=== PATIENT | female | born 1955 | race Caucasian/White ===

== ENCOUNTER 2016-09-11 15:19 | Emergency (ER) | payer MEDICAID, OTHER ==
[~2016-09-11] VITALS: Ht 157.5 cm; Wt 68.0 kg
[~2016-09-11 15:19] MED LIST: ALBU0.0912 IH; ALBU0.0939 IH; LOVA40TA PO; METO25TA PO; SPIR50TA PO
[2016-09-11 15:27] VITALS: BP 154/98
[2016-09-11] MEDS ORDERED: ALBUTEROL 0.083% 2.5 MG/3 ML NEBU INH ONE ×2 (15:35→16:30)
[2016-09-11] MEDS ORDERED: IPRATROPIUM 0.02% 0.5 MG/2.5 ML NEBU INH ONE ×2 (15:35→16:30)
--- NOTE | 2016-09-11 16:23 | NUR ---
PATIENT TO ER BED 6.
--- NOTE | 2016-09-11 16:24 | NUR ---
Patient being evaluated by physician at bedside.
--- NOTE | 2016-09-11 16:43 | NUR ---
61/F TO ED WITH C/O SOB X3 DAYS WITH COUGH. PAIN 6/10 IN CHEST S/P COUGHING. LUNGS CLEAR BILAT. HR EVEN AND REGULAR. AAOX4. VSS. NO SIGNS OF DISTRESS.
[2016-09-11 16:59] LABS: ANION GAP 13.7 (8-16); CALCIUM 8.7 mg/dL (8.5-10.1); CARBON DIOXIDE 25.7 mmol/L (21-32); POTASSIUM 3.4 mmol/L (3.5-5.1)
[2016-09-11] MEDS ORDERED: POTASSIUM CHLORIDE 10 MEQ TABER PO ONE (17:05)
[2016-09-11 17:53] VITALS: BP 149/91
--- NOTE | 2016-09-11 17:53 | NUR ---
Patient discharged with v/s stable. Written and verbal after care instructions given and explained. Patient alert, oriented and verbalized understanding of instructions. Ambulatory with steady gait. All questions addressed prior to discharge. ID band removed. Patient advised to follow up with PMD. Rx of ADVAIR AND ALBUTEROL given. Patient educated on indication of medication including possible reaction and side effects. Opportunity to ask questions provided and answered.
== END 2016-09-11 17:53 | disposition home or self-care (01) ==
LOC: MED 15:19
DX: J45.901 Unspecified asthma with (acute) exacerbation (principal); I10 Essential (primary) hypertension; J44.9 Chronic obstructive pulmonary disease, unspecified; E11.9 Type 2 diabetes mellitus without complications; K21.9 Gastro-esophageal reflux disease without esophagitis; F17.200 Nicotine dependence, unspecified, uncomplicated; Z71.6 Tobacco abuse counseling
CPT/HCPCS: 36415; 71010; 80048; 94640; 99285; J7613; J7644

== ENCOUNTER 2017-03-02 13:56 | Emergency (ER) | payer OTHER ==
[~2017-03-02] VITALS: Ht 157.5 cm; Wt 68.0 kg
[2017-03-02 14:15] VITALS: BP 118/83
[2017-03-02] MEDS ORDERED: ALBUTEROL SULFATE/IPRATROPIU 3 ML SOL IH ONE ×2 (14:20→15:45)
--- NOTE | 2017-03-02 14:50 | NUR ---
Patient ambulated to bed 5. RN evaluating patient at bedside.
--- NOTE | 2017-03-02 15:00 | NUR ---
PATIENT PRESENTS TO ED WITH C/O SOB X 4 DAYS WITH BACK PAIN AND CP 7/10 HX; ASTHMA, COPD, HTN RX; ALBUTROL, ATROVENT, QVAR, METOPROLOL 50MG, SPIRONOLACTONE 25MG; DENIES N/V/D; SKIN IS PINK/WARM/DRY; AAOX4 WITH EVEN AND STEADY GAIT; LUNGS CLEAR BL; HR EVEN AND REGULAR; PT DENIES ANY FEVER, CP, SOB, OR COUGH AT THIS TIME; PATIENT STATES PAIN OF 7/10 AT THIS TIME; VSS; PATIENT POSITIONED FOR COMFORT; HOB ELEVATED; BEDRAILS UP X2; BED DOWN. ER MD MADE AWARE OF PT STATUS.
[2017-03-02] MEDS ORDERED: predniSONE 20 MG TAB PO ONE (16:00)
[2017-03-02] MEDS ORDERED: ALBUTEROL 0.083% 2.5 MG/3 ML NEBU INH ONE (16:00)
--- NOTE | 2017-03-02 17:06 | NUR ---
AAO PT NO C/O ACUTE DISTRESS, BREATHING BETTER PER PT, RECIEVED MN TX X3, DENISE, WILL CONTINUE TO MONITOR
[2017-03-02 17:29] VITALS: BP 120/78
--- NOTE | 2017-03-02 17:29 | NUR ---
Patient discharged with v/s stable. Written and verbal after care instructions given and explained. Patient alert, oriented and verbalized understanding of instructions. Ambulatory with steady gait. All questions addressed prior to discharge. ID band removed. Patient advised to follow up with PMD. Rx of ATIVAN, NORCO, MEDROL DOSEPAK given. Patient educated on indication of medication including possible reaction and side effects. Opportunity to ask questions provided and answered.
== END 2017-03-02 17:29 | disposition home or self-care (01) ==
LOC: MED 13:56
DX: J44.1 Chronic obstructive pulmonary disease with (acute) exacerbation (principal); M54.5 Low back pain; F41.9 Anxiety disorder, unspecified; E11.9 Type 2 diabetes mellitus without complications; K21.9 Gastro-esophageal reflux disease without esophagitis; I10 Essential (primary) hypertension
CPT/HCPCS: 94640; 99285; J7512; J7613; J7620

== ENCOUNTER 2017-03-04 06:40 | Inpatient (IN) | payer OTHER ==
[~2017-03-04] VITALS: Ht 157.5 cm; Wt 68.1 kg
[2017-03-04 06:50] VITALS: BP 145/98
--- NOTE | 2017-03-04 06:55 | NUR ---
TO ER BED 7
--- NOTE | 2017-03-04 07:00 | NUR ---
61 Y/O F W/C/O DOUBLE VISION X THIS MORNING AND WHEEZES X LAST THRUSDAY. O2 SAT 94 % RA, BILATERAL WHEEZES AND LABORED BREATHING NOTED. ER MD CALLED AT BEDSIDE.
[2017-03-04] MEDS ORDERED: MAG SULF 2000 MG/WATER PREMIX 50 ML IV ONE (07:05)
[2017-03-04] MEDS ORDERED: ALBUTEROL SULFATE/IPRATROPIU 3 ML SOL IH ONE ×2 (07:05→08:00)
[2017-03-04] MEDS ORDERED: NACL 0.9% 1,000 ML IV ONE (07:05)
[2017-03-04] MEDS ORDERED: methylPREDNISolone SS 125 MG in WATER STERILE 2 ML IV ONE (07:05)
--- NOTE | 2017-03-04 07:15 | NUR ---
Pt report given to ENRIQUE MCKEON. Transfer of care at this time.
[2017-03-04 07:21] LABS: BASOPHILS # (AUTO) 0.1 K/uL (0.00-0.22); BASOPHILS % (AUTO) 1.1 % (0.0-2.0); EOSINOPHILS # (AUTO) 0.2 K/uL (0-0.4); EOSINOPHILS % (AUTO) 1.3 % (0.0-4.0); HEMOGLOBIN 14.6 g/dL (12.0-16.0); LYMPHOCYTES # (AUTO) 1.1 K/uL (2.5-16.5); LYMPHOCYTES % (AUTO) 8.5 % (20.5-51.1); MEAN CORPUSCULAR HEMOGLOBIN 30 pg (27-31); MEAN CORPUSCULAR HGB CONC 34 g/dL (33-37); MEAN CORPUSCULAR VOLUME 89 fL (80-94); MONOCYTES # (AUTO) 0.7 K/uL (0.8-1.0); MONOCYTES % (AUTO) 5.3 % (1.7-9.3); NEUTROPHILS # (AUTO) 10.3 K/uL (1.8-7.7); NEUTROPHILS % (AUTO) 83.8 % (42.2-75.2); PLATELET COUNT (AUTO) 248 K/uL (140-450); RED BLOOD CELL COUNT(AUTO) 4.85 MIL/uL (4.20-5.40); RED CELL DISTRIBUTION WIDTH 13.9 % (11.6-13.7); WHITE BLOOD COUNT (AUTO) 12.4 K/uL (4.8-10.8)
[2017-03-04 07:26] LABS: ANION GAP 17.5 (8-16); CARBON DIOXIDE 21.6 mmol/L (21-32); CREATININE 0.9 mg/dL (0.6-1.3); POTASSIUM 4.1 mmol/L (3.5-5.1)
[2017-03-04 07:29] LABS: PROTHROMBIN TIME 10.4 secs (10.8-13.4)
--- NOTE | 2017-03-04 07:33 | NUR ---
RT AT BEDSIDE.
[2017-03-04 07:39] LABS: ALBUMIN 4.1 g/dL (3.4-5.0); TOTAL BILIRUBIN 0.4 mg/dL (0.0-1.0)
--- NOTE | 2017-03-04 07:48 | NUR ---
PT RESTING ON BED;VERBALIZES SLIGHT RELIEF FROM SOB;NO ACCESSORY MUSCLES USE IN BREATHING ;NO FLARING OF ALANASI.
--- NOTE | 2017-03-04 07:55 | NUR ---
DR BRUNSON AT BEDSIDE.
--- NOTE | 2017-03-04 08:41 | NUR ---
ADMITTING DR. IBARRA AT BEDSIDE.
--- NOTE | 2017-03-04 08:48 | NUR ---
Patient will be admitted to care of DR IBARRA. Admited to TELE. Will go to room 107 B. Belongings list completed. Report to JONATHAN NUNEZ.
--- NOTE | 2017-03-04 08:50 | NUR ---
RECEIVED REPORT FROM ED NURSE
--- NOTE | 2017-03-04 09:05 | NUR ---
PATIENT ARRIVED TO [facility] VIA WHEELCHAIR. PT IS STABLE AT THIS TIME. ALERT AND ORIENTED X4, WHEEZING UPON AUSCULTATION, NO SIGNS AND SYMPTOMS OF ACUTE RESPIRATORY DISTRESS AT THIS TIME. BOWEL SOUNDS ACTIVE IN ALL 4 QUADRANTS. SKIN IS INTACT, IV IN LEFT WRIST 22G, C/D/I, NO SIGNS OF INFILTRATION. SALINE LOCK AT THIS TIME. PT DENIES ANY PAIN. PATIENT ABLE TO AMBULATE. ORIENTED PATIENT TO ROOM, CALL LIGHT WITHIN REACH, BED LOCKED AND IN LOWEST POSITION, BEDRAILS UP X2.
[2017-03-04 09:15] VITALS: BP 140/78
[2017-03-04] MEDS ORDERED: SPIRONOLACTONE 25 MG TAB PO SCH (09:24)
[2017-03-04 09:35] LABS: CREATINE KINASE MB 6.6 ng/mL (0-3.6)
[2017-03-04 09:56] LABS: MAGNESIUM 2.2 mg/dL (1.8-2.4); PHOSPHORUS 3.5 mg/dL (2.5-4.9)
[2017-03-04 12:00] VITALS: BP 114/78
--- NOTE | 2017-03-04 12:00 | NUR ---
PAGED DR. IBARRA REGARDING ORDER FOR A DIET . AWAITING FOR CALL BACK.
--- NOTE | 2017-03-04 12:11 | NUR ---
PT REFUSED ALDACTONE PO, STATED SHE ALREADY TOOK HER DAILY DOSE OF THIS MEDICINE TODAY AT HOME.
[2017-03-04] MEDS: AZITHROMYCIN 500 MG in DEXTROSE 5% 250 ML IV SCH (12:12)
[2017-03-04] MEDS ORDERED: PNEUMOCOCCAL VACCINE 23 MCG/0.5 ML VIAL IMVAC SCH (15:00)
--- NOTE | 2017-03-04 15:50 | NUR ---
PAGED DR IBARRA REGARDING DIET ORDERS, AND VTE PROPHYLAXIS.
[2017-03-04 16:00] VITALS: BP 121/84
--- NOTE | 2017-03-04 16:30 | NUR ---
PAGED DR IBARRA REGARDING PT DIET, VTE, AND BREATHING TREATMENT ORDERS.
--- NOTE | 2017-03-04 17:00 | NUR ---
PAGED DR. IBARRA AGAIN FOR ORDERS. (DIET, BREATHING TREATMENTS). AWAITING FOR CALL BACK.
--- NOTE | 2017-03-04 17:01 | NUR ---
SPOKE WITH DR IBARRA REGARDING PT, HE ORDERED LOW SODIUM DIET, LOVENOX, AND A BREATHING TREATMENT.
[2017-03-04] MEDS ORDERED: ALBUTEROL 0.083% 2.5 MG/3 ML NEBU INH STA (17:26)
[2017-03-04] MEDS: BUDESONIDE 0.25 MG/2 ML NEBU INH SCH (17:54)
[2017-03-04] MEDS: METOPROLOL 25 MG TAB PO SCH (18:15)
--- NOTE | 2017-03-04 18:17 | NUR ---
PT ASKED FOR A SLEEPING PILL FOR TONIGHT. DR. STACEY NUÑEZ, DR. JON ANGIOGRAPHER. AWAITING FOR CALL BACK.
[2017-03-04] MEDS ORDERED: ZOLPIDEM 10 MG TAB PO PRN (18:20)
--- NOTE | 2017-03-04 19:01 | NUR ---
SPOKE WITH DR. JON OVER THE PHONE REGARDING PT'S INQUIRY ON HER PREDNISONE IF SHE NEEDS TO CONTINUE IT HERE IN THE HOSPITAL. DR. JON STATED "NO". WILL LET PT KNOW.
--- NOTE | 2017-03-04 19:15 | NUR ---
ENDORSED TO GAME SHOW HOST RN FOR CONTINUITY OF CARE.
[2017-03-04] MEDS ORDERED: ALBUTEROL 0.083% 2.5 MG/3 ML NEBU INH SCH (19:30)
--- NOTE | 2017-03-04 19:30 | NUR ---
RECEIVED REPORT FROM AM NURSE. PT FAMILY AT BEDSIDE. PT RESTING IN BED, AOX4, AMBULATES INDEPENDENTLY. PT ON O2 2L NC, SPO2 96%, RR 20 UNLABORED. PT REPORTS FEELING SHORTNESS OF BREATH. PT HAS RECEIVED BREATHING TREATMENT 2HOURS AGO. WILL NOTIFY MD. PT C/O PAIN. SEE PAIN ASSESSMENT. WILL ADMINISTER PAIN MED ORDERED. PT DENIES CHEST PAIN. EAP COUNSELOR IN PLACE. IV ACCESS ASYMPTOMATIC, PATENT AND INTACT. IVF INFUSING WELL. DISCUSSED AND REVIEWED PLAN OF CARE WITH PT. PT VERBALIZED UNDERSTANDING. ALL NEEDS MET. SAFETY MEASURES ENSURED. CALL LIGHT WITHIN REACH. WILL CONTINUE TO MONITOR.
[2017-03-04 20:00] VITALS: BP 123/82
--- NOTE | 2017-03-04 20:04 | NUR ---
SPOKE WITH ENRIQUE MIMS TO GET A Q6PRN ALBUTEROL ORDER SINCE PATIENT IS AN ASTHMATIC
[2017-03-04] MEDS: LORazepam 1 MG TAB PO PRN (20:14)
[2017-03-04] MEDS: HYDROcodone/APAP 10/325 MG 1 TAB TAB PO PRN (20:14)
--- NOTE | 2017-03-04 20:27 | NUR ---
CALLED DR JON, LINE SERVICER FOR DR IBARRA, MADE AWARE THAT PT REPORTS FEELING SHORT OF BREATH, SPO2 96% AT 2L O2 NC, RR 20, AND THAT RT RECOMMENDS THE PT BEING ON ALBUTEROL INH Q6H, INSTEAD OF BID AND HAVING A ALBUTEROL INH PRN FOR SHORTNESS OF BREATH. ORDERS RECEIVED FOR ALBUTEROL 2.5MG INH Q6H AND ALBUTEROL 2.5MG INH Q6H PRN FOR SHORTNESS OF BREATH. PT REFUSED LIPITOR PO DESPITE EDUCATION. PT C/O PAIN. SEE PAIN ASSESSMENT. ADMINISTERED NORCO PO PRN ORDERED. PT C/O ANXIETY, ADMINISTERED ATIVAN PO PRN ORDERED. PT AMBULATORY, ABLE TO AMBULATE WITH STEADY GAIT TO RESTROOM. PT BACK IN BED, O2 2L NC ENSURED. ALL NEEDS MET. SAFETY MEASURES ENSURED. CALL LIGHT WITHIN REACH. WILL CONTINUE TO MONITOR.
[2017-03-04] MEDS: ALBUTEROL 0.083% 2.5 MG/3 ML NEBU INH PRN (20:56)
[2017-03-04] MEDS ORDERED: ATORVASTATIN 20 MG TAB PO SCH (21:00)
--- NOTE | 2017-03-04 23:56 | NUR ---
PT SLEEPING COMFORTABLY. SPO2 96% AT O2 2L NC, RR 20 UNLABORED. NO S/S OF ACUTE DISTRESS. ALL NEEDS MET. SAFETY MEASURES ENSURED. CALL LIGHT WITHIN REACH. WILL CONTINUE TO MONITOR.
[2017-03-04] MEDS: ALBUTEROL 0.083% 2.5 MG/3 ML NEBU INH SCH (23:57)
[2017-03-05] VITALS: BP 106/67
[2017-03-05 04:00] VITALS: BP 111/74
--- NOTE | 2017-03-05 04:00 | NUR ---
PT C/O FEELING SOB. SPO2 99% AT O2 2L NC, RR 20 UNLABORED. WILL NOTIFY RT.
[2017-03-05] MEDS: ALBUTEROL 0.083% 2.5 MG/3 ML NEBU INH PRN (04:42)
[2017-03-05] MEDS: LORazepam 1 MG TAB PO PRN (04:56)
[2017-03-05] MEDS: HYDROcodone/APAP 10/325 MG 1 TAB TAB PO PRN ×2 (04:57→11:00)
--- NOTE | 2017-03-05 04:58 | NUR ---
PT C/O PAIN. SEE PAIN ASSESSMENT. ADMINISTERED NORCO PO PRN ORDERED WITH EDUCATION. PT C/O ANXIETY, ADMINISTERED ATIVAN PO PRN ORDERED WITH EDUCATION. ALL NEEDS MET. SAFETY MEASURES ENSURED. CALL LIGHT WITHIN REACH. WILL CONTINUE TO MONITOR.
[2017-03-05 06:21] LABS: BASOPHILS # (AUTO) 0.1 K/uL (0.00-0.22); BASOPHILS % (AUTO) 1.4 % (0.0-2.0); EOSINOPHILS # (AUTO) 0.1 K/uL (0-0.4); EOSINOPHILS % (AUTO) 0.7 % (0.0-4.0); HEMATOCRIT 41.9 % (36-48); HEMOGLOBIN 13.7 g/dL (12.0-16.0); LYMPHOCYTES # (AUTO) 1.7 K/uL (2.5-16.5); LYMPHOCYTES % (AUTO) 15.6 % (20.5-51.1); MEAN CORPUSCULAR HEMOGLOBIN 30 pg (27-31); MEAN CORPUSCULAR HGB CONC 33 g/dL (33-37); MEAN CORPUSCULAR VOLUME 90 fL (80-94); MONOCYTES # (AUTO) 0.6 K/uL (0.8-1.0); NEUTROPHILS # (AUTO) 8.2 K/uL (1.8-7.7); NEUTROPHILS % (AUTO) 76.3 % (42.2-75.2); PLATELET COUNT (AUTO) 229 K/uL (140-450); RED BLOOD CELL COUNT(AUTO) 4.64 MIL/uL (4.20-5.40); RED CELL DISTRIBUTION WIDTH 14.3 % (11.6-13.7); WHITE BLOOD COUNT (AUTO) 10.7 K/uL (4.8-10.8)
[2017-03-05] MEDS: ALBUTEROL 0.083% 2.5 MG/3 ML NEBU INH SCH ×2 (07:08→12:50)
[2017-03-05] MEDS: BUDESONIDE 0.25 MG/2 ML NEBU INH SCH (07:08)
--- NOTE | 2017-03-05 07:08 | NUR ---
AWAKE AND ALERT RESPONSIVE TO APPEALS ANALYST VERBAL COMMANDS OFF SUPPLEMENTAL OXYGEN AT THIS TIME PATIENT C/O NASAL DRYNESS POST HHN THERAPY PLACED PATIENT BACK ON SUPPLEMENTAL OXYGEN AT 2 LPM VIA NC ADDED HUMIDIFIER
--- NOTE | 2017-03-05 07:15 | NUR ---
ENDORSED PLAN OF CARE TO AM NURSE. CONDITION STABLE.
--- NOTE | 2017-03-05 07:20 | NUR ---
RECEIVED REPORT FROM HEEL SANDER NURSE, PT IS SITTING IN BED RECEIVING BREATHING TX AT THIS TIME, PT IS AMBULATORY, IV IS ON THE LT WRIST, PATENT, INTACT, FLUSHING WELL, SKIN IS INTACT, NO S/S OF RESPIRATORY DISTRESS OR DISCOMFORT NOTED, DISCUSSED PLAN OF CARE WITH PT, PT VERBALIZED UNDERSTANDING, SAFETY/FALL PRECAUTIONS ARE IN PLACE, CALL LIGHT WITHIN REACH, WILL CONTINUE TO MONITOR.
[2017-03-05 08:00] VITALS: BP 121/75
[2017-03-05] MEDS ORDERED: FUROSEMIDE 40 MG/4 ML VIAL IVP SCH (08:30)
[2017-03-05] MEDS ORDERED: methylPREDNISolone SS 40 MG/ML VIAL IVP SCH (08:30)
[2017-03-05] MEDS ORDERED: AZIT500T4 PO (08:31)
[2017-03-05] MEDS ORDERED: PRED20TA6 PO (08:31)
--- NOTE | 2017-03-05 08:37 | NUR ---
PATIENT HAS BEEN SCREENED AND CATEGORIZED MODERATE NUTRITION RISK. PATIENT WILL BE SEEN WITHIN 3-5 DAYS OF ADMISSION. 03/06/17-03/08/[address]
[2017-03-05] MEDS ORDERED: ATRMDI IH (08:39)
[2017-03-05] MEDS: METOPROLOL 25 MG TAB PO SCH (08:40)
--- NOTE | 2017-03-05 08:41 | NUR ---
PATIENT'S DUE MEDICATIONS GIVEN, PT TOLERATED WELL, CALL LIGHT IS WITHIN REACH, WILL CONTINUE TO MONITOR.
[2017-03-05] MEDS ORDERED: SPIRONOLACTONE 25 MG TAB PO SCH (09:00)
[2017-03-05] MEDS ORDERED: ENOXAPARIN 30 MG/0.3 ML SYR SUBQ SCH (09:00)
[2017-03-05] MEDS: AZITHROMYCIN 500 MG in DEXTROSE 5% 250 ML IV SCH (11:01)
--- NOTE | 2017-03-05 11:01 | NUR ---
CM NOTE INITIAL REVIEW FAXED TO [facility] [phone] COVERING FOR TODAY IS NEREIDA MEDEROS PH# [phone]
--- NOTE | 2017-03-05 11:16 | NUR ---
PATIENT'S IV ON THE LEFT WRIST LEAKING, PATIENT REFUSED RE INSERTION OF NEW IV, I EXPLAINED TO PATIENT REASON'S WHY SHE NEEDED A NEW IV, PT STILL REFUSED RE INSERTION.
[2017-03-05 12:00] VITALS: BP 108/70
--- NOTE | 2017-03-05 12:10 | NUR ---
AWAKE AND ALERT NO PULMONARY DISTRESS NOTED PATIENT WITH LUNCH TRAY AT THIS TIME BRICK OFFBEARER TO ATTEMPT HHN THERAPY AT A LATER TIME
--- NOTE | 2017-03-05 12:50 | NUR ---
OFF SUPPLEMENTAL OXYGEN POST AMBULATION TO BATHROOM POST HHN THERAPY PLACED BACK ON HUMIDIFIED SUPPLEMENTAL OXYGEN AT 2 LPM VIA NC
--- NOTE | 2017-03-05 13:15 | NUR ---
PAGED DR. IBARRA TO LET HIM KNOW PATIENT HAD STATED SHE WAS READY TO GO HOME NOW.
--- NOTE | 2017-03-05 13:30 | NUR ---
PER DR. IBARRA PATIENT IS OKAY TO BE DISCHARGED HOME AT THIS TIME.
--- NOTE | 2017-03-05 13:50 | NUR ---
DISCHARGE INSTRUCTIONS GIVEN, ID WRIST BAND REMOVED. PT STABLE UPON DISCHARGE.
== END 2017-03-05 13:50 | disposition home or self-care (01) | DRG 140 ==
LOC: MED 06:40 → MTU 08:58
PROVIDERS: ADMIT Hospitalist; ATTEND Hospitalist
DX: J44.0 Chronic obstructive pulmonary disease with (acute) lower respiratory infection (principal); J18.9 Pneumonia, unspecified organism; J45.901 Unspecified asthma with (acute) exacerbation; I10 Essential (primary) hypertension; D72.829 Elevated white blood cell count, unspecified; F17.210 Nicotine dependence, cigarettes, uncomplicated; J44.9 Chronic obstructive pulmonary disease, unspecified; Z91.018 Allergy to other foods; Z91.013 Allergy to seafood; Z79.899 Other long term (current) drug therapy
CPT/HCPCS: 36415; 71010; 80053; 82550; 82553; 83605; 83735; 84100; 84484; 85025; 85610; 85730; 87040; 87081; 87086; 90732; 93005; 94640; 96365; 96366; 96375; 99285; J0456; J1650; J1940; J2920; J2930; J3475; J7030; J7060; J7613; J7620; J7626; Q0092

== ENCOUNTER 2017-03-07 12:17 | Emergency (ER) | payer OTHER ==
[~2017-03-07] VITALS: Ht 154.9 cm; Wt 66.8 kg
[~2017-03-07 12:17] MED LIST changes: +ATRMDI IH; +AZIT500T4 PO; +PRED20TA6 PO
[2017-03-07 12:30] VITALS: BP 131/93
--- NOTE | 2017-03-07 12:42 | NUR ---
AMBULATED TO ER BED 6
--- NOTE | 2017-03-07 12:45 | NUR ---
61/F PRESENT TO ER C/O ASTHMA EXACERBATION, WHEEZING. PT STATES SHE WAS SEEN IN OUR ER 03/02 AND 03/04/17 SAME COMPLAINT. DENIES PAIN AT THIS TIME. AAOx4, PERRLA. PT STATES SHE HAS HX--ASTHMA, COPD, HTN. ERMD NOTIFIED OF PATIENT STATUS.
--- NOTE | 2017-03-07 12:47 | NUR ---
Patient being evaluated by physician at bedside.
[2017-03-07] MEDS ORDERED: MAG SULF 2000 MG/WATER PREMIX 50 ML IV ONE (12:50)
[2017-03-07] MEDS ORDERED: ALBUTEROL SULFATE/IPRATROPIU 3 ML SOL IH ONE ×4 (12:50→15:30)
[2017-03-07] MEDS ORDERED: methylPREDNISolone SS 125 MG/2 ML VIAL IVP ONE (12:50)
--- NOTE | 2017-03-07 12:50 | NUR ---
RESPIRATORY AT BEDSIDE.
--- NOTE | 2017-03-07 13:20 | NUR ---
PATIENT AMBULATED TO RESTROOM TO VOID.
[2017-03-07] MEDS ORDERED: cefTRIAXone 1,000 MG VIAL ONE (14:08)
--- NOTE | 2017-03-07 14:20 | NUR ---
PT RESTING. PATIENT STATES PAIN OF 0/10 AT THIS TIME; VSS; PATIENT POSITIONED FOR COMFORT; HOB ELEVATED; BEDRAILS UP X2; BED DOWN. ER MD MADE AWARE OF PT STATUS.
--- NOTE | 2017-03-07 15:18 | NUR ---
PT RESTING. FAMILY AT BEDSIDE. PATIENT STATES PAIN OF 0/10 AT THIS TIME; VSS; PATIENT POSITIONED FOR COMFORT; HOB ELEVATED; BEDRAILS UP X2; BED DOWN. ER MD MADE AWARE OF PT STATUS.
--- NOTE | 2017-03-07 15:35 | NUR ---
RESPIRATORY AT BEDSIDE.
--- NOTE | 2017-03-07 16:02 | NUR ---
Patient discharged with v/s stable. Written and verbal after care instructions given and explained. Patient alert, oriented and verbalized understanding of instructions. Ambulatory with steady gait. All questions addressed prior to discharge. ID band removed. Patient advised to follow up with PMD. Rx of KEFLEX 500MG CAPS, MEDROL DOSE COURTNEY 4MG AND VENTOLIN HFA 90MCG/ACTUATION given. Patient educated on indication of medication including possible reaction and side effects. Opportunity to ask questions provided and answered.
[2017-03-07 16:03] VITALS: BP 138/92
== END 2017-03-07 16:03 | disposition home or self-care (01) ==
LOC: MED 12:17
DX: J45.901 Unspecified asthma with (acute) exacerbation (principal); I10 Essential (primary) hypertension; Z79.899 Other long term (current) drug therapy
CPT/HCPCS: 36600; 71010; 82803; 93005; 94640; 96365; 96366; 96368; 96375; 99285; J0696; J2930; J3475; J7060; J7620; Q0092

== ENCOUNTER 2017-03-09 11:20 | Inpatient (IN) | payer OTHER ==
[~2017-03-09] VITALS: Ht 157.5 cm; Wt 67.6 kg
[2017-03-09 11:28] VITALS: BP 149/99
--- NOTE | 2017-03-09 11:28 | NUR ---
Patient ambulated to bed 07.
--- NOTE | 2017-03-09 11:34 | NUR ---
Dr. Medrano evaluating patient at bedside.
--- NOTE | 2017-03-09 11:35 | NUR ---
61 F BIB SELF W/C/O SOB/WHEEZING; PT STATES SHE WAS HOSPITALIZED 03/04/17 FOR SAME S/SX, BUT SHE HAS NOT GOTTEN ANY BETTER; SOB STARTED APPROX 1 WK AGO AND PROGRESSIVELY GETTING WORSE; PT SPEAKING IN SHORT PHRASES; RR ARE TACHYPENIC AND LABORED; PT'S PULSE OX=95% ON RA; DENIES N/V/D; SKIN IS PINK/WARM/DRY; AAOX4 WITH EVEN AND STEADY GAIT; LUNGS WHEEZING BL; STATES PAIN OF "SHARP" 7/10 "RIB PAIN" THAT IS NON RADIATING AT THIS TIME; VSS; PATIENT POSITIONED FOR COMFORT; HOB ELEVATED; BEDRAILS UP X2; BED DOWN. ER MD MADE AWARE OF PT STATUS.
[2017-03-09] MEDS ORDERED: MAG SULF 2000 MG/WATER PREMIX 50 ML IV ONE (11:40)
[2017-03-09] MEDS ORDERED: ALBUTEROL SULFATE/IPRATROPIU 3 ML SOL IH ONE (11:40)
--- NOTE | 2017-03-09 11:50 | NUR ---
Respiratory Therapist at bedside for respiratory intervention.
--- NOTE | 2017-03-09 11:54 | NUR ---
CONTINOUS NEB ORDERED BY . PROCEDURE EXPLAINED TO PT, PT STATES UNDERSTANDING.
--- NOTE | 2017-03-09 12:07 | NUR ---
XRAY at bedside.
[2017-03-09 12:16] LABS: BASOPHILS # (AUTO) 0.2 K/uL (0.00-0.22); BASOPHILS % (AUTO) 1.3 % (0.0-2.0); EOSINOPHILS # (AUTO) 0.2 K/uL (0-0.4); EOSINOPHILS % (AUTO) 1.2 % (0.0-4.0); HEMATOCRIT 48.2 % (36-48); HEMOGLOBIN 15.8 g/dL (12.0-16.0); LYMPHOCYTES % (AUTO) 5.5 % (20.5-51.1); MEAN CORPUSCULAR HEMOGLOBIN 29 pg (27-31); MEAN CORPUSCULAR HGB CONC 33 g/dL (33-37); MEAN CORPUSCULAR VOLUME 89 fL (80-94); MONOCYTES # (AUTO) 1.5 K/uL (0.8-1.0); MONOCYTES % (AUTO) 8.5 % (1.7-9.3); NEUTROPHILS # (AUTO) 14.7 K/uL (1.8-7.7); NEUTROPHILS % (AUTO) 83.5 % (42.2-75.2); PLATELET COUNT (AUTO) 338 K/uL (140-450); RED BLOOD CELL COUNT(AUTO) 5.44 MIL/uL (4.20-5.40)
[2017-03-09 12:23] LABS: WHITE BLOOD COUNT (AUTO) 17.6 K/uL (4.8-10.8)
[2017-03-09] MEDS ORDERED: VANCOMYCIN 1GM/DEXT 5% PREMIX 200 ML IV ONE (12:30)
[2017-03-09] MEDS ORDERED: VANCOMYCIN PER PHARMACY MC PRN (12:30)
[2017-03-09] MEDS ORDERED: PIPERACILLIN/TAZOBACTAM 4.5 GM in DEXTROSE 5% 100 ML IV ONE (12:30)
[2017-03-09 12:31] LABS: ANION GAP 13.1 (8-16); CARBON DIOXIDE 24.2 mmol/L (21-32); CREATININE 1.1 mg/dL (0.6-1.3); POTASSIUM 4.3 mmol/L (3.5-5.1)
[2017-03-09 12:33] LABS: ALBUMIN 3.9 g/dL (3.4-5.0); TOTAL BILIRUBIN 0.4 mg/dL (0.0-1.0)
[2017-03-09] MEDS ORDERED: NACL 0.9% 500 ML IV ONE (12:35)
[2017-03-09] MEDS ORDERED: PIPERACILLIN/TAZOBACTAM 2.25 GM VIAL IV ONE (12:51)
[2017-03-09] MEDS ORDERED: KETOROLAC 30 MG/ML VIAL IVP ONE (13:05)
[2017-03-09] MEDS: IPRATROPIUM 0.02% 0.5 MG/2.5 ML NEBU INH SCH ×2 (13:41→19:12)
--- NOTE | 2017-03-09 14:03 | NUR ---
Patient will be admitted to care of [facility]. Admited to Tele. Will go to room 108A. Belongings list completed. Report to Alexa NUNEZ.
--- NOTE | 2017-03-09 14:20 | NUR ---
RECEIVED PT ON UNIT VIA [employer]ce[employer]UMIKO, PT IS A/OX4, AMBULATORY, IV IS ON THE RT FOREARM, PATENT, INTACT, FLUSHING WELL, SKIN IS INTACT, PT IS ON O2 2L NC, NO S/S OF RESPIRATORY DISTRESS OR DISCOMFORT NOTED, ORIENTED PT TO ROOM, DISCUSSED PLAN OF CARE WITH PT, PT VERBALIZED UNDERSTANDING, SAFETY/FALL PRECAUTIONS ARE IN PLACE, CALL LIGHT IS WITHIN REACH, WILL CONTINUE TO MONITOR.
[2017-03-09 16:00] VITALS: BP 112/72
--- NOTE | 2017-03-09 16:20 | NUR ---
AWAKE AND ALERT RECEIVED ON SUPPLEMENTAL OXYGEN AT 2 LPM VIA NC PATIENT C/O OF NASAL DRYNESS ADDED HUMIDIFIER PATIENT ASSESSMENT DONE SATURATIOR 98% HR 66 RR 20 NO SOB NOTED BREATH SOUNDS DIFFUSED INSP/EXP WHEEZE BILATERAL PATIENT REFUSING HHN PRN THERAPY AT THIS TIME "I'M FINE" PATIENT OPTED FOR SCHEDULED TX AT 1900 CRA OFFICER EDUCATED PATIENT ON HHN PRN THERAPY CALL LIGHT WITHIN REACH
--- NOTE | 2017-03-09 18:29 | NUR ---
PT RESTING IN BED, NO S/S OF RESPIRATORY DISTRESS OR DISCOMFORT NOTED, CALL LIGHT WITHIN REACH.
--- NOTE | 2017-03-09 19:15 | NUR ---
ENDORSED PT TO COMMERCIAL LITIGATION PARALEGAL NURSE FOR CONTINUITY OF CARE, PT STABLE AT THIS TIME.
--- NOTE | 2017-03-09 19:16 | NUR ---
RECEIVED REPORT FROM AM NURSE. PT IS AOX4, ABLE TO MAKE NEEDS KNOWN. NO COMPLAINTS OF PAIN. NO S/S OF DISTRESS. IS ASKING FOR BREATHING TREATMENT, INFORMED RT. WITH AN IV ON THE RIGHT FOREARM, INTACT AND PATENT. SKIN INTACT. WITH AN O2 VIA NC AT 2 L. REORIENTED PT TO THE UNIT, VERBALIZED UNDERSTANDING. WILL CONTINUE TO MONITOR. ALL NEEDS ATTENDED. CALL LIGHT WITHIN REACH. SAFETY CHECKS IN PLACE.
[2017-03-09 20:00] VITALS: BP 111/71
--- NOTE | 2017-03-09 20:00 | NUR ---
PAGED DR. CARLOS, AWAITING CALL BACK
--- NOTE | 2017-03-09 20:05 | NUR ---
RECEIVED CALL BACK FROM DR. CARLOS. ASKED IF THE PT CAN HAVE ANOTHER ORDER FOR A DIFFERENT BREATHING TREATMENT SINCE PT IS ONLY RECEIVING ATROVENT Q6H, ORDERED FOR DUBNEB EVERY 4 HOURS AND PRN ORDERED. NOTED AND CARRIED OUT.
--- NOTE | 2017-03-09 22:30 | NUR ---
MADE ROUNDS. PATIENT ASLEEP. NO S/S OF DISTRESS. WILL CONTINUE TO MONITOR FOR ANY CHANGES.
--- NOTE | 2017-03-09 22:45 | NUR ---
PT COMPLAINED OF SHORTNESS OF BREATH AND WANTED HER BREATHING TREATMENT, CALLED RT.
[2017-03-09] MEDS: ALBUTEROL SULFATE/IPRATROPIU 3 ML SOL IH SCH (23:08)
[2017-03-10] VITALS: BP 111/76
--- NOTE | 2017-03-10 | NUR ---
VITAL SIGNS STABLE. NO S/S OF DISTRESS. NO COMPLAINTS OF PAIN. WILL CONTINUE TO MONITOR. ALL NEEDS ATTENDED. CALL LIGHT WITHIN REACH SAFETY CHECKS IN PLACE.
[2017-03-10] MEDS: IPRATROPIUM 0.02% 0.5 MG/2.5 ML NEBU INH SCH ×3 (01:00→12:39)
--- NOTE | 2017-03-10 02:15 | NUR ---
MADE ROUNDS. PT ASLEEP. NO S/S OF DISTRESS. NO COMPLAINTS OF PAIN. WILL CONTINUE TO MONITOR FOR ANY CHANGES.
[2017-03-10] MEDS: ALBUTEROL SULFATE/IPRATROPIU 3 ML SOL IH SCH ×6 (03:11→22:40)
[2017-03-10 04:00] VITALS: BP 123/77
--- NOTE | 2017-03-10 04:00 | NUR ---
VITALS STABLE. NO S/S OF DISTRESS. NO COMPLAINTS OF PAIN. WILL CONTINUE TO MONITOR FOR ANY CHANGES.
[2017-03-10 06:20] LABS: BASOPHILS # (AUTO) 0.5 K/uL (0.00-0.22); BASOPHILS % (AUTO) 4.7 % (0.0-2.0); EOSINOPHILS # (AUTO) 0.2 K/uL (0-0.4); EOSINOPHILS % (AUTO) 1.7 % (0.0-4.0); HEMATOCRIT 42.1 % (36-48); HEMOGLOBIN 13.9 g/dL (12.0-16.0); LYMPHOCYTES # (AUTO) 2.9 K/uL (2.5-16.5); LYMPHOCYTES % (AUTO) 27.2 % (20.5-51.1); MEAN CORPUSCULAR HEMOGLOBIN 30 pg (27-31); MEAN CORPUSCULAR HGB CONC 33 g/dL (33-37); MEAN CORPUSCULAR VOLUME 89 fL (80-94); MONOCYTES # (AUTO) 0.6 K/uL (0.8-1.0); MONOCYTES % (AUTO) 5.5 % (1.7-9.3); NEUTROPHILS # (AUTO) 6.4 K/uL (1.8-7.7); NEUTROPHILS % (AUTO) 60.9 % (42.2-75.2); PLATELET COUNT (AUTO) 235 K/uL (140-450); RED BLOOD CELL COUNT(AUTO) 4.72 MIL/uL (4.20-5.40); RED CELL DISTRIBUTION WIDTH 14.2 % (11.6-13.7); WHITE BLOOD COUNT (AUTO) 10.6 K/uL (4.8-10.8)
[2017-03-10 06:25] LABS: ANION GAP 10.9 (8-16); CARBON DIOXIDE 26.5 mmol/L (21-32); POTASSIUM 4.4 mmol/L (3.5-5.1)
--- NOTE | 2017-03-10 06:43 | NUR ---
PT COMPLAINED OF SHORTNESS OF BREATH, PAGED RT.
--- NOTE | 2017-03-10 07:10 | NUR ---
ENDORSED TO MORNING SHIFT FOR CONTINUITY OF CARE, IN STABLE CONDITION. RECEIVING BREATHING TREATMENT AT THIS TIME.
--- NOTE | 2017-03-10 07:11 | NUR ---
RECEIVED REPORT FROM PM NURSE FOR CONTINUITY OF CARE. PT AAOX4. RESP EVEN AND UNLABORED. PT ON 2L O2 NC. NO S/S OF DISTRESS OR SOB. RT AT BEDSIDE. DENIES PAIN OR ANY FURTHER NEEDS. SKIN IS INTACT, WARM AND DRY. IV ON RT FA, INTACT, NO SWELLING OR REDNESS NOTED. DISCUSSED PLAN OF CARE WITH PT, VERBALIZED UNDERSTANDING. SAFETY MEASURES IN PLACED. SIDE RAILS UP, BED LOCKED ON LOW POSITION, CALL LIGHT WITHIN REACH. WILL CONTINUE TO MONITOR. Addendum: 03/10/17 at 0820 by Henry Sierra RN DISREGARD NOTE ABOVE. WRONG PT.
--- NOTE | 2017-03-10 07:11 | NUR ---
RECEIVED REPORT FROM PM NURSE FOR CONTINUITY OF CARE. PT AAOX4. RESP EVEN AND UNLABORED. PT ON 2L O2 NC. WHEEZING NOTED ON BILAT LUNGS. RT AT BEDSIDE. NO S/S OF DISTRESS OR SOB. DENIES PAIN OR ANY FURTHER NEEDS. SKIN IS INTACT, WARM AND DRY. IV ON RT FA, INTACT, NO SWELLING OR REDNESS NOTED. DISCUSSED PLAN OF CARE WITH PT, VERBALIZED UNDERSTANDING. SAFETY MEASURES IN PLACED. SIDE RAILS UP, BED LOCKED ON LOW POSITION, CALL LIGHT WITHIN REACH. WILL CONTINUE TO MONITOR.
[2017-03-10 08:00] VITALS: BP 109/74
--- NOTE | 2017-03-10 08:37 | NUR ---
MD MADE AWARE OF PT'S VTE SCORE AND HOME MEDS. MD TO SEE PT.
--- NOTE | 2017-03-10 09:12 | NUR ---
PATIENT HAS BEEN SCREENED AND CATEGORIZED MODERATE NUTRITION RISK. PATIENT WILL BE SEEN WITHIN 3-5 DAYS OF ADMISSION. 03/12/17-03/14/[address]
[2017-03-10] MEDS ORDERED: ACETYLCYSTEINE 10% (100 MG/ML) 100 MG/ML VIAL INH SCH (10:23)
[2017-03-10] MEDS ORDERED: methylPREDNISolone SS 40 MG/ML VIAL IVP SCH (10:25)
[2017-03-10] MEDS ORDERED: MONTELUKAST SODIUM 10 MG TAB PO SCH (10:26)
--- NOTE | 2017-03-10 10:30 | NUR ---
PT SITTING IN BED WATCHING TV. RESP EVEN AND UNLABORED. PT ON 2L O2 NC. NO S/S OF DISTRESS, SOB, OR RESTLESSNESS. PT DENIES PAIN OR DISCOMFORT. SAFETY MEASURES IN PLACED. WILL CONTINUE TO MONITOR.
[2017-03-10] MEDS ORDERED: ENOXAPARIN 30 MG/0.3 ML SYR SUBQ SCH (10:43)
[2017-03-10] MEDS: PIPER/TAZO 3.375GM/D5W PREMIX 50 ML IV SCH ×2 (11:31→17:09)
[2017-03-10 12:00] VITALS: BP 125/75
--- NOTE | 2017-03-10 12:05 | NUR ---
PT C/O PAIN, SHE STATED SHE HAS PAIN "ALL OVER". NOTIFIED MD. AWAITING FOR CALL BACK.
--- NOTE | 2017-03-10 12:24 | NUR ---
SPOKE TO DR IBARRA, T[place]akita TYLENOL 650MG FOR MODERATE PAIN, AND ABG STAT. RT NOTIFIED.
--- NOTE | 2017-03-10 12:37 | NUR ---
PT C/O SOB. RESP EVEN AND UNLABORED. NO S/S OF DISTRESS OR RESTLESSNESS. O2 SAT 95% ON O2 2L NC. RT NOTIFIED. WILL CONTINUE TO MONITOR.
--- NOTE | 2017-03-10 12:38 | NUR ---
RT AT BEDSIDE.
[2017-03-10] MEDS: ALBUTEROL SULFATE/IPRATROPIU 3 ML SOL IH PRN (12:40)
[2017-03-10] MEDS: ACETAMINOPHEN 325 MG TAB PO PRN (12:55)
--- NOTE | 2017-03-10 13:15 | NUR ---
NOTIFIED DR IBARRA REGARDING PT'S ABG RESULT. ATROVENT CANCELED PER DR. IBARRA.
--- NOTE | 2017-03-10 13:57 | NUR ---
MADE ROUNDS. PT RESTING IN BED COMFORTABLY. RESP EVEN AND UNLABORED. NO S/S OF DISTRESS, SOB, OR RESTLESSNESS. DENIES ANY FURTHER NEEDS. SAFETY MEASURES IN PLACED. WILL CONTINUE TO MONITOR.
--- NOTE | 2017-03-10 15:21 | NUR ---
CM NOTE INITIAL REVIEW FAXED TO [facility] [phone], [place] [phone]
[2017-03-10 16:00] VITALS: BP 112/72
--- NOTE | 2017-03-10 16:01 | NUR ---
PT RESTING QUIETLY. NO S/S OF SOB, DISTRESS, OR RESTLESSNESS. DENIES PAIN, DISCOMFORT, OR FURTHER NEEDS AT THIS TIME. SAFETY MEASURES IN PLACED. WILL CONTINUE TO MONITOR.
--- NOTE | 2017-03-10 17:58 | NUR ---
PT RT FA IV INFILTRATED. DC'ED IV, CATH TIP INTACT. NO BLEEDING NOTED. RESTARTED NEW IV ON RT WRIST 20G, IV PATENT, NO SWOLLEN OR REDNESS NOTED.
--- NOTE | 2017-03-10 18:30 | NUR ---
PT IN BED, WATCHING TV. RESP EVEN AND UNLABORED. DENIES SOB, DISCOMFORT, OR ANY FURTHER NEEDS AT THIS TIME. NO S/S OF DISTRESS. SAFETY MEASURES IN PLACED. WILL CONTINUE TO MONITOR.
[2017-03-10] MEDS: ACETYLCYSTEINE 10% (100 MG/ML) 100 MG/ML VIAL INH SCH (18:45)
--- NOTE | 2017-03-10 18:45 | NUR ---
MUCOMYST NOT GIVEN. IT IS NOT AVAILABLE IN PIXES OR PT'S MEDICATION BOX. DUONEB HHN GIVEN
--- NOTE | 2017-03-10 19:27 | NUR ---
ENDORSED CARE TO PM NURSE FOR CONTINUITY OF CARE. PT IS IN STABLE CONDITION.
--- NOTE | 2017-03-10 19:30 | NUR ---
RECEIVED REPORT FROM AM NURSE. PT RESTING IN BED, SEMIFOWLER'S, AOX4, ABLE TO VERBALIZE NEEDS. PT C/O SLIGHT SOB, BUT FEELS STABLE AT THIS TIME. SPO2 94% AT O2 NC 2L, RR 24. PT C/O SLIGHT CHEST AND EPIGASTRIC PAIN, PT DENIES PAIN MEDS AT THIS TIME. BAG BUILDER IN PLACE. IV ACCESS ASYMPTOMATIC, PATENT AND INTACT, SALINE LOCKED. DISCUSSED AND REVIEWED PLAN OF CARE WITH PT. PT VERBALIZE UNDERSTANDING. ALL NEEDS MET. SAFETY MEASURES ENSURED. CALL LIGHT WITHIN REACH. WILL CONTINUE TO MONITOR.
[2017-03-10 20:00] VITALS: BP 116/81
[2017-03-10] MEDS: methylPREDNISolone SS 40 MG/ML VIAL IVP SCH (20:44)
[2017-03-10] MEDS: METOPROLOL 25 MG TAB PO SCH (20:46)
--- NOTE | 2017-03-10 20:46 | NUR ---
PT REFUSED ZOCOR DESPITE EDUCATION, PT STATED "I DON'T TAKE IT AT HOME, MY CHOLESTEROL IS GOOD." ADMINISTERED REMAINING DUE MEDS WITH EDUCATION. PT VERBALIZED UNDERSTANDING, TOLERATED MEDS WELL. ALL NEEDS MET. SAFETY MEASURES ENSURED. CALL LIGHT WITHIN REACH. WILL CONTINUE TO MONITOR.
[2017-03-10] MEDS: SIMVASTATIN 10 MG TAB PO SCH (21:00)
--- NOTE | 2017-03-10 22:41 | NUR ---
PT REFUSED HHN TX. SHE SAID''I FEEL GOOD I DONT NEED IT'' WILL CONTINUE TO MONITOR.
[2017-03-11] VITALS: BP 120/88
[2017-03-11] MEDS: ALBUTEROL SULFATE/IPRATROPIU 3 ML SOL IH PRN (00:12)
--- NOTE | 2017-03-11 00:17 | NUR ---
GOT CALL FROM ENRIQUE MIMS THAT PT FEELS SOB. GAVE PT PRN HHN TX. WILL CONTINUE TO MONITOR.
[2017-03-11] MEDS: PIPER/TAZO 3.375GM/D5W PREMIX 50 ML IV SCH ×5 (00:38→23:54)
--- NOTE | 2017-03-11 00:46 | NUR ---
ADMINISTERED DUE MED WITH EDUCATION. PT VERBALIZED UNDERSTANDING, IVPB INFUSING WELL. NO S/S OF ACUTE DISTRESS. SPO2 94% AT O2 2L NC, RR 22 UNLABORED. PT DENIES SOB AT THIS TIME. ALL NEEDS MET. SAFETY MEASURES ENSURED. CALL LIGHT WITHIN REACH. WILL CONTINUE TO MONITOR.
[2017-03-11] MEDS: ALBUTEROL SULFATE/IPRATROPIU 3 ML SOL IH SCH ×6 (02:51→23:27)
--- NOTE | 2017-03-11 02:51 | NUR ---
HHN TX NOT GIVEN. PT SAID SHE WANTS TO SLEEP. WILL CONTINUE TO MONITOR.
[2017-03-11 04:00] VITALS: BP 122/81
--- NOTE | 2017-03-11 04:01 | NUR ---
PT SLEEPING COMFORTABLY. O2 2L NC ENSURED. NO S/S OF ACUTE DISTRESS. ALL NEEDS MET. SAFETY MEASURES ENSURED. CALL LIGHT WITHIN REACH. WILL CONTINUE TO MONITOR.
[2017-03-11] MEDS: ENOXAPARIN 30 MG/0.3 ML SYR SUBQ SCH (05:49)
--- NOTE | 2017-03-11 05:49 | NUR ---
ADMINISTERED DUE MEDS WITH EDUCATION. PT VERBALIZED UNDERSTANDING, TOLERATED MEDS WELL. IVPB INFUSING WELL. ALL NEEDS MET. SAFETY MEASURES ENSURED. CALL LIGHT WITHIN REACH. WILL CONTINUE TO MONITOR.
[2017-03-11 06:56] LABS: BASOPHILS # (AUTO) 0.1 K/uL (0.00-0.22); BASOPHILS % (AUTO) 1.1 % (0.0-2.0); EOSINOPHILS # (AUTO) 0.2 K/uL (0-0.4); EOSINOPHILS % (AUTO) 1.3 % (0.0-4.0); HEMATOCRIT 44.5 % (36-48); HEMOGLOBIN 14.9 g/dL (12.0-16.0); LYMPHOCYTES # (AUTO) 0.8 K/uL (2.5-16.5); LYMPHOCYTES % (AUTO) 5.9 % (20.5-51.1); MEAN CORPUSCULAR HEMOGLOBIN 30 pg (27-31); MEAN CORPUSCULAR HGB CONC 33 g/dL (33-37); MEAN CORPUSCULAR VOLUME 89 fL (80-94); MONOCYTES # (AUTO) 0.2 K/uL (0.8-1.0); MONOCYTES % (AUTO) 1.7 % (1.7-9.3); NEUTROPHILS # (AUTO) 11.6 K/uL (1.8-7.7); PLATELET COUNT (AUTO) 266 K/uL (140-450); RED BLOOD CELL COUNT(AUTO) 5.03 MIL/uL (4.20-5.40); RED CELL DISTRIBUTION WIDTH 14.1 % (11.6-13.7)
[2017-03-11 07:08] LABS: ALBUMIN 3.5 g/dL (3.4-5.0); ANION GAP 13.8 (8-16); CARBON DIOXIDE 25.4 mmol/L (21-32); CREATININE 0.9 mg/dL (0.6-1.3); POTASSIUM 4.2 mmol/L (3.5-5.1); TOTAL BILIRUBIN 0.6 mg/dL (0.0-1.0)
--- NOTE | 2017-03-11 07:15 | NUR ---
ENDORSED PLAN OF CARE TO AM NURSE. CONDITION STABLE.
--- NOTE | 2017-03-11 07:16 | NUR ---
RECEIVED REPORT FORM PM NURSE FOR CONTINUITY OF CARE. PT AAO. RT AT BEDSIDE. INITIAL ASSESSMENT DONE. RESP EVEN AND UNLABORED. IV ON RT WRIST 20G, INTACT, NO REDNESS OR SWELLING NOTED. SKIN IS WARM AND DRY. PT DENIES SOB, OD DISCOMFORT AT THIS TIME. PLAN OF CARE DISCUSSED WITH PT, VERBALIZED UNDERSTANDING. SAFETY MEASURES IN PLACED. CALL LIGHT WITHIN REACH, BED LOCKED ON LOW POSITION. WILL CONTINUE TO MONITOR.
[2017-03-11] MEDS: ACETYLCYSTEINE 10% (100 MG/ML) 100 MG/ML VIAL INH SCH ×2 (07:30→18:43)
[2017-03-11 07:34] LABS: WHITE BLOOD COUNT (AUTO) 12.9 K/uL (4.8-10.8)
[2017-03-11 08:00] VITALS: BP 126/76
--- NOTE | 2017-03-11 08:03 | NUR ---
PT C/O 01/06 PAIN, STATED PAIN IS "EVERYWHERE". OFFERED TYLENOL PER MD ORDER, PT REFUSED PAIN MEDS. WILL CONTINUE TO MONITOR.
[2017-03-11] MEDS: METOPROLOL 25 MG TAB PO SCH ×2 (09:00→22:00)
[2017-03-11] MEDS: SPIRONOLACTONE 25 MG TAB PO SCH (09:00)
[2017-03-11] MEDS ORDERED: LOVASTATIN 20 MG PO SCH (09:00)
[2017-03-11] MEDS: MONTELUKAST SODIUM 10 MG TAB PO SCH (09:00)
--- NOTE | 2017-03-11 09:00 | NUR ---
PT RESTING QUIETLY. RESP EVEN AND UNLABORED, ON 2L O2 NC. NO SIGNS OF ACUTE DISTRESS. SAFETY MEASURES IN PLACED. WILL CONTINUE TO MONITOR.
[2017-03-11] MEDS: methylPREDNISolone SS 40 MG/ML VIAL IVP SCH ×2 (09:01→21:59)
--- NOTE | 2017-03-11 11:03 | NUR ---
MADE ROUNDS. PT SITTING WATCHING TV. RESP EVEN AND UNLABORED. NO SIGNS OF ACUTE DISTRESS. DENIES ANY FURTHER NEEDS AT THIS TIME. WILL CONTINUE TO MONITOR.
[2017-03-11 12:00] VITALS: BP 122/83
[2017-03-11] MEDS: ACETAMINOPHEN 325 MG TAB PO PRN (12:30)
--- NOTE | 2017-03-11 13:23 | NUR ---
PT RESTING QUIETLY. NO SIGNS OF ACUTE DISTRESS. RESP EVEN AND UNLABORED. SAFETY MEASURES IN PLACED. WILL CONTINUE TO MONITOR.
--- NOTE | 2017-03-11 14:29 | NUR ---
CM NOTE CONCURRENT REVIEW FAXED TO [facility] [phone], [place] [phone]
--- NOTE | 2017-03-11 15:16 | NUR ---
PT SITTING, READING BOOK. RESP EVEN AND UNLABORED. NO SIGNS OF ACUTE DISTRESS. DENIES PAIN OR DISCOMFORT. SAFETY MEASURES IN PLACED. WILL CONTINUE TO MONITOR.
[2017-03-11 16:00] VITALS: BP 120/76
[2017-03-11] MEDS ORDERED: BUDESONIDE 0.5 MG/2 ML NEBU INH SCH (16:15)
--- NOTE | 2017-03-11 17:30 | NUR ---
PT READING BOOK. RESP EVEN AND UNLABORED. NO SIGNS OF ACUTE DISTRESS. DENIES PAIN OR DISCOMFORT. SAFETY MEASURES IN PLACED. WILL CONTINUE TO MONITOR.
--- NOTE | 2017-03-11 19:22 | NUR ---
ENDORSED CARE TO PM NURSE FOR CONTINUITY OF CARE. PT IN STABLE CONDITION.
--- NOTE | 2017-03-11 19:30 | NUR ---
RECEIVED REPORT FROM AM NURSE. PT RESTING IN BED, SEMIFOWLER'S, AOX4, ABLE TO VERBALIZE NEEDS. PT STATED SHE FEELS FINE, DENIES PAIN OR SOB AT THIS TIME, NO S/S OF ACUTE DISTRESS. SPO2 95% AT O2 NC 2L, RR 22 UNLABORED. ENTRY LEVEL ELECTRICAL ENGINEER IN PLACE. IV ACCESS ASYMPTOMATIC, PATENT AND INTACT, SALINE LOCKED. DISCUSSED AND REVIEWED PLAN OF CARE WITH PT. PT VERBALIZE UNDERSTANDING. ALL NEEDS MET. SAFETY MEASURES ENSURED. CALL LIGHT WITHIN REACH. WILL CONTINUE TO MONITOR.
[2017-03-11 20:00] VITALS: BP 124/79
[2017-03-11] MEDS: SIMVASTATIN 10 MG TAB PO SCH (21:00)
--- NOTE | 2017-03-11 21:59 | NUR ---
PT REFUSED ZOCOR DESPITE EDUCATION, PT STATED "I HAVE NO PROBLEMS WITH MY CHOLESTEROL, I DON'T TAKE IT AT HOME." ADMINISTERED REMAINING DUE MEDS WITH EDUCATION. PT VERBALIZED UNDERSTANDING, TOLERATED MEDS WELL. ALL NEEDS MET. SAFETY MEASURES ENSURED. CALL LIGHT WITHIN REACH. WILL CONTINUE TO MONITOR.
[2017-03-11] MEDS: BUDESONIDE 0.5 MG/2 ML NEBU INH SCH (23:29)
--- NOTE | 2017-03-11 23:54 | NUR ---
PT RESTING IN BED, DENIES SOB, NO S/S OF ACUTE DISTRESS. SPO2 94% AT O2 2L NC, RR 20 UNLABORED. ADMINISTERED DUE MED ORDERED. IVPB INFUSING WELL. ALL NEEDS MET. SAFETY MEASURES ENSURED. CALL LIGHT WITHIN REACH. WILL CONTINUE TO MONITOR.
[2017-03-12] VITALS: BP 121/80
[2017-03-12] MEDS: ALBUTEROL SULFATE/IPRATROPIU 3 ML SOL IH SCH ×4 (03:18→15:18)
[2017-03-12 04:00] VITALS: BP 120/81
--- NOTE | 2017-03-12 04:02 | NUR ---
PT SLEEPING COMFORTABLY, SPO2 95% AT O2 2L NC, RR 20 UNLABORED, NO S/S OF ACUTE DISTRESS. ALL NEEDS MET. SAFETY MEASURES ENSURED. CALL LIGHT WITHIN REACH. WILL CONTINUE TO MONITOR.
[2017-03-12] MEDS: PIPER/TAZO 3.375GM/D5W PREMIX 50 ML IV SCH ×2 (05:21→11:08)
[2017-03-12] MEDS: ENOXAPARIN 30 MG/0.3 ML SYR SUBQ SCH (05:23)
--- NOTE | 2017-03-12 05:27 | NUR ---
ADMINISTERED DUE MEDS WITH EDUCATION. PT VERBALIZED UNDERSTANDING, TOLERATED WELL. ALL NEEDS MET. IVPB INFUSING WELL. SAFETY MEASURES ENSURED. CALL LIGHT WITHIN REACH. WILL CONTINUE TO MONITOR.
--- NOTE | 2017-03-12 07:15 | NUR ---
ENDORSED PLAN OF CARE TO AM NURSE. CONDITION STABLE.
--- NOTE | 2017-03-12 07:17 | NUR ---
RECEIVED PATIENT REPORT AT BEDSIDE FROM NIGHT NURSE. PATIENT IS AAOX4 AND SHOWS NO S/S OF ACUTE DISTRESS ON O2 @ 2L NC. PATIENT SKIN IS INTACT. ON TELE MONITOR. IV NOTED ON THE RW SL PATENT, ASYMPTOMATIC, AND INTACT. PATIENT DENIES PAIN. PATIENT WAS EDUCATED ON HER POC FOR TODAY AND VERBALIZED UNDERSTANDING. THE BED IS LOWERED WITH CALL LIGHT WITHIN REACH. PATIENT IS NOW AMB WITH A STEADY GAIT TO USE THE RR. WILL CONTINUE TO MONITOR.
[2017-03-12] MEDS: ACETYLCYSTEINE 10% (100 MG/ML) 100 MG/ML VIAL INH SCH (07:32)
[2017-03-12] MEDS: BUDESONIDE 0.5 MG/2 ML NEBU INH SCH (07:33)
[2017-03-12 07:47] VITALS: BP 123/71
[2017-03-12] MEDS: SPIRONOLACTONE 25 MG TAB PO SCH (08:52)
[2017-03-12] MEDS: METOPROLOL 25 MG TAB PO SCH (08:52)
[2017-03-12] MEDS: MONTELUKAST SODIUM 10 MG TAB PO SCH (08:52)
[2017-03-12] MEDS: methylPREDNISolone SS 40 MG/ML VIAL IVP SCH (08:53)
--- NOTE | 2017-03-12 09:00 | NUR ---
ADMINISTERED SCHEDULED MEDICATIONS. PATIENT TOLERATED ACTIVITY WELL. THE BED IS LOWERED WITH CALL LIGHT WITHIN REACH. ALL PATIENT'S NEED MEET AT THIS TIME. WILL CONTINUE TO MONITOR.
--- NOTE | 2017-03-12 11:08 | NUR ---
ADMINISTERED SCHEDULED MEDICATIONS. PATIENT IV ABX IS INFUSING WELL. PATIENT DENIES PAIN AND SOB. BED IS IN LOW POSITION WITH CALL LIGHT WITHIN REACH.
[2017-03-12 11:49] VITALS: BP 119/80
--- NOTE | 2017-03-12 12:30 | NUR ---
PATIENT AMB TO RESTROOM AND VOIDED AND IS NOW SITTING AT THE SIDE OF THE BED EATING LUNCH AND TOLERATING DIET WELL. PATIENT DENIES PAIN AND SOB.
--- NOTE | 2017-03-12 14:02 | NUR ---
CM NOTE CONCURRENT REVIEW FAXED TO [facility] [phone], JOSELIN [phone]
--- NOTE | 2017-03-12 14:15 | NUR ---
PATIENT IS SITTING IN BED COMFORTABLY AND SHOWS NO S/S OF ACUTE DISTRESS ON O2 @ 2L NC. PATIENT DENIES PAIN. BED IS LOWERED WITH CALL LIGHT WITHIN REACH.
--- NOTE | 2017-03-12 15:15 | NUR ---
DR IBARRA ARRIVED ONTO UNIT AND OKAYED PATIENT TO BE DISCHARGED.
[2017-03-12 16:00] VITALS: BP 150/91
[2017-03-12] MEDS: ALBUTEROL SULFATE/IPRATROPIU 3 ML SOL IH PRN (17:16)
[2017-03-12] MEDS ORDERED: BUDE1AER2 IH (17:19)
[2017-03-12] MEDS ORDERED: MONT10TA35 PO (17:20)
[2017-03-12] MEDS ORDERED: PRON INH (17:22)
[2017-03-12] MEDS ORDERED: [UNRECOGNIZED DRUG - CODE] PO (17:23)
[2017-03-12] MEDS ORDERED: PRED10TA6 PO (17:23)
[2017-03-12] MEDS ORDERED: PRED20TA6 PO (17:23)
[2017-03-12] MEDS ORDERED: [UNRECOGNIZED DRUG - CODE] PO (17:25)
[2017-03-12] MEDS ORDERED: AZIT500T1 PO (17:25)
--- NOTE | 2017-03-12 17:45 | NUR ---
PATIENT RECEIVED LAST BREATHING TX. PATIENT HAS BEEN DISCHARGED. ALL DISCHARGE INSTRUCTIONS AND PRESCRIPTIONS WERE GIVEN. ALL PAPERWORK SIGNED, ALL QUESTIONS ANSWERED. PATIENT VERBALIZED UNDERSTANDING OF CONTINUITY OF CARE. WRISTBANDS AND TELE MONITOR WERE REMOVED, OFFERED PATIENT WHEELCHAIR AND PATIENT REFUSED. PATIENT AMB OUT OF UNIT WITH STEADY GAIT WITH MAILE DELEON PRESENT AT SIDE. PATIENT DENIES PAIN AND SOB, AND IS AAOX4. PATIENT LEFT UNIT IN STABLE CONDITION.
== END 2017-03-12 17:45 | disposition home or self-care (01) | DRG 720 ==
LOC: MED 11:20 → MTU 12:55
PROVIDERS: ADMIT Hospitalist; ATTEND Hospitalist
DX: A41.9 Sepsis, unspecified organism (principal); J80 Acute respiratory distress syndrome; J44.0 Chronic obstructive pulmonary disease with (acute) lower respiratory infection; J18.9 Pneumonia, unspecified organism; J45.31 Mild persistent asthma with (acute) exacerbation; I10 Essential (primary) hypertension; F17.210 Nicotine dependence, cigarettes, uncomplicated
CPT/HCPCS: 36415; 36600; 71010; 80048; 80053; 82803; 83605; 85025; 87040; 87081; 93005; 94640; 94644; 96365; 96367; 96375; 99285; J1650; J1885; J2543; J2920; J3370; J3475; J7030; J7060; J7620; J7626; J7644; Q0092

== ENCOUNTER 2017-08-31 10:11 | Emergency (ER) | payer OTHER ==
[~2017-08-31] VITALS: Ht 157.5 cm; Wt 65.8 kg
[~2017-08-31 10:11] MED LIST changes: -ALBU0.0939 IH; +AZIT500T1 PO; -AZIT500T4 PO; +BUDE1AER2 IH; +MONT10TA35 PO; +PRED10TA6 PO; +PRON INH; +[UNRECOGNIZED DRUG - CODE] PO; +[UNRECOGNIZED DRUG - CODE] PO
[2017-08-31 10:15] VITALS: BP 138/94
--- NOTE | 2017-08-31 10:23 | NUR ---
PT AMBULATED TO [facility]
[2017-08-31] MEDS ORDERED: predniSONE 20 MG TAB PO ONE (10:50)
[2017-08-31] MEDS ORDERED: IPRATROPIUM 0.02% 0.5 MG/2.5 ML NEBU INH ONE (10:50)
[2017-08-31] MEDS ORDERED: ALBUTEROL 0.083% 2.5 MG/3 ML NEBU INH ONE (10:50)
--- NOTE | 2017-08-31 11:03 | NUR ---
PATIENT PRESENTS TO ED WITH sob cough . PT STATES . DENIES N/V/D; SKIN IS PINK/WARM/DRY; AAOX4 WITH EVEN AND STEADY GAIT; LUNGS diminshed with rhonchi and wheezing auscultated to mid /lower lobes HR EVEN AND REGULAR; PT DENIES ANY FEVER, CP, PATIENT STATES PAIN OF 0/10 AT THIS TIME; VSS; PATIENT POSITIONED FOR COMFORT; ER MD MADE AWARE OF PT STATUS.
--- NOTE | 2017-08-31 11:05 | NUR ---
currently receiving breathing treatment--pt sitting upright no reading a book
--- NOTE | 2017-08-31 12:06 | NUR ---
MD speaking with pt
--- NOTE | 2017-08-31 12:07 | NUR ---
DR. DAS EVALUATING PT AT BEDSIDE
--- NOTE | 2017-08-31 12:20 | NUR ---
dc home ordereded but no dc paperwork, aware
[2017-08-31 13:00] VITALS: BP 117/80
--- NOTE | 2017-08-31 13:00 | NUR ---
Patient discharged with v/s stable. Written and verbal after care instructions given and explained. Patient alert, oriented and verbalized understanding of instructions. Ambulatory with steady gait. All questions addressed prior to discharge. ID band removed. Patient advised to follow up with PMD. Rx of XANAX,PREDNISONE,ATROVENT given. Patient educated on indication of medication including possible reaction and side effects. Opportunity to ask questions provided and answered.
== END 2017-08-31 13:00 | disposition home or self-care (01) ==
LOC: MED 10:11
DX: J45.909 Unspecified asthma, uncomplicated (principal); J44.9 Chronic obstructive pulmonary disease, unspecified
CPT/HCPCS: 94640; 99283; J7512; J7613; J7644

== ENCOUNTER 2017-10-15 15:26 | Emergency (ER) | payer OTHER ==
[~2017-10-15] VITALS: Ht 157.5 cm; Wt 68.0 kg
[2017-10-15 15:32] VITALS: BP 140/90
--- NOTE | 2017-10-15 15:35 | NUR ---
TO LOBBY. A/W BED, VESNA, VSNicole , AZALIA NOTED
--- NOTE | 2017-10-15 16:03 | NUR ---
PT AMBULATED TO [facility]
--- NOTE | 2017-10-15 16:13 | NUR ---
PT MOVED FROM [facility] TO BED 1
--- NOTE | 2017-10-15 16:14 | NUR ---
62/F BIB SELF C/O SOB, COUGH, SORE THROAT, BODY PAIN FOR 4 DAYS. DENIES N/V/D; SKIN IS PINK/WARM/DRY; AAOX4 WITH EVEN AND STEADY GAIT; LUNGS WHEEZING BL. PATIENT STATES PAIN OF 4/10 AT THIS TIME
[2017-10-15] MEDS ORDERED: predniSONE 20 MG TAB PO ONE (16:30)
[2017-10-15] MEDS ORDERED: IPRATROPIUM 0.02% 0.5 MG/2.5 ML NEBU INH ONE (16:30)
[2017-10-15] MEDS ORDERED: ALBUTEROL 0.083% 2.5 MG/3 ML NEBU INH ONE ×2 (16:30→17:30)
--- NOTE | 2017-10-15 17:00 | NUR ---
RT AT BEDSIDE FOR BREATHING TREATMENT.
[2017-10-15 18:26] VITALS: BP 140/90
--- NOTE | 2017-10-15 18:26 | NUR ---
Patient discharged with 141/90, DENIES DAI OR DIZINESS AT THIS TIME, MD MADE AWARE. Written and verbal after care instructions given and explained. Patient alert, oriented and verbalized understanding of instructions. Ambulatory with steady gait. All questions addressed prior to discharge. ID band removed. Patient advised to follow up with PMD. Rx of LEVAQUIN & PREDNISONE given. Patient educated on indication of medication including possible reaction and side effects. Opportunity to ask questions provided and answered.
== END 2017-10-15 18:26 | disposition home or self-care (01) ==
LOC: MED 15:26
DX: J44.1 Chronic obstructive pulmonary disease with (acute) exacerbation (principal); I10 Essential (primary) hypertension; F17.200 Nicotine dependence, unspecified, uncomplicated
CPT/HCPCS: 71046; 94640; 99284; J7512; J7613; J7644

== ENCOUNTER 2017-11-25 15:27 | Emergency (ER) | payer OTHER ==
[~2017-11-25] VITALS: Ht 157.5 cm; Wt 68.0 kg
[2017-11-25 15:34] VITALS: BP 155/105
--- NOTE | 2017-11-25 15:40 | NUR ---
PATIENT TO CHAIR E WITH SOB/COUGH X3 DAYS. LUNG SOUNDS WHEEZ/RALES .ERMD ASSESSING PATIENT. ORDERED BREATHGING TREATMENT.
--- NOTE | 2017-11-25 15:45 | NUR ---
PATIENT TAKEN FOR CXR.
[2017-11-25] MEDS: ALBUTEROL SULFATE/IPRATROPIU 3 ML SOL IH ONE (15:57)
--- NOTE | 2017-11-25 15:57 | NUR ---
RESPIRATORY TX IN PROGRESS
[2017-11-25] MEDS: methylPREDNISolone SS 125 MG/2 ML VIAL IM ONE (16:12)
--- NOTE | 2017-11-25 16:15 | NUR ---
PATIENT FEELING MUCH BETTER, NO RESP. DISTRESS AFTER THE TREATMENT. LUNGS CLEAR /DIMINISHED. AWAITING FOR CXR RESULTS
[2017-11-25 16:40] VITALS: BP 124/91
--- NOTE | 2017-11-25 16:40 | NUR ---
Patient discharged with v/s stable. Written and verbal after care instructions given and explained. Patient alert, oriented and verbalized understanding of instructions. Ambulatory with steady gait. All questions addressed prior to discharge. ID band removed. Patient advised to follow up with PMD. Rx of PREDNISONE,LEVAQUIN given. Patient educated on indication of medication including possible reaction and side effects. Opportunity to ask questions provided and answered.
== END 2017-11-25 16:40 | disposition home or self-care (01) ==
LOC: MED 15:27
DX: J44.1 Chronic obstructive pulmonary disease with (acute) exacerbation (principal); I10 Essential (primary) hypertension; F17.210 Nicotine dependence, cigarettes, uncomplicated
CPT/HCPCS: 71045; 81002; 81025; 94640; 94760; 96372; 99283; J2930; J7620

== ENCOUNTER 2017-11-28 06:38 | Inpatient (IN) | payer OTHER ==
[~2017-11-28] VITALS: Ht 157.5 cm; Wt 68.0 kg
[2017-11-28 06:46] VITALS: BP 168/98
[2017-11-28] MEDS ORDERED: IPRATROPIUM 0.02% 0.5 MG/2.5 ML NEBU INH ONE ×2 (07:05)
[2017-11-28] MEDS ORDERED: AZITHROMYCIN 500 MG in DEXTROSE 5% 250 ML IV ONE (07:05)
[2017-11-28] MEDS ORDERED: cefTRIAXone 1,000 MG in DEXT 5% MINI-BAG PLUS 50 ML IV ONE (07:05)
[2017-11-28] MEDS ORDERED: methylPREDNISolone SS 125 MG/2 ML VIAL IVP ONE (07:05)
[2017-11-28] MEDS ORDERED: ALBUTEROL 0.083% 2.5 MG/3 ML NEBU INH ONE ×3 (07:05→07:22)
[2017-11-28 07:21] LABS: BASOPHILS % (AUTO) 0.2 % (0.0-2.0); HEMATOCRIT 45.5 % (36-48); LYMPHOCYTES # (AUTO) 1.2 K/uL (2.5-16.5); LYMPHOCYTES % (AUTO) 10.1 % (20.5-51.1); MEAN CORPUSCULAR HEMOGLOBIN 30 pg (27-31); MEAN CORPUSCULAR HGB CONC 33 g/dL (33-37); MEAN CORPUSCULAR VOLUME 91.5 fL (80-94); MONOCYTES # (AUTO) 0.6 K/uL (0.8-1.0); MONOCYTES % (AUTO) 4.6 % (1.7-9.3); NEUTROPHILS # (AUTO) 10.2 K/uL (1.8-7.7); NEUTROPHILS % (AUTO) 85.1 % (42.2-75.2); PLATELET COUNT (AUTO) 251 K/uL (140-450); RED BLOOD CELL COUNT(AUTO) 4.97 MIL/uL (4.20-5.40); RED CELL DISTRIBUTION WIDTH 15.4 % (11.6-13.7); WHITE BLOOD COUNT (AUTO) 12.1 K/uL (4.8-10.8)
[2017-11-28 07:33] LABS: ANION GAP 14.4 (8-16); CARBON DIOXIDE 22.4 mmol/L (21-32); CREATININE 0.9 mg/dL (0.6-1.3); POTASSIUM 3.8 mmol/L (3.5-5.1)
[2017-11-28 07:38] LABS: ALBUMIN 3.4 g/dL (3.4-5.0); TOTAL BILIRUBIN 0.2 mg/dL (0.0-1.0)
[2017-11-28] MEDS ORDERED: cefTRIAXone 1,000 MG VIAL ONE (07:57)
[2017-11-28] MEDS ORDERED: ONDANSETRON 4 MG/2 ML VIAL IVP PRN (08:05)
[2017-11-28] MEDS ORDERED: ACETAMINOPHEN 325 MG TAB PO PRN (08:05)
[2017-11-28] MEDS ORDERED: AZITHROMYCIN 500 MG INJ VIAL IV ONE (09:06)
[2017-11-28] MEDS ORDERED: ENOXAPARIN 40 MG/0.4 ML SYR SUBQ SCH (09:24)
[2017-11-28] MEDS ORDERED: LEVOFLOXACIN 500 MG/D5W PREMIX 100 ML IV SCH (10:00)
[2017-11-28] MEDS: ALBUTEROL 0.083% 2.5 MG/3 ML NEBU IH PRN (10:54)
[2017-11-28] MEDS: methylPREDNISolone SS 40 MG/ML VIAL IVP SCH ×2 (11:21→17:20)
[2017-11-28] MEDS ORDERED: methylPREDNISolone SS 40 MG in WATER STERILE 1 ML IM SCH (12:00)
[2017-11-28] MEDS: IPRATROPIUM 0.02% 0.5 MG/2.5 ML NEBU IH SCH ×2 (13:04→19:28)
[2017-11-28] MEDS: ALBUTEROL 0.083% 2.5 MG/3 ML NEBU IH SCH ×2 (13:04→19:28)
[2017-11-28] MEDS: MORPHINE SULFATE 2 MG/ML SYR IVP PRN ×3 (13:17→21:22)
[2017-11-28 16:00] VITALS: BP 126/82
[2017-11-28] MEDS: MONTELUKAST SODIUM 10 MG TAB PO SCH (21:22)
[2017-11-29] VITALS: BP 127/76
[2017-11-29] MEDS: methylPREDNISolone SS 40 MG/ML VIAL IVP SCH ×4 (00:19→17:25)
[2017-11-29] MEDS: IPRATROPIUM 0.02% 0.5 MG/2.5 ML NEBU IH SCH ×4 (01:42→20:26)
[2017-11-29] MEDS: ALBUTEROL 0.083% 2.5 MG/3 ML NEBU IH SCH ×4 (01:44→20:26)
[2017-11-29] MEDS: MORPHINE SULFATE 2 MG/ML SYR IVP PRN ×4 (02:11→17:25)
[2017-11-29 07:50] LABS: BASOPHILS % (AUTO) 0.1 % (0.0-2.0); HEMATOCRIT 43.4 % (36-48); HEMOGLOBIN 14.3 g/dL (12.0-16.0); LYMPHOCYTES # (AUTO) 1.3 K/uL (2.5-16.5); LYMPHOCYTES % (AUTO) 9.9 % (20.5-51.1); MEAN CORPUSCULAR HEMOGLOBIN 30 pg (27-31); MEAN CORPUSCULAR HGB CONC 33 g/dL (33-37); MEAN CORPUSCULAR VOLUME 90.8 fL (80-94); MONOCYTES # (AUTO) 0.3 K/uL (0.8-1.0); MONOCYTES % (AUTO) 2.5 % (1.7-9.3); NEUTROPHILS # (AUTO) 11.2 K/uL (1.8-7.7); NEUTROPHILS % (AUTO) 87.5 % (42.2-75.2); PLATELET COUNT (AUTO) 242 K/uL (140-450); RED BLOOD CELL COUNT(AUTO) 4.77 MIL/uL (4.20-5.40); RED CELL DISTRIBUTION WIDTH 15.2 % (11.6-13.7); WHITE BLOOD COUNT (AUTO) 12.8 K/uL (4.8-10.8)
[2017-11-29 08:00] VITALS: BP 140/92
[2017-11-29] MEDS: ENOXAPARIN 40 MG/0.4 ML SYR SUBQ SCH (08:19)
[2017-11-29] MEDS ORDERED: LEVOFLOXACIN 500 MG TAB PO SCH (09:19)
[2017-11-29] MEDS: BENZONATATE 100 MG CAPLF PO SCH ×3 (09:34→17:25)
[2017-11-29 12:18] LABS: APPEARANCE,URINE CLEAR (CLEAR); BILIRUBIN,URINE NEGATIVE (NEGATIVE); BLOOD, URINE NEGATIVE (NEGATIVE); LEUKOCYTE ESTERASE ,URINE NEGATIVE (NEGATIVE); NITRITE, URINE NEGATIVE (NEGATIVE); UGLUCOSE NEGATIVE (NEGATIVE)
[2017-11-29 12:19] LABS: COLOR,URINE STRAW (YELLOW)
[2017-11-29 16:00] VITALS: BP 143/83
[2017-11-29] MEDS: MONTELUKAST SODIUM 10 MG TAB PO SCH (20:57)
[2017-11-29] MEDS: LORazepam 1 MG TAB PO PRN (21:44)
[2017-11-29] MEDS: ALBUTEROL 0.083% 2.5 MG/3 ML NEBU IH PRN (22:31)
[2017-11-30] MEDS: IPRATROPIUM 0.02% 0.5 MG/2.5 ML NEBU IH SCH ×4 (00:42→19:08)
[2017-11-30] MEDS: ALBUTEROL 0.083% 2.5 MG/3 ML NEBU IH SCH ×4 (00:42→19:08)
[2017-11-30 00:46] VITALS: BP 131/87
[2017-11-30] MEDS: methylPREDNISolone SS 40 MG/ML VIAL IVP SCH ×4 (00:52→17:10)
[2017-11-30] MEDS: MORPHINE SULFATE 2 MG/ML SYR IVP PRN ×5 (00:53→22:01)
[2017-11-30 06:37] VITALS: BP 158/93
[2017-11-30 08:00] VITALS: BP 139/94
[2017-11-30] MEDS: LEVOFLOXACIN 500 MG TAB PO SCH (09:12)
[2017-11-30] MEDS: ENOXAPARIN 40 MG/0.4 ML SYR SUBQ SCH (09:14)
[2017-11-30] MEDS: LORazepam 1 MG TAB PO PRN ×2 (09:18→22:02)
[2017-11-30] MEDS: BENZONATATE 100 MG CAPLF PO SCH ×3 (10:43→17:10)
[2017-11-30] MEDS: ALBUTEROL 0.083% 2.5 MG/3 ML NEBU IH PRN ×2 (11:10→22:31)
[2017-11-30 16:00] VITALS: BP 150/95
[2017-11-30 20:29] VITALS: BP 158/89
[2017-11-30] MEDS: MONTELUKAST SODIUM 10 MG TAB PO SCH (22:02)
[2017-11-30] MEDS: METOPROLOL 25 MG TAB PO SCH (22:02)
[2017-12-01] MEDS: methylPREDNISolone SS 40 MG/ML VIAL IVP SCH ×2 (00:30→05:41)
[2017-12-01] MEDS: ALBUTEROL 0.083% 2.5 MG/3 ML NEBU IH SCH ×2 (00:54→07:46)
[2017-12-01] MEDS: IPRATROPIUM 0.02% 0.5 MG/2.5 ML NEBU IH SCH ×2 (00:54→07:46)
[2017-12-01 02:31] VITALS: BP 149/94
[2017-12-01] MEDS: MORPHINE SULFATE 2 MG/ML SYR IVP PRN ×2 (02:33→08:27)
[2017-12-01 08:00] VITALS: BP 136/94
[2017-12-01] MEDS: LEVOFLOXACIN 500 MG TAB PO SCH (08:25)
[2017-12-01] MEDS: LORazepam 1 MG TAB PO PRN (08:26)
[2017-12-01] MEDS: METOPROLOL 25 MG TAB PO SCH (08:26)
[2017-12-01] MEDS: ENOXAPARIN 40 MG/0.4 ML SYR SUBQ SCH (08:32)
[2017-12-01] MEDS: BENZONATATE 100 MG CAPLF PO SCH (09:00)
[2017-12-01] MEDS ORDERED: LORA-476 PO (10:03)
[2017-12-01] MEDS ORDERED: PRON INH (10:03)
[2017-12-01] MEDS ORDERED: ALBU0.0912 IH (10:03)
[2017-12-01] MEDS ORDERED: METH4TAB3 PO (10:03)
[2017-12-01] MEDS ORDERED: ACET-2869 PO (10:03)
[2017-12-01] MEDS ORDERED: ATRMDI IH (10:03)
[2017-12-01] MEDS ORDERED: LEVO500T2 PO (10:05)
== END 2017-12-01 11:20 | disposition home or self-care (01) | DRG 140 ==
LOC: MED 06:38 → MTU 08:07
PROVIDERS: ADMIT Internal Medicine; ATTEND Internal Medicine
DX: J44.0 Chronic obstructive pulmonary disease with (acute) lower respiratory infection (principal); J96.20 Acute and chronic respiratory failure, unspecified whether with hypoxia or hypercapnia; J44.1 Chronic obstructive pulmonary disease with (acute) exacerbation; J45.901 Unspecified asthma with (acute) exacerbation; J20.9 Acute bronchitis, unspecified; I10 Essential (primary) hypertension; E78.5 Hyperlipidemia, unspecified; F17.200 Nicotine dependence, unspecified, uncomplicated
CPT/HCPCS: 36415; 36600; 71045; 80053; 81003; 82803; 84484; 85025; 85379; 87040; 87081; 93005; 94640; 96365; 96375; 99285; J0456; J0696; J1650; J1956; J2270; J2920; J2930; J7613; J7644; Q0092

== ENCOUNTER 2017-12-02 09:00 | Emergency (ER) | payer OTHER ==
[~2017-12-02] VITALS: Ht 157.5 cm; Wt 65.8 kg
[~2017-12-02 09:00] MED LIST changes: +ACET-2869 PO; -AZIT500T1 PO; +LEVO500T2 PO; +LORA-476 PO; +METH4TAB3 PO; -PRED10TA6 PO; -PRED20TA6 PO; -SPIR50TA PO; -[UNRECOGNIZED DRUG - CODE] PO; -[UNRECOGNIZED DRUG - CODE] PO
[2017-12-02 09:05] VITALS: BP 146/99
--- NOTE | 2017-12-02 09:09 | NUR ---
PT AMBULATES TO BED 3 Addendum: 12/02/17 at 0909 by MEDHT PT WHEELED TO BED 3
--- NOTE | 2017-12-02 09:12 | NUR ---
62 YO F BIB FAMILY TO ER FOR SOB. NON RADIATING ANTERIOR WALL CHEST PAIN /SOB X 2 DAYS, MORE WITH COUGHING. PT TEARFUL. PAIN 10/10. WAS RECENTLY DISCHARGED FROM [facility] YESTERDAY, WAS HOSPITALIZED FOR 4 DAYS. DENIES FEVERS, +CHILLS, + BODY ACHES, AUDIBLE WHEESING, CRACKLES NOTED, -EDEMA, BS ACTIVE X4. MED HX: HTN, ASTHMA, COPD MEDS: METOPROLOL, LEVOQUIN
[2017-12-02] MEDS ORDERED: IPRATROPIUM 0.02% 0.5 MG/2.5 ML NEBU INH ONE (09:15)
[2017-12-02] MEDS ORDERED: ALBUTEROL 0.083% 2.5 MG/3 ML NEBU INH ONE ×2 (09:15→10:50)
--- NOTE | 2017-12-02 09:17 | NUR ---
RT AT BEDSIDE
--- NOTE | 2017-12-02 09:20 | NUR ---
RT AT BEDSIDE FOR BREATHING TREATMENT
[2017-12-02] MEDS ORDERED: BENZONATATE 100 MG CAPLF PO PRN (10:05)
[2017-12-02] MEDS ORDERED: IBUPROFEN 400 MG TAB PO ONE (10:05)
--- NOTE | 2017-12-02 10:39 | NUR ---
PT STILL WITH C/O SORENESS, AND TIRED. PT STILL WITH SOB. RINKU BROWER MADE AWARE
--- NOTE | 2017-12-02 10:40 | NUR ---
Bill minor in [facility] - 12/02/17 at 1051 by DIANELYSS [place] PD CALLED FOR PT ID. PD STATES THAT THEY DO NOT HAVE HIM IN THEIR SYSTEM
--- NOTE | 2017-12-02 10:44 | NUR ---
DR MADERA AT BEDSIDE FOR REEVALUATION
--- NOTE | 2017-12-02 10:49 | NUR ---
RT AT BEDSIDE
[2017-12-02 11:50] VITALS: BP 136/88
--- NOTE | 2017-12-02 11:50 | NUR ---
Patient discharged with v/s stable. Written and verbal after care instructions given and explained. Patient alert, oriented and verbalized understanding of instructions. Ambulatory with steady gait. All questions addressed prior to discharge. ID band removed. Patient advised to follow up with PMD. Rx of TESSALON PEARLS 200MG, NAPROSYN 200MG given. Patient educated on indication of medication including possible reaction and side effects. Opportunity to ask questions provided and answered.
== END 2017-12-02 11:50 | disposition home or self-care (01) ==
LOC: MED 09:00
DX: J44.1 Chronic obstructive pulmonary disease with (acute) exacerbation (principal); F17.210 Nicotine dependence, cigarettes, uncomplicated; I10 Essential (primary) hypertension; Z79.899 Other long term (current) drug therapy; Z91.013 Allergy to seafood
CPT/HCPCS: 93005; 94640; 99284; J7613; J7644

== ENCOUNTER 2017-12-04 18:24 | Emergency (ER) | payer OTHER ==
[~2017-12-04] VITALS: Ht 157.5 cm; Wt 68.0 kg
[2017-12-04 18:38] VITALS: BP 131/105
--- NOTE | 2017-12-04 18:44 | NUR ---
Pt ambulated to bed 1
--- NOTE | 2017-12-04 18:53 | NUR ---
62/F presents to ED with c/o SOB today. Pt recently discharged from here on Friday for COPD exacerbation. Pt states "it's a little better but I am just so tired." Pt noted with rhonchi breath sounds all throughout. Pt noted with a moist, productive cough with white phlegm production. AOX4, clear speech. Pt tearful, family at bedside. Pt on desk monitor, pulse oximetry, and blood pressure monitoring. 94% on RA.
--- NOTE | 2017-12-04 19:08 | NUR ---
Pt report given to Kaylin NUNEZ. Transfer of care at this time.
[2017-12-04] MEDS ORDERED: ALBUTEROL SULFATE/IPRATROPIU 3 ML SOL IH ONE ×2 (19:25→20:35)
[2017-12-04] MEDS ORDERED: methylPREDNISolone SS 125 MG in WATER STERILE 2 ML IV ONE (19:25)
--- NOTE | 2017-12-04 19:53 | NUR ---
Respiratory Therapist at bedside for respiratory intervention.
--- NOTE | 2017-12-04 19:53 | NUR ---
X-Ray at bedside.
[2017-12-04 20:03] LABS: BASOPHILS # (AUTO) 0.1 K/uL (0.00-0.22); BASOPHILS % (AUTO) 0.3 % (0.0-2.0); EOSINOPHILS # (AUTO) 0.1 K/uL (0-0.4); EOSINOPHILS % (AUTO) 0.3 % (0.0-4.0); HEMOGLOBIN 16.8 g/dL (12.0-16.0); LYMPHOCYTES # (AUTO) 2.9 K/uL (2.5-16.5); LYMPHOCYTES % (AUTO) 16.9 % (20.5-51.1); MEAN CORPUSCULAR HEMOGLOBIN 30 pg (27-31); MEAN CORPUSCULAR HGB CONC 33 g/dL (33-37); MEAN CORPUSCULAR VOLUME 89.9 fL (80-94); MONOCYTES # (AUTO) 1.2 K/uL (0.8-1.0); NEUTROPHILS # (AUTO) 12.7 K/uL (1.8-7.7); NEUTROPHILS % (AUTO) 75.5 % (42.2-75.2); PLATELET COUNT (AUTO) 260 K/uL (140-450); RED BLOOD CELL COUNT(AUTO) 5.67 MIL/uL (4.20-5.40); RED CELL DISTRIBUTION WIDTH 14.8 % (11.6-13.7); WHITE BLOOD COUNT (AUTO) 16.9 K/uL (4.8-10.8)
[2017-12-04 20:24] LABS: ANION GAP 16.3 (8-16); CARBON DIOXIDE 25.4 mmol/L (21-32); CREATININE 1.2 mg/dL (0.6-1.3); POTASSIUM 3.7 mmol/L (3.5-5.1)
[2017-12-04 20:30] LABS: ALBUMIN 3.3 g/dL (3.4-5.0); TOTAL BILIRUBIN 0.5 mg/dL (0.0-1.0)
[2017-12-04 20:38] LABS: CREATINE KINASE MB 2.5 ng/mL (0-3.6)
[2017-12-04 21:22] VITALS: BP 132/95
--- NOTE | 2017-12-04 21:22 | NUR ---
Patient discharged with v/s stable. Written and verbal after care instructions given and explained. Patient verbalized understanding. Ambulatory with steady gait. All questions addressed prior to discharge. Advised to follow up with PMD.
== END 2017-12-04 21:22 | disposition home or self-care (01) ==
LOC: MED 18:24
DX: J44.1 Chronic obstructive pulmonary disease with (acute) exacerbation (principal); I10 Essential (primary) hypertension; F17.210 Nicotine dependence, cigarettes, uncomplicated; Z79.899 Other long term (current) drug therapy
CPT/HCPCS: 36415; 71045; 80053; 82550; 82553; 83690; 83880; 84484; 85025; 94640; 96374; 99285; J2930; J7620

== ENCOUNTER 2017-12-20 15:31 | Inpatient (IN) | payer OTHER ==
[~2017-12-20] VITALS: Ht 157.5 cm; Wt 71.2 kg
[2017-12-20 15:38] VITALS: BP 153/81
--- NOTE | 2017-12-20 15:38 | NUR ---
PT AMBULATES TO BED 4, REPORT GIVEN TO ENRIQUE CUTLER
--- NOTE | 2017-12-20 15:45 | NUR ---
PATIENT PRESENTS TO ED WITH COMPLAINTS OF WHEEZING, THROAT PAIN, AND COUGHING X 1 WEEK. PATIENT STATES SHE WAS GIVEN STEROIDS AT URGENT CARE AND THEY ARE NOT HELPING BUT THEY ARE MAKING HE REALLY EMOTIONAL AND SHAKING. PATIENT IS CURRENTLY CRYING. SON SITTING AT BEDSIDE. DENIES N/V/D; SKIN IS PINK/WARM/DRY; AAOX4 WITH EVEN AND STEADY GAIT; WHEEZING HEARD THROUGHOUT LUNGS; HR EVEN AND REGULAR; PATIENT STATES PAIN OF 9/10 AT THIS TIME; VSS; PATIENT POSITIONED FOR COMFORT; HOB ELEVATED; BEDRAILS UP X1; BED DOWN. ER MD MADE AWARE OF PT STATUS.
[2017-12-20] MEDS ORDERED: ALBUTEROL SULFATE/IPRATROPIU 3 ML SOL IH ONE (16:05)
--- NOTE | 2017-12-20 16:07 | NUR ---
production maintenance technician at bedside.
--- NOTE | 2017-12-20 16:12 | NUR ---
STREP A AND THROAT CULTURE OBTAINED.
--- NOTE | 2017-12-20 16:14 | NUR ---
RT AT BEDSIDE FOR TREATMENT
[2017-12-20] MEDS ORDERED: NACL 0.9% 1,000 ML IV ONE (16:45)
[2017-12-20] MEDS ORDERED: MAG SULF 2000 MG/WATER PREMIX 50 ML IV ONE (16:45)
[2017-12-20] MEDS ORDERED: PIPERACILLIN/TAZOBACTAM 3.375 GM in DEXTROSE 5% 50 ML IV ONE (16:45)
[2017-12-20] MEDS ORDERED: PIPERACILLIN/TAZOBACTAM 3.375 GM VIAL IV ONE (16:58)
[2017-12-20 17:12] LABS: BASOPHILS % (AUTO) 0.2 % (0.0-2.0); HEMATOCRIT 44.4 % (36-48); HEMOGLOBIN 14.6 g/dL (12.0-16.0); LYMPHOCYTES # (AUTO) 0.9 K/uL (2.5-16.5); LYMPHOCYTES % (AUTO) 7.1 % (20.5-51.1); MEAN CORPUSCULAR HEMOGLOBIN 30 pg (27-31); MEAN CORPUSCULAR HGB CONC 33 g/dL (33-37); MEAN CORPUSCULAR VOLUME 89.9 fL (80-94); MONOCYTES # (AUTO) 0.3 K/uL (0.8-1.0); MONOCYTES % (AUTO) 2.1 % (1.7-9.3); NEUTROPHILS # (AUTO) 11.4 K/uL (1.8-7.7); NEUTROPHILS % (AUTO) 90.6 % (42.2-75.2); PLATELET COUNT (AUTO) 221 K/uL (140-450); RED BLOOD CELL COUNT(AUTO) 4.94 MIL/uL (4.20-5.40); RED CELL DISTRIBUTION WIDTH 15.3 % (11.6-13.7); WHITE BLOOD COUNT (AUTO) 12.6 K/uL (4.8-10.8)
[2017-12-20 17:17] LABS: ANION GAP 16.3 (8-16); CARBON DIOXIDE 21.9 mmol/L (21-32); CREATININE 1.3 mg/dL (0.6-1.3); POTASSIUM 4.2 mmol/L (3.5-5.1)
[2017-12-20 17:24] LABS: ALBUMIN 3.5 g/dL (3.4-5.0); TOTAL BILIRUBIN 0.3 mg/dL (0.0-1.0)
--- NOTE | 2017-12-20 17:30 | NUR ---
Patient appears to be resting comfortably in bed. Vital Signs within normal limits. Respirations even and unlabored.
[2017-12-20 17:31] LABS: PROTHROMBIN TIME 9.7 secs (10.8-13.4)
[2017-12-20] MEDS ORDERED: LORazepam 2 MG/ML VIAL IVP ONE (17:50)
[2017-12-20] MEDS ORDERED: ACETAMINOPHEN 325 MG TAB PO PRN (18:00)
[2017-12-20] MEDS ORDERED: HYDROcodone/APAP 5/325 MG 1 TAB TAB PO PRN (18:00)
[2017-12-20] MEDS ORDERED: INSULIN LISPRO SLIDING SCALE 100 UNITS/ML VIAL SUBQ PRN (18:10)
--- NOTE | 2017-12-20 19:20 | NUR ---
Patient will be admitted to care of DR. JON. Admited to [facility]. Will go to room 105B. Belongings list completed. Report to ENRIQUE ASHBY.
[2017-12-20 19:30] VITALS: BP 108/73
--- NOTE | 2017-12-20 19:30 | NUR ---
Admitted from ER TO [facility] , with chief complaint of SOB AND PAIN IN THE THROAT FOR SIX DAYS NOW. 62 y/o ,Female, Cooperative, A/OX4, RESPIRATION EVEN AND UNLABORED. WITH WHEEZES ON BILATERAL LUNG AUSCULTATION. 02 SAT - 95% ON ROOM AIR. NOTED OCCASIONAL PRODUCTIVE COUGHING WITH SMALL AMOUNT OF WHITE PHLEGM. IV ZOSYN STARTED IN ER STILL INFUSING, LEFT WRIST G20. HEAD TO TOE ASSESSMENT DONE WITH ENRIQUE CLEVELAND. SKIN INTACT. PATIENT IS AMBULATORY TO , GAIT STEADY. PLAN OF CARE FOR THE SHIFT DISCUSSED. VERBALIZED UNDERSTANDING. DENIES PAIN 0/10. oriented to call light, bed, phone,television, bathroom, smoking policy,visiting hours, procedures, ID bracelet on. Belongings list checked.
--- NOTE | 2017-12-20 20:00 | NUR ---
Patient's Plan of Care was discussed and reviewed with CAN PUSHER: MARISSA LEDESMA
[2017-12-20] MEDS ORDERED: cefTRIAXone 1,000 MG VIAL ONE (20:06)
[2017-12-20] MEDS ORDERED: AZITHROMYCIN 500 MG INJ VIAL IV ONE (20:07)
[2017-12-20] MEDS: AZITHROMYCIN 500 MG in DEXTROSE 5% 250 ML IV SCH (20:19)
[2017-12-20] MEDS ORDERED: METOPROLOL 25 MG TAB PO ONE (21:00)
[2017-12-20] MEDS ORDERED: methylPREDNISolone SS 40 MG in WATER STERILE 1 ML IV ONE (21:00)
[2017-12-20] MEDS: ALBUTEROL SULFATE/IPRATROPIU 3 ML SOL IH PRN (21:29)
--- NOTE | 2017-12-20 21:32 | NUR ---
PT WAS NOT ABLE TO PRODUCE ANY SPUTUM INTO THE CUP. LEFT CUP AT BEDSIDE. INFORMED RN SPUTUM CUP IS AT BEDSIDE.
[2017-12-20] MEDS: HYDROcodone/APAP 5/325 MG 1 TAB TAB PO PRN (23:14)
[2017-12-20] MEDS: LORazepam 0.5 MG TAB PO PRN (23:14)
--- NOTE | 2017-12-20 23:14 | NUR ---
WITH ANXIETY, MEDICATED WITH ATIVAN 0.5 MG. PO.
[2017-12-21] VITALS: BP 115/88
--- NOTE | 2017-12-21 00:14 | NUR ---
NO ANXIETY NOTED, SLEEPING COMFORTABLY IN BED.
--- NOTE | 2017-12-21 03:00 | NUR ---
ASSISTED TO BR TO VOID FOR THE SECOND TIME. BACK TO BED AFTER VOIDING, REQUESTED FOR BREATHING TX, CALLED RT.
[2017-12-21] MEDS: HYDROcodone/APAP 5/325 MG 1 TAB TAB PO PRN ×4 (03:19→22:29)
[2017-12-21] MEDS: ALBUTEROL SULFATE/IPRATROPIU 3 ML SOL IH PRN ×3 (03:31→10:27)
[2017-12-21 04:00] VITALS: BP 116/82
--- NOTE | 2017-12-21 07:30 | NUR ---
AWAKE, SITTING COMFORTABLY IN BED. CONDITION REMAIN STABLE. ENDORSED TO AM NURSE FOR CONTINUITY OF CARE.
--- NOTE | 2017-12-21 07:30 | NUR ---
PATIENT AWAKE, ALERT. RESPIRATION EVEN, UNLABOR ON ROOM AIR. SKIN DRY AND WARM. LUNGS SOUND WHEEZING THROUGHOUT. BOWEL SOUND ACTIVE. COMPLAINED OF THROAT PAIN 5/10. IV PATENT AND INTACT. PLAN OF CARE WAS DISCUSSED WITH PATIENT. BED AT LOW POSITION, SIDE RAILS UP. CALL LIGHT WITHIN REACH.
[2017-12-21 08:00] VITALS: BP 151/73
[2017-12-21] MEDS: MONTELUKAST SODIUM 10 MG TAB PO SCH (08:14)
[2017-12-21 09:27] LABS: CARBON DIOXIDE 25.3 mmol/L (21-32); POTASSIUM 4.3 mmol/L (3.5-5.1)
[2017-12-21 09:37] LABS: BASOPHILS # (AUTO) 0.1 K/uL (0.00-0.22); BASOPHILS % (AUTO) 0.5 % (0.0-2.0); EOSINOPHILS % (AUTO) 0.3 % (0.0-4.0); HEMATOCRIT 40.9 % (36-48); HEMOGLOBIN 13.5 g/dL (12.0-16.0); LYMPHOCYTES % (AUTO) 26.7 % (20.5-51.1); MEAN CORPUSCULAR HEMOGLOBIN 30 pg (27-31); MEAN CORPUSCULAR HGB CONC 33 g/dL (33-37); MEAN CORPUSCULAR VOLUME 90.1 fL (80-94); MONOCYTES # (AUTO) 0.5 K/uL (0.8-1.0); MONOCYTES % (AUTO) 4.8 % (1.7-9.3); NEUTROPHILS # (AUTO) 7.5 K/uL (1.8-7.7); NEUTROPHILS % (AUTO) 67.7 % (42.2-75.2); PLATELET COUNT (AUTO) 200 K/uL (140-450); RED BLOOD CELL COUNT(AUTO) 4.54 MIL/uL (4.20-5.40); RED CELL DISTRIBUTION WIDTH 15.4 % (11.6-13.7)
--- NOTE | 2017-12-21 11:30 | NUR ---
PATIENT WAS SLEEPING COMFORTABLY. RESPIRATION EVEN, UNLABOR ON 2L NC. NO DISTRESS NOTED AT THIS TIME. CALL LIGHT WITHIN REACH
[2017-12-21] MEDS ORDERED: KETOROLAC 30 MG/ML VIAL IVP PRN (14:20)
[2017-12-21] MEDS: LORazepam 0.5 MG TAB PO PRN ×2 (14:27→22:29)
[2017-12-21] MEDS ORDERED: HYDROcodone/APAP 5/325 MG 1 TAB TAB PO PRN (14:30)
--- NOTE | 2017-12-21 14:54 | NUR ---
PATIENT AWAKE, ALERT. RESPIRATION EVEN, UNLABOR ON ROOM AIR. COMPLAINED OF "FEELING IRRITATED, LIKE AUNTS CRAWLING UNDER THE SKIN", REQUESTED ATIVAN. MED WAS GIVEN PER ORDER
[2017-12-21] MEDS: ALBUTEROL SULFATE/IPRATROPIU 3 ML SOL IH SCH ×3 (15:12→23:03)
[2017-12-21 16:00] VITALS: BP 123/77
--- NOTE | 2017-12-21 17:00 | NUR ---
PATIENT WAS SLEEPING COMFORTABLY. RESPIRATION EVEN, UNLABOR ON 2L NC. NO DISTRESS NOTED AT THIS TIME
--- NOTE | 2017-12-21 19:16 | NUR ---
ENDORSEMENT GIVEN TO THE EXCELLENCE COACH NURSE. PATIENT IS STABLE AT THIS TIME
--- NOTE | 2017-12-21 19:17 | NUR ---
RECD. RESTING IN BED, SLEEPING COMFORTABLY BUT EASILY WAKES UP WHEN NAME CALL. NO RESPIRATORY DISTRESS NOTED. COMFORTABLE AND RELAX. IV SALINE LOCK AT THE LEFT WRIST G 20, PATENT AND INTACT. PLAN OF CARE FOR THE SHIFT DISCUSSED. VERBALIZED UNDERSTANDING. DENIES PAIN 0/10.
--- NOTE | 2017-12-21 19:37 | NUR ---
Patient's Plan of Care was discussed and reviewed with REIMBURSEMENT DIRECTOR: MARISSA LEDESMA
[2017-12-21] MEDS: AZITHROMYCIN 500 MG in DEXTROSE 5% 250 ML IV SCH (19:57)
[2017-12-21] MEDS: METOPROLOL 25 MG TAB PO SCH (20:48)
--- NOTE | 2017-12-21 22:15 | NUR ---
IV ACCESS ON L WRIST INFILTRATED. NEW IV STARTED R FA 22G. CLEAR AND PATENT.
--- NOTE | 2017-12-21 22:29 | NUR ---
WITH ANXIETY, MEDICATED WITH ATIVAN 0.5 MG.PO.
--- NOTE | 2017-12-21 23:30 | NUR ---
RESTING COMFORTABLY IN BED, NO ANXIETY NOTED.
[2017-12-22] VITALS: BP 131/92
--- NOTE | 2017-12-22 01:00 | NUR ---
AMBULATED IN THE BR TO VOID, BACK TO BED AFTER VOIDING.
--- NOTE | 2017-12-22 02:00 | NUR ---
SLEEPING COMFORTABLY IN BED.
[2017-12-22] MEDS: ALBUTEROL SULFATE/IPRATROPIU 3 ML SOL IH SCH ×6 (02:44→23:39)
[2017-12-22 04:00] VITALS: BP 111/76
[2017-12-22] MEDS: HYDROcodone/APAP 5/325 MG 1 TAB TAB PO PRN ×5 (04:23→22:46)
--- NOTE | 2017-12-22 05:47 | NUR ---
CONDITION REMAIN STABLE. ALL NEEDS ATTENDED. WILL ENDORSE TO AM NURSE FOR CONTINUITY OF CARE.
--- NOTE | 2017-12-22 07:15 | NUR ---
ASSUMED CONTINUITY OF CARE. NO SIGNS AND SYMPTOMS OF ACUTE DISTRESS NOTED. INITIAL ASSESSMENT DONE. KEEP COMFORTABLE ON BED. EXPLAINED DIAGNOSIS, PLAN OF CARE, PAIN MANAGEMENT TEACHING, USE OF CALL LIGHT/BED/TV/BATHROOM. VERBALIZED UNDERSTANDING. CALL LIGHT WITHIN REACH.
--- NOTE | 2017-12-22 07:15 | NUR ---
ENDORSED TO AM NURSE FOR CONTINUITY OF CARE.
--- NOTE | 2017-12-22 07:16 | NUR ---
Patient's Plan of Care was discussed and reviewed with DEPARTMENT ASSISTANT: MARGA GRIMALDO
[2017-12-22 08:00] VITALS: BP 124/87
[2017-12-22] MEDS: MONTELUKAST SODIUM 10 MG TAB PO SCH (08:33)
[2017-12-22] MEDS: METOPROLOL 25 MG TAB PO SCH ×2 (08:33→21:00)
--- NOTE | 2017-12-22 10:14 | NUR ---
PATIENT HAS BEEN SCREENED AND CATEGORIZED MODERATE NUTRITION RISK. PATIENT WILL BE SEEN WITHIN 3-5 DAYS OF ADMISSION. 12/23/17 12/25/[address]
--- NOTE | 2017-12-22 10:55 | NUR ---
DR. JON CAME AND SPOKE TO PT. AT BEDSIDE.
[2017-12-22 12:00] VITALS: BP 114/84
[2017-12-22] MEDS: LORazepam 0.5 MG TAB PO PRN (15:55)
--- NOTE | 2017-12-22 16:20 | NUR ---
FAXED INITIAL REVIEW TO [facility] [phone] PHONE JOSELIN [phone]
--- NOTE | 2017-12-22 19:14 | NUR ---
RECEIVED REPORT AT BEDSIDE FROM DAY SHIFT NURSE FOR TRANSFER OF CARE. PT SITTING UP IN BED AND IS A O X 4. SKIN INTACT AND HAS A 22 GAUGE LEFT F/A IV SITE ASYMPTOMATIC WITH N/S RUNNING AT 10 MLS/HR. PT IN LOW BED WITH SIDE RAILS UP X 2 NO C/O VOICED AT THIS TIME.
--- NOTE | 2017-12-22 19:14 | NUR ---
BEDSIDE REPORT GIVEN TO BRITNI HIGH. IN STABLE CONDITION.
[2017-12-22 20:00] VITALS: BP 124/76
--- NOTE | 2017-12-22 21:00 | NUR ---
PT C/O PAIN IN L/FA IV SITE. NO S/S OF REDNESS OR INFILTRATION NOTED. IV SITE FLUSHED PATENT. IV DRIP STARTED AGAIN, HOWEVER, AFTER A FEW MINUTES, PT IS C/O OF BURNING AND PAIN AT THE IV SITE. OLD SITE TAKEN OUT AND A NEW SITE STARTED ON LEFT HAND WITH 22 GAUGE, SITE FLUSHED PATENT AND IV RE-STARTED, NO C/O VOICED .
--- NOTE | 2017-12-22 22:00 | NUR ---
PT C/O 02/06 PAIN IN HER THROAT, GIVEN PRN NORCO, AWAITING EFFECT.
[2017-12-22] MEDS: AZITHROMYCIN 500 MG in DEXTROSE 5% 250 ML IV SCH (22:01)
--- NOTE | 2017-12-22 23:00 | NUR ---
POSITIVE EFFECT OF PRN NORCO PT STATES PAIN IS 0/10 AT THIS TIME. PT IS SITTING UP IN BED READING, PT ASKED FOR SNACK WHICH WAS PROVIDED . CALL MYLES IN REACH, SIDE RAILS UP X 2 ALL REQUESTED NEEDS ATTENDED BY STAFF.
--- NOTE | 2017-12-23 01:45 | NUR ---
PT V/S T 100.1 P 84 R 20 B/P 119/84 02 93 WITH R/A. PT RESPIRATIONS ARE EVEN AND UNLABORED, PT GIVEN 650MG FOR MILD DISCOMFORT AND INCREASED TEMP. WILL MONITOR EFFECT OF BOTH ISSUES. PT ALSO RECEIVED SNACK OF SANDWICH AND MILK REQUESTED. SIDE RAILS UP AND LOW BED. PT CALL MYLES PLACED IN REACH.
[2017-12-23] MEDS: ALBUTEROL SULFATE/IPRATROPIU 3 ML SOL IH SCH ×3 (03:08→11:03)
[2017-12-23] MEDS: HYDROcodone/APAP 5/325 MG 1 TAB TAB PO PRN ×2 (05:41→11:57)
[2017-12-23 06:00] VITALS: BP 101/75
[2017-12-23 07:02] LABS: BASOPHILS % (AUTO) 0.3 % (0.0-2.0); EOSINOPHILS # (AUTO) 0.3 K/uL (0-0.4); EOSINOPHILS % (AUTO) 3.4 % (0.0-4.0); HEMATOCRIT 44.5 % (36-48); LYMPHOCYTES # (AUTO) 2.6 K/uL (2.5-16.5); LYMPHOCYTES % (AUTO) 32.3 % (20.5-51.1); MEAN CORPUSCULAR HEMOGLOBIN 30 pg (27-31); MEAN CORPUSCULAR HGB CONC 34 g/dL (33-37); MEAN CORPUSCULAR VOLUME 89.5 fL (80-94); MONOCYTES # (AUTO) 0.6 K/uL (0.8-1.0); MONOCYTES % (AUTO) 7.4 % (1.7-9.3); NEUTROPHILS # (AUTO) 4.5 K/uL (1.8-7.7); NEUTROPHILS % (AUTO) 56.6 % (42.2-75.2); PLATELET COUNT (AUTO) 233 K/uL (140-450); RED BLOOD CELL COUNT(AUTO) 4.97 MIL/uL (4.20-5.40); WHITE BLOOD COUNT (AUTO) 7.9 K/uL (4.8-10.8)
--- NOTE | 2017-12-23 07:20 | NUR ---
TRANSFER OF CARE TO DAYSHIFT PT IN STABLE CONDITION
--- NOTE | 2017-12-23 07:22 | NUR ---
ASSUMED CONTINUITY OF CARE. NO SIGNS AND SYMPTOMS OF ACUTE DISTRESS NOTED. INITIAL ASSESSMENT DONE. EXPLAINED DIAGNOSIS, PLAN OF CARE, PAIN MANAGEMENT TEACHING, USE OF CALL LIGHT/BED/TV/BATHROOM. VERBALIZED UNDERSTANDING. CALL LIGHT WITHIN REACH.
[2017-12-23 08:00] VITALS: BP 129/86
--- NOTE | 2017-12-23 08:00 | NUR ---
Patient's Plan of Care was discussed and reviewed with HUMAN RELATIONS TEACHER: MARGA
--- NOTE | 2017-12-23 08:08 | NUR ---
RECEIVED PATIENT ON ROOM AIR, O2 SAT 94%. SCHEDULED BREATHING TX ADMINISTERED. PATIENT TOLERATED TX WELL, NO ADVERSE SIDE EFFECTS. NO ACUTE RESPIRATORY DISTRESS NOTED. WILL CONTINUE TO MONITOR.
[2017-12-23] MEDS: MONTELUKAST SODIUM 10 MG TAB PO SCH (08:48)
[2017-12-23] MEDS: METOPROLOL 25 MG TAB PO SCH (08:48)
--- NOTE | 2017-12-23 11:13 | NUR ---
SCHEDULED BREATHING TREATMENT ADMINISTERED. PATIENT TOLERATED TX WELL, NO ADVERSE SIDE EFFECTS. NO ACUTE RESPIRATORY DISTRESS NOTED. WILL CONTINUE TO MONITOR.
--- NOTE | 2017-12-23 11:20 | NUR ---
DR JON CAME AND SPOKE TO PT. AT BEDSIDE REGARDING PT. D/C.
[2017-12-23] MEDS ORDERED: AZIT250T3 PO (11:38)
[2017-12-23 12:00] VITALS: BP 123/84
--- NOTE | 2017-12-23 12:57 | NUR ---
FAXED CONCURRENT REVIEW TO [facility] [phone] PHONE JOSELIN [phone]
--- NOTE | 2017-12-23 13:35 | NUR ---
EXPLAINED ABOUT MD D/C ORDER, D/C INSTRUCTIONS AND TEACHING, MD D/C PRESCRIPTION LIST EDUCATION, PCP FOLLOW UP IN 1 TO 2 WEEKS, PAIN MANAGEMENT TEACHING, DISEASE MANAGEMENT TEACHING. VERBALIZED UNDERSTANDING. D/C HOME VIA WHEELCHAIR, ACCOMPANIED BY PT. SON. IN STABLE CONDITION. INFORMED CHARGE NURSE THOMAS HIGH.
== END 2017-12-23 13:35 | disposition home or self-care (01) | DRG 133 ==
LOC: MED 15:31 → MTU 18:56
PROVIDERS: ADMIT Hospitalist; ATTEND Hospitalist
DX: J96.20 Acute and chronic respiratory failure, unspecified whether with hypoxia or hypercapnia (principal); J18.9 Pneumonia, unspecified organism; R65.10 Systemic inflammatory response syndrome (SIRS) of non-infectious origin without acute organ dysfunction; J44.0 Chronic obstructive pulmonary disease with (acute) lower respiratory infection; J44.1 Chronic obstructive pulmonary disease with (acute) exacerbation; I10 Essential (primary) hypertension; D72.829 Elevated white blood cell count, unspecified; F17.210 Nicotine dependence, cigarettes, uncomplicated; F41.9 Anxiety disorder, unspecified; Z91.018 Allergy to other foods; Z79.899 Other long term (current) drug therapy
CPT/HCPCS: 36415; 71045; 80048; 80053; 83735; 85025; 85610; 85730; 87040; 87070; 87081; 87205; 94640; 96365; 96367; 96375; 99285; J0456; J0696; J1644; J1815; J2060; J2543; J3475; J7030; J7060; J7620; Q0092

== ENCOUNTER 2018-03-13 15:43 | Inpatient (IN) | payer OTHER ==
[~2018-03-13] VITALS: Ht 157.5 cm; Wt 67.6 kg
[~2018-03-13 15:43] MED LIST changes: +AZIT250T3 PO; -LEVO500T2 PO
[2018-03-13 15:53] VITALS: BP 140/109
[2018-03-13] MEDS ORDERED: ALBUTEROL SULFATE/IPRATROPIU 3 ML SOL IH ONE ×3 (15:55→18:00)
[2018-03-13] MEDS ORDERED: MAG SULF 2000 MG/WATER PREMIX 50 ML IV ONE (16:00)
[2018-03-13] MEDS ORDERED: NACL 0.9% 500 ML IV ONE ×2 (16:00)
[2018-03-13] MEDS ORDERED: methylPREDNISolone SS 125 MG/2 ML VIAL IVP ONE (16:00)
--- NOTE | 2018-03-13 16:00 | NUR ---
PATIENT PRESENTS TO ED WITH COMPLAINTS OF SOB X 2 DAYS. PATIENT STATES SHE HAS A HX OF ASTHMA BUT DOES NOT HAVE MEDICATION AT HOME AND DR MENA WRITE FOR HER MEDICATIONS. PATIENT HAS COUGH, NON PRODUCTIVE. PATIENT STATES PAIN OF 0/10 AT THIS TIME; VSS; PATIENT POSITIONED FOR COMFORT; HOB ELEVATED; BEDRAILS UP X2; BED DOWN. ER MD MADE AWARE OF PT STATUS.
[2018-03-13 16:41] LABS: BASOPHILS # (AUTO) 0.1 K/uL (0.00-0.22); BASOPHILS % (AUTO) 0.9 % (0.0-2.0); EOSINOPHILS % (AUTO) 0.1 % (0.0-4.0); HEMATOCRIT 47.6 % (36-48); HEMOGLOBIN 15.8 g/dL (12.0-16.0); LYMPHOCYTES # (AUTO) 3.2 K/uL (2.5-16.5); LYMPHOCYTES % (AUTO) 22.4 % (20.5-51.1); MEAN CORPUSCULAR HEMOGLOBIN 30 pg (27-31); MEAN CORPUSCULAR HGB CONC 33 g/dL (33-37); MEAN CORPUSCULAR VOLUME 91.1 fL (80-94); MONOCYTES # (AUTO) 0.6 K/uL (0.8-1.0); MONOCYTES % (AUTO) 4.5 % (1.7-9.3); NEUTROPHILS # (AUTO) 10.3 K/uL (1.8-7.7); NEUTROPHILS % (AUTO) 72.1 % (42.2-75.2); PLATELET COUNT (AUTO) 275 K/uL (140-450); RED BLOOD CELL COUNT(AUTO) 5.22 MIL/uL (4.20-5.40); RED CELL DISTRIBUTION WIDTH 16.2 % (11.6-13.7); WHITE BLOOD COUNT (AUTO) 14.3 K/uL (4.8-10.8)
[2018-03-13 17:02] LABS: ANION GAP 13.8 (8-16); CARBON DIOXIDE 26.1 mmol/L (21-32); CREATININE 1.1 mg/dL (0.6-1.3); POTASSIUM 3.9 mmol/L (3.5-5.1)
[2018-03-13 17:03] LABS: PROTHROMBIN TIME 9.9 secs (10.8-13.4)
[2018-03-13 17:09] LABS: TOTAL BILIRUBIN 0.4 mg/dL (0.0-1.0)
--- NOTE | 2018-03-13 18:30 | NUR ---
ADMITTING DX: SOB HX: ASTHMA AWAKE AND ALERT RESPONSIVE EDUCATION PROVIDED TO PATIENT WITH ACKNOWLEDGEMENT ON [facility] THERAPY AND RESPIRATORY DRUG FOLLOW UP [facility] THERAPY GIVEN ORDERED ENCOURAGED DEEP BREATHING DURING THERAPY TOLERATED WELL WITHOOUT INCIDENT
[2018-03-13 18:35] LABS: APPEARANCE,URINE CLEAR (CLEAR); BILIRUBIN,URINE NEGATIVE (NEGATIVE); BLOOD, URINE NEGATIVE (NEGATIVE); COLOR,URINE YELLOW (YELLOW); LEUKOCYTE ESTERASE ,URINE NEGATIVE (NEGATIVE); NITRITE, URINE NEGATIVE (NEGATIVE); UGLUCOSE NEGATIVE (NEGATIVE)
[2018-03-13 18:50] VITALS: BP 135/82
--- NOTE | 2018-03-13 19:30 | NUR ---
NEW ADMIT IN RM 124B WAS SITTING UP IN BED WITH HOB UP 45%. PT AOX4 AND IS HERE FOR EXACERBATED COPD. PT IS STATING AT 88% ON ROOM AIR. PT SAID THAT SHE FEELS FINE EXCEPT FOR A HEAD ACHE 6/10 PAIN NOTED. PT SITTING IN LOW BED WITH SIDE RAILS UP X 2 AND CALL MYLES IN REACH. OTHER V/S FOLLOWS T 98.5 P 78 R 20 B/P 135/82 02 IS 88% WITH R/A. PT HAS NO S/S OF SOB OR WHEEZING NOTED. PT LUNG SOUNDS ARE DIMINISHED WITH RHONCI. DR ESQUIVEL, WHO IS COVERING FOR [place], WAS CALLED REGARDING ADMISSION ORDERS AND PRN PAIN MEDICATION. AWAITING RETURN CALL.
--- NOTE | 2018-03-13 20:00 | NUR ---
CLARIFICATION REGARDING ORDER FOR RT TO TREAT AND EVALUATE. NEW ORDERS NOTED FROM DR. ROSALES FOR NEBULIZER TREATMENT. ALSO STATIN MEDICATION UNAVAILABLE, WILL ENDORSE TO DAYSHIFT TO F/U WITH DR. CURTIS.
--- NOTE | 2018-03-13 20:30 | NUR ---
DR ROSALES CALLED BACK WITH ORDERS FOR RESIDENT, WHICH WAS PLACED IN EMAR. PT GIVEN NORCO FOR HEAD ACHE PAIN .
[2018-03-13] MEDS ORDERED: HYDROcodone/APAP 5/325 MG 1 TAB TAB PO PRN (20:35)
[2018-03-13] MEDS: METOPROLOL 25 MG TAB PO SCH (21:00)
[2018-03-13] MEDS: methylPREDNISolone SS 125 MG/2 ML VIAL IVP SCH (21:00)
--- NOTE | 2018-03-13 21:00 | NUR ---
PT SITTING UP IN BED WITH NO SOB NOTED, RESPIRATIONS EVEN AND UNLABORED. ROCEPHIN GIVEN ORDERED. IV SITE 20 G ON RIGHT AC INTACT AND FLUSHED PATENT. ALL DUE MEDS GIVEN.
[2018-03-13] MEDS ORDERED: cefTRIAXone 1,000 MG VIAL ONE (22:12)
--- NOTE | 2018-03-13 23:18 | NUR ---
PT C/O H/A 12/07 PAIN GIVEN NORCO PO/PRN
--- NOTE | 2018-03-14 00:30 | NUR ---
PT IN BED NO SOB NOTED HOB UP 45% V/S FOLLOWS Y 98.3 P 65 R 18 B/P 130/78
--- NOTE | 2018-03-14 00:30 | NUR ---
PT SITTING UP IN BED EYES CLOSED BUT RESPONSIVE TO HER NAME. NO C/O VOICED AND V/S FOLLOWS T 98.3 P 65 R 18 B/P 130/78. O2 90% WITH R/A. BED LOW, SIDE RAILS UP AND CALL MYLES IN REACH. POSITIVE EFFECT OF NORCO NOTED.
[2018-03-14] MEDS ORDERED: IPRATROPIUM 0.02% 0.5 MG/2.5 ML NEBU INH SCH (01:00)
--- NOTE | 2018-03-14 02:00 | NUR ---
PT SLEEPING SOUNDLY , NO S/S OF PAIN OR DISTRESS NOTED. BED LOW AND HOB UP 45%. BREATHING EVEN AND UNLABORED BED LOW AND CALL MYLES IN REACH.
[2018-03-14 04:00] VITALS: BP 146/72
[2018-03-14] MEDS: methylPREDNISolone SS 125 MG/2 ML VIAL IVP SCH ×2 (04:43→13:24)
--- NOTE | 2018-03-14 05:00 | NUR ---
PT IN BED RECEIVED GIVEN ORDERED ABT IVPB. NO ADVERSE EFFECT NOTED. T 98.0 P 60 R 18 B/P 140/74 02 94 WITH R/A. PT AMBULATED STEADILY TO BATHROOM AND BACK NO S/S OF SOB NOTED. IV SITE INTACT FLUSHED PATENT. NO C/O OF PAIN AT THIS TIME.
[2018-03-14] MEDS: IPRATROPIUM 0.02% 0.5 MG/2.5 ML NEBU INH SCH ×2 (06:29→13:11)
--- NOTE | 2018-03-14 07:29 | NUR ---
REPORT GIVEN TO RN DAYSHIFT NURSE FOR CONTINUITY OF CARE, PT IN STABLE CONDITION.
[2018-03-14] MEDS ORDERED: BUDESONIDE 0.5 MG/2 ML NEBU INH SCH (07:30)
--- NOTE | 2018-03-14 07:30 | NUR ---
REPORT RECEIVED FROM DRYING CAN WORKER NURSE BRITNI, PT RESTING QUIETLY IN BED, AWAKE ALERT, RESP EVEN UNLABORED ON RA, SKIN WARM DRY COLOR WNL, PLAN OF CARE REVIEWED, ALL SAFETY MEASURES IN PLACE, NO IMMEDIATE NEEDS AT THIS TIME, WILL CONTINUE TO MONITOR.
--- NOTE | 2018-03-14 07:58 | NUR ---
PATIENT HAS BEEN SCREENED AND CATEGORIZED LOW RISK. PATIENT WILL BE SEEN WITHIN 7 DAYS OF ADMISSION. 03/20/[address], [facility]
[2018-03-14 08:00] VITALS: BP 132/77
[2018-03-14] MEDS: METOPROLOL 25 MG TAB PO SCH (08:57)
[2018-03-14] MEDS ORDERED: METOPROLOL 25 MG TAB PO SCH (09:00)
[2018-03-14] MEDS ORDERED: MONTELUKAST SODIUM 10 MG TAB PO SCH ×2 (09:00)
[2018-03-14] MEDS ORDERED: LOVASTATIN 20 MG PO SCH (09:00)
--- NOTE | 2018-03-14 09:04 | NUR ---
AM MEDS GIVEN, TOLERATED WELL. PT OOB WITHOUT ASSIST, AMBULATES TO THE BATHROOM WITH STEADY GAIT. NO OTHER NEEDS IDENTIFIED AT THIS TIME. WILL CONTINUE TO MONITOR.
[2018-03-14] MEDS ORDERED: SPIR25TA20 PO (09:30)
[2018-03-14 12:00] VITALS: BP 137/75
--- NOTE | 2018-03-14 13:11 | NUR ---
PT WAS INSTRUCTED ON COLLECTION OF SPUTUM
--- NOTE | 2018-03-14 13:31 | NUR ---
PT TO RADIOLOGY IN WHEELCHAIR FOR CT CHEST
[2018-03-14 16:00] VITALS: BP 145/74
--- NOTE | 2018-03-14 16:00 | NUR ---
PT AMBULATED IN HALLWAY INDEPENDENTLY WITH NURSING TO MONITOR, MAINTAINED O2 SAT 92-96%. NO S/S OF ACUTE DISTRESS NOTED, COMFORTABLE RESTING IN BED AT THIS TIME, COMFORT MEASURES IN PLACE, WILL CONTINUE TO MONITOR.
--- NOTE | 2018-03-14 16:20 | NUR ---
DR CURTIS PAGED AND CALLED BACK CT RESULTS REPORTED, RESULTS OF WALK STUDY REPORTED. OK TO GA HOME.
--- NOTE | 2018-03-14 17:05 | NUR ---
PT STATES SPIRIVA MAY NOT BE COVERED BY HER INSURANCE, SHE IS VERY UPSET THAT RX WAS WRITTEN BEFORE IT WAS CHECKED TO SEE IT WAS COVERED BY HER INSURANCE OR NOT. WILL CALL HER PHARMACY TO SEE IF SPIRIVA IS COVERED. SHE ALSO STATES SHE NEEDS RX FOR ALBUTEROL FOR HER NEBULIZER, DR EVER NUÑEZ.
--- NOTE | 2018-03-14 18:15 | NUR ---
[facility] ON [address] [phone] CALLED REQUESTED BY PATIENT TO ASK IF RX SPIRIVA IS COVERED BY HER INSURANCE, [facility]. [facility] STATES PATIENT HAS NEVER HAD THIS MEDICATION PREVIOUSLY SO THEY ARE UNABLE TO CHECK TO SEE IF IT WILL BE COVERED BY INSURANCE, THEY SUGGESTED FOR PATIENT TO BRING THE PRESCRIPTION IN THEN THEY CAN RUN IT IN THE SYSTEM TO SEE IF IT IS COVERED. PATIENT NOTIFIED OF SUGGESTIONS BY PHARMACY.
--- NOTE | 2018-03-14 18:24 | NUR ---
DISCHARGE INSTRUCTIONS PROVIDED AND EXPLAINED, VERBALIZED UNDERSTANDING. DR CURTIS AT BEDSIDE, EXPLAINED DISCHARGE PRESCRIPTIONS AND MEDICATIONS. PT AGREES WITH DISCHARGE PRESCRIPTIONS AND PLAN. S/L REMOVED, STEVO WELL, CATHETER TIP INTACT, NO S/S OF INFECTION AT SITE, NO ACTIVE BLEEDING TO SITE. PT AWAITING SON FOR TRANSPORT.
--- NOTE | 2018-03-14 18:40 | NUR ---
PT SON AT BEDSIDE TO TAKE PT HOME. PT AMBULATED OUT WITH ALL BELONGINGS. NO S/S OF RESPIRATORY DISTRESS NOTED.
[2018-03-14] MEDS ORDERED: SIMVASTATIN 10 MG TAB PO SCH (21:00)
== END 2018-03-14 18:40 | disposition home or self-care (01) | DRG 140 ==
LOC: MED 15:43 → MTU 18:11
PROVIDERS: ADMIT Hospitalist; ATTEND Hospitalist
DX: J44.1 Chronic obstructive pulmonary disease with (acute) exacerbation (principal); J96.00 Acute respiratory failure, unspecified whether with hypoxia or hypercapnia; F17.200 Nicotine dependence, unspecified, uncomplicated; I10 Essential (primary) hypertension; M19.90 Unspecified osteoarthritis, unspecified site; F41.9 Anxiety disorder, unspecified; D72.829 Elevated white blood cell count, unspecified
CPT/HCPCS: 36415; 36600; 71045; 71250; 80053; 81003; 82803; 83605; 83880; 84484; 85025; 85610; 85730; 87040; 87070; 87081; 87205; 93005; 94640; 96361; 96374; 99285; J0696; J2930; J3475; J7030; J7060; J7620; J7626; J7644; Q0092

== ENCOUNTER 2018-04-23 15:57 | Emergency (ER) | payer OTHER ==
[~2018-04-23] VITALS: Ht 157.5 cm; Wt 70.3 kg
[~2018-04-23 15:57] MED LIST changes: -ACET-2869 PO; +HYDR-5122 PO; -METH4TAB3 PO; -METO25TA PO; +SPIR25TA20 PO
[2018-04-23 16:02] VITALS: BP 158/100
[2018-04-23] MEDS ORDERED: KETOROLAC 60 MG/2 ML VIAL IM ONE (18:05)
[2018-04-23] MEDS ORDERED: METOCLOPRAMIDE 10 MG/2 ML INJ VIAL IM ONE (18:05)
[2018-04-23] MEDS ORDERED: IPRATROPIUM 0.02% 0.5 MG/2.5 ML NEBU INH ONE (18:05)
[2018-04-23] MEDS ORDERED: predniSONE 20 MG TAB PO ONE (18:05)
[2018-04-23] MEDS ORDERED: ALBUTEROL 0.083% 2.5 MG/3 ML NEBU INH ONE (18:05)
[2018-04-23 19:25] VITALS: BP 152/91
== END 2018-04-23 19:25 | disposition home or self-care (01) ==
LOC: MED 15:57
DX: J44.1 Chronic obstructive pulmonary disease with (acute) exacerbation (principal); G43.909 Migraine, unspecified, not intractable, without status migrainosus; I10 Essential (primary) hypertension; Z79.899 Other long term (current) drug therapy
CPT/HCPCS: 71045; 94640; 96372; 99284; J1885; J2765; J7512; J7613; J7644

== ENCOUNTER 2018-06-12 15:55 | Inpatient (IN) | payer OTHER ==
[~2018-06-12] VITALS: Ht 157.5 cm; Wt 68.9 kg
[2018-06-12 16:10] VITALS: BP 151/97
[2018-06-12] MEDS ORDERED: ALBUTEROL 0.083% 2.5 MG/3 ML NEBU INH ONE (16:10)
[2018-06-12] MEDS ORDERED: IPRATROPIUM 0.02% 0.5 MG/2.5 ML NEBU INH ONE (16:10)
[2018-06-12] MEDS ORDERED: LEVOFLOXACIN 750 MG/D5W PREMIX 150 ML IV ONE (16:10)
[2018-06-12] MEDS ORDERED: methylPREDNISolone SS 125 MG/2 ML VIAL IVP ONE (16:10)
--- NOTE | 2018-06-12 16:25 | NUR ---
PATIENT AMBULATED TO ER BED 4.
--- NOTE | 2018-06-12 16:25 | NUR ---
BIB FAMILY WITH C/O SOB WITH DRY NON PRODUCTIVE COUGH SINCE FRIDAY; DENIES CP; BL EXP WHZ. PT IS AAOX4, VSS, SAT O2 AT 96% AT THIS TIME, BED DOWN, BEDRAIL UP X 1, ER MD AWARE AND NOTIFIED OF PT STATUS. HX; COPD
--- NOTE | 2018-06-12 16:30 | NUR ---
LAB AT BEDSIDE
--- NOTE | 2018-06-12 16:30 | NUR ---
Patient being evaluated by physician at bedside.
--- NOTE | 2018-06-12 16:35 | NUR ---
ADMITTING DX: SOB HX ASTHMA COPD LOC AWAKE AND ALERT RESPONSIVE TO AUTOMOTIVE MANAGER VERBAL COMMANDS SKIN TONE PINK [facility] POSITION RESPIRATORY DRUGS VERIFIED EDUCATION PROVIDED TO PATIENT WITH ACKNOWLEDGEMENT ON [facility] THERAPY AND RESPIRATORY DRUGS [facility] THERAPY GIVEN ORDERED ENCOURAGED PATIENT FOR INTERMITTENT DEEP BREATHING DURING THERAPY STRONG MOIST NPC TOLERATED WELL WITHOUT ADVERSE REACTIONS NOTED
[2018-06-12 16:49] LABS: BASOPHILS # (AUTO) 0.1 K/uL (0.00-0.22); BASOPHILS % (AUTO) 0.6 % (0.0-2.0); EOSINOPHILS # (AUTO) 0.1 K/uL (0-0.4); EOSINOPHILS % (AUTO) 0.4 % (0.0-4.0); HEMATOCRIT 43.8 % (36-48); HEMOGLOBIN 14.4 g/dL (12.0-16.0); LYMPHOCYTES # (AUTO) 3.2 K/uL (2.5-16.5); LYMPHOCYTES % (AUTO) 18.9 % (20.5-51.1); MEAN CORPUSCULAR HEMOGLOBIN 29 pg (27-31); MEAN CORPUSCULAR HGB CONC 33 g/dL (33-37); MEAN CORPUSCULAR VOLUME 89.2 fL (80-94); MONOCYTES # (AUTO) 1.2 K/uL (0.8-1.0); MONOCYTES % (AUTO) 7.4 % (1.7-9.3); NEUTROPHILS # (AUTO) 12.3 K/uL (1.8-7.7); NEUTROPHILS % (AUTO) 72.7 % (42.2-75.2); PLATELET COUNT (AUTO) 305 K/uL (140-450); RED BLOOD CELL COUNT(AUTO) 4.91 MIL/uL (4.20-5.40); WHITE BLOOD COUNT (AUTO) 16.9 K/uL (4.8-10.8)
[2018-06-12 17:08] LABS: APPEARANCE,URINE CLEAR (CLEAR); BILIRUBIN,URINE NEGATIVE (NEGATIVE); BLOOD, URINE NEGATIVE (NEGATIVE); COLOR,URINE YELLOW (YELLOW); LEUKOCYTE ESTERASE ,URINE NEGATIVE (NEGATIVE); NITRITE, URINE NEGATIVE (NEGATIVE); UGLUCOSE NEGATIVE (NEGATIVE)
[2018-06-12 17:09] LABS: ANION GAP 16.1 (8-16); CARBON DIOXIDE 23.6 mmol/L (21-32); CREATININE 1.1 mg/dL (0.6-1.3); POTASSIUM 3.7 mmol/L (3.5-5.1)
[2018-06-12 17:16] LABS: ALBUMIN 3.7 g/dL (3.4-5.0); PROTHROMBIN TIME 10.3 secs (10.8-13.4); TOTAL BILIRUBIN 0.4 mg/dL (0.0-1.0)
[2018-06-12 17:19] LABS: MAGNESIUM 2.1 mg/dL (1.8-2.4)
--- NOTE | 2018-06-12 18:01 | NUR ---
X-RAY AT BEDSIDE
--- NOTE | 2018-06-12 19:03 | NUR ---
NURSE METAL NUMERICAL CONTROL PROGRAMMER RUDI CALLING PLASTIC PARTS FABRICATOR TRIMMER NURSE TO TAKE CARE OF THID PATIENT. PATIENT STILL IN ER
--- NOTE | 2018-06-12 19:32 | NUR ---
PT LAYING IN BED, VSS, CALLED HOUSE SUP. FOR SANDWICH, AWAITNG TRANSFER TO FLOOR.
[2018-06-12 19:40] VITALS: BP 145/95
--- NOTE | 2018-06-12 19:40 | NUR ---
Patient will be admitted to care of DR WATSON. Admited to TELE. Will go to room 111-A. Belongings list completed. Report to ENRIQUE LOPEZ.
--- NOTE | 2018-06-12 19:40 | NUR ---
RECEIVED BEDSIDE REPORT FROM ER NURSE LEONOR. PATIENT AMBULATED FROM [facility] TO BED, STEADY GAIT, NO SOB, IV IN LEFT HAND 22G, SL, DRESSING INTACT. V/S TAKEN NOTED BP 145/95, O2 SAT 96% RA, DENIES PAIN. ADMISSION QUESTIONS ANSWERED, MRSA SCREEN COLLECTED AND SENT TO LAB, UPDATED BORED, EXPLAINED PLAN OF CARE. CALL LIGHT WITHIN REACH, WILL CONTINUE TO MONITOR.
--- NOTE | 2018-06-12 20:30 | NUR ---
CALLED DR FELIX, CALL BACK FROM DR MATAMOROS. ORDERS FOR REGULAR DIET, ALBUTEROL INHALER VIA NEBULIZER BREATHING TREATMENT Q6H, SOLU MEDROL IVP 40 MG, AZITHROMYCIN 250 MG DAILY, AND SPUTUM CULTURE. WILL FOLLOW WITH MD ORDER.
[2018-06-12] MEDS ORDERED: ALBUTEROL 2 MG/5 ML ORASYR PO PRN (21:15)
--- NOTE | 2018-06-12 21:30 | NUR ---
EXPLAINED TO PATIENT THAT SHE NEEDS TO EXPEL SPUTUM FOR CULTURE. PATIENT VERBALIZED UNDERSTANDING. COLLECTION CONTAINER LEFT AT BEDSIDE.
--- NOTE | 2018-06-12 22:00 | NUR ---
PATIENT REQUESTED BREATHING TREATMENT SOON, CALLED RT, RT WILL COME GIVE BREATHING TREATMENT ONCE THEY ARE AVAILABLE. PATIENT STATED "OKAY". PATIENT SHOWS NO ACUTE RESPIRATORY DISTRESS AT THIS TIME.
[2018-06-12] MEDS: ALBUTEROL 0.083% 2.5 MG/3 ML NEBU INH PRN (22:27)
[2018-06-13] VITALS: BP 140/85
--- NOTE | 2018-06-13 | NUR ---
V/S TAKEN ALL WITHIN BASELINE, DENIES PAIN.
--- NOTE | 2018-06-13 02:45 | NUR ---
SPUTUM SAMPLE COLLECTED, WILL SEND TO LAB.
[2018-06-13 04:00] VITALS: BP 154/86
--- NOTE | 2018-06-13 04:00 | NUR ---
V/S TAKEN NOTED BP 154/86, DENIES PAIN. WILL CONTINUE TO MONITOR.
[2018-06-13] MEDS: methylPREDNISolone SS 40 MG/ML VIAL IVP SCH ×2 (04:08→13:06)
--- NOTE | 2018-06-13 04:45 | NUR ---
PATIENT C/O HAVING WHEEZING, CALLED RT FOR BREATHING TREATMENT.
[2018-06-13] MEDS: ALBUTEROL 0.083% 2.5 MG/3 ML NEBU INH PRN ×2 (04:53→08:17)
--- NOTE | 2018-06-13 04:54 | NUR ---
R/T AT BEDSIDE GIVING BREATHING TREATMENT.
--- NOTE | 2018-06-13 04:56 | NUR ---
PATIENT INSTRUCTED ON SPUTUM INDUCTION AND IMPORTANCE WAS EXPRESSED. NO SPUTUM PROCUREMENT POSSIBLE AT THIS TIME. CUP LEFT AT BEDSIDE.
--- NOTE | 2018-06-13 05:20 | NUR ---
PATIENT IN BED, STATED SHE FEELS LIKE SHE CAN BREATH EASIER NOW, WILL CONTINUE TO MONITOR.
--- NOTE | 2018-06-13 07:08 | NUR ---
AWAKE AND ALERT RESPONSIVE TO CORPORATE SAFETY MANAGER VERBAL COMMANDS HFW POSITION CORPORATE SAFETY MANAGER SUGGESTION TO PATIENT FOR HHN PRN THERAPY PATIENT REFUSED PATIENT STATES "I''M FINE I DON'T NEED ONE NOW" CORPORATE SAFETY MANAGER REQUEST PATIENT TO CALL FOR THERAPY CALL LIGHT WITHIN REACH
--- NOTE | 2018-06-13 07:30 | NUR ---
ENDORSED PATIENT TO DAY SHIFT NURSE, PATIENT STABLE.
--- NOTE | 2018-06-13 07:30 | NUR ---
RECEIVED PT AAOX4. NO SOB NOTED. NO C/O PAIN AT THIS TIME. IV TO LT HAND PATENT AND INTACT. CHEST, DIMINISHED AIR ENTRY TO THE BASES, ABDOMEN SOFT, BOWEL SOUNDS PRESENT. NO EDEMA NOTED. INSTRUCTED PT TO CALL FOR ASSISTANCE, CALL LIGHT WITHIN REACH, PT VERBALIZED UNDERSTANDING.
[2018-06-13 08:00] VITALS: BP_SYST 107; BP_SYST 152; BP_DIAS 21; BP_DIAS 64; BP_DIAS 91
[2018-06-13 09:00] VITALS: BP 145/71
[2018-06-13] MEDS ORDERED: AZITHROMYCIN 250 MG TAB PO SCH (09:00)
--- NOTE | 2018-06-13 09:00 | NUR ---
PT HAS HOME MEDS AT THE BEDSIDE. PT REFUSED TO PUT HOME MEDS IN PHARMACY. STATED SHE WILL NOT TAKE THOSE PILLS. RISKS AND CONSEQUENCES EXPLAINED TO PT, VERBALIZED UNDERSTANDING.
[2018-06-13] MEDS ORDERED: METO50TA20 PO (09:55)
[2018-06-13] MEDS ORDERED: SPIRONOLACTONE 25 MG TAB PO SCH (10:15)
[2018-06-13] MEDS ORDERED: METOPROLOL 50 MG TAB PO SCH ×2 (10:15→21:00)
[2018-06-13] MEDS ORDERED: ACETAMINOPHEN 325 MG TAB PO PRN (10:15)
[2018-06-13] MEDS ORDERED: HYDROcodone/APAP 7.5/325 MG 1 TAB PO PRN (10:25)
[2018-06-13 12:00] VITALS: BP 146/92
[2018-06-13] MEDS ORDERED: METH4TAB1 PO (13:32)
--- NOTE | 2018-06-13 13:40 | NUR ---
PT SEEN BY DR JON WITH D/C ORDER.
--- NOTE | 2018-06-13 14:00 | NUR ---
DISCHARGE INSTRUCTIONS AND PRESCRIPTIONS GIVEN TO PT WHICH VERBALIZED FULL UNDERSTANDING OF THE INSTRUCTIONS GIVEN AND THE NEED TO FOLLOW UP WITH OWN PCP WITHIN 7 DAYS. ARM BANDS AND IV REMOVED, CANNULA TIP INTACT.
--- NOTE | 2018-06-13 14:15 | NUR ---
PT ESCORTED OUT AMBULATORY. NO SOB NOTED. NO COMPLAINTS MADE. PT IS DISCHARGE HOME IN STABLE CONDITION WITH SON.
[2018-06-14] MEDS ORDERED: SPIRONOLACTONE 25 MG TAB PO SCH (09:00)
== END 2018-06-13 14:15 | disposition home or self-care (01) | DRG 140 ==
LOC: MED 15:55 → MTU 18:50
PROVIDERS: ADMIT Hospitalist; ATTEND Hospitalist
DX: J44.1 Chronic obstructive pulmonary disease with (acute) exacerbation (principal); J90 Pleural effusion, not elsewhere classified; I10 Essential (primary) hypertension; F17.210 Nicotine dependence, cigarettes, uncomplicated; Z88.8 Allergy status to other drugs, medicaments and biological substances; Z79.899 Other long term (current) drug therapy
CPT/HCPCS: 36415; 71045; 80053; 81003; 83605; 83690; 83735; 83880; 84484; 85025; 85610; 85730; 87040; 87070; 87081; 87086; 87205; 93005; 94640; 96374; 96375; 99285; J1956; J2920; J2930; J7613; J7644

== ENCOUNTER 2018-09-03 11:57 | Emergency (ER) | payer OTHER ==
[~2018-09-03] VITALS: Ht 157.5 cm; Wt 66.2 kg
[~2018-09-03 11:57] MED LIST changes: +METH4TAB1 PO; +METO50TA20 PO
[2018-09-03 12:04] VITALS: BP 155/101
--- NOTE | 2018-09-03 12:09 | NUR ---
PT AMBULATES TO BED 3
--- NOTE | 2018-09-03 12:29 | NUR ---
PT A&OX4. C/O CHEST CONGESTION, CHEST WALL PAIN, PRODUCTIVE COUGH WITH YELLOW SPUTUM X 1 MONTH. SOB WITH EXERTION/ACTIVITY. INSP/EXP WHEEZING BILAT THROUGHOUT. GENERALIZED WEAKNESS X 1 MONTH. CHEST WALL PAIN EXACERBATED BY COUGHING. PT SMOKER USUALLY SMOKES 8 CIGARETTES AT DAY, SMOKED 4 YESTERDAY, AND 2 TODAY.
--- NOTE | 2018-09-03 13:01 | NUR ---
PT WAS EVALUATED BY DR. ESTRADA.
[2018-09-03] MEDS ORDERED: IPRATROPIUM 0.02% 0.5 MG/2.5 ML NEBU INH ONE (13:05)
[2018-09-03] MEDS ORDERED: ALBUTEROL 0.083% 2.5 MG/3 ML NEBU INH ONE (13:05)
[2018-09-03] MEDS ORDERED: predniSONE 20 MG TAB PO ONE (13:05)
--- NOTE | 2018-09-03 13:09 | NUR ---
EKG IN PROGRESS
--- NOTE | 2018-09-03 13:39 | NUR ---
ORDERED BREATHING TREATMENTS ADMINISTERED. TOLERATED WELL, NO ADVERSE SIDE EFFECTS. WILL CONTINUE TO MONITOR.
--- NOTE | 2018-09-03 13:58 | NUR ---
LUNG SOUNDS SLIGHTLY IMPROVED AFTER BREATHING TX. BREATHING EVEN AND UNLABORED. CHEST WALL PAIN REMAINS THE SAME 01/06. PT AMBULATED TO RESTROOM AND BACK TO [facility] WITH STEADY GAIT.
--- NOTE | 2018-09-03 14:35 | NUR ---
PT RE-EVALUATED BY DR. ESTRADA.
[2018-09-03 14:46] VITALS: BP 105/81
--- NOTE | 2018-09-03 14:47 | NUR ---
Patient discharged with v/s stable WITH FAMILY. Written and verbal after care instructions given and explained. Patient alert, oriented and verbalized understanding of instructions. Ambulatory with steady gait. All questions addressed prior to discharge. ID band removed. Patient advised to follow up with PMD. Rx PREDNISONE AND AZITHROMYCIN given. Patient educated on indication of medication including possible reaction and side effects. Opportunity to ask questions provided and answered.
== END 2018-09-03 14:47 | disposition home or self-care (01) ==
LOC: MED 11:57
DX: J44.1 Chronic obstructive pulmonary disease with (acute) exacerbation (principal); R11.2 Nausea with vomiting, unspecified; R19.7 Diarrhea, unspecified; I10 Essential (primary) hypertension; Z79.2 Long term (current) use of antibiotics
CPT/HCPCS: 71045; 93005; 94640; 99284; J7512; J7613; J7644; Q0092; 99283

== ENCOUNTER 2018-09-06 08:03 | Inpatient (IN) | payer OTHER ==
[~2018-09-06] VITALS: Ht 154.9 cm; Wt 66.2 kg
[2018-09-06 08:03] VITALS: BP 169/93
--- NOTE | 2018-09-06 08:10 | NUR ---
PT BIB FAMILY, AMBV TO ER BED 11
--- NOTE | 2018-09-06 08:14 | NUR ---
63 Y F BIB FAMILY C/ SOB X 3 DAYS. +WHEEZING, +LABORED BREATHING THORUGHOUT LUNGS, SHALLOW BREATHING. PT COMPLAINS OF YELLOW PRODUCTIVE COUGH. PT IS ON ROOM AIR AT 94%. NO PAIN AT THIS TIME. BED IS DOWN, LOCKED, BED RAIL X 1, ER MD NOTIFIED OF PATIENT STATUS. RT ON ITS WAY. PMH- COPD, HTN, ASTHMA PT HAS A MED LIST
--- NOTE | 2018-09-06 08:42 | NUR ---
DR HWANG AT BEDSIDE
--- NOTE | 2018-09-06 08:45 | NUR ---
RT at bedside
[2018-09-06] MEDS ORDERED: NACL 0.9% 1,000 ML IV SCH (08:51)
[2018-09-06] MEDS ORDERED: ALBUTEROL 0.083% 2.5 MG/3 ML NEBU INH ONE ×3 (08:55→08:58)
[2018-09-06] MEDS ORDERED: cefTRIAXone 1,000 MG in DEXT 5% MINI-BAG PLUS 50 ML IV ONE (08:55)
[2018-09-06] MEDS ORDERED: MAG SULF 2000 MG/WATER PREMIX 50 ML IV ONE (08:55)
[2018-09-06] MEDS ORDERED: methylPREDNISolone SS 125 MG/2 ML VIAL IVP ONE (08:55)
[2018-09-06] MEDS ORDERED: diphenhydrAMINE 50 MG/ML VIAL IVP ONE (08:55)
[2018-09-06] MEDS ORDERED: FAMOTIDINE 20 MG/2 ML VIAL IVP ONE (08:55)
[2018-09-06] MEDS ORDERED: fentaNYL 0.05 MG/ML VIAL IVP ONE (08:55)
[2018-09-06] MEDS ORDERED: IPRATROPIUM 0.02% 0.5 MG/2.5 ML NEBU INH ONE (08:55)
[2018-09-06] MEDS ORDERED: AZITHROMYCIN 500 MG in DEXTROSE 5% 250 ML IV ONE (08:55)
[2018-09-06] MEDS ORDERED: ALBUTEROL SULFATE/IPRATROPIU 3 ML SOL IH ONE (08:59)
--- NOTE | 2018-09-06 09:00 | NUR ---
PT ON STRETCHER IN SUPINE POSITION, EYES OPEN, RESPIRATIONS LABORED, EDMD MADE AWARE, DENIES CP AT THIS TIME. BED IN LOW POSITION, FULL MONITOR ON, WILL CONTINUE TO MONITOR CLOSELY.
[2018-09-06] MEDS ORDERED: cefTRIAXone 1,000 MG VIAL ONE (09:19)
[2018-09-06] MEDS ORDERED: AZITHROMYCIN 500 MG INJ VIAL IV ONE (09:20)
[2018-09-06] MEDS: ALBUTEROL SULFATE/IPRATROPIU 3 ML SOL IH SCH ×2 (09:40→09:44)
--- NOTE | 2018-09-06 09:40 | NUR ---
PT DOES NOT WANT ABG DONE. MADE AWARE OF PT REFUSAL. PHYSICIAN STATES UNDERSTANDING AND TO NOT OBTAIN ABG.
[2018-09-06 09:43] LABS: HEMOGLOBIN 15.7 g/dL (12.0-16.0); LYMPHOCYTES # (AUTO) 1.9 K/uL (2.5-16.5); LYMPHOCYTES % (AUTO) 10.4 % (20.5-51.1); MEAN CORPUSCULAR HEMOGLOBIN 28 pg (27-31); MEAN CORPUSCULAR HGB CONC 32 g/dL (33-37); MEAN CORPUSCULAR VOLUME 87.4 fL (80-94); MONOCYTES # (AUTO) 0.5 K/uL (0.8-1.0); MONOCYTES % (AUTO) 2.8 % (1.7-9.3); NEUTROPHILS # (AUTO) 16.1 K/uL (1.8-7.7); NEUTROPHILS % (AUTO) 86.8 % (42.2-75.2); PLATELET COUNT (AUTO) 272 K/uL (140-450); RED BLOOD CELL COUNT(AUTO) 5.61 MIL/uL (4.20-5.40); RED CELL DISTRIBUTION WIDTH 17.6 % (11.6-13.7); WHITE BLOOD COUNT (AUTO) 18.5 K/uL (4.8-10.8)
--- NOTE | 2018-09-06 10:00 | NUR ---
PT ON STRETCHER IN SUPINE POSITION, EYES OPEN, RESPIRATIONS EVEN/UNLABORED, DENIES CP AT THIS TIME. BED IN LOW POSITION, FULL MONITOR ON, WILL CONTINUE TO MONITOR CLOSELY.
[2018-09-06 10:03] LABS: ANION GAP 13.4 (8-16); CARBON DIOXIDE 26.3 mmol/L (21-32); CREATININE 1.2 mg/dL (0.6-1.3); POTASSIUM 4.7 mmol/L (3.5-5.1)
[2018-09-06 10:09] LABS: ALBUMIN 3.9 g/dL (3.4-5.0); TOTAL BILIRUBIN 0.3 mg/dL (0.0-1.0)
[2018-09-06 10:12] LABS: APPEARANCE,URINE CLEAR (CLEAR); BILIRUBIN,URINE NEGATIVE (NEGATIVE); BLOOD, URINE NEGATIVE (NEGATIVE); COLOR,URINE YELLOW (YELLOW); LEUKOCYTE ESTERASE ,URINE NEGATIVE (NEGATIVE); NITRITE, URINE NEGATIVE (NEGATIVE); UGLUCOSE NEGATIVE (NEGATIVE)
[2018-09-06 10:27] LABS: PROTHROMBIN TIME 9.4 secs (10.8-13.4)
[2018-09-06 11:00] LABS: D-DIMER < 100 ng/ml (0-400)
[2018-09-06] MEDS ORDERED: ACETAMINOPHEN 325 MG TAB PO PRN (11:50)
[2018-09-06] MEDS ORDERED: ONDANSETRON 4 MG/2 ML VIAL IVP PRN (11:50)
[2018-09-06] MEDS ORDERED: LORazepam 1 MG TAB PO PRN (11:50)
[2018-09-06] MEDS ORDERED: HYDROcodone/APAP 5/325 MG 1 TAB TAB PO PRN (11:50)
--- NOTE | 2018-09-06 12:28 | NUR ---
Patient will be admitted to care of DR CURTIS. Admited to TELE. Will go to room 107B. Belongings list completed. Report to GERALDO/ENRIQUE.
--- NOTE | 2018-09-06 12:30 | NUR ---
RECEIVED REPORT FROM ER NURSE AT BEDSIDE. PT ADMITTED WITH DX OF ASTHMA EXACERBATION. PT VS RECORDED T 98.5, BP 119/83, RR 16, HR 62, O2 SAT 64% ON RA. DENIES ANY PAIN AT THIS TIME. PT LYING COMFORTABLY ON HER BED AT THIS TIME. PT HAS RT ND LFT FA 20 G IV, SALINE LOCK. PER ER NURSE, PT RECEIVED 1L NS BOLUS IN ER. ALSO RECEIVED ZITHROMAX, MAG SULFATE, ATROVENT , ROCEPHIN, BENADRYL, PEPCID, SOLUMEDROL. RECEIVED MULTIPLE BREATHING TREATMENT IN ER. PT ON REGULAR DIET. PT ON RA, TOLERATING WELL. SKIN IS INTACT. CALL LIGHT WITHIN PT REACH. INFORMED PT TO USE CALL LIGHT FOR ANY HELP. VERBALIZED UNDERSTANDING. WILL CONTINUE TO MONITOR PT.
--- NOTE | 2018-09-06 14:00 | NUR ---
CHECKED ON PT. ADMINISTERED MEDS TO PT ORDERED. PT TOLERATING WELL ON RA. NO SIGN OF ANY DISTRESS NOTED. NO SOB NOTED. PT STATES NO NEED OF O2 AT THIS TIME. PLACED CALL LIGHT WITHIN PT REACH. ALL SAFETY MEASURE IN PLACE. WILL CONTINUE TO MONITOR PT,.
[2018-09-06] MEDS: methylPREDNISolone SS 40 MG/ML VIAL IVP SCH ×2 (14:33→20:09)
--- NOTE | 2018-09-06 15:30 | NUR ---
CHECKED ON PT. NO SIGN OF DISTRESS, NO SOB. PT SITTING ON HER BED, READING BOOK. PHARMACY CALL ED REGARDING BUDESONIDE/FORMOTEROL , ASKING IF PT TAKES IT AT HOME. PT STATES HER INSURANCE DOES NOT COVER. PAGED DR CURTIS . PT STATES PHARMACY DOES NOT HAS THAT MEDS WITH THEM. NEEDS TO DC OR MD NEEDS TO CHANGE THE ORDER. WAITING FOR MD CALL.
[2018-09-06 16:00] VITALS: BP 131/83
[2018-09-06] MEDS: ALBUTEROL SULFATE/IPRATROPIU 3 ML SOL IH PRN ×2 (16:36→19:52)
--- NOTE | 2018-09-06 16:45 | NUR ---
PRN BREATHING TX ADMINISTERED. BILATERAL EXP WHEEZE PRE AND POST TX. SPOKE TO PT REGARDING ABG ORDER PT AGAIN STATES SHE DOES NOT WANT ABG DONE. PT ON ROOM AIR SPO2 95% NO RESPIRATORY DISTRESS NOTED.
--- NOTE | 2018-09-06 17:30 | NUR ---
PT GOT BREATHING TREATMENT. TOLERATED WELL. NO SIGN OF DISTRESS NOTED. PT O2 SAT 94% ON RA PER RT. NO NEED OF O2 SUPPLY AT THIS TIME. INFORMED PT TO CALL FOR ANY HELP. WILL CONTINUE TO MONITOR PT.
--- NOTE | 2018-09-06 19:15 | NUR ---
ENDORSED PT TO PM NURSE AT BEDSIDE. PT STABLE AND SLEEPING AT THIS TIME.
--- NOTE | 2018-09-06 19:16 | NUR ---
RECEIVED PT COMING OUT OF THE TOILET WITH STEADY GAIT, WHEEZING HEARD ON AUSCULTATION, VITAL SIGNS TAKEN, BP SLIGHTLY ELEVATED, ASYMPTOMATIC, WILL GIVE DUE BP MEDICATION, SAT-94% ON ROOM AIR, NO SOB NOTED, WITH OCCASIONAL DRY COUGH, PLAN OF CARE DISCUSSED, SAFETY MEASURES IN PLACE, CALL LIGHT WITHIN REACH.
[2018-09-06 20:00] VITALS: BP 151/94
[2018-09-06] MEDS: METOPROLOL 50 MG TAB PO SCH (20:09)
--- NOTE | 2018-09-06 20:10 | NUR ---
DUE MEDICATION ADMINISTERED, PT REFUSED HEPARIN SUB-Q, RISK AND BENEFITS EXPLAINED BUT STILL REFUSING IT AT THIS TIME, STATED WANTS IT STARTED TOMORROW, WILL ENDORSE, ALL NEEDS ATTENDED.
[2018-09-06] MEDS ORDERED: METOPROLOL TARTRATE 50 MG PO SCH (21:00)
[2018-09-06] MEDS ORDERED: ZOLPIDEM 5 MG TAB PO PRN (21:00)
[2018-09-06] MEDS ORDERED: NON-FORMULARY ITEM (Budesonide/Formoterol Fumarate* (Symbicort 80-4.5 Mcg Inhaler*) 2 PUFF IH SCH (21:00)
--- NOTE | 2018-09-06 22:30 | NUR ---
ROUNDS MADE, SEEN PT SLEEPING, NO SIGNS OF RESP DISTRESS, MONITORED CLOSELY.
[2018-09-07] VITALS: BP 121/70
[2018-09-07] MEDS: ALBUTEROL SULFATE/IPRATROPIU 3 ML SOL IH PRN ×3 (00:08→07:28)
--- NOTE | 2018-09-07 00:20 | NUR ---
PT SEEN SITTING ON SIDE OF BED, REQUESTING FOR BREATHING TX, WHEEZING NOTED, RT ENMAI PAGED, BREATHING TX GIVEN BY RT, CONTINUE TO MONITOR CLOSELY.
--- NOTE | 2018-09-07 02:30 | NUR ---
PT SLEEPING, NO SIGNS OF DISTRESS, MONITORED CLOSELY.
--- NOTE | 2018-09-07 03:59 | NUR ---
PT AWAKE, SITTING UP ON BED, WHEEZING NOTED, PAGED RT FOR BREATHING TREATMENT, VITAL SIGNS TAKEN, BP SLIGHTLY ELEVATED, DENIES CHEST PAIN, SAT-91% ON ROOM AIR, WILL GIVE DUE SOLUMEDROL, MONITORED CLOSELY.
[2018-09-07 04:00] VITALS: BP 157/92
[2018-09-07] MEDS: methylPREDNISolone SS 40 MG/ML VIAL IVP SCH (04:15)
--- NOTE | 2018-09-07 06:20 | NUR ---
PT AWAKE LISTENING TO MUSIC ON HER CELLPHONE, NO RESP DISTRESS NOTED, MONITORED CLOSELY.
[2018-09-07 06:42] LABS: HEMATOCRIT 43.2 % (36-48); HEMOGLOBIN 13.8 g/dL (12.0-16.0); LYMPHOCYTES # (AUTO) 1.5 K/uL (2.5-16.5); LYMPHOCYTES % (AUTO) 11.2 % (20.5-51.1); MEAN CORPUSCULAR HEMOGLOBIN 28 pg (27-31); MEAN CORPUSCULAR HGB CONC 32 g/dL (33-37); MEAN CORPUSCULAR VOLUME 87.1 fL (80-94); MONOCYTES # (AUTO) 0.3 K/uL (0.8-1.0); MONOCYTES % (AUTO) 2.1 % (1.7-9.3); NEUTROPHILS # (AUTO) 11.4 K/uL (1.8-7.7); NEUTROPHILS % (AUTO) 86.7 % (42.2-75.2); PLATELET COUNT (AUTO) 221 K/uL (140-450); RED BLOOD CELL COUNT(AUTO) 4.96 MIL/uL (4.20-5.40); RED CELL DISTRIBUTION WIDTH 16.8 % (11.6-13.7); WHITE BLOOD COUNT (AUTO) 13.1 K/uL (4.8-10.8)
[2018-09-07 06:50] LABS: ALBUMIN 3.5 g/dL (3.4-5.0); ANION GAP 11.1 (8-16); CARBON DIOXIDE 26.4 mmol/L (21-32); CREATININE 1.2 mg/dL (0.6-1.3); POTASSIUM 4.5 mmol/L (3.5-5.1); TOTAL BILIRUBIN 0.3 mg/dL (0.0-1.0)
--- NOTE | 2018-09-07 07:15 | NUR ---
PT SLEEPING, NO SIGNS OF DISTRESS, REPORT GIVEN TO ENRIQUE TSAI FOR CONTINUITY OF CARE.
--- NOTE | 2018-09-07 07:15 | NUR ---
REPORT RECEIVED FROM NURSE ELIZABETH. PT AWAKE A/O ABLE TO COMMUNICATE NEEDS, DENIES PAIN OR SOB. NO S/S OF ACUTE DISTRESS NOTED AT THIS TIME. CALL LIGHT AND PERSONAL ITEMS WITHIN REACH, SAFETY MEASURES IN [place] CE, WILL CONTINUE TO MONITOR.
[2018-09-07 08:00] VITALS: BP 157/89
[2018-09-07] MEDS: SIMVASTATIN 10 MG TAB PO SCH ×2 (08:31→08:36)
[2018-09-07] MEDS: METOPROLOL 50 MG TAB PO SCH (08:32)
--- NOTE | 2018-09-07 08:34 | NUR ---
PATIENT HAS BEEN SCREENED AND CATEGORIZED MODERATE NUTRITION RISK. PATIENT WILL BE SEEN WITHIN 3-5 DAYS OF ADMISSION. 09/08/18LUCRECIA MOLINA RD
[2018-09-07] MEDS ORDERED: SPIRONOLACTONE 25 MG TAB PO SCH (09:00)
[2018-09-07] MEDS ORDERED: DOCUSATE SODIUM 100 MG GELCAP PO SCH (09:00)
[2018-09-07] MEDS ORDERED: LOVASTATIN 20 MG PO SCH (09:00)
[2018-09-07] MEDS ORDERED: LEVOFLOXACIN 500 MG/D5W PREMIX 100 ML IV SCH (09:00)
[2018-09-07] MEDS ORDERED: CALCIUM CARBONATE 500 MG TAB.CHEW PO SCH (09:00)
[2018-09-07] MEDS ORDERED: MONTELUKAST SODIUM 10 MG TAB PO SCH (09:00)
[2018-09-07] MEDS ORDERED: NON-FORMULARY ITEM (Spironolactone 1 TAB) PO SCH (09:00)
[2018-09-07] MEDS ORDERED: LORA-476 PO (09:36)
[2018-09-07] MEDS ORDERED: PANT40EC PO (09:36)
[2018-09-07] MEDS ORDERED: METH4TAB1 PO (09:36)
[2018-09-07 10:24] VITALS: BP 157/89
--- NOTE | 2018-09-07 10:33 | NUR ---
CM NOTE I SPOKE WITH LAYNE OF [facility] (PCP) PH# [phone] TO SCHEDULE THE PATIENT'S OUTPATIENT FOLLOW UP APPOINTMENT. PER LAYNE, SHE HAS NOW SCHEDULED FOR THE PATIENT TO SEE DR. RENE ON SEPTEMBER 14, 2018 10:15 AM AT THE CLINIC AT [address] [place] [address]. I GAVE THE PATIENT HER OUTPATIENT FOLLOW UP SCHEDULE.
--- NOTE | 2018-09-07 11:00 | NUR ---
PT REMAINS AWAKE A/O ABLE TO COMMUNICATE NEEDS, DENIES PAIN OR SOB. NO S/S OF ACUTE DISTRESS NOTED AT THIS TIME. PT STATES SHE IS UP TO DATE WITH PNEUMOCOCCAL AND INFLUENZA VACCINES. PT DISCHARGED HOME W SON VIA PERSONAL TRANSPORT WITH D/C INSTRUCTIONS, PRESCRIPTIONS AND ALL PERSONAL BELONGINGS. PT VERBALIZED UNDERSTANDING OF DC INSTRUCTION, ALL QUESTIONS ANSWERED. PERIPHERAL IV ACCESS REMOVED, CATH INTACT, TOLERATED WELL, NO S/S OF BLEEDING NOTED TO SITE.
--- NOTE | 2018-09-14 15:05 | NUR ---
MADE A FOLLOW UP APPOINTMENT WITH JOHN ROBERTS FOR Friday09/17/17 AT 2P.M. [address]ESS [id number] [facility] PHONE [phone] PATIENT ALREADY DISCHARGED, I CALLED HER WITH THE APPOINTMENT TIME , DATE, ADDRESS AND PHONE. Addendum: 09/15/18 at 1523 by Kari Moore ABOVE ERROR, ENTERED ON WRONG CHART
== END 2018-09-07 11:00 | disposition home or self-care (01) | DRG 140 ==
LOC: MED 08:03 → MTU 11:49
PROVIDERS: ADMIT Hospitalist; ATTEND Hospitalist
DX: J44.1 Chronic obstructive pulmonary disease with (acute) exacerbation (principal); J96.91 Respiratory failure, unspecified with hypoxia; D72.829 Elevated white blood cell count, unspecified; F41.9 Anxiety disorder, unspecified; I10 Essential (primary) hypertension; E78.5 Hyperlipidemia, unspecified; F17.210 Nicotine dependence, cigarettes, uncomplicated; G89.29 Other chronic pain; M54.9 Dorsalgia, unspecified; T38.0X5A Adverse effect of glucocorticoids and synthetic analogues, initial encounter; Z79.899 Other long term (current) drug therapy; Y92.89 Other specified places as the place of occurrence of the external cause; Z88.8 Allergy status to other drugs, medicaments and biological substances
CPT/HCPCS: 36415; 71045; 71250; 80053; 81003; 83605; 83735; 83880; 84484; 85025; 85379; 85610; 85730; 86140; 87040; 87081; 87086; 87804; 93005; 94640; 96361; 96365; 96375; 99285; J0456; J0696; J1200; J1644; J2920; J2930; J3010; J3475; J3490; J7613; J7620; Q0092

== ENCOUNTER 2018-09-08 19:51 | Inpatient (IN) | payer OTHER ==
[~2018-09-08] VITALS: Ht 157.5 cm; Wt 65.8 kg
[~2018-09-08 19:51] MED LIST changes: +PANT40EC PO
[2018-09-08 20:30] VITALS: BP 185/113
--- NOTE | 2018-09-08 20:33 | NUR ---
PT AMBULATED TO LOBBY. PROVIDED URINE. ACCOMPANIED BY SON.
--- NOTE | 2018-09-08 21:37 | NUR ---
patient amb to bed 6. accompanied by her son.
--- NOTE | 2018-09-08 21:38 | NUR ---
C/O SOB BILAT INSPIRATORY/EXPIRATORY WHEEZING THROUGHOUT. O2SAT 94% RA. INCREASED WORK OF BREATHING. RT CALLED FOR BREATHING TREATMENT PER VERBAL ORDER BY DR BRUNSON. PATIENT ON MONITOR. ABLE TO SPEAK IN FRAGMENTED SENTENCES. SON AT BEDSIDE.
[2018-09-08] MEDS ORDERED: ALBUTEROL SULFATE/IPRATROPIU 3 ML SOL IH ONE ×2 (21:40→23:25)
--- NOTE | 2018-09-08 21:48 | NUR ---
RT AT BEDSIDE.
[2018-09-08] MEDS ORDERED: MAG SULF 2000 MG/WATER PREMIX 50 ML IV ONE (21:55)
[2018-09-08] MEDS ORDERED: methylPREDNISolone SS 125 MG/2 ML VIAL IVP ONE (21:55)
[2018-09-08] MEDS ORDERED: NACL 0.9% 1,000 ML IV ONE (21:55)
--- NOTE | 2018-09-08 23:29 | NUR ---
RT AT BEDSIDE.
[2018-09-08 23:35] LABS: APPEARANCE,URINE CLEAR (CLEAR); BILIRUBIN,URINE NEGATIVE (NEGATIVE); BLOOD, URINE NEGATIVE (NEGATIVE); COLOR,URINE YELLOW (YELLOW); LEUKOCYTE ESTERASE ,URINE NEGATIVE (NEGATIVE); NITRITE, URINE NEGATIVE (NEGATIVE); PH,URINE 6.5 (5.0-9.0); UGLUCOSE NEGATIVE (NEGATIVE)
--- NOTE | 2018-09-08 23:45 | NUR ---
LAB AT BEDSIDE.
--- NOTE | 2018-09-08 23:50 | NUR ---
X RAY AT BEDSIDE.
[2018-09-08 23:53] LABS: BASOPHILS % (AUTO) 0.2 % (0.0-2.0); HEMATOCRIT 42.9 % (36-48); HEMOGLOBIN 13.8 g/dL (12.0-16.0); LYMPHOCYTES # (AUTO) 1.2 K/uL (2.5-16.5); LYMPHOCYTES % (AUTO) 11.9 % (20.5-51.1); MEAN CORPUSCULAR HEMOGLOBIN 28 pg (27-31); MEAN CORPUSCULAR HGB CONC 32 g/dL (33-37); MEAN CORPUSCULAR VOLUME 87.7 fL (80-94); MONOCYTES # (AUTO) 0.5 K/uL (0.8-1.0); MONOCYTES % (AUTO) 4.8 % (1.7-9.3); NEUTROPHILS # (AUTO) 8.1 K/uL (1.8-7.7); NEUTROPHILS % (AUTO) 83.1 % (42.2-75.2); PLATELET COUNT (AUTO) 218 K/uL (140-450); RED BLOOD CELL COUNT(AUTO) 4.89 MIL/uL (4.20-5.40); RED CELL DISTRIBUTION WIDTH 16.9 % (11.6-13.7); WHITE BLOOD COUNT (AUTO) 9.8 K/uL (4.8-10.8)
[2018-09-08 23:59] LABS: ANION GAP 13.1 (8-16); CARBON DIOXIDE 26.3 mmol/L (21-32); POTASSIUM 4.4 mmol/L (3.5-5.1)
[2018-09-09 00:05] LABS: ALBUMIN 3.3 g/dL (3.4-5.0); TOTAL BILIRUBIN 0.4 mg/dL (0.0-1.0)
[2018-09-09 00:09] LABS: PROTHROMBIN TIME 9.7 secs (10.8-13.4)
[2018-09-09] MEDS ORDERED: BUDESONIDE 0.5 MG/2 ML NEBU INH ONE (00:45)
[2018-09-09] MEDS ORDERED: ALBUTEROL SULFATE/IPRATROPIU 3 ML SOL IH PRN (00:45)
[2018-09-09] MEDS ORDERED: HYDROcodone/APAP 5/325 MG 1 TAB TAB PO PRN (00:50)
[2018-09-09] MEDS ORDERED: NON-FORMULARY ITEM (Lorazepam (Ativan) 1 TAB) PO PRN (00:50)
[2018-09-09] MEDS ORDERED: ACETAMINOPHEN 325 MG TAB PO PRN (00:50)
[2018-09-09] MEDS ORDERED: MORPHINE SULFATE 4 MG/ML SYR IVP PRN (00:50)
[2018-09-09] MEDS ORDERED: ONDANSETRON 4 MG/2 ML VIAL IVP PRN (00:50)
--- NOTE | 2018-09-09 01:18 | NUR ---
PATIENT ADMITTED TO [facility] FLOOR UNDER THE CARE OF DR JON. REPORT GIVEN TO FLOOR NURSE. PATIENT TRANSFERED IN [facility] WHILE BEING MONITORED. STABLE DURING TRANSFER.
[2018-09-09 01:30] VITALS: BP 132/86
--- NOTE | 2018-09-09 01:30 | NUR ---
RECEIVED PATIENT AWAKE, ALERT, RESPIRATION EVEN UNLABORED SATING 94% ON O2 2L NC. DENIES PAIN OR SHORTNESS OF BREATH. SKIN IS WARM AND DRY. IV PATENT AND INTACT. MRSA SCREEN DONE. VITALS WERE STABLE. ORIENT PATIENT TO STAFF, ROOM, AND CALL LIGHT. PLAN OF CARE WAS DISCUSSED. ALL SAFETY MEASURES ARE IN PLACE. PLACED IN SEMI-GRAHAM BED IN LOW POSITION. CALL LIGHT WITHIN REACH AND CLIENT VERBALIZED ITS USE. WILL CONTINUE TO MONITOR
[2018-09-09] MEDS: DOXYCYCLINE 100 MG in DEXTROSE 5% 100 ML IV SCH ×3 (01:47→21:23)
[2018-09-09] MEDS ORDERED: cefTRIAXone 1,000 MG VIAL ONE (01:50)
[2018-09-09] MEDS ORDERED: DOXYCYCLINE 100 MG VIAL IV ONE (01:50)
--- NOTE | 2018-09-09 02:00 | NUR ---
ALL SCHEDULE MEDS DUE WERE GIVEN AND TOLERATED WELL. NO ASE NOTED. WILL CONTINUE TO MONITOR.
--- NOTE | 2018-09-09 03:30 | NUR ---
CHECKED PATIENT. PATIENT SLEEPING COMFORTABLY RESPIRATION EVEN UNLABORED ON O2 2L NC. NO DISTRESS NOTED. CALL LIGHT WITHIN REACH. WILL CONTINUE TO MONITOR
[2018-09-09 04:00] VITALS: BP 141/77
--- NOTE | 2018-09-09 04:30 | NUR ---
VITALS WERE TAKEN. PATIENT CONDITION STABLE. NO DISTRESS NOTED. CALL LIGHT WITHIN REACH. WILL CONTINUE TO MONITOR.
[2018-09-09] MEDS: methylPREDNISolone SS 125 MG/2 ML VIAL IVP SCH ×3 (05:56→17:24)
[2018-09-09] MEDS: ALBUTEROL SULFATE/IPRATROPIU 3 ML SOL IH SCH ×3 (07:01→19:12)
--- NOTE | 2018-09-09 07:28 | NUR ---
ENDORSED PATIENT TO DAY SHIFT NURSE FOR CONTINUITY OF CARE. PATIENT STABLE AT THIS TIME.
--- NOTE | 2018-09-09 07:30 | NUR ---
RECEIVED BEDSIDE REPORT FROM DIGESTER RN FOR CONTINUITY OF CARE. PT IN STABLE CONDITION. SLEEPING IN BED, AROUSABLE BY VOICE. DENIES PAIN AND DISCOMFORT. NO S/S ACUTE DISTRESS. RESPIRATIONS EVEN AND UNLABORED. ACTIVE BS IN ALL QUADRANTS. ABDOMEN SOFT AND NON-DISTENDED. SKIN INTACT. PT IS AMBULATORY WITHOUT ASSIST. IV SITE PATENT AND ASYMPTOMATIC, ON SL. ALL SAFETY PRECAUTIONS IN PLACE, WILL CONTINUE TO MONITOR.
[2018-09-09 08:00] VITALS: BP 154/103
--- NOTE | 2018-09-09 08:29 | NUR ---
PATIENT HAS BEEN SCREENED AND CATEGORIZED MODERATE NUTRITION RISK. PATIENT WILL BE SEEN WITHIN 3-5 DAYS OF ADMISSION. 09/11/18LUCRECIA MOLINA RD
[2018-09-09] MEDS ORDERED: LORazepam 1 MG TAB PO PRN (08:40)
[2018-09-09] MEDS ORDERED: ENOXAPARIN 30 MG/0.3 ML SYR SUBQ SCH (09:00)
[2018-09-09] MEDS ORDERED: SPIRONOLACTONE 25 MG TAB PO SCH (09:00)
[2018-09-09] MEDS ORDERED: MONTELUKAST SODIUM 10 MG TAB PO SCH (09:00)
[2018-09-09] MEDS ORDERED: NON-FORMULARY ITEM (Spironolactone 1 TAB) PO SCH (09:00)
[2018-09-09] MEDS ORDERED: PANTOPRAZOLE 40 MG TABEC PO SCH (09:00)
[2018-09-09] MEDS ORDERED: LOVASTATIN 20 MG PO SCH (09:00)
[2018-09-09] MEDS ORDERED: METOPROLOL TARTRATE 50 MG PO SCH (09:00)
[2018-09-09] MEDS: METOPROLOL 25 MG TAB PO SCH ×2 (09:16→21:22)
--- NOTE | 2018-09-09 09:27 | NUR ---
PATIENT REFUSED LOVENOX. PATIENT IS AMBULATORY AND STATES SHE BRUISES EASILY.
--- NOTE | 2018-09-09 09:47 | NUR ---
ASKED PHARMACY TO BRING 0900 ROCEPHIN. PER PHARMACY, DOSE TIMING WILL BE CHANGED.
--- NOTE | 2018-09-09 10:32 | NUR ---
CM NOTE I SPOKE WITH DORIS OF [facility] PH# [phone] AND SHE SAID THAT THE PATIENT HAS AN APPOINTMENT TO SEE DR. RENE ON SEPTEMBER 14, 2018 10:15 AM AT THE CLINIC AT [address] [place], [place] [id number]. I GAVE THE PATIENT A COPY OF HER OUTPATIENT FOLLOW UP SCHEDULE TO REMIND HER.
[2018-09-09 12:00] VITALS: BP 144/85
--- NOTE | 2018-09-09 15:19 | NUR ---
PATIENT STATES SHE IS NOT PRODUCING SPUTUM. EXPLAINED TO PT THAT SPUTUM CULTURE IS ORDERED. EXPLAINED PROCESS FOR SPUTUM COLLECTION AND LEFT SAMPLE CUP AT BEDSIDE. PT VERBALIZED UNDERSTANDING.
[2018-09-09 16:00] VITALS: BP 150/94
--- NOTE | 2018-09-09 19:11 | NUR ---
ENDORSED POC TO JUNIOR LINUX ADMINISTRATOR RN. PT IN STABLE CONDITION.
--- NOTE | 2018-09-09 19:20 | NUR ---
RECEIVED PT IN STABLE CONDITION FROM AM NURSE. AWAKE,ALERT AND ORIENTED X4. ON TELE MONITOR. AMBULATORY. WITH NO DISTRESS NOR SOB NOTED. ON ROOM AIR . HAS IV SALINE LOCK ON THE RT FA . PLAN OF CARE DISCUSSED AND VERBALIZED UNDERSTANDING. BED ON LOWEST POSITION. CALL LIGHT PLACED WITHIN EASY REACH. INSTRUCTED TO CALL IF NEED ASSISTANCE. WILL CONTINUE TO MONITOR.
[2018-09-09 20:00] VITALS: BP 144/82
[2018-09-09] MEDS ORDERED: SIMVASTATIN 10 MG TAB PO SCH (21:00)
--- NOTE | 2018-09-09 21:00 | NUR ---
IV ACCESS ON THE RT FA INFILTRATED. DISCONTINUED. STARTED A NEW IV ON THE RT WRIST G#22. CLEAR AND PATENT.
--- NOTE | 2018-09-09 22:00 | NUR ---
GOT UP TO THE BATHROOM, VOIDED. HAD SOME SOB AFTER GETTING BACK TO BED. PUT BACK ON O22L/NC. O2 SAT 94%. WILL CONTINUE TO MONITOR.
[2018-09-10] MEDS: ALBUTEROL SULFATE/IPRATROPIU 3 ML SOL IH SCH ×2 (00:31→07:00)
[2018-09-10] MEDS: methylPREDNISolone SS 125 MG/2 ML VIAL IVP SCH ×2 (00:35→05:33)
[2018-09-10 01:00] VITALS: BP 138/91
--- NOTE | 2018-09-10 01:00 | NUR ---
IV ACCESS THAT WAS STARTED ON THE RT WRIST G#22 @ 2100 WAS INFILTRATED. DISCONTINUED. A NEW IV ACCESS STARTED ON RT HAND G#22. CLEAR AND PATENT.
--- NOTE | 2018-09-10 02:30 | NUR ---
MADE ROUNDS. PT ASLEEP. NO DISTRESS NOTED. WILL CONTINUE TO MONITOR.
[2018-09-10 03:55] VITALS: BP 142/81
--- NOTE | 2018-09-10 06:00 | NUR ---
PT WANTS TO GO HOME. ALREADY DRESSED UP BUT SHE SAID SHE FEELS LIKE SHE IS READY TO GO ,CAN WAIT FOR THE MD .
[2018-09-10 06:46] LABS: BASOPHILS % (AUTO) 0.1 % (0.0-2.0); HEMATOCRIT 45.2 % (36-48); HEMOGLOBIN 14.8 g/dL (12.0-16.0); LYMPHOCYTES # (AUTO) 0.8 K/uL (2.5-16.5); LYMPHOCYTES % (AUTO) 5.1 % (20.5-51.1); MEAN CORPUSCULAR HEMOGLOBIN 29 pg (27-31); MEAN CORPUSCULAR HGB CONC 33 g/dL (33-37); MEAN CORPUSCULAR VOLUME 86.9 fL (80-94); MONOCYTES # (AUTO) 0.4 K/uL (0.8-1.0); MONOCYTES % (AUTO) 2.8 % (1.7-9.3); NEUTROPHILS # (AUTO) 14.7 K/uL (1.8-7.7); PLATELET COUNT (AUTO) 238 K/uL (140-450); RED CELL DISTRIBUTION WIDTH 16.9 % (11.6-13.7); WHITE BLOOD COUNT (AUTO) 15.9 K/uL (4.8-10.8)
--- NOTE | 2018-09-10 07:02 | NUR ---
awake and alert no sob noted patient refused hhn theray and respiratory drug Patient states "i want to go home" patient being discharged
[2018-09-10 07:27] LABS: MAGNESIUM 2.2 mg/dL (1.8-2.4); PHOSPHORUS 3.4 mg/dL (2.5-4.9)
--- NOTE | 2018-09-10 07:43 | NUR ---
PT WENT HOME AMA. FORM WAS SIGNED. PAGED DR. JON ,CALLED BACK AND HIM MADE AWARE.
[2018-09-10 07:50] LABS: ANION GAP 15.7 (8-16); CARBON DIOXIDE 24.8 mmol/L (21-32); CREATININE 1.1 mg/dL (0.6-1.3); POTASSIUM 4.5 mmol/L (3.5-5.1)
== END 2018-09-10 07:25 | disposition left against medical advice (07) | DRG 140 ==
LOC: MED 19:51 → MTU 09-09 00:47
PROVIDERS: ADMIT Hospitalist; ATTEND Hospitalist
DX: J44.1 Chronic obstructive pulmonary disease with (acute) exacerbation (principal); R65.10 Systemic inflammatory response syndrome (SIRS) of non-infectious origin without acute organ dysfunction; I11.0 Hypertensive heart disease with heart failure; I50.9 Heart failure, unspecified; E44.1 Mild protein-calorie malnutrition; J45.901 Unspecified asthma with (acute) exacerbation; F17.210 Nicotine dependence, cigarettes, uncomplicated; F41.9 Anxiety disorder, unspecified; K21.9 Gastro-esophageal reflux disease without esophagitis; E78.5 Hyperlipidemia, unspecified; Z53.21 Procedure and treatment not carried out due to patient leaving prior to being seen by health care provider; Z68.26 Body mass index [BMI] 26.0-26.9, adult; Z88.8 Allergy status to other drugs, medicaments and biological substances; Z79.899 Other long term (current) drug therapy
CPT/HCPCS: 36415; 71045; 80048; 80053; 81003; 83605; 83735; 83880; 84100; 84484; 85025; 85610; 85730; 87040; 87081; 87804; 93005; 94640; 96365; 96375; 99285; J0696; J1650; J2930; J3475; J3490; J7030; J7060; J7620; Q0092

== ENCOUNTER 2018-09-10 10:20 | Inpatient (IN) | payer OTHER ==
[~2018-09-10] VITALS: Ht 157.5 cm; Wt 65.8 kg
[~2018-09-10 10:20] MED LIST changes: -AZIT250T3 PO
[2018-09-10 10:25] VITALS: BP 193/123
--- NOTE | 2018-09-10 10:33 | NUR ---
PT AMBULATED TO ER BED 04
[2018-09-10] MEDS ORDERED: ALBUTEROL 0.083% 2.5 MG/3 ML NEBU INH ONE (10:35)
[2018-09-10] MEDS ORDERED: IPRATROPIUM 0.02% 0.5 MG/2.5 ML NEBU INH ONE (10:35)
--- NOTE | 2018-09-10 10:38 | NUR ---
SPUTUM. PT REPORTS PT BIB FAMILY FOR SOB. PT RR SYMMETRICAL, NON-LABORED, WHEEZES THROUGHOUT. PT O2 SAT AT 90%, PT STATES SHE IS USUALLY AROUND 92. PT PUT ON 1L VIA NASAL CANNULA AND PUT IN FOWLERS POSITION. PT REPORTS COUGH X1 MONTH WITH THICK BROWN. PT REPORTS TIGHT CP AT 10/10 WITH COUGH. PT WAS ADMITTED AT [facility] TODAY AND LEFT AMA STATING THAT SHE WAS OVERWHELMED. MEDHX:ASTHMA, COPD
--- NOTE | 2018-09-10 10:40 | NUR ---
X-RAY AT BEDSIDE AT THIS TIME
--- NOTE | 2018-09-10 10:44 | NUR ---
RT AT BEDSIDE AT THIS TIME.
[2018-09-10] MEDS ORDERED: methylPREDNISolone SS 125 MG/2 ML VIAL IVP ONE (10:45)
[2018-09-10] MEDS ORDERED: MAGNESIUM SULFATE 50% 1,000 MG in NACL 0.9% 50 ML IV ONE (10:45)
[2018-09-10] MEDS ORDERED: MAGNESIUM SULFATE 1GM in DEXTROSE 5% 100 ML PREMIX IV SCH (11:05)
[2018-09-10 11:06] LABS: BASOPHILS % (AUTO) 0.2 % (0.0-2.0); HEMATOCRIT 46.2 % (36-48); HEMOGLOBIN 15.3 g/dL (12.0-16.0); LYMPHOCYTES # (AUTO) 0.5 K/uL (2.5-16.5); MEAN CORPUSCULAR HEMOGLOBIN 29 pg (27-31); MEAN CORPUSCULAR HGB CONC 33 g/dL (33-37); MEAN CORPUSCULAR VOLUME 86.7 fL (80-94); MONOCYTES # (AUTO) 0.6 K/uL (0.8-1.0); MONOCYTES % (AUTO) 3.3 % (1.7-9.3); NEUTROPHILS # (AUTO) 16.5 K/uL (1.8-7.7); NEUTROPHILS % (AUTO) 93.5 % (42.2-75.2); PLATELET COUNT (AUTO) 242 K/uL (140-450); RED BLOOD CELL COUNT(AUTO) 5.33 MIL/uL (4.20-5.40); RED CELL DISTRIBUTION WIDTH 17.2 % (11.6-13.7); WHITE BLOOD COUNT (AUTO) 17.6 K/uL (4.8-10.8)
[2018-09-10 11:23] LABS: ANION GAP 16.5 (8-16); CARBON DIOXIDE 26.6 mmol/L (21-32); CREATININE 1.1 mg/dL (0.6-1.3); POTASSIUM 4.1 mmol/L (3.5-5.1)
[2018-09-10 11:30] LABS: ALBUMIN 3.7 g/dL (3.4-5.0); TOTAL BILIRUBIN 0.6 mg/dL (0.0-1.0)
--- NOTE | 2018-09-10 11:43 | NUR ---
PT REPORTS SHE IS FEELING BETTER. 02 SAT AT 93% ON 1L NC. EXPIRATORY WHEEZES THROUGHOUT. VSS. ER INFORMED.
[2018-09-10] MEDS ORDERED: AZITHROMYCIN 500 MG in DEXTROSE 5% 250 ML IV SCH (12:25)
[2018-09-10] MEDS ORDERED: ACETAMINOPHEN 325 MG TAB PO PRN (12:25)
[2018-09-10] MEDS ORDERED: NON-FORMULARY ITEM (Lorazepam (Ativan) 1 TAB) PO PRN (12:25)
[2018-09-10] MEDS ORDERED: LORazepam 2 MG/ML VIAL IVP PRN (12:25)
[2018-09-10] MEDS ORDERED: HYDROcodone/APAP 5/325 MG 1 TAB TAB PO PRN (12:25)
[2018-09-10] MEDS ORDERED: ONDANSETRON 4 MG/2 ML VIAL IVP PRN (12:25)
[2018-09-10 13:00] VITALS: BP 152/98
--- NOTE | 2018-09-10 13:00 | NUR ---
RECEIVED PT FROM ED NURSE FISH. PT IS ALERT AND AWAKE, CURRENTLY ON ROOM AIR, RA SAT IS 90%. PT IS COUGHING AND C/O SOB. 2L O2 NC APPLIED. SKIN IS INTACT. PT'S SON IS AT BEDSIDE. IV SITE NOTED ON THE R HAND, 22 GAUGE. PT IS C/O IV SITE "STINGING" AND HURTING. PT IS AMBULATORY AND DOES NOT APPEAR TO BE A FALL RISK. CALL LIGHT GIVEN WITHIN REACH. WILL CONTINUE TO MONITOR PT.
--- NOTE | 2018-09-10 13:03 | NUR ---
Patient will be admitted to care of [facility]. Admited to TELE VIA [facility]. Will go to room 112A. Belongings list completed. Report to MARIE NUNEZ.
[2018-09-10] MEDS: methylPREDNISolone SS 125 MG/2 ML VIAL IVP SCH ×2 (13:27→20:15)
[2018-09-10] MEDS: AZITHROMYCIN 500 MG in DEXTROSE 5% 250 ML IV SCH (14:12)
[2018-09-10] MEDS: ALBUTEROL 0.083% 2.5 MG/3 ML NEBU IH SCH ×2 (14:31→19:53)
--- NOTE | 2018-09-10 15:30 | NUR ---
STARTED NEW IV SINCE PATIENT WAS C/O HER ORIGINAL IV SITE STINGING. L HAND 22 GAUGE.
[2018-09-10 16:00] VITALS: BP 124/80
--- NOTE | 2018-09-10 18:32 | NUR ---
PT SLEEPING COMFORTABLY, NO S/S OF ACUTE DISTRESS NOTED.
--- NOTE | 2018-09-10 19:15 | NUR ---
PT ENDORSED TO HONEYCOMB BLANKET MAKER IN STABLE CONDITION.
--- NOTE | 2018-09-10 19:30 | NUR ---
RECEIVED PATIENT AWAKE SITTING ON BED WITH [address] RESPIRATION EVEN AND UNLABORED.EXPLAINED PLAN OF CARE AND VERBALIZED UNDERSTANDING. BED IN LOW LOCKED POSITION . CALL LIGHT WITHIN REACH.
[2018-09-10 20:00] VITALS: BP 154/98
--- NOTE | 2018-09-10 20:04 | NUR ---
RECEIVED PATIENT ON ROOM AIR, RETURNING FROM RESTROOM. PULSE OX SAT 87%. SCHEDULED BREATHING TREATMENT ADMINISTERED. TOLERATED TX WELL, NO ADVERSE SIDE EFFECTS. PLACED PATIENT BACK ON 2L NC. NO ACUTE DISTRESS. WILL CONTINUE TO MONITOR.
[2018-09-10] MEDS: SIMVASTATIN 10 MG TAB PO SCH ×2 (20:15→20:18)
[2018-09-10] MEDS: METOPROLOL 50 MG TAB PO SCH (20:15)
[2018-09-10] MEDS ORDERED: METOPROLOL TARTRATE 50 MG PO SCH (21:00)
[2018-09-10] MEDS ORDERED: NON-FORMULARY ITEM (Budesonide/Formoterol Fumarate* (Symbicort 80-4.5 Mcg Inhaler*) 2 PUFF IH SCH (21:00)
[2018-09-11] VITALS: BP 150/100
--- NOTE | 2018-09-11 | NUR ---
V/ S TAKEN AND RECORDED. SEEN PATIENT AWAKE SITTING ON BED. PATIENT PLANNING TO GO HOME TONIGHT I TOLD HER TO WAIT IN THE MORNING AND SHE WILL STAY TONIGHT. NO S/S OF DISTRESS NOTED .WILL CONTINUE TO MONITOR.
--- NOTE | 2018-09-11 02:00 | NUR ---
PATIENT SEEN WANDERING THE [address]ALL[address] CLOTHES TOLD PATIENT TO GO BACK TO HER ROOM. PATIENT WAS CONFUSED AND ACCOMPANIED BACK TO HER ROOM. WILL CONTINUE TO MONITOR.
--- NOTE | 2018-09-11 04:00 | NUR ---
SEEN PATIENT SITTING IN THE CHAIR BY THE NURSE STATION. PATIENT TRIED TO CONTACT HER SON BUT UNABLE TO REACH. EXPLAINED TO PATIENT TO GO BACK TO BED AND WAIT IN THE MORNING TO GO HOME. SLIP MIXER AWARE. NO S/S OF DISTRESS NOTED.
[2018-09-11] MEDS: methylPREDNISolone SS 125 MG/2 ML VIAL IVP SCH ×3 (05:00→20:57)
--- NOTE | 2018-09-11 06:28 | NUR ---
PATIENT SEEN ESCORTED BACK TO HER ROOM BY DENIZ ESQUIVEL
[2018-09-11] MEDS: PANTOPRAZOLE 40 MG TABEC PO SCH (07:00)
--- NOTE | 2018-09-11 07:10 | NUR ---
RECEIVED PT REPORT FROM FLEXOGRAPHIC PRESS OPERATOR NURSE. PT APPEARS TEARFUL AND IN EMOTRIONAL DISTRESS, STATING THAT SHE WANTS TO GO HOME. SHE HAS BEEN CALLING HER SON TO COME GET HER, BUT THE SON HASN'T BEEN ANSWERING THE PHONE. IV SITE IS STILL ON THE L HAND, 22 GAUGE, SALINE LOCK. PT IS ON ROOM AIR AT THIS TIME. WILL CONTINUE TO MONITOR.
--- NOTE | 2018-09-11 07:11 | NUR ---
TRANSFERRED PATIENT FROM TELEMETRY TO M/S.
--- NOTE | 2018-09-11 07:20 | NUR ---
GAVE REPORT TO AM RN SHIFT AT BEDSIDE. CALL LIGHT WITHIN REACH. PATIENT IN STABLE CONDITION.
--- NOTE | 2018-09-11 07:30 | NUR ---
PT WAS MOVED TO ROOM 113 FOR MORE QUIET AND PEACEFUL ENVIRONMENT. PT STILL STATING THAT SHE WANTS TO LEAVE. PT IS REFUSING TO EAT BREAKFAST. PT ACCEPTED A BREATHING TX AT THIS TIME.
[2018-09-11 08:00] VITALS: BP 153/94
[2018-09-11] MEDS: ALBUTEROL 0.083% 2.5 MG/3 ML NEBU IH SCH ×3 (08:09→20:23)
--- NOTE | 2018-09-11 08:13 | NUR ---
PATIENT HAS BEEN SCREENED AND CATEGORIZED MODERATE NUTRITION RISK. PATIENT WILL BE SEEN WITHIN 3-5 DAYS OF ADMISSION. 09/13/18LUCRECIA MOLINA [address]
--- NOTE | 2018-09-11 08:28 | NUR ---
PT'S SON CAME BY, TALKED WITH HIM ABOUT PT'S BEHAVIOR, SON STATES THAT PT HAS NOT HAD ANY SLEEP FOR A FEW DAYS, AND THAT IS WHY SHE IS ACTING THIS WAY. PT CURRENTLY SITTING QUIETLY ON THE BED, NO S/S OF ACUTE DISTRESS. WILL CONTINUE TO MONITOR.
[2018-09-11] MEDS ORDERED: LOVASTATIN 20 MG PO SCH (09:00)
[2018-09-11] MEDS ORDERED: NON-FORMULARY ITEM (Spironolactone 1 TAB) PO SCH (09:00)
[2018-09-11] MEDS: SPIRONOLACTONE 25 MG TAB PO SCH (09:20)
[2018-09-11] MEDS: ASPIRIN 81 MG TAB.CHEW PO SCH (09:20)
[2018-09-11] MEDS: METOPROLOL 50 MG TAB PO SCH ×2 (09:20→20:40)
[2018-09-11] MEDS: MONTELUKAST SODIUM 10 MG TAB PO SCH (09:21)
[2018-09-11] MEDS: HYDROcodone/APAP 5/325 MG 1 TAB TAB PO PRN ×2 (09:21→20:43)
--- NOTE | 2018-09-11 09:51 | NUR ---
PT TOOK HER AM MEDICATIONS AND ATE BREAKFAST. NO S/S OF ACUTE DISTRESS AT THIS TIME, PT ON ROOM AIR. WILL CONTINUE TO MONITOR.
--- NOTE | 2018-09-11 10:56 | NUR ---
PT SEEMS ANXIOUS AND KEEPS VERBALIZING A NEED TO LEAVE THE HOSPITAL. SHE CALLED HER SON TO COME GET HER. DR JON CAME TO TALK TO THE PT, AND SHE STATED THAT SHE IS OK TO STAY ANOTHER NIGHT. DR JON WANTS A PSYCH CONSULT FOR PT'S ANXIETY AND DEPRESSION. PT'S SON IS AT BEDSIDE. WILL CONTINUE TO MONITOR PT.
--- NOTE | 2018-09-11 13:41 | NUR ---
NOTED PATIENT WITH MEDS AT BEDSIDE AND CIGARETTE AND YOUTH DEVELOPMENT PROFESSIONAL, MEDS GIVEN TO THE PHARMACIST AND CIGARETTE TO THE CHARGE NURSE, PATIENT ONGOING WITH BREATHING TREATMENT AT THIS TIME, PATIENT AWARE MEDS AND CIGARETTE KEP FOR SAFETY
--- NOTE | 2018-09-11 13:49 | NUR ---
PT'S OWN MEDS SENT TO BE KEPT IN PHARMACY, AND CIGARETTES TO BE KEPT AT THE NURSES STATION.
--- NOTE | 2018-09-11 13:50 | NUR ---
PT TOOK OUT HER IV. NEW IV INSERTED, Yaritza WRIST 23 GAUGE. Addendum: 09/11/18 at 1840 by Lauren Kaur RN CORRECTION: 24 GAUGE
[2018-09-11] MEDS: AZITHROMYCIN 500 MG in DEXTROSE 5% 250 ML IV SCH (15:29)
--- NOTE | 2018-09-11 15:50 | NUR ---
INFUSING IV AZITHROMYCIN AT THIS TIME. PT IS QUIETLY SITTING IN BED WITH HER EYES CLOSED. WILL CONTINUE TO MONITOR.
[2018-09-11 16:00] VITALS: BP 152/98
[2018-09-11] MEDS: ALBUTEROL 0.083% 2.5 MG/3 ML NEBU INH PRN (16:51)
--- NOTE | 2018-09-11 19:25 | NUR ---
PT ENDORSED TO BANKRUPTCY LAW SPECIALIST NURSE IN STABLE CONDITION.
--- NOTE | 2018-09-11 19:26 | NUR ---
RECD. SITTING ON BED, AWAKE, A/OX3, RESPIRATION EVEN AND UNLABORED. ON 02 AT 2 LITERS VIA N/C, 02 SAT - 95%. STILL WITH WHEEZES ON BILATERAL LUNG AUSCULTATION. ON ROUTINE BREATHING TREATMENT. AMBULATES INDEPENDENTLY TO . PLAN OF CARE FOR THE SHIFT DISCUSSED. VERBALIZED UNDERSTANDING. DENIES PAIN 0/10.
--- NOTE | 2018-09-11 20:00 | NUR ---
RECEIVED REPORT FROM ONCOLOGY REP FOR CONTINUITY OF CARE. PT IS A/OX4, ON ROOM AIR. PT ABLE TO MAKE NEEDS KNOWN, AND ABLE TO FOLLOW COMMANDS. PT IS ON BEDREST, FALL PRECAUTIONS INITIATED. PT PRESSURE SACRAL ULCER, SEE WOUND ASSESSMENT. PT HAS A 20G IV TO LEFT UPPER ARM AND 22G IV TO RIGHT ARM, BOTH ASYMPTOMATIC AND INTACT. PT CURRENTLY RECEIVING BLOOD TRANSFUSION, AND TOLERATING WELL. VITAL SIGNS WITHIN NORMAL LIMITS. PT STABLE, DENIES PAIN, NO SIGNS OF DISTRESS NOTED AT THIS TIME. PT POSITIONED FOR COMFORT. BED IN LOWEST POSITION, BED ALARM ON. WILL CONTINUE TO MONITOR. Addendum: 09/11/18 at 2117 by Dagmar Simmons RN WRONG PT. DISREGARD.
--- NOTE | 2018-09-11 20:00 | NUR ---
Patient's Plan of Care was discussed and reviewed with IN FLIGHT REFUELING CRAFTSMAN: MJ LEDESMA.
[2018-09-11] MEDS: LORazepam 1 MG TAB PO PRN (20:41)
--- NOTE | 2018-09-11 20:41 | NUR ---
WITH ANXIETY, MEDICATED WITH ATIVAN 1 MG. PO.
--- NOTE | 2018-09-11 20:53 | NUR ---
RECEIVED PATIENT ON 2L NC, PULSE OX SAT 96%. SCHEDULED BREATHING TREATMENT ADMINISTERED. TOLERATED TX WELL, NO ADVERSE SIDE EFFECTS. PLACED PATIENT BACK ON 2L NC. NO ACUTE RESPIRATORY DISTRESS NOTED AT THIS TIME. WILL CONTINUE TO MONITOR.
[2018-09-11] MEDS: SIMVASTATIN 10 MG TAB PO SCH (21:00)
--- NOTE | 2018-09-11 21:45 | NUR ---
NO ANXIETY, SLEEPING COMFORTABLY IN BED.
[2018-09-12] VITALS: BP 158/91
--- NOTE | 2018-09-12 | NUR ---
STILL SLEEPING COMFORTABLY IN BED.
[2018-09-12] MEDS: ALBUTEROL 0.083% 2.5 MG/3 ML NEBU IH SCH ×4 (01:19→19:54)
--- NOTE | 2018-09-12 01:22 | NUR ---
SCHEDULED BREATHING TREATMENT ADMINISTERED. TOLERATED TX WELL, NO ADVERSE SIDE EFFECTS. WILL CONTINUE TO MONITOR.
--- NOTE | 2018-09-12 01:30 | NUR ---
COUGHING IN BED, REQUESTED FOR BREATHING TREATMENT. DECREASED COUGHING NOTED AFTER BREATHING TREATMENT.
[2018-09-12] MEDS: ALBUTEROL 0.083% 2.5 MG/3 ML NEBU INH PRN ×2 (03:09→11:43)
--- NOTE | 2018-09-12 03:18 | NUR ---
PRN TX ADMINISTERED DUE TO PATIENT WHEEZING AND FEELING SOB. TOLERATED TX WELL, NO ADVERSE SIDE EFFECTS. PLACED BACK ON 2L NC. WILL CONTINUE TO MONITOR.
[2018-09-12] MEDS: HYDROcodone/APAP 5/325 MG 1 TAB TAB PO PRN ×4 (04:42→20:47)
[2018-09-12] MEDS: methylPREDNISolone SS 125 MG/2 ML VIAL IVP SCH ×2 (05:15→12:13)
--- NOTE | 2018-09-12 07:14 | NUR ---
CONDITION REMAIN STABLE. ENDORSED TO AM SHIFT NURSE FOR CONTINUITY OF CARE.
--- NOTE | 2018-09-12 07:15 | NUR ---
RECEIVED PT FROM OILER HELPER NURSEMARISSA, PT IS AWAKE AND SEATED ON THE BED WITH SIDE RAILS UP AND CALL LIGHT WITHIN REACH, PT IS NOT A FALL RISK BUT FALL RISK PRECAUTION WAS DISCUSSED TO PT AND PT VERBALIZED UNDERSTANDING. PT HAS AN IV LINE ON THE RT WRIST G. 24 ON SALINE LOCK, ON O2 3L NC, PT VERBALIZED A SLIGHT SOB AND WAS TAUGHT TO DO BREATHING TX AND GAVE TEACHINGS REGARDING COPD. NO SIGN OF DISTRESS NOTED AND WILL MONITOR PT.
[2018-09-12 08:00] VITALS: BP 165/99
[2018-09-12] MEDS: ASPIRIN 81 MG TAB.CHEW PO SCH (08:29)
[2018-09-12] MEDS: SPIRONOLACTONE 25 MG TAB PO SCH (08:30)
[2018-09-12] MEDS: METOPROLOL 50 MG TAB PO SCH ×2 (08:30→20:47)
[2018-09-12] MEDS: PANTOPRAZOLE 40 MG TABEC PO SCH (08:31)
[2018-09-12] MEDS: MONTELUKAST SODIUM 10 MG TAB PO SCH (08:31)
[2018-09-12] MEDS: LORazepam 1 MG TAB PO PRN ×2 (08:36→15:34)
--- NOTE | 2018-09-12 08:38 | NUR ---
PT IS AWAKE AND VITAL SIGNS CHECKED PRIOR TO MEDICATION ADMINISTRATION, BP IS 167/77, O2 SATURATION IS 98%, PULSE IS 70, RESPIRATION IS 18/MIN AND NO SIGN OF DISTRESS NOTED, ORAL MEDICATIONS WERE GIVEN AND PT TOLERATED IT. WILL MONITOR PT.
--- NOTE | 2018-09-12 09:23 | NUR ---
PT IS UP AND JUST CAME OUT FROM THE BATHROOM, INSTRUCTOR ON THE BEDSIDE FIXING THE PT'S BED, PT VERBALIZED PAIN RATE OF 8/10 AND VITAL CHECKED DONE AND RESULT IS BP, 158/99, PULSE IS 65, O2 SATURATION IS 100%, RESPIRATION IS 20/MIN, PAIN MEDICATION WAS GIVEN AND PT TOLERATED IT, O2 VIA NC WAS IN PLACE, NO SIGN OF DISTRESS NOTED AND WILL MONITOR OPT.
--- NOTE | 2018-09-12 12:18 | NUR ---
PT IS AWAKE AND SEATED ON THE CHAIR WITH SON ON THE BEDSIDE, SOLU-MEDROL GIVEN VIA IV PUSH, AND PT TOLERATED IT. WILL MONITOR PT.
[2018-09-12] MEDS: AZITHROMYCIN 500 MG in DEXTROSE 5% 250 ML IV SCH (14:38)
--- NOTE | 2018-09-12 14:38 | NUR ---
PT IS AWAKE AND SEATED ON THE BED, AZITHROMYCIN WAS GIVEN VIA IVPB, PT TOLERATED IT AND WILL CONTINUE TO MONITOR PT.
--- NOTE | 2018-09-12 14:59 | NUR ---
PT VERBALIZED A PAIN RATE OF 7/10 AND VITAL SIGNS TAKEN AND BP IS 149/75, PULSE IS 74, O2 SATURATION IS 95%, PAIN MEDICATION WAS GIVEN AND PT TOLERATED IT, NO SIGN OF DISTRESS NOTED, RESPIRATION EVEN. WILL ,MONITOR PT.
--- NOTE | 2018-09-12 15:15 | NUR ---
PT RANG THE CALL LIGHT AND FOUND ZACHARY, CHARGE NURSE RESPONDED, WHEN AM RN ON DUTY CAME TO THE PT'S ROOM, CHARGE NURSE ZACHARY IS ALREADY STOPPING THE AZITHROMYCIN INFUSING TO THE PT AND THE PT VERBALIZED THAT SHE UIS HURTING ON HER IV SITE, DR. JON ON THE BEDSIDE AND MD VERBALIZED THAT SHE WILL JUST ORDER A PO MED.
--- NOTE | 2018-09-12 15:20 | NUR ---
DR. JON CAM ETO THE PT'S ROOM AND SPOKE TO PT NOW.
--- NOTE | 2018-09-12 15:34 | NUR ---
PT VERBALIZED THAT SHE IS HAVING ANXIETY AND ASKED FOR AN ATIVAN, BP WAS CHECKED AND IS 164/89, PULSE IS74, O2 SATURATION IS TA 96% ON 3L O2 NC, NO SIGN OF DISTRESS NOTED AND WILL INFORM MD FOR THE BP RESULT.
--- NOTE | 2018-09-12 15:40 | NUR ---
INFORMED DR. JON THAT PT'S BP RESULT IS 164/89 AND TOLD MD THAT ATIVAN WAS GIVEN TO PT BECAUSE PT VERBALIZED A FEELING OF ANXIETY AND ASKED FOR A MEDICATION TO CALM HER DOWN. DR. JON SAID THAT IT IS JUST FINE.
[2018-09-12 16:00] VITALS: BP 134/75
--- NOTE | 2018-09-12 16:20 | NUR ---
PT IS AWAKE AND VITAL SIGNS CHECKED, BP IS 134/75, PULSE IS 69, TEMPERATURE IS 98.9, RESPIRATION IS 18 AND O2 SATURATION IS 96% AT 3L O2 NC, NO SIGN OF DISTRESS NOTYED AND WILL MONITOR PT.
--- NOTE | 2018-09-12 19:15 | NUR ---
ENDORSED PT TO KELP CUTTER NURSE, STAR DERAS FOR CONTINUITY OF CARE, PT IS STABLE AT THIS TIME.
--- NOTE | 2018-09-12 19:16 | NUR ---
RECEIVED ENDORSEMENT FROM AM SHIFT RN; PATIENT IS AWAKE, A/Ox4, AMBULATORY AND ABLE TO MAKE NEEDS KNOWN. INTRODUCED SELF, UPDATED BOARD. PATIENT RECEIVING O2 AT 2LPM VIA NASAL CANNULA. NO SOB OR DISTRESS NOTED. IV SITE ON RIGHT WRIST, 24 GAUGE, ON SALINE LOCKED. SKIN INTACT. BED IN THE LOWEST POSITION, CALL LIGHT WITHIN REACH. INITIAL ASSESSMENT DONE. WILL CONTINUE TO MONITOR.
[2018-09-12] MEDS: SIMVASTATIN 10 MG TAB PO SCH (20:48)
--- NOTE | 2018-09-12 20:50 | NUR ---
DUE MEDS GIVEN, TOLERATED WELL. REFUSED ZOCOR TABLET.
--- NOTE | 2018-09-12 22:10 | NUR ---
FREQUENT CHECKS MADE, PATIENT ASLEEP, EYES CLOSED, VISIBLE CHEST RISE AND FALL NOTED.
[2018-09-13] VITALS: BP 159/93
--- NOTE | 2018-09-13 00:05 | NUR ---
VITALS TAKEN, NO SOB OR DISTRESS NOTED. NOTED TO HAVE A BM AT THIS TIME.
[2018-09-13] MEDS: ALBUTEROL 0.083% 2.5 MG/3 ML NEBU IH SCH ×4 (01:24→19:03)
--- NOTE | 2018-09-13 02:00 | NUR ---
ROUNDS DONE, NO DISTRESS NOTED.
--- NOTE | 2018-09-13 04:30 | NUR ---
PATIENT ASLEEP, EYES CLOSED, VISIBLE CHEST RISE AND FALL NOTED.
[2018-09-13] MEDS: ALBUTEROL 0.083% 2.5 MG/3 ML NEBU INH PRN ×2 (05:25→11:17)
[2018-09-13] MEDS: PANTOPRAZOLE 40 MG TABEC PO SCH (06:29)
[2018-09-13] MEDS: HYDROcodone/APAP 5/325 MG 1 TAB TAB PO PRN ×3 (06:29→17:49)
--- NOTE | 2018-09-13 07:30 | NUR ---
RECEIVED PT REPORT FROM TACK PULLER MACHINE RN. PATIENT IS AWAKE, ALERT, Ox4, AMBULATORY AND ABLE TO MAKE NEEDS KNOWN. INTRODUCED SELF, UPDATED BOARD. PT RECEIVING O2 AT 2LPM VIA NASAL CANNULA. PT C/O BUBBLING ON RIGHT CHEST, INCREASED O2 TO 3L, CHECKED O2 SAT AT 96%. IV CATH ON LEFT WRIST, 24 GAUGE, SL, PATENT AND ASYMPTOMATIC. SKIN INTACT. BED IN THE LOWEST POSITION, CALL LIGHT WITHIN REACH. INITIAL ASSESSMENT DONE. WILL CONTINUE TO MONITOR.
--- NOTE | 2018-09-13 07:30 | NUR ---
ENDORSED PATIENT TO AM SHIFT RN; PATIENT IN STABLE CONDITION.
[2018-09-13 08:00] VITALS: BP 151/96
--- NOTE | 2018-09-13 08:00 | NUR ---
VITALS TAKEN, DECREASED O2 FROM 3L TO 2L VIA NC. PT TOLERATED WELL.
[2018-09-13] MEDS: AZITHROMYCIN 250 MG TAB PO SCH (08:06)
[2018-09-13] MEDS: SPIRONOLACTONE 25 MG TAB PO SCH (08:07)
[2018-09-13] MEDS: predniSONE 20 MG TAB PO SCH (08:07)
[2018-09-13] MEDS: ASPIRIN 81 MG TAB.CHEW PO SCH (08:07)
[2018-09-13] MEDS: METOPROLOL 50 MG TAB PO SCH ×2 (08:08→21:33)
[2018-09-13] MEDS: MONTELUKAST SODIUM 10 MG TAB PO SCH (08:08)
--- NOTE | 2018-09-13 13:10 | NUR ---
AMBULATED PT AROUND THE UNIT, O2 SAT WAS 87%-88% DURING THE WALK. PT STARTED COUGHING, O2 SAT DROPPED TO 85%, TOOK PT BACK TO ROOM. O2 2L NC APPLIED, O2 SAT WENT BACK TO 92%.
[2018-09-13] MEDS: LORazepam 1 MG TAB PO PRN (15:04)
[2018-09-13] MEDS ORDERED: FUROSEMIDE 20 MG/2 ML VIAL IVP SCH (15:19)
[2018-09-13 16:00] VITALS: BP 127/85
--- NOTE | 2018-09-13 16:10 | NUR ---
BEDSIDE COMMODE PROVIDED FOR PT.
--- NOTE | 2018-09-13 18:00 | NUR ---
PT EATING DINNER, NO S/S OF ACUTE DISTRESS ON 2L O2 NC. PT STATED THE LASIX WORKED PRETTY GOOD, SHE FEELS BETTER IN TERMS OF BREATHING.
--- NOTE | 2018-09-13 18:18 | NUR ---
PT STATED SHE HAD 3 BM TODAY, DENIES DIARRHEA.
[2018-09-13] MEDS: BUDESONIDE 0.5 MG/2 ML NEBU INH SCH (19:03)
--- NOTE | 2018-09-13 19:30 | NUR ---
REPORT GIVEN TO TURF SALES PERSON RN, PATIENT IN STABLE CONDITION.
--- NOTE | 2018-09-13 19:32 | NUR ---
RECEIVED PT FROM SAPNA RN PT AAOX4 ON 2 LTS VIA NC NOT SOB NOTED HL ON LEFT ARM PATENT NOT SOB NOTED INITIAL ASSESSMENT DONE
[2018-09-13 20:00] VITALS: BP 121/91
[2018-09-13] MEDS ORDERED: ESCITALOPRAM 20 MG TAB PO SCH (21:00)
--- NOTE | 2018-09-13 21:30 | NUR ---
PT VOIDING WELL NOT SOB NOTED
[2018-09-13] MEDS: SIMVASTATIN 10 MG TAB PO SCH (21:34)
[2018-09-13] MEDS: guaiFENesin 600 MG TABER PO SCH (21:34)
[2018-09-14] VITALS: BP 146/92
--- NOTE | 2018-09-14 | NUR ---
PT SLEEPING WELL NOT DISTRESS NOTED
[2018-09-14] MEDS: ALBUTEROL 0.083% 2.5 MG/3 ML NEBU IH SCH ×3 (01:23→13:21)
[2018-09-14] MEDS: HYDROcodone/APAP 5/325 MG 1 TAB TAB PO PRN ×2 (03:18→09:47)
[2018-09-14] MEDS: ALBUTEROL 0.083% 2.5 MG/3 ML NEBU INH PRN (03:24)
--- NOTE | 2018-09-14 03:35 | NUR ---
PT ON BREATHING TX AND PAIN MEDIC WAS GIVEN PT WILL BE MONITORING
[2018-09-14] MEDS: LORazepam 1 MG TAB PO PRN (04:15)
--- NOTE | 2018-09-14 04:15 | NUR ---
COVERED MARY KAY CLEVELAND PT'S NURSE,PT ANXIOUS AT THIAS TIME : FEELS LIKE MY CHEST CLOSING IN" WILL GIVE ATIVAN
[2018-09-14] MEDS: PANTOPRAZOLE 40 MG TABEC PO SCH (06:06)
--- NOTE | 2018-09-14 06:45 | NUR ---
PT DENIES ANY PAIN NOT DISTRESS NOTED , PT WILL BE ENDORSED TO DAY SHIFT NURSE FOR CONTINUITY OF CARE
--- NOTE | 2018-09-14 07:25 | NUR ---
RECEIVED REPORT FROM TELEPHOTO ENGINEER NURSE. PT IN STABLE CONDITION. RESPIRATIONS EVEN AND UNLABORED. IV INTACT AND PATENT. BED IN LOW POSITION. CALL LIGHT AT BEDSIDE. WILL CONTINUE TO MONITOR.
[2018-09-14] MEDS: BUDESONIDE 0.5 MG/2 ML NEBU INH SCH (07:27)
[2018-09-14 08:00] VITALS: BP 137/94
--- NOTE | 2018-09-14 09:10 | NUR ---
GAVE ORDERED DUE MEDICATIONS. PT TOLERATED WELL. BED IN LOW POSITION. CALL LIGHT AT BEDSIDE. WILL CONTINUE TO MONITOR.
[2018-09-14] MEDS: AZITHROMYCIN 250 MG TAB PO SCH (09:46)
[2018-09-14] MEDS: ASPIRIN 81 MG TAB.CHEW PO SCH (09:46)
[2018-09-14] MEDS: guaiFENesin 600 MG TABER PO SCH (09:46)
[2018-09-14] MEDS: SPIRONOLACTONE 25 MG TAB PO SCH (09:46)
[2018-09-14] MEDS: METOPROLOL 50 MG TAB PO SCH (09:47)
[2018-09-14] MEDS: MONTELUKAST SODIUM 10 MG TAB PO SCH (09:47)
[2018-09-14] MEDS: predniSONE 20 MG TAB PO SCH (09:47)
[2018-09-14] MEDS ORDERED: AZIT250T3 PO (09:54)
[2018-09-14] MEDS ORDERED: PRED20TA5 PO (09:56)
[2018-09-14] MEDS ORDERED: FURO-572 PO (09:56)
[2018-09-14] MEDS ORDERED: FUROSEMIDE 40 MG/4 ML VIAL IVP SCH (09:58)
--- NOTE | 2018-09-14 12:08 | NUR ---
PT LYING IN BED IN STABLE CONDITION WITH FAMILY MEMBER AT BEDSIDE. BED IN LOW POSITION. CALL LIGHT AT BEDSIDE. WILL CONTINUE TO MONITOR.
--- NOTE | 2018-09-14 14:00 | NUR ---
PICKED UP PT HOME MEDICATIONS FROM PHARMACY AND GAVE TO PT TO TAKE HOME. PT VERBALIZED ALL MEDICATIONS ARE PRESENT.
--- NOTE | 2018-09-14 14:10 | NUR ---
GAVE DISCHARGE INSTRUCTIONS AND PRESCRIPTION TO TAKE TO HOME PHARMACY, PT VERBALIZED UNDERSTANDING OF INSTRUCTIONS. IV REMOVED, LUMEN INTACT. ID BAND REMOVED. PT WHEELED TO LOBBY WHERE RESPONSIBLE ADULT WAS WAITING WITH VEHICLE.
[2018-09-15] MEDS ORDERED: FUROSEMIDE 40 MG/4 ML VIAL IVP SCH (09:00)
--- NOTE | 2018-09-15 15:21 | NUR ---
LATE ENTRY FOR 09/14/18 MADE A FOLLOW UP APPOINTMENT WITH JOHN ROBERTS FOR Friday09/17/17 AT 2P.M. AD[address]ESS [id number] PHONE [phone] PATIENT ALREADY DISCHARGED, I CALLED HER WITH THE APPOINTMENT TIME , DATE, ADDRESS AND PHONE.
== END 2018-09-14 14:10 | disposition home or self-care (01) | DRG 133 ==
LOC: MED 10:20 → MTU 12:30
PROVIDERS: ADMIT Hospitalist; ATTEND Hospitalist
DX: J96.21 Acute and chronic respiratory failure with hypoxia (principal); I11.0 Hypertensive heart disease with heart failure; R65.10 Systemic inflammatory response syndrome (SIRS) of non-infectious origin without acute organ dysfunction; J44.1 Chronic obstructive pulmonary disease with (acute) exacerbation; J45.901 Unspecified asthma with (acute) exacerbation; I50.9 Heart failure, unspecified; K21.9 Gastro-esophageal reflux disease without esophagitis; F17.210 Nicotine dependence, cigarettes, uncomplicated; E78.5 Hyperlipidemia, unspecified; F32.9 Major depressive disorder, single episode, unspecified; F41.9 Anxiety disorder, unspecified; G89.29 Other chronic pain; M54.9 Dorsalgia, unspecified; R73.9 Hyperglycemia, unspecified; Z91.5 Personal history of self-harm; Z79.899 Other long term (current) drug therapy
CPT/HCPCS: 36415; 71045; 80053; 85025; 87081; 87804; 93005; 94640; 96365; 96375; 99285; J0456; J1940; J2930; J3475; J7030; J7060; J7512; J7613; J7626; J7644; Q0092

== ENCOUNTER 2018-09-23 14:28 | Inpatient (IN) | payer OTHER ==
[~2018-09-23] VITALS: Ht 152.4 cm; Wt 62.1 kg
[~2018-09-23 14:28] MED LIST changes: +AZIT250T3 PO; +FURO-572 PO; -METH4TAB1 PO; +PRED20TA5 PO
[2018-09-23 14:40] VITALS: BP 107/74
--- NOTE | 2018-09-23 15:31 | NUR ---
PT TAKEN TO BED 08 BY WHEELCHAIR.
--- NOTE | 2018-09-23 15:35 | NUR ---
63 Y F BIB SON WITH C/O GENERAL WEAKNESS WITH NO APPETITIE X 1 WEEK, + BLURRY VISION. PT STATES SHE IS FEELING LIGHTHEADED AND DIZZY. PT PLACED ON MONITOR. SON AT BEDSIDE. VSS. AA0X4. SPEECH IS CLEAR. GCS 15. PT STATES THAT SHE TAKES SO MANY MEDICATIONS THAT SHE CANT REMEMBER WHEN TO TAKE THE RIGHT MEDICATION. BED IS DOWN, LOCKED, BED RAIL X 1 , ERMD NOTIFIED. PMH- COPD, ASTHMA, COPD RX-PT HAS LIST OF MEDICATIONS WITH HER
[2018-09-23 15:42] LABS: BASOPHILS # (AUTO) 0.2 K/uL (0.00-0.22); BASOPHILS % (AUTO) 1.2 % (0.0-2.0); EOSINOPHILS # (AUTO) 0.2 K/uL (0-0.4); EOSINOPHILS % (AUTO) 1.3 % (0.0-4.0); HEMATOCRIT 48.4 % (36-48); HEMOGLOBIN 16.2 g/dL (12.0-16.0); LYMPHOCYTES # (AUTO) 3.5 K/uL (2.5-16.5); LYMPHOCYTES % (AUTO) 26.3 % (20.5-51.1); MEAN CORPUSCULAR HEMOGLOBIN 29 pg (27-31); MEAN CORPUSCULAR HGB CONC 33 g/dL (33-37); MEAN CORPUSCULAR VOLUME 86.3 fL (80-94); MONOCYTES # (AUTO) 0.7 K/uL (0.8-1.0); MONOCYTES % (AUTO) 5.2 % (1.7-9.3); NEUTROPHILS # (AUTO) 8.8 K/uL (1.8-7.7); PLATELET COUNT (AUTO) 191 K/uL (140-450); RED BLOOD CELL COUNT(AUTO) 5.61 MIL/uL (4.20-5.40); RED CELL DISTRIBUTION WIDTH 17.1 % (11.6-13.7); WHITE BLOOD COUNT (AUTO) 13.3 K/uL (4.8-10.8)
[2018-09-23 16:02] LABS: ANION GAP 15.4 (8-16); CARBON DIOXIDE 23.9 mmol/L (21-32); CREATININE 1.2 mg/dL (0.6-1.3); POTASSIUM 3.3 mmol/L (3.5-5.1)
--- NOTE | 2018-09-23 16:03 | NUR ---
Dr. Castillo evaluating patient at bedside.
[2018-09-23 16:09] LABS: ALBUMIN 3.2 g/dL (3.4-5.0); TOTAL BILIRUBIN 0.7 mg/dL (0.0-1.0)
[2018-09-23 16:17] LABS: APPEARANCE,URINE SL CLOUDY (CLEAR); BILIRUBIN,URINE NEGATIVE (NEGATIVE); BLOOD, URINE NEGATIVE (NEGATIVE); COLOR,URINE YELLOW (YELLOW); LEUKOCYTE ESTERASE ,URINE 2+ (NEGATIVE); NITRITE, URINE NEGATIVE (NEGATIVE); UGLUCOSE NEGATIVE (NEGATIVE)
[2018-09-23 16:45] LABS: RBC,URINE 0-5 /HPF (0-5); YEAST,URINE Moderate /HPF (None Seen)
[2018-09-23] MEDS ORDERED: ASPIRIN 325 MG TAB PO ONE (17:00)
[2018-09-23] MEDS ORDERED: hePARIN / DEXT 5% PREMIX 250 ML IV ONE (17:50)
[2018-09-23] MEDS ORDERED: HEPARIN PER PHARMACY MC PRN (17:50)
[2018-09-23] MEDS ORDERED: ALBUTEROL 0.083% 2.5 MG/3 ML NEBU INH PRN (18:20)
[2018-09-23] MEDS ORDERED: LORazepam 1 MG TAB PO PRN (18:20)
[2018-09-23] MEDS ORDERED: MORPHINE SULFATE 2 MG/ML SYR IVP PRN (18:20)
[2018-09-23] MEDS ORDERED: ALUMINUM HYD/MAG/SIMETHICONE 30 ML UDC PO PRN (18:20)
[2018-09-23] MEDS ORDERED: ONDANSETRON 4 MG/2 ML VIAL IVP PRN (18:20)
[2018-09-23] MEDS ORDERED: ZOLPIDEM 5 MG TAB PO PRN (18:20)
[2018-09-23] MEDS ORDERED: NITROGLYCERIN 0.4 MG TAB SL PRN (18:20)
[2018-09-23] MEDS ORDERED: ACETAMINOPHEN 325 MG TAB PO PRN (18:20)
[2018-09-23] MEDS ORDERED: METO25TA PO (18:21)
[2018-09-23] MEDS ORDERED: POTA8TER12 PO (18:21)
[2018-09-23] MEDS ORDERED: LORA10TA19 PO (18:21)
[2018-09-23] MEDS ORDERED: hePARIN / DEXT 5% PREMIX 250 ML IV SCH (19:05)
--- NOTE | 2018-09-23 19:05 | NUR ---
RECEIVED REPORT FROM ENRIQUE GOODMAN.
[2018-09-23 19:14] LABS: CHOL/HDL RATIO 5.7 (1-4.5)
--- NOTE | 2018-09-23 19:22 | NUR ---
RECEIVED BEDSIDE REPORT FROM DATE NIGHT CAREGIVER. PT IS FRANCESCA X 4. ON ROOM AIR NO SOB. PT STATES HAS CHRONIC BACK AND NECK PAIN. 02/06. WILL MEDICATE. IV ON L WRIST 22G SL CURRENTLY ORDER FOR HEPARIN DRIP. ELEVATED TROPONIN: 0.094. PT ONLY RECEIVED ASPIRIN IN ER. WAITING FOR APTT RESULT. SKIN IS INTACT. AMBULATORY. MRSA COLLECTED AND SENT TO LAB. PLAN OF CARE DISCUSSED WITH PT. CALL LIGHT WITHIN REACH.
--- NOTE | 2018-09-23 19:22 | NUR ---
Patient will be admitted to care of Dr. Washington. Admited to TELE. Will go to room 121-B. Belongings list completed. Report to ENRIQUE Marina.
[2018-09-23 19:29] VITALS: BP 120/89
--- NOTE | 2018-09-23 20:00 | NUR ---
VITAL SIGNS ARE STABLE.: 120/89 HR 61, 98% RA, TEMP 96.9 HEPARIN DRIP STARTED. CALL LIGHT WITHIN REACH. WILL CONTINUE TO MONITOR.
[2018-09-23] MEDS: HYDROcodone/APAP 5/325 MG 1 TAB TAB PO PRN (21:22)
[2018-09-23] MEDS ORDERED: POTASSIUM CHLORIDE 10 MEQ TABER PO ONE (21:45)
[2018-09-23] MEDS ORDERED: ATORVASTATIN 20 MG TAB PO SCH (23:00)
--- NOTE | 2018-09-23 23:18 | NUR ---
DR CURTIS AT BEDSIDE. PT IN STABLE CONDITION. MADE AWARE OF ELEVATED TROPONIN 0.115 NEW ORDER FOR DRUG SCREEN.
[2018-09-23 23:53] LABS: BARBITURATE, URINE NEG. ng/ml (NEG <=200); BENZODIAZEPINE, URINE NEG. ng/mL (NEG <=200); CANNABINOID, URINE NEG. ng/mL (NEG <=50); COCAINE, URINE NEG. ng/mL (NEG <=300); OPIATE, URINE NEG. ng/mL (NEG <=2000); PHENCYCLIDINE SCREEN,URINE NEG. ng/mL (NEG <=25)
[2018-09-24] VITALS: BP 111/78
--- NOTE | 2018-09-24 01:15 | NUR ---
PT IS SLEEPING COMFORTABLY IN BED. NO S/S OF RESPIRATORY DISTRESS. CALL LIGHT IS WITHIN REACH. WILL CONTINUE TO MONITOR.
[2018-09-24 04:00] VITALS: BP 102/74
--- NOTE | 2018-09-24 04:00 | NUR ---
VS ARE STABLE. PT DENIES ANY SOB OR PAIN AT THIS TIME. INFORMED PT SHE IS NPO FOR POSSIBLE ANGIOGRAM TODAY. PT VERBALIZED UNDERSTANDING. NPO SIGN ON DOOR. ALL NEEDS MET AT THIS TIME. CALL LIGHT WITHIN REACH.
[2018-09-24] MEDS: HYDROcodone/APAP 5/325 MG 1 TAB TAB PO PRN (05:17)
[2018-09-24 06:38] LABS: ALBUMIN 2.7 g/dL (3.4-5.0); ANION GAP 14.9 (8-16); CARBON DIOXIDE 25.8 mmol/L (21-32); CREATININE 1.2 mg/dL (0.6-1.3); POTASSIUM 3.7 mmol/L (3.5-5.1); TOTAL BILIRUBIN 0.8 mg/dL (0.0-1.0)
[2018-09-24 06:54] LABS: BASOPHILS # (AUTO) 0.1 K/uL (0.00-0.22); BASOPHILS % (AUTO) 0.6 % (0.0-2.0); EOSINOPHILS # (AUTO) 0.1 K/uL (0-0.4); EOSINOPHILS % (AUTO) 1.2 % (0.0-4.0); HEMATOCRIT 42.9 % (36-48); HEMOGLOBIN 14.2 g/dL (12.0-16.0); LYMPHOCYTES # (AUTO) 2.9 K/uL (2.5-16.5); MEAN CORPUSCULAR HEMOGLOBIN 29 pg (27-31); MEAN CORPUSCULAR HGB CONC 33 g/dL (33-37); MEAN CORPUSCULAR VOLUME 87.3 fL (80-94); MONOCYTES # (AUTO) 0.5 K/uL (0.8-1.0); MONOCYTES % (AUTO) 4.9 % (1.7-9.3); NEUTROPHILS # (AUTO) 5.9 K/uL (1.8-7.7); NEUTROPHILS % (AUTO) 62.3 % (42.2-75.2); PLATELET COUNT (AUTO) 141 K/uL (140-450); RED BLOOD CELL COUNT(AUTO) 4.91 MIL/uL (4.20-5.40); WHITE BLOOD COUNT (AUTO) 9.4 K/uL (4.8-10.8)
--- NOTE | 2018-09-24 07:18 | NUR ---
GAVE BEDSIDE REPORT TO RAJENDRA NUNEZ. PT ENDORSED IN STABLE CONDITION.
--- NOTE | 2018-09-24 07:20 | NUR ---
RECEIVED BEDSIDE REPORT FROM SURVEILLANCE INSPECTOR RN FOR CONTINUITY OF CARE. PT IN STABLE CONDITION. AOX4. DENIES PAIN AND DISCOMFORT. DENIES CHEST PAIN, SOB, DIZZINESS/LIGHTHEADEDNESS, N/V, WEAKNESS. NO S/S DISTRESS. RESPIRATIONS EVEN AND UNLABORED. ACTIVE BS IN ALL QUADRANTS. ABDOMEN SOFT AND NON-DISTENDED. SKIN INTACT. IV SITE PATENT AND ASYMPTOMATIC, INFUSING HEPARIN DRIP PER MD ORDERS. ALL SAFETY PRECAUTIONS IN PLACE, WILL CONTINUE TO MONITOR.
[2018-09-24 08:00] VITALS: BP 109/76
--- NOTE | 2018-09-24 08:57 | NUR ---
PATIENT HAS BEEN SCREENED AND CATEGORIZED HIGH NUTRITION RISK. PATIENT WILL BE SEEN WITHIN 1-2 DAYS OF ADMISSION. 09/24/18-09/25/[address]
[2018-09-24] MEDS ORDERED: DOCUSATE SODIUM 100 MG GELCAP PO SCH (09:00)
[2018-09-24] MEDS ORDERED: ASPIRIN 81 MG TAB.CHEW PO SCH (09:00)
[2018-09-24] MEDS ORDERED: predniSONE 20 MG TAB PO SCH (09:00)
[2018-09-24] MEDS ORDERED: PANTOPRAZOLE 40 MG TABEC PO SCH (09:00)
[2018-09-24] MEDS ORDERED: MONTELUKAST SODIUM 10 MG TAB PO SCH (09:00)
[2018-09-24] MEDS ORDERED: LORATADINE 10 MG TAB PO SCH (09:00)
[2018-09-24] MEDS ORDERED: METOPROLOL 25 MG TAB PO SCH (09:00)
[2018-09-24] MEDS ORDERED: POTASSIUM CHLORIDE 8 MEQ TABER PO SCH (09:00)
--- NOTE | 2018-09-24 09:21 | NUR ---
SCANNED HEPARIN DRIP PER PHARMACIST REQUEST. NO CHANGES TO RATE. HEPARIN DRIP HAS BEEN INFUSING, PER PHARMACIST IT WAS NOT SCANNED INTO THE SYSTEM WITH RATE.
--- NOTE | 2018-09-24 09:29 | NUR ---
Transportation arranged with [facility] pt will be picked up from room 121 B at 1015 to be transported to [facility] ER for cardiac cath appointment.
--- NOTE | 2018-09-24 09:57 | NUR ---
NOTIFIED PATIENT OF PLANS FOR [facility] TO PICKUP FOR TRANSFER TO [facility] AT 1015. PT CALLED AND NOTIFIED FAMILY MEMBER. Addendum: 09/24/18 at 1042 by Alaina Ash Meng RN PT STATES SHE WILL CALL SON WHEN SHE GETS TO [facility].
--- NOTE | 2018-09-24 10:00 | NUR ---
REPORT GIVEN TO ANTONIETA NUNEZ AT [facility]. DISCUSSED PT CC, DX, PHMX, ALLERGIES, CODE STATUS, IMAGING, LABS, EKG, AND PLAN OF CARE. PT ON HEPARIN DRIP NOW AND HAS BEEN NPO X MEDS SINCE LAST NIGHT. ANTONIETA NUNEZ VERBALIZED COMPLETE UNDERSTANDING. ANTONIETA ASKED FOR INR VALUE -LAB VALUE NOT AVAILABLE HERE. [facility] TO DRAW STAT INR.
--- NOTE | 2018-09-24 10:05 | NUR ---
DISCHARGE PAPERWORK GIVEN TO PATIENT. MEDICATION RECONCILIATION TEACHING GIVEN TO PATIENT. CARDIAC CATHETERIZATION EDUCATION GIVEN. PT VERBALIZED COMPLETE UNDERSTANDING. ID BANDS REMOVED. ALL PERSONAL BELONGINGS ARE WITH PATIENT. PATIENT DISCHARGED VIA GURNEY VIA [facility] [employer] [facility]. FLU VACCINE AND PNEUMOVAX UP TO DATE. HOME MEDS FROM PHARMACY GIVEN TO PATIENT.
--- NOTE | 2018-09-24 10:10 | NUR ---
ASKED RADIOLOGY TO CALL ME [facility] ONCE CD READY.
--- NOTE | 2018-09-24 10:13 | NUR ---
Clinicals faxed to [facility] , pt scheduled for cardiac cath today.
--- NOTE | 2018-09-24 10:14 | NUR ---
ADDED INR TO MORNING LABS STAT- NOTIFIED LAB.
--- NOTE | 2018-09-24 10:28 | NUR ---
PATIENT PROCESSING FOR DISCHARGE TO [facility] CATHETERIZATION LAB
--- NOTE | 2018-09-24 10:33 | NUR ---
REPORT GIVEN TO [facility]. STILL WAITING FOR CD FROM RADIOLOGY-THEY ARE WORKING ON IT.
[2018-09-24 10:34] LABS: PROTHROMBIN TIME 9.4 secs (10.8-13.4)
--- NOTE | 2018-09-24 10:35 | NUR ---
CD GIVEN TO [facility]. PATIENT LEFT FOR [facility] WITH [facility] WITH ALL PERSONAL BELONGINGS.
--- NOTE | 2018-09-24 10:49 | NUR ---
[facility] AUTH [id number]
--- NOTE | 2018-09-24 11:06 | NUR ---
CALLED ANTONIETA AT [facility]. TOLD HER WE HAVE INR VALUES. GOT [facility] FAX NUMBER AND FAXED THE LABS TO THEM.
--- NOTE | 2018-09-24 11:18 | NUR ---
Spoke with Steve from [facility] regarding AUTH for cardiac cath . He will call me back regarding AUTH.
--- NOTE | 2018-09-24 11:20 | NUR ---
Spoke with Yoandy from [facility] regarding AUTH for cardiac cath. Facesheet and Dr's order faxed .
--- NOTE | 2018-09-24 11:30 | NUR ---
Faxed order for cardiac cath to Steve from [facility] .
--- NOTE | 2018-09-24 11:58 | NUR ---
AUTH #[id number] for cardiac cath.
--- NOTE | 2018-09-24 12:00 | NUR ---
Spoke with JAYLAN from [facility] cardiac cath and gave her the AUTH # [id number].
[2018-09-24] MEDS ORDERED: ATORVASTATIN 20 MG TAB PO SCH (21:00)
== END 2018-09-24 10:35 | disposition short-term general hospital (02) | DRG 190 ==
LOC: MED 14:28 → MTU 18:19
PROVIDERS: ADMIT Hospitalist; ATTEND Hospitalist
DX: I21.4 Non-ST elevation (NSTEMI) myocardial infarction (principal); I11.0 Hypertensive heart disease with heart failure; I50.9 Heart failure, unspecified; E44.1 Mild protein-calorie malnutrition; J44.1 Chronic obstructive pulmonary disease with (acute) exacerbation; E87.6 Hypokalemia; F17.200 Nicotine dependence, unspecified, uncomplicated; J45.909 Unspecified asthma, uncomplicated; E78.5 Hyperlipidemia, unspecified; F41.9 Anxiety disorder, unspecified; E78.1 Pure hyperglyceridemia
CPT/HCPCS: 36415; 70450; 71045; 80053; 80305; 81001; 83721; 84484; 85025; 85610; 85730; 87081; 87086; 93005; 99285; J1644; J2270; J7512

== ENCOUNTER 2018-10-07 12:03 | Emergency (ER) | payer OTHER ==
[~2018-10-07] VITALS: Ht 157.5 cm; Wt 65.8 kg
[~2018-10-07 12:03] MED LIST changes: +LORA10TA19 PO; +METO25TA PO; +POTA8TER12 PO
[2018-10-07 12:10] VITALS: BP 142/100
[2018-10-07] MEDS ORDERED: ALBUTEROL SULFATE/IPRATROPIU 3 ML SOL IH ONE ×2 (12:15→13:30)
--- NOTE | 2018-10-07 12:15 | NUR ---
PT TAKEN TO CHAIR E FOR BREATHING TX.
--- NOTE | 2018-10-07 12:23 | NUR ---
Patient transferred to bed 12 for further care. RN re-evaluating patient at bedside.
--- NOTE | 2018-10-07 12:30 | NUR ---
63Y/F BIB SELF WITH C/O SOB, WHEEZING X3 DAYS ALSO C/O FEVER AND LOWER BACK PAIN AND CHEST TIGHTNESS, PT IS SAT AT 96% AT THIS TIME, WITH VSS, EVEN AND UNLOBORED BREATHING AT THIS TIME, PT IS AAOX4, BED DOWN, BEDRAIL UP X 1, ER MD AWARE AND NOTIFIED OF PT STATUS. HX COPD, ASTHMA, ANGIOPLASTY WITH A STENT
--- NOTE | 2018-10-07 12:31 | NUR ---
EKG completed at bedside by EMT.
--- NOTE | 2018-10-07 13:27 | NUR ---
Patient being evaluated by physician at bedside.
--- NOTE | 2018-10-07 13:30 | NUR ---
pt taken to x-ray
--- NOTE | 2018-10-07 13:36 | NUR ---
pt back from x-ray
--- NOTE | 2018-10-07 13:45 | NUR ---
RT at bedside for breathing treatment
[2018-10-07 14:09] LABS: BASOPHILS % (AUTO) 0.4 % (0.0-2.0); EOSINOPHILS % (AUTO) 0.1 % (0.0-4.0); HEMATOCRIT 35.2 % (36-48); LYMPHOCYTES # (AUTO) 1.2 K/uL (2.5-16.5); LYMPHOCYTES % (AUTO) 24.2 % (20.5-51.1); MEAN CORPUSCULAR HEMOGLOBIN 31 pg (27-31); MEAN CORPUSCULAR HGB CONC 34 g/dL (33-37); MEAN CORPUSCULAR VOLUME 89.5 fL (80-94); MONOCYTES # (AUTO) 0.3 K/uL (0.8-1.0); MONOCYTES % (AUTO) 5.1 % (1.7-9.3); NEUTROPHILS # (AUTO) 3.6 K/uL (1.8-7.7); NEUTROPHILS % (AUTO) 70.2 % (42.2-75.2); PLATELET COUNT (AUTO) 318 K/uL (140-450); RED BLOOD CELL COUNT(AUTO) 3.93 MIL/uL (4.20-5.40); RED CELL DISTRIBUTION WIDTH 19.1 % (11.6-13.7); WHITE BLOOD COUNT (AUTO) 5.1 K/uL (4.8-10.8)
[2018-10-07 14:25] LABS: ANION GAP 13.3 (8-16); CARBON DIOXIDE 28.3 mmol/L (21-32); POTASSIUM 3.6 mmol/L (3.5-5.1)
[2018-10-07 14:32] LABS: ALBUMIN 3.4 g/dL (3.4-5.0); TOTAL BILIRUBIN 0.6 mg/dL (0.0-1.0)
[2018-10-07] MEDS ORDERED: predniSONE 20 MG TAB PO ONE (15:20)
[2018-10-07 15:46] VITALS: BP 140/89
--- NOTE | 2018-10-07 15:46 | NUR ---
Patient discharged with v/s stable. Written and verbal after care instructions given and explained. Patient alert, oriented and verbalized understanding of instructions. Ambulatory with steady gait. All questions addressed prior to discharge. ID band removed. Patient advised to follow up with PMD. Rx of Pprednisone, doxycycline, and albuterol given. Patient educated on indication of medication including possible reaction and side effects. Opportunity to ask questions provided and answered.
== END 2018-10-07 15:46 | disposition home or self-care (01) ==
LOC: MED 12:03
DX: J44.1 Chronic obstructive pulmonary disease with (acute) exacerbation (principal); M54.5 Low back pain; I10 Essential (primary) hypertension; Z79.899 Other long term (current) drug therapy
CPT/HCPCS: 36415; 71046; 80053; 81002; 81025; 84484; 85025; 93005; 94640; 99284; J7512; J7620

== ENCOUNTER 2018-12-09 06:10 | Emergency (ER) | payer OTHER ==
[~2018-12-09] VITALS: Ht 157.5 cm; Wt 64.9 kg
[~2018-12-09 06:10] MED LIST changes: -ATRMDI IH; -AZIT250T3 PO; -BUDE1AER2 IH; -LOVA40TA PO; -METO50TA20 PO
[2018-12-09 06:15] VITALS: BP 157/102
--- NOTE | 2018-12-09 06:18 | NUR ---
PT TAKEN TO BED 12
[2018-12-09] MEDS ORDERED: ALBUTEROL SULFATE/IPRATROPIU 3 ML SOL IH ONE ×2 (06:25→06:50)
[2018-12-09] MEDS ORDERED: methylPREDNISolone SS 125 MG/2 ML VIAL IM ONE (06:25)
--- NOTE | 2018-12-09 06:26 | NUR ---
PT TO ED WITH C/O SOB X 2 DAYS. PT REPORTS RESCUE INHALER AND AT HOME NEBULIZER UNSUCCESFUL. BILATERAL EXPIRATORY CRACKLES HEARD UPON ASCULTATION. NO OBVIOUS DISTRESS NOTED. PT ABLE TO SPEAK AND ANSWER QUESTIONS APPROPRIATLEY. PT PLACED INTO BED, PENDING MD HILL, ATTATCHED TO CONTINOUS CARDIAC AND SPO2 MONITORING.
--- NOTE | 2018-12-09 06:28 | NUR ---
Respiratory Therapist at bedside for respiratory intervention.
--- NOTE | 2018-12-09 06:32 | NUR ---
ADMITTING DX: ADULT ASTHMA HX: COPD/ASTHMA AWAKE AND ALERT VERBALLY RESPONSIVE [facility] THERAPY AND RESPIRATORY DRUG GIVEN ORDERED ENCOURAGED FOR INTERMITTENT DEEP BREATHING DURING THERAPY PEAK FLOW METER: before 150 L after 170 L
[2018-12-09] MEDS ORDERED: LEVOFLOXACIN 750 MG TAB PO ONE (06:50)
--- NOTE | 2018-12-09 06:50 | NUR ---
FOLLOW UP [facility] THERAPY AND RESPIRATORY DRUG GIVEN ORDERED ENCOURAGED PATIENT FOR INTERMITTENT DEEP BREATHING DURING THERAPY PEAK FLOW METER: before 205 L after 235 L
--- NOTE | 2018-12-09 07:00 | NUR ---
PT REPORTS RELIEF OF SYMPTOMS POST BREATHING TX. ER MD AWARE--OK TO D/C PATIENT WITHOUT XRAY.
[2018-12-09 07:03] VITALS: BP 148/92
--- NOTE | 2018-12-09 07:03 | NUR ---
Patient discharged with v/s stable. Written and verbal after care instructions given and explained. Patient alert, oriented and verbalized understanding of instructions. Ambulatory with steady gait. All questions addressed prior to discharge. ID band removed. Patient advised to follow up with PMD. Rx of ALBUTEROL, LEVAQUIN, PREDNISONE given. Patient educated on indication of medication including possible reaction and side effects. Opportunity to ask questions provided and answered.
--- NOTE | 2018-12-09 07:19 | NUR ---
Bill minor in [facility] - 12/09/18 at 0724 by ARINA X-Ray at bedside.
== END 2018-12-09 07:03 | disposition home or self-care (01) ==
LOC: MED 06:10
DX: J44.1 Chronic obstructive pulmonary disease with (acute) exacerbation (principal); F17.210 Nicotine dependence, cigarettes, uncomplicated; I10 Essential (primary) hypertension; Z79.899 Other long term (current) drug therapy; Z71.6 Tobacco abuse counseling; Z88.8 Allergy status to other drugs, medicaments and biological substances
CPT/HCPCS: 94640; 96372; 99284; J2930; J7620

== ENCOUNTER 2019-02-15 09:37 | Emergency (ER) | payer OTHER ==
[~2019-02-15] VITALS: Ht 157.5 cm; Wt 65.0 kg
[2019-02-15 09:42] VITALS: BP 157/93
[2019-02-15] MEDS ORDERED: ALBUTEROL SULFATE/IPRATROPIU 3 ML SOL IH ONE (10:05)
[2019-02-15] MEDS ORDERED: DIAZEPAM 5 MG TAB PO ONE (10:10)
[2019-02-15] MEDS ORDERED: KETOROLAC 30 MG/ML VIAL IM ONE (10:10)
[2019-02-15 11:52] VITALS: BP 136/93
== END 2019-02-15 11:52 | disposition home or self-care (01) ==
LOC: MED 09:37
DX: M54.5 Low back pain (principal); I10 Essential (primary) hypertension; J44.9 Chronic obstructive pulmonary disease, unspecified; F17.210 Nicotine dependence, cigarettes, uncomplicated; Z98.890 Other specified postprocedural states; Z79.899 Other long term (current) drug therapy; Z79.891 Long term (current) use of opiate analgesic; Z87.39 Personal history of other diseases of the musculoskeletal system and connective tissue
CPT/HCPCS: 72100; 94640; 96372; 99283; J1885; J7620; 99406

== ENCOUNTER 2019-03-15 06:55 | Emergency (ER) | payer OTHER ==
[~2019-03-15] VITALS: Ht 157.5 cm; Wt 65.8 kg
[2019-03-15 06:56] VITALS: BP 167/101
--- NOTE | 2019-03-15 06:56 | NUR ---
TO BED # 11 AMBULATORY
--- NOTE | 2019-03-15 07:10 | NUR ---
AA O X4 63 YR FEMALE AMBULATE TO BED 11 W/ C/O BOTTOM RT TOOTH ACHE SINCE S[place]O WORSE TODAY, WHEEZING FOR A WEEK, SPEAKING FULL SENCTENCES, NO ACCESSORY MUSCLE USE, SPO2 96% ON ROOM AIR.
--- NOTE | 2019-03-15 07:24 | NUR ---
DR ESTRADA EVALUATING AAO X4 PT AT BEDSIDE
[2019-03-15] MEDS ORDERED: ONDANSETRON 4 MG ODT PO ONE (07:30)
[2019-03-15] MEDS ORDERED: IPRATROPIUM 0.02% 0.5 MG/2.5 ML NEBU INH ONE (07:30)
[2019-03-15] MEDS ORDERED: ALBUTEROL 0.083% 2.5 MG/3 ML NEBU INH ONE (07:30)
[2019-03-15] MEDS ORDERED: predniSONE 20 MG TAB PO ONE (07:30)
[2019-03-15 09:10] VITALS: BP 121/82
--- NOTE | 2019-03-15 09:10 | NUR ---
Patient discharged with v/s stable. Written and verbal after care instructions given and explained. Patient alert, oriented and verbalized understanding of instructions. Ambulatory with steady gait. All questions addressed prior to discharge. ID band removed. Patient advised to follow up with PMD. Rx of Naprosyn, Augmentin, Prednisone, Albuterol Sulfate, Ventolin inhaler given. Patient educated on indication of medication including possible reaction and side effects. Opportunity to ask questions provided and answered.
== END 2019-03-15 09:10 | disposition home or self-care (01) ==
LOC: MED 06:55
DX: K04.7 Periapical abscess without sinus (principal); J44.1 Chronic obstructive pulmonary disease with (acute) exacerbation; F17.200 Nicotine dependence, unspecified, uncomplicated; I10 Essential (primary) hypertension; Z79.899 Other long term (current) drug therapy; Z98.890 Other specified postprocedural states
CPT/HCPCS: 94640; 99283; J7512; J7613; J7644; Q0162

== ENCOUNTER 2019-07-18 08:11 | Emergency (ER) | payer OTHER ==
[~2019-07-18] VITALS: Ht 157.5 cm; Wt 63.5 kg
--- NOTE | 2019-07-18 08:16 | NUR ---
PT AMBULATED TO ER BED 09
[2019-07-18 08:18] VITALS: BP 149/94
[2019-07-18] MEDS ORDERED: ALBUTEROL SULFATE/IPRATROPIU 3 ML SOL IH ONE (08:20)
--- NOTE | 2019-07-18 08:20 | NUR ---
DR PLAZA EVALUATING PT AT BEDSIDE
--- NOTE | 2019-07-18 08:24 | NUR ---
64/F c/o cough, congestion, sob x 4 days worsening today. Reports fatigue. Wheezing in bilateral lung villavicencio. 94-96% RA. Afebrile at this time. Bed locked & low; bedrails up x1. hx--copd, asthma, cardiac stent August 2018
--- NOTE | 2019-07-18 08:28 | NUR ---
CXR AT BEDSIDE
--- NOTE | 2019-07-18 08:28 | NUR ---
RT AT BEDSIDE FOR BREATHING TX
--- NOTE | 2019-07-18 08:36 | NUR ---
PT STATES "I'M FEELING BETTER" AFTER THE BREATHING TX
--- NOTE | 2019-07-18 10:08 | NUR ---
DR PLAZA SPEAKING WITH PT AT BEDSIDE
--- NOTE | 2019-07-18 10:22 | NUR ---
Patient discharged with v/s stable. Written and verbal after care instructions given and explained. Patient alert, oriented and verbalized understanding of instructions. Ambulatory with steady gait. All questions addressed prior to discharge. ID band removed. Patient advised to follow up with PMD. Rx of AZITHROMYCIN, ALBUTEROL, AND PREDNISONE given. Patient educated on indication of medication including possible reaction and side effects. Opportunity to ask questions provided and answered.
[2019-07-18 10:23] VITALS: BP 129/84
== END 2019-07-18 10:22 | disposition home or self-care (01) ==
LOC: MED 08:11
DX: J44.1 Chronic obstructive pulmonary disease with (acute) exacerbation (principal); I10 Essential (primary) hypertension; Z79.899 Other long term (current) drug therapy
CPT/HCPCS: 71045; 94640; 99283; J7620; Q0092

== ENCOUNTER 2019-07-24 23:31 | Emergency (ER) | payer OTHER ==
[~2019-07-24] VITALS: Ht 157.5 cm; Wt 62.6 kg
[2019-07-24 23:33] VITALS: BP 146/99
--- NOTE | 2019-07-24 23:39 | NUR ---
P TAKEN TO BED 3
[2019-07-24] MEDS ORDERED: ALBUTEROL 0.083% 2.5 MG/3 ML NEBU INH ONE (23:50)
--- NOTE | 2019-07-24 23:51 | NUR ---
64 Y/O FEMALE PRESENTS TO ED, C/O DIFFICULTY BREATHING. PT STATES COMING TO ED 1 WEEK AGO FOR SIMILAR COMPLAINT. PT RECEIVED BREATHING TX AND STEROIDS; PT D/C WITH RELIEF. PT C/O INCREASING DIFFICULTY BREATHING STARTING LAST FRIDAY. WHEEZING NOTED ON BILAT LUNGS THROUGHOUT, EXPIRATORY AND INSPIRATORY. PT STATES MEDICATIONS HAS NO RELIEF FROM SYMPTOM. PT SPO2 AT 97% ROOM AIR. PT DENIES ANY CHEST PAIN. NO N/V/D. PT VSS. ERMD AWARE. WILL CONTINUE TO MONITOR.
--- NOTE | 2019-07-25 | NUR ---
ACKNOWLEDGED ALBUTEROL MEDICATION. LUNG SOUNDS BILAT WHEEZING THROUGHOUT, EXPIRATORY AND INSPIRATORY. PT SPO2 AT 95% ROOM AIR, RR 15.
[2019-07-25] MEDS ORDERED: ALBUTEROL 0.083% 2.5 MG/3 ML NEBU INH STA (00:10)
--- NOTE | 2019-07-25 00:41 | NUR ---
PT CONTINUES TO HAVE AUDIBLE WHEEZING THROUGHOUT LUNGS. SPO2 AT 97% ROOM AIR. RR 17. ERMD AWARE. WILL CONTINUE TO MONITOR.
--- NOTE | 2019-07-25 00:54 | NUR ---
Dr. Post examining patient.
[2019-07-25] MEDS ORDERED: MAG SULF 2000 MG/WATER PREMIX 50 ML IV ONE (01:15)
[2019-07-25] MEDS ORDERED: ALBUTEROL SULFATE/IPRATROPIU 3 ML SOL IH STA (01:16)
--- NOTE | 2019-07-25 01:27 | NUR ---
Respiratory Therapist at bedside for respiratory intervention.
--- NOTE | 2019-07-25 02:31 | NUR ---
PT STATES RELIEF FROM MEDICATIONS AND BREATHING TX. MILD WHEEZING ON UPPER LOBES NOTED. SPO2 AT 98% ROOM AIR, RR 16.
--- NOTE | 2019-07-25 04:12 | NUR ---
PT AMBULATED TO RESTROOM WITH STEADY GAIT
[2019-07-25 04:52] VITALS: BP 135/78
== END 2019-07-25 04:53 | disposition home or self-care (01) ==
LOC: MED 23:31
DX: J44.9 Chronic obstructive pulmonary disease, unspecified (principal); I10 Essential (primary) hypertension; Z79.899 Other long term (current) drug therapy
CPT/HCPCS: 71045; 94640; 96365; 99284; J3475; J7613; J7620; Q0092

== ENCOUNTER 2019-07-25 14:25 | Inpatient (IN) | payer OTHER ==
[~2019-07-25] VITALS: Ht 157.5 cm; Wt 62.6 kg
[2019-07-25 14:38] VITALS: BP 167/102
--- NOTE | 2019-07-25 14:43 | NUR ---
PT AMB TO BED 1. REPORTED GIVEN TO
[2019-07-25] MEDS ORDERED: ALBUTEROL 0.083% 2.5 MG/3 ML NEBU INH ONE (14:55)
[2019-07-25] MEDS ORDERED: ALBUTEROL SULFATE/IPRATROPIU 3 ML SOL IH ONE (14:55)
[2019-07-25] MEDS ORDERED: predniSONE 20 MG TAB PO ONE (14:55)
--- NOTE | 2019-07-25 15:55 | NUR ---
PATIENT PRESENTS TO ED WITH SOB, PRODUCTIVE COUGH AND WHEEZING X 7 DAYS. PT STATES THAT SHE WAS AT THE ER YESTERDAY FOR SAME SYMPTOMS. PRESCRIBED WITH STEROID AND ABX, BREATHING TREATMENT DONE. NO RELIEF PROVIDED, HENCE THIS VISIT TO THE ER. DENIES ANY OTHER S/SX. NOTED LABORED BREATHING; WITH WHEEZING ON ALL LUNG SILVER; HR EVEN AND REGULAR; PT DENIES ANY FEVER AND CP AT THIS TIME; PATIENT STATES PAIN OF 0/10 AT THIS TIME; VSS; PATIENT POSITIONED FOR COMFORT; HOB ELEVATED; BEDRAILS UP X2; BED DOWN. ER MD SAW PATIENT.
[2019-07-25] MEDS ORDERED: MAGNESIUM SULFATE 50% 1,000 MG in NACL 0.9% 50 ML IV ONE (16:10)
--- NOTE | 2019-07-25 17:05 | NUR ---
MED REC IMCOMPLETEPT UNABLE TO VERIFY HOME MEDICATIONS. PT STATES "MY MEDICATION LIST IS AT HOME"
[2019-07-25 17:27] LABS: BASOPHILS % (AUTO) 0.1 % (0.0-2.0); HEMATOCRIT 42.8 % (36-48); HEMOGLOBIN 13.7 g/dL (12.0-16.0); LYMPHOCYTES # (AUTO) 1.4 K/uL (2.5-16.5); LYMPHOCYTES % (AUTO) 12.9 % (20.5-51.1); MEAN CORPUSCULAR HEMOGLOBIN 26 pg (27-31); MEAN CORPUSCULAR HGB CONC 32 g/dL (33-37); MEAN CORPUSCULAR VOLUME 80.1 fL (80-94); MONOCYTES # (AUTO) 0.5 K/uL (0.8-1.0); MONOCYTES % (AUTO) 4.6 % (1.7-9.3); NEUTROPHILS # (AUTO) 8.7 K/uL (1.8-7.7); NEUTROPHILS % (AUTO) 82.4 % (42.2-75.2); PLATELET COUNT (AUTO) 346 K/uL (140-450); RED BLOOD CELL COUNT(AUTO) 5.34 MIL/uL (4.20-5.40); RED CELL DISTRIBUTION WIDTH 18.6 % (11.6-13.7); WHITE BLOOD COUNT (AUTO) 10.6 K/uL (4.8-10.8)
[2019-07-25 17:43] LABS: CARBON DIOXIDE 27.9 mmol/L (21-32); CREATININE 1.1 mg/dL (0.6-1.3); POTASSIUM 3.9 mmol/L (3.5-5.1)
[2019-07-25 17:49] LABS: ALBUMIN 3.3 g/dL (3.4-5.0); TOTAL BILIRUBIN 0.2 mg/dL (0.0-1.0)
[2019-07-25] MEDS ORDERED: MAG SULF 2000 MG/WATER PREMIX 50 ML IV ONE (17:59)
--- NOTE | 2019-07-25 18:58 | NUR ---
PATIENTRESTING COMFORTABLY IN BED. NO NOTED RESPIRATORY DISTRESS.
--- NOTE | 2019-07-25 20:56 | NUR ---
PATIENT HR 53, PATIENT AOX4, BREATHING EVEN AND UNLABORED. PATIENT DENIES DIZZINESS AND STATES SHE FEELS FINE
--- NOTE | 2019-07-25 21:37 | NUR ---
CALLED AGAIN FOR GENERAL DENTIST, DENA SAID SHE WILL PAGE DR. MITCHELL FOR DR. LEÓN
--- NOTE | 2019-07-25 21:45 | NUR ---
Patient will be admitted to care of DR LEÓN. Admited to TELE. Will go to room 120B. Belongings list completed. Report to LOTUS NUNEZ.
--- NOTE | 2019-07-25 22:25 | NUR ---
CALLED FOR ORDERS VIA LUCIANO RIGGINS. FORWARDED TO AWAITING CALL
[2019-07-25 22:30] VITALS: BP 150/90
--- NOTE | 2019-07-25 22:30 | NUR ---
RECEIVED PT FROM ED VIA LIZ KEYS AO X 4, AMBULATORY W/ STEADY GAIT. WITH IV ON THE FA G 20, FLUSHED, PATENT SALINE LOCK. PT PLACED ON BED W/ O2 AT 2 LPM. POC REVIEWED W/ PT. ORIENTED TO UNIT. PHYSICAL ASSESSMENT DONE. MRSA SWAB DONE. PLACED ON LOW BED; CALL LIGHT WITHIN REACH.
--- NOTE | 2019-07-25 23:00 | NUR ---
DR. VILLEGAS, ABID CLINICAL NURSING INSTRUCTOR, CALLED FOR DR. LEÓN. GOT ORDERS FOR RT EVAL; ZOFRAN; TYLENOL AND DIET
--- NOTE | 2019-07-26 | NUR ---
REMINDED MS ALMEIDA THAT I HAVE NOT RECEIVED PRINT OUT OF EKG. WILL FOLLOW UP W/ HER AGAIN
[2019-07-26] MEDS ORDERED: ALBUTEROL SULFATE/IPRATROPIU 3 ML SOL IH ONE (00:16)
--- NOTE | 2019-07-26 00:20 | NUR ---
rt evaluated patient and asked for for jak order.
[2019-07-26] MEDS ORDERED: ALBUTEROL SULFATE/IPRATROPIU 3 ML SOL IH PRN (00:30)
[2019-07-26] MEDS: methylPREDNISolone SS 40 MG/ML VIAL IVP SCH ×2 (00:38→09:00)
--- NOTE | 2019-07-26 03:38 | NUR ---
PT SLEEPING, EASILY AROUSABLE. WILL CONTINUE TO MONITOR
[2019-07-26 04:00] VITALS: BP 155/88
--- NOTE | 2019-07-26 04:47 | NUR ---
PT SAID SHE WANTS TO GO HOME. TOLD HER THAT IF SHE WANTS TO SHE CAN BUT IT IS CALLED AGAINST MEDICAL ADVICE. SHE SAID SHE DOES NOT WANT TO BE AGAINST MEDICAL ADVICE. NEEDS TO HER FIRST. PT SAID BEFORE SHE WANTS TO GO SHE WANTS THE BREATHING TX. PT STILL DOES NOT UNDERSTAND. EXPLAINED THE RISKS AND BENEFITS
[2019-07-26] MEDS ORDERED: methylPREDNISolone SS 40 MG/ML VIAL IVP SCH (05:00)
--- NOTE | 2019-07-26 06:33 | NUR ---
PT AWAKE ALERT ORIENTED X 4, AMBULATORY. PT STILL WANTS TO GO HOME, BUT ASKED HER TO WAIT FOR DR.SHE SAID BEFORE SHE GOES SHE WANTS TO HAVE THE INHALATION. WILL ENDORSE TO NEXT SHIFT
--- NOTE | 2019-07-26 07:25 | NUR ---
RECEIVED REPORT FROM NIGHT NURSE. PT SITTING IN BED, AAOX4, NO DISTRESS NOTED, DENIES PAIN. RESPIRATIONS EVEN AND UNLABORED ON O2 2L NC, WHEEZING BREATH SOUNDS. IV IN RIGHT FA PATENT ASYMPTOMATIC AND SALINE LOCKED. SKIN INTACT, AMBULATORY. BED IN LOW POSITION, SAFETY MEASURES IN PLACE. CALL LIGHT WITHIN REACH, WILL CONTINUE TO MONITOR.
[2019-07-26 08:00] VITALS: BP 164/99
[2019-07-26] MEDS: ALBUTEROL SULFATE/IPRATROPIU 3 ML SOL IH SCH ×2 (08:06→13:33)
[2019-07-26 08:07] LABS: BASOPHILS % (AUTO) 0.1 % (0.0-2.0); EOSINOPHILS % (AUTO) 0.1 % (0.0-4.0); HEMATOCRIT 44.6 % (36-48); HEMOGLOBIN 14.3 g/dL (12.0-16.0); LYMPHOCYTES % (AUTO) 9.2 % (20.5-51.1); MEAN CORPUSCULAR HEMOGLOBIN 26 pg (27-31); MEAN CORPUSCULAR HGB CONC 32 g/dL (33-37); MEAN CORPUSCULAR VOLUME 80.7 fL (80-94); MONOCYTES # (AUTO) 0.3 K/uL (0.8-1.0); MONOCYTES % (AUTO) 2.5 % (1.7-9.3); NEUTROPHILS # (AUTO) 9.4 K/uL (1.8-7.7); NEUTROPHILS % (AUTO) 88.1 % (42.2-75.2); PLATELET COUNT (AUTO) 368 K/uL (140-450); RED BLOOD CELL COUNT(AUTO) 5.52 MIL/uL (4.20-5.40); RED CELL DISTRIBUTION WIDTH 18.9 % (11.6-13.7); WHITE BLOOD COUNT (AUTO) 10.7 K/uL (4.8-10.8)
[2019-07-26 08:12] LABS: ALBUMIN 3.5 g/dL (3.4-5.0); ANION GAP 13.4 (8-16); CARBON DIOXIDE 29.2 mmol/L (21-32); CREATININE 1.1 mg/dL (0.6-1.3); POTASSIUM 4.6 mmol/L (3.5-5.1); TOTAL BILIRUBIN 0.3 mg/dL (0.0-1.0)
--- NOTE | 2019-07-26 09:48 | NUR ---
RECEIVED TORB FROM DR. RIVERA FOR METROPOLOL 100MG TAB BID TO CONTROL HIGH BLOOD PRESSURE.
--- NOTE | 2019-07-26 10:11 | NUR ---
PATIENT HAS BEEN SCREENED AND CATEGORIZED MODERATE NUTRITION RISK. PATIENT WILL BE SEEN WITHIN 3-5 DAYS OF ADMISSION. 07/28/19 07/30/[address]
--- NOTE | 2019-07-26 10:26 | NUR ---
MEDICATIONS ADMINISTERED PER ORDER. PT TOLERATED WELL, NO DISTRESS NOTED. WILL CONTINUE TO MONITOR. CALL LIGHT WITHIN REACH.
[2019-07-26] MEDS ORDERED: METOPROLOL 25 MG TAB PO SCH (10:41)
[2019-07-26] MEDS ORDERED: METOPROLOL 50 MG TAB PO SCH (10:45)
--- NOTE | 2019-07-26 11:00 | NUR ---
ASSUMED CARE FROM RADHA. PT AWAKE, NO SOB NOTED. NO C/O PAIN AT THIS TIME. WILL CONTINUE TO MONITOR PT.
[2019-07-26 12:00] VITALS: BP 160/82
--- NOTE | 2019-07-26 13:15 | NUR ---
PT SEEN BY DR. RIVERA WITH DISCHARGE ORDER.
--- NOTE | 2019-07-26 13:50 | NUR ---
DISCHARGE INSTRUCTIONS GIVEN TO PT WHICH VERBALIZED FULL UNDERSTANDING OF THE INSTRUCTIONS GIVEN AND THE NEED TO FOLLOW UP WITH PCP WITHIN 7 DAYS. ARM BANDS AND IV REMOVED, CANNULA TIP INTACT. PT WHEELED THE ER PARKING AREA IN STABLE CONDITION. NO SOB NOTED. NO COMPLAINTS MADE.
== END 2019-07-26 13:50 | disposition home or self-care (01) | DRG 140 ==
LOC: MED 14:25 → MTU 17:53
PROVIDERS: ADMIT Internal Medicine Pulmonary Disease; ATTEND Internal Medicine Pulmonary Disease
DX: J44.1 Chronic obstructive pulmonary disease with (acute) exacerbation (principal); F17.210 Nicotine dependence, cigarettes, uncomplicated; I10 Essential (primary) hypertension; F41.9 Anxiety disorder, unspecified; I25.10 Atherosclerotic heart disease of native coronary artery without angina pectoris; Z79.899 Other long term (current) drug therapy; Z95.5 Presence of coronary angioplasty implant and graft
CPT/HCPCS: 36415; 71045; 80053; 83735; 83880; 84484; 85025; 87081; 93005; 94640; 96365; 99285; J2920; J3475; J7512; J7613; J7620; Q0092

== ENCOUNTER 2020-01-27 12:22 | Emergency (ER) | payer OTHER ==
[~2020-01-27] VITALS: Ht 152.4 cm; Wt 71.2 kg
[2020-01-27 12:26] VITALS: BP 175/92
--- NOTE | 2020-01-27 12:28 | NUR ---
PATIENT AMBULATED TO BED 3.
--- NOTE | 2020-01-27 12:35 | NUR ---
64 YEAR OLD FEMALE COMPLAINS OF SHORTNESS OF BREATHE X 2 DAYS. PT STATES THAT SHE HAS ALSO HAD A COUGH X 2 DAYS. PT BREATHING LABORED AND EVEN, RR 30, SPO2 96% ON RA. PT WHEEZING BILATERAL ON INSPIRATION AND EXPIRAITON. PT AOX4, SKIN WARM AND DRY. BED IN LOWEST POSITION, LOCKED, BED RAIL UPX1. PMH - ASTHMA, HTN, COPD ALLERGIES - NKA
[2020-01-27 12:47] LABS: BASOPHILS % (AUTO) 0.6 % (0.0-2.0); EOSINOPHILS # (AUTO) 0.2 K/uL (0-0.4); HEMATOCRIT 40.9 % (36-48); HEMOGLOBIN 13.4 g/dL (12.0-16.0); LYMPHOCYTES # (AUTO) 2.1 K/uL (2.5-16.5); LYMPHOCYTES % (AUTO) 29.3 % (20.5-51.1); MEAN CORPUSCULAR HEMOGLOBIN 29 pg (27-31); MEAN CORPUSCULAR HGB CONC 33 g/dL (33-37); MEAN CORPUSCULAR VOLUME 89.1 fL (80-94); MONOCYTES # (AUTO) 0.6 K/uL (0.8-1.0); NEUTROPHILS # (AUTO) 4.2 K/uL (1.8-7.7); NEUTROPHILS % (AUTO) 59.1 % (42.2-75.2); PLATELET COUNT (AUTO) 229 K/uL (140-450); RED BLOOD CELL COUNT(AUTO) 4.59 MIL/uL (4.20-5.40); RED CELL DISTRIBUTION WIDTH 16.4 % (11.6-13.7); WHITE BLOOD COUNT (AUTO) 7.1 K/uL (4.8-10.8)
--- NOTE | 2020-01-27 12:51 | NUR ---
REJOGGER AT BEDSIDE PERFORMING EKG
--- NOTE | 2020-01-27 12:56 | NUR ---
ERMD AT BEDSIDE
[2020-01-27] MEDS ORDERED: KETOROLAC 60 MG/2 ML VIAL IM ONE (13:00)
--- NOTE | 2020-01-27 13:00 | NUR ---
PER ERMD NO IV INSERTION NEEDED
[2020-01-27 13:05] LABS: ALBUMIN 3.6 g/dL (3.4-5.0); ANION GAP 14.1 (8-16); CARBON DIOXIDE 26.9 mmol/L (21-32); TOTAL BILIRUBIN 0.3 mg/dL (0.0-1.0)
[2020-01-27] MEDS ORDERED: ALBUTEROL 0.083% 2.5 MG/3 ML NEBU INH ONE (13:20)
[2020-01-27] MEDS ORDERED: ALBUTEROL SULFATE/IPRATROPIU 3 ML SOL IH ONE (13:20)
[2020-01-27] MEDS ORDERED: predniSONE 20 MG TAB PO ONE (13:20)
--- NOTE | 2020-01-27 13:30 | NUR ---
RT AT BEDSIDE OF PT
--- NOTE | 2020-01-27 13:50 | NUR ---
PT WITHOUT DISTRESS, BREATHING EVEN AND UNLABORED, SPO2 95%, RR 20. PT STATES FEELS MUCH BETTER, LUNGS CLEAR BL
--- NOTE | 2020-01-27 14:00 | NUR ---
Patient discharged with v/s stable. Written and verbal after care instructions about COPD and peripheral edema given and explained. Patient alert, oriented and verbalized understanding of instructions. Ambulatory with steady gait. All questions addressed prior to discharge. ID band removed. Patient advised to follow up with PMD. Rx of abuterol and prednisone given. Patient educated on indication of medication including possible reaction and side effects. Opportunity to ask questions provided and answered.
[2020-01-27 14:08] VITALS: BP 142/78
== END 2020-01-27 14:00 | disposition home or self-care (01) ==
LOC: MED 12:22
DX: J44.1 Chronic obstructive pulmonary disease with (acute) exacerbation (principal); R60.0 Localized edema; I10 Essential (primary) hypertension; F17.200 Nicotine dependence, unspecified, uncomplicated; Z98.890 Other specified postprocedural states; Z79.899 Other long term (current) drug therapy
CPT/HCPCS: 36415; 71045; 80053; 81002; 83880; 84484; 85025; 93005; 94640; 96372; 99285; J1885; J7512; J7613; Q0092

== ENCOUNTER 2020-03-22 12:31 | Emergency (ER) | payer OTHER ==
[~2020-03-22] VITALS: Ht 157.5 cm; Wt 68.0 kg
--- NOTE | 2020-03-22 12:41 | NUR ---
PT AMBULATED TO BED 09.
[2020-03-22 12:49] VITALS: BP 138/90
--- NOTE | 2020-03-22 12:56 | NUR ---
65 Y/O FEMALE C/O SOB/CHEST TIGHTNESS X2 DAYS, PT HAS HX OF ASTHMA/COPD AND STATES BREATHING TX AT HOME DID NOT PROVIDE RELIEF. PT IS AFEBRILE, DENIES COUGH AND RESP ARE EVEN AND UNLABORED. VSS. PMH: COPD, ASTHMA, HTN NKDA
[2020-03-22] MEDS: predniSONE 20 MG TAB PO ONE (13:15)
[2020-03-22] MEDS: ALBUTEROL HFA MDI 90 MCG/ACTUATION 8 GM INH ONE (13:22)
--- NOTE | 2020-03-22 14:45 | NUR ---
PATIENT IS RESTING IN BED, VSS, STATES SHE IS FEELING MUCH BETTER WITH NO SOB
[2020-03-22 15:40] VITALS: BP 138/90
--- NOTE | 2020-03-22 15:40 | NUR ---
Patient discharged with v/s stable. Written and verbal after care instructions given and explained. Patient alert, oriented and verbalized understanding of instructions. Ambulatory with steady gait. All questions addressed prior to discharge. ID band removed. Patient advised to follow up with PMD. Rx of AZITHROMYCIN, PREDNISONE given. Patient educated on indication of medication including possible reaction and side effects. Opportunity to ask questions provided and answered.
== END 2020-03-22 15:40 | disposition home or self-care (01) ==
LOC: MED 12:31
DX: J44.1 Chronic obstructive pulmonary disease with (acute) exacerbation (principal); I10 Essential (primary) hypertension; J45.909 Unspecified asthma, uncomplicated; Z20.828 Contact with and (suspected) exposure to other viral communicable diseases; Z79.899 Other long term (current) drug therapy
CPT/HCPCS: 71045; 94664; 99284; J7512; Q0092; U0003

== ENCOUNTER 2020-03-23 15:09 | Emergency (ER) | payer OTHER ==
[~2020-03-23] VITALS: Ht 152.4 cm; Wt 70.3 kg
--- NOTE | 2020-03-23 15:16 | NUR ---
PT TAKEN TO BED 8.
[2020-03-23 15:17] VITALS: BP 177/96
--- NOTE | 2020-03-23 15:22 | NUR ---
65 y/o female from home c/o contusion to left upper thigh noticed this morning. Pt states she does not recall injury/trauma. Noticable purple bruise to inner thigh. Tender to touch. 8/10 throbbing/sore pain. Skin warm, dry, intact. Seen at [facility] yesterday for SOB and tested for covid--awaiting results. VSS. Positioned for comfort.
--- NOTE | 2020-03-23 15:27 | NUR ---
Dr Mack at bedside examining pt
[2020-03-23 15:41] VITALS: BP 177/96
== END 2020-03-23 15:43 | disposition home or self-care (01) ==
LOC: MED 15:09
DX: J44.9 Chronic obstructive pulmonary disease, unspecified (principal); F17.200 Nicotine dependence, unspecified, uncomplicated; I10 Essential (primary) hypertension; J45.909 Unspecified asthma, uncomplicated; Z79.899 Other long term (current) drug therapy
CPT/HCPCS: 99281

== ENCOUNTER 2020-04-21 08:52 | Emergency (ER) | payer OTHER ==
[~2020-04-21] VITALS: Ht 157.5 cm; Wt 68.0 kg
[2020-04-21 08:53] VITALS: BP 162/101
[2020-04-21] MEDS ORDERED: predniSONE 20 MG TAB PO ONE (09:05)
[2020-04-21] MEDS ORDERED: ALBUTEROL 0.083% 2.5 MG/3 ML NEBU INH ONE (09:05)
[2020-04-21] MEDS ORDERED: ALBUTEROL SULFATE/IPRATROPIU 3 ML SOL IH ONE (09:05)
--- NOTE | 2020-04-21 09:10 | NUR ---
65 y/o female from home c/o cough and SOB x 1 wk. Dry cough noted at this time. RR even and unlabored, does not appear in respiratory disress. Wheezing heard upon ausculation. Afebrile upon arrival. Seated upright awake and alert. VSS medhx: asthma, COPD, HTN, HLD
--- NOTE | 2020-04-21 09:12 | NUR ---
Dr Casper at bedside examining pt.
--- NOTE | 2020-04-21 09:14 | NUR ---
RT at bedside for breathing treatment
[2020-04-21 09:38] VITALS: BP 162/101
--- NOTE | 2020-04-21 09:38 | NUR ---
Patient discharged with v/s stable. Written and verbal after care instructions given and explained. Patient alert, oriented and verbalized understanding of instructions. Ambulatory with steady gait. All questions addressed prior to discharge. ID band removed. Patient advised to follow up with PMD. Rx of Prednisone 20mg given. Patient educated on indication of medication including possible reaction and side effects. Opportunity to ask questions provided and answered.
== END 2020-04-21 09:38 | disposition home or self-care (01) ==
LOC: MED 08:52
DX: J44.1 Chronic obstructive pulmonary disease with (acute) exacerbation (principal); F17.210 Nicotine dependence, cigarettes, uncomplicated; I10 Essential (primary) hypertension; Z98.61 Coronary angioplasty status; Z79.899 Other long term (current) drug therapy
CPT/HCPCS: 94640; 99283; J7512; J7613

== ENCOUNTER 2020-06-06 13:01 | Emergency (ER) | payer OTHER ==
[~2020-06-06] VITALS: Ht 152.4 cm; Wt 73.9 kg
[2020-06-06 13:06] VITALS: BP 187/100
--- NOTE | 2020-06-06 13:17 | NUR ---
65 y/o female pt c/o asthma exacerbation with wheezing x 3 days worsening this afternoon. Pt states she was wheezing at home, did 2 breathing treatment and albuterol inhaler with no relief. Lung sounds are diminished at bases, some labored breathing noted on assessment. PMH: asthma, COPD, HTN, HLD, stent RX: Metformin, breathing tx at home, atorvastatin. NKA
--- NOTE | 2020-06-06 13:18 | NUR ---
Dr. Carlton at pt bedside.
[2020-06-06] MEDS ORDERED: methylPREDNISolone SS 125 MG in WATER STERILE 2 ML IV ONE (13:20)
[2020-06-06] MEDS ORDERED: ALBUTEROL SULFATE/IPRATROPIU 3 ML SOL IH ONE (13:20)
[2020-06-06] MEDS ORDERED: NACL 0.9% 1,000 ML IV ONE (13:20)
[2020-06-06] MEDS ORDERED: WATER STERILE 10 ML MC ONE (13:41)
[2020-06-06] MEDS ORDERED: methylPREDNISolone SS 125 MG/2 ML VIAL ONE (13:41)
--- NOTE | 2020-06-06 14:24 | NUR ---
diagnostic tech at pt bedside.
--- NOTE | 2020-06-06 15:21 | NUR ---
Pt ambulated to bathroom with a steady gait.
[2020-06-06 15:37] VITALS: BP 118/72
--- NOTE | 2020-06-06 15:37 | NUR ---
Patient discharged with v/s stable. Written and verbal after care instructions given and explained. Patient alert, oriented and verbalized understanding of instructions. Ambulatory with steady gait. All questions addressed prior to discharge. ID band removed. Patient advised to follow up with PMD. Rx of prednisone 50mg tab daily, and albuterol 90mcg inhalation 1-2puff qid given. Patient educated on indication of medication including possible reaction and side effects. Opportunity to ask questions provided and answered.
== END 2020-06-06 15:37 | disposition home or self-care (01) ==
LOC: MED 13:01
DX: J45.901 Unspecified asthma with (acute) exacerbation (principal); J44.9 Chronic obstructive pulmonary disease, unspecified; I10 Essential (primary) hypertension; F17.210 Nicotine dependence, cigarettes, uncomplicated; Z79.899 Other long term (current) drug therapy; Z98.890 Other specified postprocedural states
CPT/HCPCS: 70360; 71045; 96361; 96374; 99284; J2930; J7030

== ENCOUNTER 2020-06-19 11:14 | Emergency (ER) | payer OTHER ==
[~2020-06-19] VITALS: Ht 157.5 cm; Wt 72.6 kg
[2020-06-19 11:29] VITALS: BP 146/106
--- NOTE | 2020-06-19 13:00 | NUR ---
WHEEZING X 2 DAYS THAT BEGAN WORSENING THIS MORNING RELATED TO COPD/ASTHMA. PT USING AT HOME NEBULIZER/ALBUTEROL WITH NO RELIEF. MED HX: HTN, HYPERLIPIDEMIA, ASTHMA, COPD NKA
[2020-06-19 13:11] VITALS: BP 146/106
== END 2020-06-19 13:11 | disposition home or self-care (01) ==
LOC: MED 11:14
DX: J45.909 Unspecified asthma, uncomplicated (principal); J44.9 Chronic obstructive pulmonary disease, unspecified; I10 Essential (primary) hypertension; Z79.899 Other long term (current) drug therapy
CPT/HCPCS: 99283

== ENCOUNTER 2020-07-13 10:07 | Emergency (ER) | payer OTHER ==
[~2020-07-13] VITALS: Ht 157.5 cm; Wt 68.9 kg
[2020-07-13 10:13] VITALS: BP 160/99
--- NOTE | 2020-07-13 10:21 | NUR ---
PATIENT AMBULATED TO BED 8.
[2020-07-13 11:08] LABS: BASOPHILS # (AUTO) 0.1 K/uL (0.00-0.22); BASOPHILS % (AUTO) 0.8 % (0.0-2.0); EOSINOPHILS # (AUTO) 0.1 K/uL (0-0.4); EOSINOPHILS % (AUTO) 1.7 % (0.0-4.0); HEMATOCRIT 40.8 % (36-48); HEMOGLOBIN 13.4 g/dL (12.0-16.0); LYMPHOCYTES # (AUTO) 1.6 K/uL (2.5-16.5); LYMPHOCYTES % (AUTO) 26.3 % (20.5-51.1); MEAN CORPUSCULAR HEMOGLOBIN 29 pg (27-31); MEAN CORPUSCULAR HGB CONC 33 g/dL (33-37); MEAN CORPUSCULAR VOLUME 86.8 fL (80-94); MONOCYTES # (AUTO) 0.5 K/uL (0.8-1.0); MONOCYTES % (AUTO) 8.5 % (1.7-9.3); NEUTROPHILS # (AUTO) 3.9 K/uL (1.8-7.7); NEUTROPHILS % (AUTO) 62.7 % (42.2-75.2); PLATELET COUNT (AUTO) 256 K/uL (140-450); RED CELL DISTRIBUTION WIDTH 16.5 % (11.6-13.7); WHITE BLOOD COUNT (AUTO) 6.2 K/uL (4.8-10.8)
[2020-07-13 11:23] LABS: ANION GAP 12.3 (8-16); CARBON DIOXIDE 30.5 mmol/L (21-32); CREATININE 0.9 mg/dL (0.6-1.3); POTASSIUM 3.8 mmol/L (3.5-5.1)
[2020-07-13 11:27] LABS: ALBUMIN 3.5 g/dL (3.4-5.0); TOTAL BILIRUBIN 0.3 mg/dL (0.0-1.0)
--- NOTE | 2020-07-13 12:44 | NUR ---
IV removed, catheter intact and site benign. Applied folded 2X2 gauze and tape to stop bleeding.
[2020-07-13 12:45] VITALS: BP 154/90
--- NOTE | 2020-07-13 12:45 | NUR ---
Patient discharged with v/s stable. Written and verbal after care instructions given and explained. Patient alert, oriented and verbalized understanding of instructions. Ambulatory with steady gait. All questions addressed prior to discharge. ID band removed. Patient advised to follow up with PMD. Rx of Prednisone, Omeprazole, Mylanta given. Patient educated on indication of medication including possible reaction and side effects. Opportunity to ask questions provided and answered.
== END 2020-07-13 12:45 | disposition home or self-care (01) ==
LOC: MED 10:07
DX: K21.9 Gastro-esophageal reflux disease without esophagitis (principal); J44.9 Chronic obstructive pulmonary disease, unspecified; I10 Essential (primary) hypertension; Z79.899 Other long term (current) drug therapy; Z20.828 Contact with and (suspected) exposure to other viral communicable diseases
CPT/HCPCS: 36415; 70491; 71045; 80053; 84484; 85025; 87426; 99285; Q9967

== ENCOUNTER 2020-08-09 07:41 | Emergency (ER) | payer OTHER ==
[~2020-08-09] VITALS: Ht 157.5 cm; Wt 70.3 kg
[2020-08-09 07:44] VITALS: BP 148/82
--- NOTE | 2020-08-09 07:50 | NUR ---
AMBULATED TO BED 9
[2020-08-09] MEDS ORDERED: predniSONE 20 MG TAB PO ONE (08:00)
[2020-08-09 08:31] LABS: BASOPHILS # (AUTO) 0.1 K/uL (0.00-0.22); BASOPHILS % (AUTO) 0.9 % (0.0-2.0); EOSINOPHILS # (AUTO) 0.2 K/uL (0-0.4); EOSINOPHILS % (AUTO) 3.4 % (0.0-4.0); HEMATOCRIT 40.3 % (36-48); LYMPHOCYTES % (AUTO) 31.3 % (20.5-51.1); MEAN CORPUSCULAR HEMOGLOBIN 28 pg (27-31); MEAN CORPUSCULAR HGB CONC 32 g/dL (33-37); MEAN CORPUSCULAR VOLUME 87.1 fL (80-94); MONOCYTES # (AUTO) 0.4 K/uL (0.8-1.0); MONOCYTES % (AUTO) 6.5 % (1.7-9.3); NEUTROPHILS # (AUTO) 3.6 K/uL (1.8-7.7); NEUTROPHILS % (AUTO) 57.9 % (42.2-75.2); PLATELET COUNT (AUTO) 180 K/uL (140-450); RED BLOOD CELL COUNT(AUTO) 4.62 MIL/uL (4.20-5.40); RED CELL DISTRIBUTION WIDTH 18.3 % (11.6-13.7); WHITE BLOOD COUNT (AUTO) 6.2 K/uL (4.8-10.8)
[2020-08-09 08:38] LABS: ANION GAP 11.4 (8-16); CARBON DIOXIDE 28.7 mmol/L (21-32); CREATININE 1.1 mg/dL (0.6-1.3); POTASSIUM 4.1 mmol/L (3.5-5.1)
[2020-08-09] MEDS ORDERED: ALBUTEROL SULFATE/IPRATROPIU 3 ML SOL IH ONE (09:00)
[2020-08-09 09:45] VITALS: BP 141/84
--- NOTE | 2020-08-09 09:45 | NUR ---
Patient discharged with v/s stable. Written and verbal after care instructions given and explained. Patient alert, oriented and verbalized understanding of instructions. Ambulatory with steady gait. All questions addressed prior to discharge. ID band removed. Patient advised to follow up with PMD. Rx of Prednisone 50mg and Albuterol Sulfate 0.083% given. Patient educated on indication of medication including possible reaction and side effects. Opportunity to ask questions provided and answered.
== END 2020-08-09 09:45 | disposition home or self-care (01) ==
LOC: MED 07:41
DX: J45.901 Unspecified asthma with (acute) exacerbation (principal); F17.290 Nicotine dependence, other tobacco product, uncomplicated
CPT/HCPCS: 36415; 71045; 80048; 83880; 84484; 85025; 87426; 93005; 94640; 99285; J7512

== ENCOUNTER 2020-08-14 10:59 | Emergency (ER) | payer OTHER ==
[~2020-08-14] VITALS: Ht 157.5 cm; Wt 70.3 kg
--- NOTE | 2020-08-14 11:05 | NUR ---
AMBULATED TO BED 6
[2020-08-14 11:09] VITALS: BP 172/92
--- NOTE | 2020-08-14 11:20 | NUR ---
65 YEAR OLD FEMALE COMPLAINS OF SOB X FRIDAY. PER PT, SHE WAS IN [facility] FOR SOB 5 DAYS AGO AND SITUATION HAS NOT IMPROVED. EXPERIENCING IFFICULTY BREATHING IN AND OUT. ABNORMAL BREATH SOUNDS (STRIDOR) HEARD THROUGHOUT BILATERAL LUNGS. TACHYPNIC, SHALLOW BREATHS. LABORED EFFORT NOTED. SYMMETRICAL CHEST EXPANSIONS. SPO2 94% RA, RR 24, HR 57. CAP REFILL <3 SECS. AO4, BREATHING EVEN AND UNLABORED, SKIN WARM AND DRY. BED IN LOWEST POSITION, LOCKED, X1 SIDERAIL UP. PMH - CHF, STENT PLACEMENT NKA
[2020-08-14] MEDS ORDERED: ALBUTEROL SULFATE/IPRATROPIU 3 ML SOL IH ONE (12:20)
[2020-08-14] MEDS ORDERED: methylPREDNISolone SS 125 MG in WATER STERILE 2 ML IV ONE (12:20)
[2020-08-14] MEDS ORDERED: WATER STERILE 10 ML MC ONE (12:32)
[2020-08-14] MEDS ORDERED: methylPREDNISolone SS 125 MG/2 ML VIAL ONE ×2 (12:33→12:35)
[2020-08-14 12:39] LABS: BASOPHILS # (AUTO) 0.1 K/uL (0.00-0.22); BASOPHILS % (AUTO) 0.8 % (0.0-2.0); EOSINOPHILS % (AUTO) 0.2 % (0.0-4.0); HEMATOCRIT 44.2 % (36-48); HEMOGLOBIN 14.4 g/dL (12.0-16.0); LYMPHOCYTES # (AUTO) 2.9 K/uL (2.5-16.5); LYMPHOCYTES % (AUTO) 23.2 % (20.5-51.1); MEAN CORPUSCULAR HEMOGLOBIN 28 pg (27-31); MEAN CORPUSCULAR HGB CONC 33 g/dL (33-37); MEAN CORPUSCULAR VOLUME 84.9 fL (80-94); MONOCYTES # (AUTO) 0.7 K/uL (0.8-1.0); MONOCYTES % (AUTO) 5.7 % (1.7-9.3); NEUTROPHILS # (AUTO) 8.7 K/uL (1.8-7.7); NEUTROPHILS % (AUTO) 70.1 % (42.2-75.2); PLATELET COUNT (AUTO) 353 K/uL (140-450); RED CELL DISTRIBUTION WIDTH 17.2 % (11.6-13.7); WHITE BLOOD COUNT (AUTO) 12.4 K/uL (4.8-10.8)
[2020-08-14 12:50] LABS: ANION GAP 17.2 (8-16); CARBON DIOXIDE 26.7 mmol/L (21-32); CREATININE 1.1 mg/dL (0.6-1.3); POTASSIUM 3.9 mmol/L (3.5-5.1)
--- NOTE | 2020-08-14 14:15 | NUR ---
PT VERBALIZED FEELING BETTER POST SOLU-MEDROL ADMIN
[2020-08-14 14:36] VITALS: BP 171/93
== END 2020-08-14 14:15 | disposition home or self-care (01) ==
LOC: MED 10:59
DX: J44.1 Chronic obstructive pulmonary disease with (acute) exacerbation (principal); I11.9 Hypertensive heart disease without heart failure; F17.210 Nicotine dependence, cigarettes, uncomplicated
CPT/HCPCS: 36415; 71045; 80048; 85025; 94640; 96374; 99285; J2930

== ENCOUNTER 2020-11-05 08:23 | Emergency (ER) | payer OTHER, SELFPAY ==
[~2020-11-05] VITALS: Ht 157.5 cm; Wt 70.3 kg
[~2020-11-05 08:23] MED LIST changes: +GUAI-646 PO; -MONT10TA35 PO; -PANT40EC PO; -POTA8TER12 PO; -PRED20TA5 PO; -SPIR25TA20 PO
[2020-11-05 08:29] VITALS: BP 167/99
--- NOTE | 2020-11-05 08:29 | NUR ---
PT AMBULATED TO BED 9.
--- NOTE | 2020-11-05 08:58 | NUR ---
65 Y/O F BIB SELF FROM HOME, PATIENT PRESENTS TO ED WITH SOB AND PRODUCTIVE COUGH FOR 1 WEEK. PT STATES SHE ALSO "FEELS LIKE SOMETHING IS BLOCKING MY AIRWAY ON MY R SIDE" PT ALSO STATES SHE HAS A SORE ON HER TONGUE THAT HAS BEEN THERE SINCE THE 10/28/20. DENIES N/V/D; SKIN IS PINK/WARM/DRY; AAOX4 WITH EVEN AND STEADY GAIT; LUNGS WHEEZING BL; HR EVEN AND REGULAR; PT DENIES ANY FEVER OR CHEST PAIN AT THIS TIME; PATIENT STATES PAIN OF 6/10 AT THIS TIME; VSS; PATIENT POSITIONED FOR COMFORT; HOB ELEVATED; BEDRAILS UP X2; BED DOWN. ER MD MADE AWARE OF PT STATUS. PT WAS GIVEN ZITHROMAX FROM ADMISSION ON 10/28/20. PMH: COPD, ASTHMA, HTN, STENT MED: METOPROLOL, LASIX, PLAVIX NKA
--- NOTE | 2020-11-05 09:20 | NUR ---
ERMD AT BEDSIDE WITH PATIENT.
--- NOTE | 2020-11-05 09:29 | NUR ---
RT WAS CALLED FOR TX.
[2020-11-05] MEDS ORDERED: predniSONE 20 MG TAB PO ONE (09:30)
[2020-11-05] MEDS ORDERED: ALBUTEROL SULFATE/IPRATROPIU 3 ML SOL IH ONE (09:30)
--- NOTE | 2020-11-05 09:30 | NUR ---
Respiratory Therapist at bedside for respiratory intervention. Patient tolerated .
--- NOTE | 2020-11-05 09:46 | NUR ---
[facility] THERAPY AND RESPIRATORY DRUG GIVEN ORDERED
[2020-11-05] MEDS ORDERED: predniSONE 20 MG TAB ONE (10:09)
[2020-11-05 10:17] LABS: CARBON DIOXIDE 29.1 mmol/L (21-32); CREATININE 0.9 mg/dL (0.6-1.3); POTASSIUM 4.1 mmol/L (3.5-5.1)
--- NOTE | 2020-11-05 10:22 | NUR ---
Patient taken to CT scan.
[2020-11-05] MEDS ORDERED: AZIT250T4 PO (11:06)
[2020-11-05] MEDS ORDERED: PRED20TA5 PO (11:06)
[2020-11-05 11:10] VITALS: BP 167/99
--- NOTE | 2020-11-05 11:18 | NUR ---
Patient discharged with v/s stable. Written and verbal after care instructions given and explained. Patient alert, oriented and verbalized understanding of instructions. Ambulatory with steady gait. All questions addressed prior to discharge. ID band removed. Patient advised to follow up with PMD. Rx of PREDNISONE, ZITHROMAX given. Patient educated on indication of medication including possible reaction and side effects. Opportunity to ask questions provided and answered.
== END 2020-11-05 11:18 | disposition home or self-care (01) ==
LOC: MED 08:23
DX: F45.8 Other somatoform disorders (principal); J44.9 Chronic obstructive pulmonary disease, unspecified; I10 Essential (primary) hypertension; Z79.899 Other long term (current) drug therapy; Z98.890 Other specified postprocedural states
CPT/HCPCS: 36415; 70491; 80048; 94640; 99285; J7512

== ENCOUNTER 2020-11-20 21:55 | Emergency (ER) | payer OTHER, SELFPAY ==
[~2020-11-20] VITALS: Ht 152.4 cm; Wt 64.4 kg
[~2020-11-20 21:55] MED LIST changes: -ALBU0.0912 IH; -GUAI-646 PO; -HYDR-5122 PO; -LORA-476 PO; +NORC10 PO
[2020-11-20 22:25] VITALS: BP 131/94
--- NOTE | 2020-11-20 22:28 | NUR ---
PATIENT AMBULATED TO LOBBY WITH STEADY GAIT.
--- NOTE | 2020-11-20 22:49 | NUR ---
PT TAKEN TO BED 9
[2020-11-20 23:54] VITALS: BP 125/71
--- NOTE | 2020-11-20 23:57 | NUR ---
see complete assessment.
--- NOTE | 2020-11-21 00:15 | NUR ---
Dr. Carlton examining patient.
[2020-11-21] MEDS ORDERED: HYDROcodone/APAP 5/325 MG 1 TAB TAB PO ONE (00:40)
== END 2020-11-21 01:00 | disposition home or self-care (01) ==
LOC: MED 21:55
DX: S31.109D Unspecified open wound of abdominal wall, unspecified quadrant without penetration into peritoneal cavity, subsequent encounter (principal); J44.9 Chronic obstructive pulmonary disease, unspecified; J45.909 Unspecified asthma, uncomplicated; I10 Essential (primary) hypertension; Z79.899 Other long term (current) drug therapy; Z98.890 Other specified postprocedural states; X58.XXXD Exposure to other specified factors, subsequent encounter
CPT/HCPCS: 99283

== ENCOUNTER 2020-11-24 11:48 | Emergency (ER) | payer OTHER, SELFPAY ==
[~2020-11-24] VITALS: Ht 157.5 cm; Wt 65.3 kg
[2020-11-24 11:52] VITALS: BP 121/83
--- NOTE | 2020-11-24 11:59 | NUR ---
PT AMBULATED TO BED 04.
--- NOTE | 2020-11-24 12:08 | NUR ---
Lab at bedside.
--- NOTE | 2020-11-24 12:10 | NUR ---
Patient unable to provide urine sample at this time.
--- NOTE | 2020-11-24 12:15 | NUR ---
65 y/o F BIB son from home with c/c bloody stool x 1 day. Patient A&Ox4, ambulatory, reports admitted to [facility] 11/03/20 for small bowel perforation and bowel resection performed on 11/07. Patient reports bloody stool since yesterday, states bowel movements are smooth/soft; states history of hemorrhoids. Patient also states generalized abdominal pain, 01/06, pressure/intermittent, non-radiating. Denies any fever, chills, chest pain, N/V. Pt placed into gown, threat monitoring analyst. VSS. Bowel sounds active x 4 quadrants; respirations even/unlabored; skin pink/normal/warm. Bed locked in lowest position, side rails x 1, call light in reach. PMH: HTN, HLD, COPD, CVD, arthritis Meds: Metoprolol, lasix, lovestatin, plavix NKA Sx: Bowel resection, chest reconstruction x 30 yrs ago, stent placement 2017
--- NOTE | 2020-11-24 12:20 | NUR ---
Signature obtained for CT Abdomen/Pelvis consent form.
[2020-11-24 12:28] LABS: BASOPHILS # (AUTO) 0.1 K/uL (0.00-0.22); BASOPHILS % (AUTO) 0.7 % (0.0-2.0); EOSINOPHILS # (AUTO) 0.3 K/uL (0-0.4); EOSINOPHILS % (AUTO) 2.3 % (0.0-4.0); HEMATOCRIT 29.4 % (36-48); HEMOGLOBIN 9.6 g/dL (12.0-16.0); LYMPHOCYTES # (AUTO) 4.4 K/uL (2.5-16.5); LYMPHOCYTES % (AUTO) 32.8 % (20.5-51.1); MEAN CORPUSCULAR HEMOGLOBIN 29 pg (27-31); MEAN CORPUSCULAR HGB CONC 33 g/dL (33-37); MEAN CORPUSCULAR VOLUME 87.7 fL (80-94); MONOCYTES # (AUTO) 0.9 K/uL (0.8-1.0); MONOCYTES % (AUTO) 6.5 % (1.7-9.3); NEUTROPHILS # (AUTO) 7.8 K/uL (1.8-7.7); NEUTROPHILS % (AUTO) 57.7 % (42.2-75.2); PLATELET COUNT (AUTO) 389 K/uL (140-450); RED BLOOD CELL COUNT(AUTO) 3.36 MIL/uL (4.20-5.40); WHITE BLOOD COUNT (AUTO) 13.6 K/uL (4.8-10.8)
--- NOTE | 2020-11-24 12:30 | NUR ---
Dr. Castillo is evaluating patient at bedside.
[2020-11-24 13:26] LABS: ANION GAP 17.3 (8-16); CARBON DIOXIDE 22.9 mmol/L (21-32); CREATININE 1.4 mg/dL (0.6-1.3); POTASSIUM 3.2 mmol/L (3.5-5.1)
[2020-11-24 13:32] LABS: ALBUMIN 3.1 g/dL (3.4-5.0); TOTAL BILIRUBIN 0.4 mg/dL (0.0-1.0)
--- NOTE | 2020-11-24 13:49 | NUR ---
Patient transported to CT via gurney.
--- NOTE | 2020-11-24 14:10 | NUR ---
Patient returned from CT via gurney; placed back onto monitor tech. Bed locked in lowest position, side rails x 1, call light in reach.
--- NOTE | 2020-11-24 14:15 | NUR ---
Advised CT machine is down; will reattempt once CT is back working.
--- NOTE | 2020-11-24 14:50 | NUR ---
Patient transported to CT via gurney.
--- NOTE | 2020-11-24 15:03 | NUR ---
Patient returned from CT via gurney. Placed back onto bus driver/monitor. Bed locked in lowest position, side rails x 1, call light in reach.
--- NOTE | 2020-11-24 15:07 | NUR ---
Patient ambulated to restroom for bowel movement/ urine sample attempt.
--- NOTE | 2020-11-24 15:15 | NUR ---
Patient back onto bed; placed back into monitoring coordinator. Bed locked in lowest position, side rails x 1, call light in reach.
--- NOTE | 2020-11-24 15:23 | NUR ---
Urine sample collected, walked to lab and handed to CPT. Lala
--- NOTE | 2020-11-24 15:23 | NUR ---
Patient resting in position of comfort; semi-fowlers. hop farm worker in place. Respirations even/unlabored. Bed locked in lowest position, side rails x 1, call light in reach.
[2020-11-24 15:25] LABS: APPEARANCE,URINE CLEAR (CLEAR); BILIRUBIN,URINE NEGATIVE (NEGATIVE); BLOOD, URINE 3+ (NEGATIVE); COLOR,URINE ORANGE (YELLOW); LEUKOCYTE ESTERASE ,URINE NEGATIVE (NEGATIVE); NITRITE, URINE NEGATIVE (NEGATIVE); UGLUCOSE NEGATIVE (NEGATIVE)
[2020-11-24 15:50] LABS: CALCIUM OXALATE CRYSTALS,UR 0-10 /HPF (None Seen); RBC,URINE TOO NUMEROUS TO COUN /HPF (0-5); WBC,URINE NONE SEEN /HPF (0-5)
[2020-11-24] MEDS ORDERED: DOCU-299 PO (16:27)
--- NOTE | 2020-11-24 16:34 | NUR ---
Dr. Harris is evaluating patient at bedside.
[2020-11-24] MEDS ORDERED: LOPE-289 PO (16:49)
[2020-11-24 17:02] VITALS: BP 103/67
--- NOTE | 2020-11-24 17:02 | NUR ---
Patient discharged with v/s stable. Written and verbal after care instructions given and explained. Patient alert, oriented and verbalized understanding of instructions. Ambulatory with steady gait. All questions addressed prior to discharge. ID band removed. Patient advised to follow up with PMD. Rx of Loperamide Hcl given. Patient educated on indication of medication including possible reaction and side effects. Opportunity to ask questions provided and answered.
== END 2020-11-24 17:02 | disposition home or self-care (01) ==
LOC: MED 11:48
DX: K92.1 Melena (principal); R10.9 Unspecified abdominal pain; K64.9 Unspecified hemorrhoids; R19.7 Diarrhea, unspecified; J44.9 Chronic obstructive pulmonary disease, unspecified; I10 Essential (primary) hypertension; Z79.899 Other long term (current) drug therapy
CPT/HCPCS: 36415; 80053; 81001; 83690; 85025; 86886; 86900; 86901; 99285

== ENCOUNTER 2020-11-30 14:38 | Inpatient (IN) | payer OTHER, SELFPAY ==
[~2020-11-30] VITALS: Ht 157.5 cm; Wt 63.5 kg
[~2020-11-30 14:38] MED LIST changes: +LOPE-289 PO
[2020-11-30 14:47] VITALS: BP 130/74
--- NOTE | 2020-11-30 15:10 | NUR ---
DR MCGOWAN AT BEDSIDE EXAMINING PATIENT
[2020-11-30] MEDS ORDERED: MORPHINE SULFATE 4 MG/ML SYR IVP ONE (15:15)
--- NOTE | 2020-11-30 15:15 | NUR ---
65 Y/O FEMALE C/O ABDOMINAL SURGERY AREA PAIN, MID BACK PAIN S/P ABDOMINAL SURGERY, DIZZINESS, NAUSEA, DIARRHEA X 2 WEEKS. PT STATES 10/10 TIGHTNESS, CONSTANT PAIN. PMH: ASTHMA, ABD SURGERY, HTN, CARDIAC DISORDER, COPD, 1 STENT NKDA
--- NOTE | 2020-11-30 15:35 | NUR ---
PT TAKEN TO CT SCAN VIA MASSIMO
--- NOTE | 2020-11-30 15:49 | NUR ---
PT AMBULATED TO RESTROOM, STEADY GAIT
[2020-11-30 15:56] LABS: BASOPHILS # (AUTO) 0.1 K/uL (0.00-0.22); BASOPHILS % (AUTO) 1.7 % (0.0-2.0); EOSINOPHILS % (AUTO) 0.4 % (0.0-4.0); HEMATOCRIT 24.5 % (36-48); HEMOGLOBIN 7.8 g/dL (12.0-16.0); LYMPHOCYTES # (AUTO) 2.7 K/uL (2.5-16.5); LYMPHOCYTES % (AUTO) 34.8 % (20.5-51.1); MEAN CORPUSCULAR HEMOGLOBIN 27 pg (27-31); MEAN CORPUSCULAR HGB CONC 32 g/dL (33-37); MEAN CORPUSCULAR VOLUME 85.8 fL (80-94); MONOCYTES # (AUTO) 0.5 K/uL (0.8-1.0); MONOCYTES % (AUTO) 6.9 % (1.7-9.3); NEUTROPHILS # (AUTO) 4.3 K/uL (1.8-7.7); NEUTROPHILS % (AUTO) 56.2 % (42.2-75.2); PLATELET COUNT (AUTO) 269 K/uL (140-450); RED BLOOD CELL COUNT(AUTO) 2.85 MIL/uL (4.20-5.40); RED CELL DISTRIBUTION WIDTH 18.2 % (11.6-13.7); WHITE BLOOD COUNT (AUTO) 7.7 K/uL (4.8-10.8)
--- NOTE | 2020-11-30 16:11 | NUR ---
PT UNABLE TO PROVIDE STOOL SAMPLE AT THIS TIME, AZALIA MADE AWARE.
--- NOTE | 2020-11-30 16:13 | NUR ---
RONALDO SWAB AND URINE SAMPLE COLLECTED, WALKED TO LAB. HANDED TO CHIKIS GARCIA
[2020-11-30 16:17] LABS: ALBUMIN 2.9 g/dL (3.4-5.0); ANION GAP 15.5 (8-16); CARBON DIOXIDE 25.8 mmol/L (21-32); CREATININE 1.1 mg/dL (0.6-1.3); POTASSIUM 3.3 mmol/L (3.5-5.1); TOTAL BILIRUBIN 0.4 mg/dL (0.0-1.0)
[2020-11-30] MEDS ORDERED: CLOP75TA26 PO (16:27)
[2020-11-30] MEDS ORDERED: LORA-476 PO (16:27)
[2020-11-30] MEDS ORDERED: IBUP100T6 PO (16:27)
[2020-11-30] MEDS ORDERED: NACL 0.9% 1,000 ML IV ONE ×2 (16:30→16:55)
[2020-11-30 16:38] LABS: APPEARANCE,URINE CLEAR (CLEAR); BILIRUBIN,URINE NEGATIVE (NEGATIVE); BLOOD, URINE NEGATIVE (NEGATIVE); COLOR,URINE YELLOW (YELLOW); LEUKOCYTE ESTERASE ,URINE NEGATIVE (NEGATIVE); NITRITE, URINE NEGATIVE (NEGATIVE); UGLUCOSE NEGATIVE (NEGATIVE)
--- NOTE | 2020-11-30 17:04 | NUR ---
XRAY AT BEDSIDE
[2020-11-30] MEDS ORDERED: ALBUTEROL 0.083% 2.5 MG/3 ML NEBU INH PRN (18:25)
[2020-11-30] MEDS ORDERED: ONDANSETRON 4 MG/2 ML VIAL IVP PRN (18:25)
[2020-11-30] MEDS ORDERED: ACETAMINOPHEN 325 MG TAB PO PRN (18:25)
[2020-11-30] MEDS ORDERED: LORazepam 1 MG TAB PO PRN (18:35)
--- NOTE | 2020-11-30 19:15 | NUR ---
Pt report given to LUCRECIA NUNEZ. Transfer of care at this time.
--- NOTE | 2020-11-30 19:16 | NUR ---
REPORT RECIEVED FROM ENRIQUE SIDDIQUI FOR CONTINUITY OF CARE.
--- NOTE | 2020-11-30 19:26 | NUR ---
Patient appears to be resting comfortably in bed. Vital Signs within normal limits. Respirations even and unlabored. PT DENIES PAIN OR DISCOMFORT AT THIS TIME.
--- NOTE | 2020-11-30 20:06 | NUR ---
Patient will be admitted to care of MD TERENCE. Admited to [facility]. Will go to room 113. Belongings list completed. Report to ENRIQUE HENDERSON.
--- NOTE | 2020-11-30 20:12 | NUR ---
PT TAKEN TO [facility] ROOM 113 VIA [place] WITH HENRY DELVALLE AT SIDE.
[2020-11-30 20:15] VITALS: BP 136/88
--- NOTE | 2020-11-30 20:15 | NUR ---
ADMITTED THE PATIENT FROM ER VIA [place]. PATIENT A/A/OX4, AMBULATORY. ABLE TO AMBULATE IN THE ROOM WITH NO DISTRESS NOTED. PATIENT NOT IN ANY DISTRESS. COMPLAINING OF PAIN ON HER LOWER BACK AND REQUESTING TO HAVE A PAIN MEDICATION IF AVAILABLE. INFORMED THE PATIENT THAT I WILL CHECK HER ADMISSION ORDERE AND WILL MEDICATE HER IF ITS DUE. OTHERWISE NO OTHER COMPLAIN. ORIENTED THE PATIENT TO THE ROOM SETTING AND USE OF CALL LIGHT SYSTEM. CALL LIGHT WITHIN REACH. BED IN LOW POSITION, SIDE RAILS UP X2, BRAKES ON. WILL CONTINUE POC.
[2020-11-30] MEDS: NACL 0.9% 1,000 ML IV SCH (21:14)
[2020-11-30] MEDS: METOPROLOL 50 MG TAB PO SCH (21:14)
[2020-11-30] MEDS: MORPHINE SULFATE 4 MG/ML SYR IVP PRN (21:24)
--- NOTE | 2020-11-30 22:00 | NUR ---
ADMINISTERED ALL THE SCHEDULED MEDICATIONS ORDERED THROUGH THE G TUBE. PATIENT TOLERATED IT WELL . NO ADVERSE DRUG REACTION NOTED AND NO COMPLAIN FROM THE PATIENT. WILL CONTINUE TO OBSERVE.
--- NOTE | 2020-12-01 | NUR ---
PATIENT ASLEEP AT THIS TIME. VISIBLE CHEST RISE AND FALL NOTED. SAFETY PRECAUTION IN PLACED.
[2020-12-01] MEDS: MORPHINE SULFATE 4 MG/ML SYR IVP PRN ×5 (01:37→23:21)
--- NOTE | 2020-12-01 01:43 | NUR ---
Patient called and c/o of 7/10 pain on her lower back, prn morphine 4mg ivp given as ordered. VSS, prior to giving the pain meds.
[2020-12-01 04:00] VITALS: BP 115/65
--- NOTE | 2020-12-01 04:00 | NUR ---
PATIENT VITAL SIGNS STABLE, AFEBRILE, SATING 98% ON RA. NOT IN ANY DISTRESS. NO COMPLAIN AT THIS TIME.
--- NOTE | 2020-12-01 06:30 | NUR ---
PATIENT STABLE. NO ACUTE EVENTS THROUGHOUT THE NIGHT. NOT IN ANY DISTRESS. NO COMPLAIN AT THIS TIME. CALL LIGHT WITHIN REACH. WILL ENDORSE THE PATIENT TO THE ONCOMING RN FOR CONTINUITY OF CARE.
[2020-12-01 06:48] LABS: ALBUMIN 2.3 g/dL (3.4-5.0); ANION GAP 10.8 (8-16); CARBON DIOXIDE 24.9 mmol/L (21-32); CREATININE 0.8 mg/dL (0.6-1.3); MAGNESIUM 1.9 mg/dL (1.8-2.4); POTASSIUM 3.7 mmol/L (3.5-5.1); TOTAL BILIRUBIN 0.4 mg/dL (0.0-1.0)
[2020-12-01 06:53] LABS: MEAN CORPUSCULAR VOLUME 87.6 fL (80-94); MONOCYTES # (AUTO) 0.3 K/uL (0.8-1.0); MONOCYTES % (AUTO) 5.7 % (1.7-9.3); NEUTROPHILS # (AUTO) 2.3 K/uL (1.8-7.7)
[2020-12-01 07:04] LABS: BASOPHILS % (AUTO) 0.5 % (0.0-2.0); EOSINOPHILS # (AUTO) 0.2 K/uL (0-0.4); EOSINOPHILS % (AUTO) 3.1 % (0.0-4.0); HEMATOCRIT 20.6 % (36-48); LYMPHOCYTES # (AUTO) 2.4 K/uL (2.5-16.5); LYMPHOCYTES % (AUTO) 46.1 % (20.5-51.1); MEAN CORPUSCULAR HEMOGLOBIN 29 pg (27-31); MEAN CORPUSCULAR HGB CONC 33 g/dL (33-37); NEUTROPHILS % (AUTO) 44.6 % (42.2-75.2); PLATELET COUNT (AUTO) 262 K/uL (140-450); RED BLOOD CELL COUNT(AUTO) 2.36 MIL/uL (4.20-5.40); RED CELL DISTRIBUTION WIDTH 18.5 % (11.6-13.7); WHITE BLOOD COUNT (AUTO) 5.3 K/uL (4.8-10.8)
--- NOTE | 2020-12-01 07:30 | NUR ---
RECEIVED BEDSIDE REPORT FROM SMOKING PIPE REPAIRER NURSE FOR CONTINUITY OF CARE. PT IS AOX4, ABLE TO MAKE NEEDS KNOWN. RESPIRATIONS EVEN AND UNLABORED. ON ROOM AIR. NO S/S OF RESPIRATORY DISTRESS NOTED. SKIN IS WARM AND DRY. IV SITE ON LW 22G INFUSING FLUIDS WELL. INTACT AND PATENT. NOTED MID ABDOMINAL INCISION THAT IS HEALED. DENIES PAIN AT THE MOMENT. PLAN OF CARE DISCUSSED. SAFETY PRECAUTIONS IN PLACE. BED IN LOW POSITION. CALL LIGHT WITHIN REACH. WILL CONTINUE TO MONITOR.
[2020-12-01 08:00] VITALS: BP 129/62
--- NOTE | 2020-12-01 08:33 | NUR ---
PATIENT COMPLAINED OF VOMITING AND GENERALIZED PAIN 03/09. ADMINISTERED ZOFRAN AND MORPHINE IVP PER MD ORDERED. Addendum: 12/01/20 at 1058 by Yury Ward RN RN WRONG PATIENT
[2020-12-01] MEDS: NACL 0.9% 1,000 ML IV SCH ×2 (08:45→21:05)
[2020-12-01 08:51] LABS: HEMOGLOBIN 6.7 g/dL (12.0-16.0)
[2020-12-01] MEDS: METOPROLOL 50 MG TAB PO SCH ×2 (09:00→20:40)
[2020-12-01] MEDS ORDERED: ENOXAPARIN 40 MG/0.4 ML SYR SUBQ SCH ×2 (09:00)
[2020-12-01] MEDS ORDERED: CLOPIDOGREL 75 MG TAB PO SCH (09:00)
--- NOTE | 2020-12-01 09:01 | NUR ---
PATIENT COMPLAINED OF 7/10 LOWER BACK PAIN. ADMINISTERED MORPHINE IVP PER MD ORDERED.
--- NOTE | 2020-12-01 09:10 | NUR ---
ALL SCHEDULED MEDS GIVEN. PT IS STABLE. WILL CONTINUE TO MONITOR.
--- NOTE | 2020-12-01 10:09 | NUR ---
PATIENT HAS BEEN SCREENED AND CATEGORIZED MODERATE NUTRITION RISK. PATIENT WILL BE SEEN WITHIN 3-5 DAYS OF ADMISSION. 12/03/20 12/05/[address]
--- NOTE | 2020-12-01 11:30 | NUR ---
CHECKED ON PATIENT. PATIENT IS STABLE. DENIES PAIN. WILL CONTINUE TO MONITOR.
--- NOTE | 2020-12-01 13:10 | NUR ---
PATIENT COMPLAINED OF 7/10 LOWER BACK PAIN. ADMINISTERED MORPHINE IVP PER MD ORDERED.
--- NOTE | 2020-12-01 13:45 | NUR ---
NOTIFIED MD THAT PATIENT COMPLAINED OF HEADACHE DUE TO BEING HUNGRY. NEW DIET ORDERS WERE RECEIVED.
--- NOTE | 2020-12-01 15:45 | NUR ---
DR. PRATT AT BEDSIDE. RECEIVED NEW ORDERS FROM . WILL PLACE ORDERS ACCORDINGLY.
[2020-12-01 16:00] VITALS: BP 139/70
--- NOTE | 2020-12-01 18:45 | NUR ---
PATIENT COMPLAINED OF 7/10 LOWER BACK PAIN. ADMINISTERED MORPHINE IVP PER MD ORDERED.
--- NOTE | 2020-12-01 19:15 | NUR ---
ENDORSED TO CONSULTING ANALYST NURSE FOR CONTINUITY OF CARE. PT IS STABLE.
--- NOTE | 2020-12-01 19:16 | NUR ---
RECEIVED PATIENT FROM AM NURSE FOR CONTINUITY OF CARE. PATIENT IS A/A/O X4. RESPIRATORY EVEN AND UNLABORED, ON ROOM AIR, NO SIGN OF RESPIRATORY DISTRESS NOTED. SKIN WARM, DRY, NON DIAPHORETIC. IV ON LEFT WRIST 22G, INTACT AND PATENT, IS INFUSING FLUID @75ML/HR. HEALED WOUND NOTED MID ABDOMEN. BOWEL SOUND ACTIVE, ABDOMEN SOFT, NON DISTENDED. LAST BOWEL MOVEMENT WAS 6/2. PATIENT DENIES ANY PAIN OR DISCOMFORT. ABLE TO MAKE NEED KNOWN. PLAN OF CARE DISCUSSED, PATIENT VERBALIZED UNDERSTANDING. PRECAUTION IN PLACE. CALL LIGHT WITHIN REACH. WILL CONTINUE TO MONITOR.
[2020-12-01 20:00] VITALS: BP 107/63
--- NOTE | 2020-12-01 20:40 | NUR ---
SCHEDULE MEDICATION GIVEN WITH EDUCATION, PATIENT VERBALIZED UNDERSTANDING. NO SIGN OF RESPIRATORY DISTRESS NOTED. PRECAUTION IN PLACE. CALL LIGHT WITHIN REACH. WILL CONTINUE TO MONITOR.
--- NOTE | 2020-12-01 23:00 | NUR ---
PATIENT REPORTS HAD BOWEL MOVEMENT WITH LOOSE STOOL. STOOL COLLECTED, WILL DELIVER TO LAB.
--- NOTE | 2020-12-01 23:21 | NUR ---
PATIENT COMPLAINS LOWER BACK PAIN 01/06. MORPHINE PRN GIVEN ORDER WITH EDUCATION, PATIENT VERBALIZED UNDERSTANDING. NO SIGN OF DISTRESS NOTED. PRECAUTION IN PLACE. CALL LIGHT WITHIN REACH. WILL CONTINUE TO MONITOR.
--- NOTE | 2020-12-02 02:00 | NUR ---
ROUND CHECK. PATIENT IS SLEEPING, CHEST RISE AND FALL, AROUSABLE TO VOICE. NO SIGN OF DISTRESS NOTED. PRECAUTION IN PLACE. CALL LIGHT WITHIN REACH. WILL CONTINUE TO MONITOR.
[2020-12-02 04:00] VITALS: BP 136/77
[2020-12-02] MEDS: MORPHINE SULFATE 4 MG/ML SYR IVP PRN ×5 (04:05→22:14)
--- NOTE | 2020-12-02 04:05 | NUR ---
ROUND CHECK. PATIENT COMPLAINS LOWER BACK PAIN 7/10, MORPHINE PRN GIVEN ORDER WITH EDUCATION. PATIENT VERBALIZED UNDERSTANDING. NO SIGN OF DISTRESS NOTED. CALL LIGHT WITHIN REACH. WILL CONTINUE TO MONITOR.
--- NOTE | 2020-12-02 05:05 | NUR ---
RECEIVED PRBC, VERIFIED WITH CHARGE NURSE ENRIQUE ELIZABETH. START BLOOD TRANSFUSION. PATIENT DENIES ANY PAIN OR DISCOMFORT. VS PRE TRANSFUSION BP 141/74, HR 77, RR 18, TEMP 97.7,O2 SAT 95%. EDUCATE PATIENT THE S/S OF BLOOD TRANSFUSION REACTION. PATIENT VERBALIZES UNDERSTANDING. CALL LIGHT WITHIN REACH. WILL CONTINUE TO MONITOR.
--- NOTE | 2020-12-02 07:17 | NUR ---
PT ON ROOM AIR. SPO2 98%. NO SOB OR DISTRESS NOTED. WILL CONTINUE TO MONITOR PATIENT.
--- NOTE | 2020-12-02 07:35 | NUR ---
ENDORSED PATIENT TO AM NURSE. PATIENT IS STABLE. BLOOD TRANSFUSION COMPLETED. PATIENT HAS NO SIGN AND SYMPTOMS OF REACTION. AM NURSE AWARE AND WILL CONTINUITY OF CARE.
--- NOTE | 2020-12-02 07:37 | NUR ---
RECEIVED BEDSIDE REPORT FROM FIRE EQUIPMENT REPAIRER INSPECTOR NURSE FOR CONTINUITY OF CARE. PT IS AOX4, ABLE TO MAKE NEEDS KNOWN. RESPIRATIONS EVEN AND UNLABORED. ON ROOM AIR. NO S/S OF RESPIRATORY DISTRESS NOTED. SKIN IS WARM AND DRY. IV SITE ON RFA 22G INFUSING FLUIDS WELL. INTACT AND PATENT. NOTED MID ABDOMINAL INCISION THAT IS HEALED. DENIES PAIN AT THE MOMENT. S/P 1 UNIT OF PRBC 12/02/20. WILL ADMINISTERED 1 MORE UNIT OF PRBC. PLAN OF CARE DISCUSSED. SAFETY PRECAUTIONS IN PLACE. BED IN LOW POSITION. CALL LIGHT WITHIN REACH. WILL CONTINUE TO MONITOR. Addendum: 12/02/20 at 0937 by Yury Ward RN RN HAS 2ND IV SITE ON LW 22 G. INTACT AND PATENT.
[2020-12-02 08:00] VITALS: BP 125/75
--- NOTE | 2020-12-02 08:53 | NUR ---
ADMINISTERED 2ND UNIT OF PRBC.
[2020-12-02] MEDS: METOPROLOL 50 MG TAB PO SCH ×2 (09:09→20:27)
--- NOTE | 2020-12-02 09:09 | NUR ---
PATIENT COMPLAINED OF 7/10 LOWER BACK PAIN. ADMINISTERED MORPHINE IVP PER MD ORDERED.
--- NOTE | 2020-12-02 09:15 | NUR ---
ALL SCHEDULED MEDS GIVEN. PT IS STABLE. NO DISTRESS NOTED. WILL CONTINUE TO MONITOR.
[2020-12-02] MEDS: NACL 0.9% 1,000 ML IV SCH ×2 (10:30→20:36)
--- NOTE | 2020-12-02 12:55 | NUR ---
PATIENT COMPLETED 2ND UNIT OF PRBC. PT IS STABLE. DENIES PAIN. WILL CONTINUE TO MONITOR.
--- NOTE | 2020-12-02 13:09 | NUR ---
PATIENT COMPLAINED OF 7/10 LOWER BACK PAIN. ADMINISTERED MORPHINE IVP PER MD ORDERED.
[2020-12-02 15:56] LABS: BASOPHILS % (AUTO) 0.7 % (0.0-2.0); EOSINOPHILS # (AUTO) 0.2 K/uL (0-0.4); EOSINOPHILS % (AUTO) 4.3 % (0.0-4.0); HEMATOCRIT 30.1 % (36-48); HEMOGLOBIN 9.8 g/dL (12.0-16.0); LYMPHOCYTES % (AUTO) 38.3 % (20.5-51.1); MEAN CORPUSCULAR HEMOGLOBIN 27 pg (27-31); MEAN CORPUSCULAR HGB CONC 32 g/dL (33-37); MEAN CORPUSCULAR VOLUME 82.6 fL (80-94); MONOCYTES # (AUTO) 0.3 K/uL (0.8-1.0); MONOCYTES % (AUTO) 6.6 % (1.7-9.3); NEUTROPHILS # (AUTO) 2.6 K/uL (1.8-7.7); NEUTROPHILS % (AUTO) 50.1 % (42.2-75.2); PLATELET COUNT (AUTO) 243 K/uL (140-450); RED BLOOD CELL COUNT(AUTO) 3.65 MIL/uL (4.20-5.40); RED CELL DISTRIBUTION WIDTH 19.3 % (11.6-13.7); WHITE BLOOD COUNT (AUTO) 5.2 K/uL (4.8-10.8)
--- NOTE | 2020-12-02 15:59 | NUR ---
TEACHER OF THE VISUALLY IMPAIRED AT BEDSIDE. WILL BE TRANSPORTED TO RADIOLOGY DEPT TO DO A CT SCAN.
[2020-12-02 16:00] VITALS: BP 139/83
[2020-12-02 16:04] LABS: ANION GAP 10.8 (8-16); CARBON DIOXIDE 24.6 mmol/L (21-32); CREATININE 0.8 mg/dL (0.6-1.3); POTASSIUM 3.4 mmol/L (3.5-5.1)
--- NOTE | 2020-12-02 17:05 | NUR ---
TRANSFERRED PATIENT TO 120B DUE TO MALFUNCTIONED TOILET.
--- NOTE | 2020-12-02 17:25 | NUR ---
PATIENT COMPLAINED OF 7/10 LOWER BACK PAIN. ADMINISTERED MORPHINE IVP PER MD ORDERED.
--- NOTE | 2020-12-02 19:25 | NUR ---
ENDORSED TO COREMAKING MACHINE OPERATOR NURSE FOR CONTINUITY OF CARE. PT IS STABLE.
--- NOTE | 2020-12-02 19:26 | NUR ---
RECEIVED BEDSIDE REPORT FROM DAY RN DEBI Sandoval PT AOX4 ON ROOM AIR. NO S/S RESPIRATORY DISTRESS. IV SITE L WRIST, AND RFA PATENT INTACT INFUSING IVF ORDERED. HAS ,MID ABD SURGICAL SCAR CLOSED. SAFETY MEASURES IN PLACE. CALL LIGHT WITHIN REACH. WILL CONTINUE TO MONITOR
[2020-12-02 20:00] VITALS: BP 117/73
[2020-12-02] MEDS: HYDROcodone/APAP 5/325 MG 1 TAB TAB PO PRN (20:38)
--- NOTE | 2020-12-02 20:41 | NUR ---
ADMINISTERED SCHEDULED MEDICATION AND IVF ORDERED. PRN NORCO GIVEN FOR C/O BACK PAIN. MEDICATION EDUCATION PROVIDED. PT VERBALIZED UNDERSTANDING. SAFETY MEASURES IN PLACE. CALL LIGHT WITHIN REACH. WILL CONTINUE TO MONITOR
--- NOTE | 2020-12-02 22:15 | NUR ---
PRN MORPHINE GIVEN ORDERED FOR C/O BACK PAIN. MEDICATION EDUCATION PROVIDED. PT VERBALIZED UNDERSTANDING. NO DISTRESS NOTED. CALL LIGHT WITHIN REACH. WILL CONTINUE TO MONITOR
--- NOTE | 2020-12-03 00:10 | NUR ---
PATIENT ASLEEP IN BED. RESPIRATIONS EVEN UNLABORED. NO SIGNS OF DISTRESS NOTED. IVF INFUSING WELL. CALL LIGHT WITHIN REACH. WILL CONTINUE TO MONITOR
--- NOTE | 2020-12-03 02:27 | NUR ---
PATIENT RESTING IN BED. DENIES DISCOMFORT. RESPIRATIONS EVEN UNLABORED. NO SIGNS OF DISTRESS NOTED. CALL LIGHT WITHIN REACH. WILL CONTINUE TO MONITOR
[2020-12-03] MEDS: MORPHINE SULFATE 4 MG/ML SYR IVP PRN (03:10)
--- NOTE | 2020-12-03 03:18 | NUR ---
PRN MORPHINE GIVEN ORDERED FOR C/O BACK PAIN. MEDICATION EDUCATION PROVIDED. PT VERBALIZED UNDERSTANDING. NO DISTRESS NOTED. CALL LIGHT WITHIN REACH. WILL CONTINUE TO MONITOR
[2020-12-03 04:00] VITALS: BP 122/71
--- NOTE | 2020-12-03 05:15 | NUR ---
PATIENT ASLEEP IN BED. RESPIRATIONS EVEN UNLABORED. NO SIGNS OF DISTRESS NOTED. IVF INFUSING WELL. CALL LIGHT WITHIN REACH. WILL CONTINUE TO MONITOR
--- NOTE | 2020-12-03 07:30 | NUR ---
ENDORSED PATIENT TO DAY RN FOR CONTINUITY OF CARE. PATIENT IS IN STABLE CONDITION
--- NOTE | 2020-12-03 07:35 | NUR ---
RECEIVED BEDSIDE ENDORSEMENT FROM NIGHTSVAFT NURSE FOR CONTINUITY OF CARE.
--- NOTE | 2020-12-03 08:15 | NUR ---
RECEIVED PT ON ROOM AIR. PT RESTING COMFORTABLY. VITALS STABLE. SAT 97%, HR 73, RR 16, BRS DIMINISHED. WOB IS WNL. NO SIGNS OF RESPIRATORY DISTRESS UPON LEAVING PT ROOM. WILL CONTINUE TO MONITOR.
[2020-12-03] MEDS: METOPROLOL 50 MG TAB PO SCH (09:26)
[2020-12-03] MEDS: MORPHINE SULFATE 2 MG/ML SYR IVP PRN ×2 (09:36→14:50)
--- NOTE | 2020-12-03 09:42 | NUR ---
ADMINISTERED PRESCRIBED MEDS AND PRN 7/10 PAIN MED PER MD ORDER. PATIENT TOLERATED WELL. MEDICATION EDUCATION PROVIDED. PATIENT VERBALIZED UNDERSTANDING. SAFETY MEASURES IN PLACE. WILL CONTINUE TO MONITOR.
[2020-12-03] MEDS: HYDROcodone/APAP 5/325 MG 1 TAB TAB PO PRN (11:27)
--- NOTE | 2020-12-03 11:28 | NUR ---
ADMINISTERED PRESCRIBED MED FOR PRN 6/10 PAIN. PATIENT TOLERATED WELL. MEDICATION EDUCATION PROVIDED. PATIENT VERBALIZED UNDERSTANDING. SAFETY MEASURES IN PLACE. WILL CONTINUE TO MONITOR.
[2020-12-03] MEDS: NACL 0.9% 1,000 ML IV SCH (13:05)
--- NOTE | 2020-12-03 14:56 | NUR ---
ADMINISTERED PRESCRIBED MEDS FOR PRN ANXIETY AND PRN 7/10 PAIN. PATIENT TOLERATED WELL. MEDICATION EDUCATION PROVIDED. PATIENT VERBALIZED UNDERSTANDING. SAFETY MEASURES IN PLACE. WILL CONTINUE TO MONITOR.
[2020-12-03 15:52] VITALS: BP 149/92
--- NOTE | 2020-12-03 16:26 | NUR ---
PATIENT IS DISCHARGED. DISCHARGE PAPERWORK PRINTED, REVIEWED AND SIGNED BY PATIENT. PATIENT GIVEN RX BY MD, PATIENT VERBALIZED UNDERSTANDING. PATIENT GATHERED ALL BELONGINGS AND CHANGED CLOTHES. REMOVED IV LINE AND ID BANDS. PATIENT WAS ESCORTED BY SEAL EXTRUSION OPERATOR TO FRONT OF HOSPITAL WHERE SHE WAS PICKED UP BY FAMILY MEMBER. PATIENT IS STABLE.
== END 2020-12-03 16:25 | disposition home or self-care (01) | DRG 253 ==
LOC: MED 14:38 → MTU 18:29 → OBSVTOIN 18:30 → MTU 12-02 16:59 → UNDODISOB 12-03 16:25
PROVIDERS: ADMIT Hospitalist; ATTEND Hospitalist
PROC: 30233N1 Transfusion of Nonautologous Red Blood Cells into Peripheral Vein, Percutaneous Approach (ICD-10-PCS; principal; 2020-12-02)
DX: K92.2 Gastrointestinal hemorrhage, unspecified (principal); E44.0 Moderate protein-calorie malnutrition; D64.9 Anemia, unspecified; Z20.822 Contact with and (suspected) exposure to COVID-19; N20.0 Calculus of kidney; J44.9 Chronic obstructive pulmonary disease, unspecified; I10 Essential (primary) hypertension; E87.6 Hypokalemia; M47.816 Spondylosis without myelopathy or radiculopathy, lumbar region; Z79.899 Other long term (current) drug therapy; Z95.5 Presence of coronary angioplasty implant and graft; Z82.3 Family history of stroke
CPT/HCPCS: 96361; 96374; 99285; G0378; 36415; 36430; 71045; 72131; 80048; 80053; 81003; 82272; 83605; 83690; 83735; 85025; 86870; 86886; 86900; 86901; 86920; 87040; 87045; 87070; 87081; 89055; 96376; 97530; J2270; P9016

== ENCOUNTER 2021-02-26 06:50 | Inpatient (IN) | payer OTHER ==
[~2021-02-26] VITALS: Ht 160 cm; Wt 63.0 kg
[~2021-02-26 06:50] MED LIST changes: +APIX5TAB4 PO; +CETI10SG1 PO; +GABA100C PO; +IBUP100T6 PO; +LORA-476 PO; -LORA10TA19 PO; +PRED20TA5 PO
[2021-02-26 06:55] VITALS: BP 83/56
--- NOTE | 2021-02-26 06:55 | NUR ---
PATIENT TAKEN TO BED 11 VIA W/C.
--- NOTE | 2021-02-26 06:58 | NUR ---
PATIENT BIB SON FROM HOME FOR C/O ANXIETY SINCE LAST NIGHT. PATIENT PRESENTS TEARFUL AND TACHYPNEIC. PER PATIENT, " I FEEL SO ANXIOUS AND I'VE TRIED TO RELAX ALL NIGHT BUIT ITS NOT HELPING." PATIENT STATES SHE FEELS CHEST TIGHTNESS. PATIENT AHS CARDIAC HISTORY, S1S2 NOTED. RADIAL PULASES EQUAL AND STRONG BILAT. PATIENT NOTED WITH TACHY RESPIRATIONS. PATIENT PALCED ON MAINFRAME ARCHITECT. SON AT BEDSIDE. MEDHX: STENT PLACED X 2 YEARS AGO, ASTHMA, COPD, HTN, ANXIETY ALLERGIES: NKDA, SCALLOPS.
--- NOTE | 2021-02-26 06:58 | NUR ---
Note undone in EDM - 02/26/21 at 0718 by [email or web address] PATIENT 65 Y/O BIBA FROM STREET FOR C/O ALOC. PER EMS PATIENT WAS FOUND WANDERING ON THE STREETS AND PATIENT REQUESTED TO BE BROUGHT HERE. EMS CLAIMS PATIENT WAS TO BE BROUGHT FOR PSYCH EVALUATION. PATIENT STATES," I HAVE A BED HERE, CAN I HAVE A SANDWICH." PATIENT WAS ADMITTED YESTERDAY FOR ALOC AND ENCEPHALOPATHY, PER REPORT PATIENT AMA. PATIENT ORIENTED TO NAME. PATIENT APPERES TO BE RESPONDING TO INTERNAL STIMULI. PATIENT NOTED TO WATCH THE WALL AND BEGINS TO LAUGHT AND TALK TO THE CELING. PATIENT IS REDIRECTABLE. PATIENT PLACED ON SCHOOL PHOTOGRAPHER. MEDHX: UNOBTAINABLE ALLERGIES: UNOBTAINABLE.
--- NOTE | 2021-02-26 07:07 | NUR ---
Patient being evaluated by physician at bedside.
--- NOTE | 2021-02-26 07:14 | NUR ---
Report and continuation of care received from ENRIQUE De Luna.
--- NOTE | 2021-02-26 07:14 | NUR ---
REPORT GIVEN TO JOHN RN, TRANSFER OF CARE.
[2021-02-26] MEDS ORDERED: MORPHINE SULFATE 4 MG/ML SYR IVP ONE (07:15)
[2021-02-26] MEDS ORDERED: ONDANSETRON 4 MG/2 ML VIAL IVP ONE (07:15)
[2021-02-26] MEDS ORDERED: NACL 0.9% 1,000 ML IV ONE (07:35)
--- NOTE | 2021-02-26 07:45 | NUR ---
Signature obtained for CT Angio chest.
--- NOTE | 2021-02-26 07:45 | NUR ---
RT at bedside for ABG
--- NOTE | 2021-02-26 07:50 | NUR ---
PT REFUSED HER ABG, RN AND MD ARE AWARE PT IS REFUSING.
[2021-02-26 07:52] LABS: BASOPHILS # (AUTO) 0.1 K/uL (0.00-0.22); BASOPHILS % (AUTO) 1.1 % (0.0-2.0); EOSINOPHILS # (AUTO) 0.1 K/uL (0-0.4); EOSINOPHILS % (AUTO) 1.7 % (0.0-4.0); HEMOGLOBIN 9.3 g/dL (12.0-16.0); LYMPHOCYTES # (AUTO) 1.6 K/uL (2.5-16.5); LYMPHOCYTES % (AUTO) 20.8 % (20.5-51.1); MEAN CORPUSCULAR HEMOGLOBIN 23 pg (27-31); MEAN CORPUSCULAR HGB CONC 31 g/dL (33-37); MEAN CORPUSCULAR VOLUME 75.1 fL (80-94); MONOCYTES # (AUTO) 0.4 K/uL (0.8-1.0); MONOCYTES % (AUTO) 4.7 % (1.7-9.3); NEUTROPHILS # (AUTO) 5.7 K/uL (1.8-7.7); NEUTROPHILS % (AUTO) 71.7 % (42.2-75.2); PLATELET COUNT (AUTO) 348 K/uL (140-450); RED BLOOD CELL COUNT(AUTO) 3.99 MIL/uL (4.20-5.40); RED CELL DISTRIBUTION WIDTH 20.6 % (11.6-13.7); WHITE BLOOD COUNT (AUTO) 7.9 K/uL (4.8-10.8)
--- NOTE | 2021-02-26 07:52 | NUR ---
Blood sample collected, handed to CPT Bennie at ER bedside
--- NOTE | 2021-02-26 08:00 | NUR ---
RAD at bedside
--- NOTE | 2021-02-26 08:08 | NUR ---
Pt ambulated to restroom with steady/even gait for urine sample
[2021-02-26 08:25] LABS: ALBUMIN 3.2 g/dL (3.4-5.0); ANION GAP 11.6 (8-16); CARBON DIOXIDE 29.3 mmol/L (21-32); TOTAL BILIRUBIN 0.4 mg/dL (0.0-1.0)
--- NOTE | 2021-02-26 08:26 | NUR ---
Pt states she has diarrhea, disconnected from screen stretcher. Pt ambulated to restroom steady/even gait.
[2021-02-26 08:28] LABS: POTASSIUM 2.9 mmol/L (3.5-5.1)
--- NOTE | 2021-02-26 08:29 | NUR ---
Critical lab: Potassium 2.9, Dr. Mack made aware
[2021-02-26 08:31] LABS: PROTHROMBIN TIME 10.4 secs (10.8-13.4)
--- NOTE | 2021-02-26 08:35 | NUR ---
Patient to CT by wheelchair.
[2021-02-26] MEDS ORDERED: KCL 20 MEQ/WATER INJ PREMIX 100 ML IV ONE (08:40)
[2021-02-26] MEDS ORDERED: MAG SULF 2000 MG/WATER PREMIX 50 ML IV ONE (08:40)
--- NOTE | 2021-02-26 08:50 | NUR ---
Pt returned from CT and back onto bus driver/monitor.
[2021-02-26 10:03] LABS: APPEARANCE,URINE HAZY (CLEAR); BILIRUBIN,URINE NEGATIVE (NEGATIVE); BLOOD, URINE 3+ (NEGATIVE); COLOR,URINE YELLOW (YELLOW); LEUKOCYTE ESTERASE ,URINE NEGATIVE (NEGATIVE); NITRITE, URINE NEGATIVE (NEGATIVE); UGLUCOSE NEGATIVE (NEGATIVE)
[2021-02-26 10:11] LABS: RBC,URINE >100 /HPF (0-5)
--- NOTE | 2021-02-26 10:12 | NUR ---
Unable to start second IV for Mg IVPB.
--- NOTE | 2021-02-26 10:13 | NUR ---
Patient resting in position of comfort. imaging nurse in place. VSS; respirations even/unlabored. Bed locked in lowest position, side rails x 2, call light in reach.
--- NOTE | 2021-02-26 10:24 | NUR ---
Patient ambulated to restroom for bowel movement.
--- NOTE | 2021-02-26 10:30 | NUR ---
Patient back from restroom and placed back onto IV infusion and salt machine operator. VSS respirations even/unlabored. Bed locked in lowest position, side rails x 1, call light in reach.
--- NOTE | 2021-02-26 10:46 | NUR ---
Dr. Elizabeth is evaluating patient at bedside. Received verbal order for Potassium PO 40 mEq d/t pain from IVPB.
[2021-02-26] MEDS ORDERED: POTASSIUM CHLORIDE 10 MEQ TABER PO SCH (10:49)
[2021-02-26] MEDS ORDERED: POTASSIUM CHLORIDE 10 MEQ TABER PO PRN (11:00)
[2021-02-26] MEDS ORDERED: KCL 20 MEQ/WATER INJ PREMIX 200 ML IV PRN (11:00)
[2021-02-26] MEDS ORDERED: ONDANSETRON 4 MG/2 ML VIAL IVP PRN (11:00)
[2021-02-26] MEDS ORDERED: MAG SULF 2000 MG/WATER PREMIX 50 ML IV PRN (11:00)
[2021-02-26] MEDS ORDERED: MAGNESIUM OXIDE 400 MG TAB PO PRN (11:00)
[2021-02-26] MEDS ORDERED: ACETAMINOPHEN 325 MG TAB PO PRN (11:00)
--- NOTE | 2021-02-26 11:10 | NUR ---
Cortez (son) given status update regarding patient admission.
[2021-02-26] MEDS ORDERED: ATI.5 PO (11:31)
[2021-02-26] MEDS ORDERED: ESOM20EC PO (11:32)
[2021-02-26] MEDS ORDERED: LOVA20TA8 PO (11:34)
--- NOTE | 2021-02-26 11:55 | NUR ---
Lab at bedside for redraw
--- NOTE | 2021-02-26 12:08 | NUR ---
Patient sitting upright in position of comfort; lights turned on per request; patient reading book at this time. tunnel worker remains in place; no distress noted. Bed locked in lowest position, side rails x 1, call light in reach.
--- NOTE | 2021-02-26 12:50 | NUR ---
Patient states chronic back pain 810 at this time. Pain meds PRN orders to be administered.
--- NOTE | 2021-02-26 13:04 | NUR ---
Patient disconnected from monitoring tech; ambulated to restroom.
--- NOTE | 2021-02-26 13:07 | NUR ---
Patient back from restroom onto bed; placed back onto travel clerk.
[2021-02-26] MEDS: HYDROcodone/APAP 5/325 MG 1 TAB TAB PO PRN (13:17)
--- NOTE | 2021-02-26 13:17 | NUR ---
Lunch mealtray provided at bedside. Pt completing meal at this time. All needs met.
--- NOTE | 2021-02-26 16:00 | NUR ---
Pt requesting prescribed Neb treatment at this time. SpO2 99% on room air. Addendum: 02/26/21 at 1644 by LAMIN Admit MD made aware; orders to be placed for breathing tx.
--- NOTE | 2021-02-26 16:15 | NUR ---
Patient ambulated to restroom with steady/even gait.
--- NOTE | 2021-02-26 17:01 | NUR ---
Patient states pain 7/10 requesting medication at this time.
[2021-02-26] MEDS: MORPHINE SULFATE 4 MG/ML SYR IVP PRN ×2 (17:20→21:35)
--- NOTE | 2021-02-26 17:20 | NUR ---
Patient states positive relief after Morphine 2mg IVP; 12/07 at this time.
--- NOTE | 2021-02-26 18:05 | NUR ---
Patient resting in position of comfort. playground monitor in place. VSS; respirations even/unlabored. Bed locked in lowest position, side rails x 2, call light in reach.
[2021-02-26] MEDS: ALBUTEROL SULFATE/IPRATROPIU 3 ML SOL IH PRN ×2 (18:45→18:59)
--- NOTE | 2021-02-26 18:47 | NUR ---
RT AT BEDSIDE FOR BREATHING TX
--- NOTE | 2021-02-26 19:20 | NUR ---
Report and transfer of care endorsed to ENRIQUE Reyna.
--- NOTE | 2021-02-26 19:20 | NUR ---
Received report from Chuck NUNEZ, for continuity of care
--- NOTE | 2021-02-26 19:26 | NUR ---
patient sitting at the side of the eating dinner. AAOx4. VSS. patient on monitor. Safety measures are in place will continue to monitor patient.
--- NOTE | 2021-02-26 20:23 | NUR ---
paged for Clara BROWER regarding patient.
--- NOTE | 2021-02-26 20:27 | NUR ---
MD Elizabeth called back regarding patient frequent urination and bright red blood in the urine-- MD would like to insert a galindo catheter.
--- NOTE | 2021-02-26 20:34 | NUR ---
informed patient about galindo catheter insertion. patient felt anxiety and would like to hold off on the galindo catheter for right now but is willing to get the galindo catheter.
--- NOTE | 2021-02-26 20:36 | NUR ---
patient ambulated to the bathroom.
--- NOTE | 2021-02-26 20:50 | NUR ---
attempted to call Gregoria NUNEZ-- no answer at this time
--- NOTE | 2021-02-26 21:02 | NUR ---
called for report-- unable to take report at this time, told to call back in 10mins-15mins, RN in the middle of interventions with a patient
--- NOTE | 2021-02-26 21:20 | NUR ---
attempted to call Gregoria NUNEZ-- no answer at this time
--- NOTE | 2021-02-26 21:37 | NUR ---
3Patient will be admitted to care of Clara BROWER. Admited to Telemetry. Will go to [id number]. Belongings list completed. Report to Gregoria NUNEZ.
--- NOTE | 2021-02-26 22:00 | NUR ---
RECEIVED REPORT FROM ED ROMEL RN FOR ADMIT TO [facility] ROOM 122A. PATIENT ARRIVED AAOX4,VIA GURNEY AND AMBULATED TO BED WITH STEADY GAIT, NO ASSIST. NO APPARENT S/S OF ACUTE DISTRESS. BREATHING EVEN AND UNLABORED ON RA WITH O2 SAT OF 96%. NO C/O CP, SOB OR PAIN. PT REFUSING F/C INSERTION AT THIS TIME AND WOULD LIKE TO TALK TO MD ABOUT ORDER. BSC PLACED FOR PATIENT USE, WILL MEASURE STRICT I&O VIA CYLINDER. POC AND WHITE COMMUNICATION BOARD UPDATED. BED IN LOW/LOCKED POSITION. CALL LIGHT WITHIN REACH. PT ENCOURAGED TO CALL FOR ANY NEEDS/ASSISTANCE. WILL CONTINUE TO MONITOR.
[2021-02-27] VITALS: BP 135/85
[2021-02-27] MEDS: LORazepam 0.5 MG TAB PO SCH ×2 (01:03→20:42)
[2021-02-27] MEDS: HYDROcodone/APAP 5/325 MG 1 TAB TAB PO PRN (01:04)
[2021-02-27 04:00] VITALS: BP 113/66
[2021-02-27 06:06] LABS: ANION GAP 10.7 (8-16); CARBON DIOXIDE 27.8 mmol/L (21-32); CREATININE 0.8 mg/dL (0.6-1.3); POTASSIUM 3.5 mmol/L (3.5-5.1)
[2021-02-27 06:24] LABS: BASOPHILS # (AUTO) 0.1 K/uL (0.00-0.22); BASOPHILS % (AUTO) 0.9 % (0.0-2.0); EOSINOPHILS # (AUTO) 0.2 K/uL (0-0.4); EOSINOPHILS % (AUTO) 3.3 % (0.0-4.0); HEMATOCRIT 25.2 % (36-48); HEMOGLOBIN 7.7 g/dL (12.0-16.0); LYMPHOCYTES # (AUTO) 2.2 K/uL (2.5-16.5); LYMPHOCYTES % (AUTO) 38.2 % (20.5-51.1); MEAN CORPUSCULAR HEMOGLOBIN 23 pg (27-31); MEAN CORPUSCULAR HGB CONC 31 g/dL (33-37); MEAN CORPUSCULAR VOLUME 74.9 fL (80-94); MONOCYTES # (AUTO) 0.4 K/uL (0.8-1.0); MONOCYTES % (AUTO) 6.7 % (1.7-9.3); NEUTROPHILS # (AUTO) 2.9 K/uL (1.8-7.7); NEUTROPHILS % (AUTO) 50.9 % (42.2-75.2); PLATELET COUNT (AUTO) 330 K/uL (140-450); RED BLOOD CELL COUNT(AUTO) 3.36 MIL/uL (4.20-5.40); RED CELL DISTRIBUTION WIDTH 20.8 % (11.6-13.7); WHITE BLOOD COUNT (AUTO) 5.7 K/uL (4.8-10.8)
[2021-02-27] MEDS: MORPHINE SULFATE 4 MG/ML SYR IVP PRN ×4 (06:29→20:44)
--- NOTE | 2021-02-27 07:07 | NUR ---
REPORT GIVEN TO JOHNATHON NUNEZ FOR CONTINUITY OF CARE. PT SITTING UP AAOX4. NO APPARENT S/S OF ACUTE DISTRESS. BREATHING EVEN AND UNLABORED. BED IN LOW/LOCKED POSITION. CALL LIGHT WITHIN REACH. ALL NEEDS MET AT THIS TIME.
--- NOTE | 2021-02-27 07:56 | NUR ---
REPORT RECEIVED FROM NIGHT NURSE PT CAME FOR CHEST PAIN, TACHYPNEA, SOB. DIAGNOSED WITH CHEST PAIN HYPOKALEMIA. PT HAS HX OF PE, COPD, ASTHMA. NKA, FULL CODE, ALERT ORIENTED X 4 SINUS RHYTHM ON CARDIAC DIET, BM ON 02/26/21, IV ACCESS ON R AC 18 GAUGE SALINE LOCK. SKIN IS INTACT, PT ON ROOM AIR, CAN AMBULATE, HAS CHRONIC BACK PAIN. HAS MULTIPLE HOSPITALIZATION IN LAST FEW MONTHS. CAME IN OCTOBER FOR PERFORATED BOWEL, IN NOVEMBER FOR GI BLEED IN DECEMBER FOR DIVERTICULITIS. WILL CONTINUE TO MONITOR PT AND FOLLOW CURRENT PLAN OF CARE.
[2021-02-27 08:00] VITALS: BP 122/80
[2021-02-27] MEDS: METOPROLOL 25 MG TAB PO SCH ×2 (08:21→20:42)
--- NOTE | 2021-02-27 08:26 | NUR ---
ADMINISTERED METOPROLOL AND GABAPENTIN PER MD ORDER BP WAS 122/77 ND 79. PT HAS PRODUCTIVE COUGH WITH SCANT AMOUNT OF SPUTUM. OLE NOTIFY MD FOR COUGH AND MONITOR PT FOR SPUTUM COLOR AND AMOUNT.
[2021-02-27] MEDS ORDERED: GABAPENTIN 100 MG CAP PO SCH (09:00)
[2021-02-27] MEDS ORDERED: LOVASTATIN 5 MG PO SCH (09:00)
--- NOTE | 2021-02-27 09:18 | NUR ---
PATIENT HAS BEEN SCREENED AND CATEGORIZED HIGH NUTRITION RISK. PATIENT WILL BE SEEN WITHIN 1-2 DAYS OF ADMISSION. 02/27/21-02/28/[address]
[2021-02-27] MEDS: ALBUTEROL SULFATE/IPRATROPIU 3 ML SOL IH PRN ×3 (09:50→21:55)
[2021-02-27] MEDS: FUROSEMIDE 20 MG TAB PO SCH (11:13)
--- NOTE | 2021-02-27 11:15 | NUR ---
PT REPORTED PAIN 01/06 MEDICATED WITH MORPHINE BP 117/74 GA 70.
[2021-02-27 12:00] VITALS: BP 132/91
--- NOTE | 2021-02-27 12:05 | NUR ---
CHANGE THE GABAPENTIN DOSE 300MG TID PER PATIENTS HOME DOSE. WILL CONTINUE TO MONITOR PT.
--- NOTE | 2021-02-27 12:21 | NUR ---
REASSESSED PT FOR PAIN PT REPORTED PAIN 2 ON SCALE OF 10.
[2021-02-27] MEDS: GABAPENTIN 300 MG CAP PO SCH ×2 (13:01→16:29)
--- NOTE | 2021-02-27 13:03 | NUR ---
ADMINISTERED SCHEDULED MEDICATION GABAPENTIN 300 MG CHECK VITAL SIGNS BP 132/91 NJ 93. PT RESTING AND TOLERATED WELL. WILL CONTINUE TO MONITOR.
--- NOTE | 2021-02-27 13:20 | NUR ---
PT IS IN THE BED DENIES PAIN OR DISCOMFORT, NO SOB OR ACUTE DISTRESS NOTED.
--- NOTE | 2021-02-27 13:43 | NUR ---
PT HAS A CONSULT FOR HEMATURIA DR MANE AWARE.
--- NOTE | 2021-02-27 15:20 | NUR ---
PT REPORTED PAIN 8/10 MEDICATED WITH MORPHINE BP 117/64 ID 81, RR17. WILL ASSESS PT IN 30 MIN FOR PAIN
[2021-02-27 16:00] VITALS: BP 115/75
--- NOTE | 2021-02-27 16:31 | NUR ---
ADMINISTERED SCHEDULED MEDICATION PER DOCTORS ORDER PT TOLERATED WELL AND PT IS RESTING.
--- NOTE | 2021-02-27 19:33 | NUR ---
endorsed the night nurse for continuity of care
--- NOTE | 2021-02-27 19:33 | NUR ---
RECEIVED REPORT FROM AM NURSE FOR CONTINUITY OF CARE. PATIENT IN BED RESTING CALMLY. NO S/S OF RESPIRATORY DISTRESS. ALL SAFETY PRECAUTIONS ARE IN PLACE. CALL LIGHT WITHIN REACH. WILL CONTINUE TO MONITOR.
[2021-02-27 20:00] VITALS: BP 114/74
--- NOTE | 2021-02-27 20:43 | NUR ---
SCHEDULED MEDS GIVEN ORDERED.
--- NOTE | 2021-02-27 20:43 | NUR ---
PATIENT REQUESTED TO HAVE STEROIDS. TEXTED DR. ARELLANO AT 2049 AWAITING FOR REPLY.
[2021-02-28] VITALS: BP 120/68
[2021-02-28] MEDS: MORPHINE SULFATE 4 MG/ML SYR IVP PRN ×3 (02:33→12:19)
--- NOTE | 2021-02-28 03:09 | NUR ---
PATIENT IS HUNGRY ASKED FOR FOOD, TUNA SANDWICH SERVED.
[2021-02-28 04:00] VITALS: BP 105/66
[2021-02-28 05:47] LABS: BASOPHILS % (AUTO) 0.7 % (0.0-2.0); EOSINOPHILS # (AUTO) 0.2 K/uL (0-0.4); EOSINOPHILS % (AUTO) 2.6 % (0.0-4.0); HEMATOCRIT 26.5 % (36-48); HEMOGLOBIN 8.1 g/dL (12.0-16.0); LYMPHOCYTES % (AUTO) 30.3 % (20.5-51.1); MEAN CORPUSCULAR HEMOGLOBIN 23 pg (27-31); MEAN CORPUSCULAR HGB CONC 31 g/dL (33-37); MEAN CORPUSCULAR VOLUME 75.3 fL (80-94); MONOCYTES # (AUTO) 0.4 K/uL (0.8-1.0); MONOCYTES % (AUTO) 5.4 % (1.7-9.3); PLATELET COUNT (AUTO) 394 K/uL (140-450); RED BLOOD CELL COUNT(AUTO) 3.52 MIL/uL (4.20-5.40); WHITE BLOOD COUNT (AUTO) 6.6 K/uL (4.8-10.8)
[2021-02-28 06:00] LABS: ANION GAP 10.7 (8-16); CARBON DIOXIDE 29.8 mmol/L (21-32); POTASSIUM 3.5 mmol/L (3.5-5.1)
--- NOTE | 2021-02-28 07:15 | NUR ---
ENDORSED PATIENT TO AM NURSE FOR CONTINUITY OF CARE. PT IN STABLE CONDITION.
--- NOTE | 2021-02-28 07:41 | NUR ---
RECEIVED REPORT FROM NIGHT NURSE PT CAME WITH COMPLAIN OF CHEST PAIN AND SOB. DIAGNOSIS IS CHEST PAIN, PE, HYPOKALEMIA. HX ASTHMA, COPD. NKA, FULL COD, ON CARDIAC DIET. IV RIGHT AC GAUGE 18 SKIN IS INTACT. PT HAS MULTIPLE HOSPITALIZATIONS IN LAST FEW MONTHS. CAME FOR PERFORATED BOWEL IN OCTOBER, GI BLEED IN DECEMBER, AND DIVERTICULITIS IN DECEMBER. PT HAS CHRONIC BACK PAIN. VITALS ARE STABLE LABS ARE OK. WILL CONTINUE CURRENT PLAN OF CARE.
[2021-02-28 08:00] VITALS: BP 121/88
[2021-02-28] MEDS: GABAPENTIN 300 MG CAP PO SCH ×3 (08:08→16:19)
[2021-02-28] MEDS: FUROSEMIDE 20 MG TAB PO SCH (08:08)
[2021-02-28] MEDS: METOPROLOL 25 MG TAB PO SCH (08:08)
[2021-02-28] MEDS: LORazepam 0.5 MG TAB PO SCH (08:09)
--- NOTE | 2021-02-28 08:09 | NUR ---
ADMINISTERED SCHEDULED MEDICATION CHECK VITAL SIGNS PRIOR TO MEDICATION BP 121/88 MT 93 PATIENT COMPLAINS OF BACK PAIN AND CRYING, 9/10 AND FEELS ANXIOUS. GAVE MORPHINE 2 MG AND ATIVAN 0.5 MG. ENCOURAGE PT TO REST AND COMFORTED THE PATIENT. WILL CONTINUE TO MONITOR.
[2021-02-28] MEDS ORDERED: BECL10.62 INH (11:14)
[2021-02-28] MEDS ORDERED: APIX5TAB PO (11:14)
[2021-02-28] MEDS ORDERED: PRED20TA5 PO (11:14)
[2021-02-28 12:00] VITALS: BP 114/78
--- NOTE | 2021-02-28 12:21 | NUR ---
ADMINISTERED PRESCRIBED MEDICATIONS PER MD ORDER. PT REPORTED PAIN 8/10 MEDICATED WITH MORPHINE.
--- NOTE | 2021-02-28 13:14 | NUR ---
DC PLANNING: CM MET WITH THE PATIENT AT BEDSIDE. PATIENT HAS A RECENT H/O PE'S AND COPD. SHE HAS A PRIOR H/O HOME HEALTH BUT CAN'T REMEMBER THE AGENCY NAME. DME OF NEBULIZER, STATES HER PCP DR. PAINTER HAS ORDERED A REPLACEMENT FOR HER. PATIENT LIVES IN A GROUND FLOOR APARTMENT WITH HER SON, IS WORRIED ABOUT FINANCES SHE IS NOT WORKING AND HER SON IS HAVING ISSUES AT WORK. ENCOURAGED HER TO CALL HER HR DEPARTMENT TO DISCUSS BENEFITS, REAPPLY FOR UNEMPLOYMENT AND TO APPLY FOR CALFRESH. DR ARELLANO ROUNDED ON THE PATIENT AND ENDORSED THAT SHE NEEDS TO F/U OP WITH UROLOGY TO SCHEDULE HER OP CYSTOGRAM FOR HEMATURIA. PLAN IF FOR HER TO DC TO HOME TODAY, TECHNICIAN [employer] MAINTENANCE WILL PROVIDE A TAXI VOUCHER SHE DOESN'T HAVE A RIDE HOME. CM WILL FOLLOW FOR NEEDS. Addendum: 02/28/21 at 1554 by Aria Lobato CM DC PLANNING: TC FROM DR. ARELLANO, PATIENT STATING THAT HER INSURANCE HAS AND AND THAT HER ELIQUIS ISN'T COVERED. CM PROVIDED THE PATIENTS MEDICARE AND IE POLICY NUMBERS TO HER, SHE WAS ABLE TO GET HER ELIQUIS FILLED UNDER HER MEDICARE. CM LET DR ARELLANO KNOW, AND WILL FOLLOW FOR NEEDS.
--- NOTE | 2021-02-28 13:46 | NUR ---
02/28/21 RD INITIAL ASSESSMENT COMPLETED PLEASE REFER TO NUTRITION ASSESSMENT UNDER CARE ACTIVITY FOR ESTIMATED NUTRITIONAL NEEDS. 1. CONTINUE CARDIAC DIET TOLERATED 2. RD TO FOLLOW-UP 5-7 DAYS, LOW RISK LUCRECIA MOLINA RD
[2021-02-28 16:00] VITALS: BP 120/84
--- NOTE | 2021-02-28 16:20 | NUR ---
ADMINISTERED PRESCRIBED MEDICATIONS PER MD ORDER.
[2021-02-28] MEDS: HYDROcodone/APAP 5/325 MG 1 TAB TAB PO PRN (16:26)
--- NOTE | 2021-02-28 16:27 | NUR ---
PT REPORTED PAIN 4/10 MEDICATED WITH NARCO. WILL CONTINUE TO MONITOR PT.
--- NOTE | 2021-02-28 17:05 | NUR ---
DISCHARGED INSTRUCTIONS GIVEN TO PATIENT AT THE BEDSIDE AND INSTRUCTED TO FOLLOW UP WITH PCP AND UROLOGY AND ENCOURAGED TO CONTINUE MEDICATION PRESCRIBED. REMOVED TELEMONITOR AND RETURNED TO AMPOULE WASHING MACHINE OPERATOR, REMOVED ID BAND AND IV INTACT AND COMPLETE NO BLEEDING. CHANGED PATIENT OWN CLOTHES AND PATIENT TOOK ALL HER BELONGINGS. ANSWERED PATIENT QUESTIONS AND PT VERBALIZES UNDERSTANDING. PATIENT WAS DISCHARGED TO HOME AND RODE A MYLES CAB AUTHORIZED BY [employer]. ESCORTED PT TO FRONT LOBBY PT IS STABLE.
[2021-03-10] MEDS ORDERED: LORA-476 PO (06:04)
[2021-03-10] MEDS ORDERED: TEMA15CA24 PO (06:04)
[2021-03-10] MEDS ORDERED: METO25TA PO (06:04)
[2021-03-10] MEDS ORDERED: POTA10TE30 PO (06:04)
[2021-03-10] MEDS ORDERED: ATRO1TAB PO (06:04)
[2021-03-10] MEDS ORDERED: GABA100C PO (06:04)
[2021-03-10] MEDS ORDERED: IBUP-2213 PO (06:04)
[2021-03-10] MEDS ORDERED: FURO-570 PO (06:04)
[2021-03-10] MEDS ORDERED: ATRMDI INH (06:06)
[2021-03-11] MEDS ORDERED: CIPR500T4 PO (18:09)
[2021-03-12] MEDS ORDERED: CEPH250C16 PO ×2 (01:13→01:14)
[2021-03-12] MEDS ORDERED: [UNRECOGNIZED DRUG - CODE] PO (01:13)
== END 2021-02-28 17:00 | DRG 202 ==
LOC: MED 06:50 → MTU 12:24
PROVIDERS: ADMIT Internal Medicine; ATTEND Internal Medicine
DX: J45.901 Unspecified asthma with (acute) exacerbation (principal); I26.99 Other pulmonary embolism without acute cor pulmonale; E44.0 Moderate protein-calorie malnutrition; E87.6 Hypokalemia; D64.9 Anemia, unspecified; I25.10 Atherosclerotic heart disease of native coronary artery without angina pectoris; J44.9 Chronic obstructive pulmonary disease, unspecified; R19.7 Diarrhea, unspecified; R31.0 Gross hematuria; I10 Essential (primary) hypertension; F41.9 Anxiety disorder, unspecified; K57.90 Diverticulosis of intestine, part unspecified, without perforation or abscess without bleeding; Z86.711 Personal history of pulmonary embolism; Z91.09 Other allergy status, other than to drugs and biological substances; Z79.01 Long term (current) use of anticoagulants; Z79.899 Other long term (current) drug therapy; Z95.818 Presence of other cardiac implants and grafts; Z82.49 Family history of ischemic heart disease and other diseases of the circulatory system; Z79.2 Long term (current) use of antibiotics; Z68.24 Body mass index [BMI] 24.0-24.9, adult
CPT/HCPCS: 36415; 71045; 71275; 80048; 80053; 81001; 83690; 83735; 83880; 84484; 85025; 85379; 85610; 85730; 87081; 87086; 93005; 94640; 96361; 96365; 96366; 96367; 96375; 99285; J2270; J2405; J3475; J3480; Q9967

== ENCOUNTER 2021-04-29 12:41 | Emergency (ER) | payer OTHER ==
[~2021-04-29] VITALS: Ht 157.5 cm; Wt 68.9 kg
[~2021-04-29 12:41] MED LIST changes: +APIX5TAB PO; -APIX5TAB4 PO; +ATRMDI INH; +ATRO1TAB PO; +CEPH250C16 PO; +ESOM20EC PO; +FURO-570 PO; -FURO-572 PO; -IBUP100T6 PO; -LORA-476 PO; +LOVA20TA8 PO; -NORC10 PO; -PRED20TA5 PO; +TEMA15CA24 PO; +[UNRECOGNIZED DRUG - CODE] PO
[2021-04-29 12:52] VITALS: BP 141/79
--- NOTE | 2021-04-29 12:58 | NUR ---
PT TO AWAIT IN LOBBY
--- NOTE | 2021-04-29 14:17 | NUR ---
PT AMBULATED TO BED, STEADY GAIT
--- NOTE | 2021-04-29 14:28 | NUR ---
66 Y/O FEMALE C/O SOB, GEN WEAKNESS, PALPITATIONS X4 DAYS. PT STATES 7/10 ACHING PAIN. WITH N/V/D. DENIES ANY RECENT FEVER. PT STATES "I THINK MY POTASSIUM IS LOW". PT LUNG SOUNDS ARE CLEAR TO AUSCULTATION, SPO2 98% ON RA. PMH: COPD, CHF, DIVERTICULITIS, BOWEL RESECTION SEPTEMBER 2020 NKA
--- NOTE | 2021-04-29 15:38 | NUR ---
DR CRUZ AT BEDSIDE.
--- NOTE | 2021-04-29 15:48 | NUR ---
LAB BEDSIDE WITH PATIENT
[2021-04-29] MEDS: HYDROcodone/APAP 10/325 MG 1 TAB TAB PO ONE (16:02)
[2021-04-29] MEDS: diazePAM 5 MG TAB PO ONE (16:03)
[2021-04-29 16:32] LABS: ANION GAP 11.3 (8-16); CREATININE 0.9 mg/dL (0.6-1.3); POTASSIUM 3.3 mmol/L (3.5-5.1)
[2021-04-29 16:33] LABS: MAGNESIUM 2.1 mg/dL (1.8-2.4); PHOSPHORUS 3.3 mg/dL (2.5-4.9)
[2021-04-29] MEDS: POTASSIUM CHLORIDE 10 MEQ TABER PO SCH (17:45)
[2021-04-29] MEDS: MAGNESIUM OXIDE 400 MG TAB PO SCH (17:46)
[2021-04-29 17:48] VITALS: BP 124/71
== END 2021-04-29 17:48 | disposition home or self-care (01) ==
LOC: MED 12:41
DX: E87.6 Hypokalemia (principal); K52.9 Noninfective gastroenteritis and colitis, unspecified; F41.9 Anxiety disorder, unspecified; M79.18 Myalgia, other site; J44.9 Chronic obstructive pulmonary disease, unspecified; I10 Essential (primary) hypertension; E11.9 Type 2 diabetes mellitus without complications; Z95.5 Presence of coronary angioplasty implant and graft; Z98.890 Other specified postprocedural states; Z79.2 Long term (current) use of antibiotics; Z79.01 Long term (current) use of anticoagulants; Z79.899 Other long term (current) drug therapy; Z79.51 Long term (current) use of inhaled steroids; Z91.018 Allergy to other foods
CPT/HCPCS: 36415; 80048; 83735; 84100; 93005; 99284

== ENCOUNTER 2021-05-31 08:13 | Emergency (ER) | payer OTHER ==
[~2021-05-31] VITALS: Ht 157.5 cm; Wt 68.0 kg
[2021-05-31 08:19] VITALS: BP 191/90
--- NOTE | 2021-05-31 08:28 | NUR ---
C/O SOB, DIFF BREATHING ,COUGH X 1 WEEK AND 8/10 RIGHT RIB PAIN S/P FALL X 2 WEEKS. O2SAT 99% PMH: ASTHMA, COPD, BOWEL RESECTION, HTN, STENT
[2021-05-31] MEDS ORDERED: KETOROLAC 30 MG/ML VIAL IM ONE (08:30)
[2021-05-31] MEDS ORDERED: oxyCODONE/APAP 5/325 MG 1 TAB TAB PO ONE (08:30)
--- NOTE | 2021-05-31 08:45 | NUR ---
PT TAKEN TO XR VIA W/C.
--- NOTE | 2021-05-31 08:57 | NUR ---
PT TAKEN TO LOBBY VIA W/C.
[2021-05-31] MEDS ORDERED: LID5T TP (09:12)
[2021-05-31] MEDS ORDERED: HYDR-5191 PO (09:12)
[2021-05-31 09:19] VITALS: BP 175/89
--- NOTE | 2021-05-31 09:20 | NUR ---
Patient discharged with v/s stable. Written and verbal after care instructions given and explained. Patient alert, oriented and verbalized understanding of instructions. Ambulatory with steady gait. All questions addressed prior to discharge. ID band removed. Patient advised to follow up with PMD. Rx of NORCO, LIDODERM PATCH given. Patient educated on indication of medication including possible reaction and side effects. Opportunity to ask questions provided and answered.
== END 2021-05-31 09:20 | disposition home or self-care (01) ==
LOC: MED 08:13
DX: S22.31XA Fracture of one rib, right side, initial encounter for closed fracture (principal); G89.11 Acute pain due to trauma; I11.0 Hypertensive heart disease with heart failure; I50.9 Heart failure, unspecified; E11.9 Type 2 diabetes mellitus without complications; J44.9 Chronic obstructive pulmonary disease, unspecified; Z79.899 Other long term (current) drug therapy; Z98.890 Other specified postprocedural states; W19.XXXA Unspecified fall, initial encounter; Y93.89 Activity, other specified; Y92.89 Other specified places as the place of occurrence of the external cause; Y99.8 Other external cause status
CPT/HCPCS: 71101; 96372; 99283; J1885

== ENCOUNTER 2021-06-26 05:18 | Inpatient (IN) | payer OTHER, SELFPAY ==
[~2021-06-26] VITALS: Ht 157.5 cm; Wt 67.1 kg
--- NOTE | 2021-06-26 | NUR ---
BOWEL PREP STARTED. PT TOLERATING WELL. NO ACUTE DRUG REACTION NOTED. WILL CONTINUE TO MONITOR. Addendum: 06/27/21 at 0359 by Dany Ramirez RN TIME SHOULD BE 1349
[~2021-06-26 05:18] MED LIST changes: +HYDR-5191 PO; +LID5T TP
[2021-06-26 05:35] VITALS: BP 114/67
--- NOTE | 2021-06-26 05:40 | NUR ---
patient to lobby
[2021-06-26] MEDS ORDERED: DIPHENOXYLATE /ATROPINE 2.5 MG TAB PO ONE (06:25)
[2021-06-26] MEDS ORDERED: METOCLOPRAMIDE 10 MG/2 ML INJ VIAL IVP ONE (06:25)
[2021-06-26] MEDS: NACL 0.9% 1,000 ML IV SCH ×2 (07:11→07:14)
--- NOTE | 2021-06-26 07:30 | NUR ---
Pt report given to ORIANA. Transfer of care at this time.
[2021-06-26 07:31] LABS: BASOPHILS # (AUTO) 0.1 K/uL (0.00-0.22); BASOPHILS % (AUTO) 1.3 % (0.0-2.0); EOSINOPHILS # (AUTO) 0.2 K/uL (0-0.4); EOSINOPHILS % (AUTO) 2.4 % (0.0-4.0); HEMATOCRIT 22.5 % (36-48); LYMPHOCYTES % (AUTO) 26.4 % (20.5-51.1); MEAN CORPUSCULAR HEMOGLOBIN 17 pg (27-31); MEAN CORPUSCULAR HGB CONC 28 g/dL (33-37); MEAN CORPUSCULAR VOLUME 60.4 fL (80-94); MONOCYTES # (AUTO) 0.5 K/uL (0.8-1.0); NEUTROPHILS # (AUTO) 4.8 K/uL (1.8-7.7); NEUTROPHILS % (AUTO) 62.9 % (42.2-75.2); PLATELET COUNT (AUTO) 413 K/uL (140-450); RED BLOOD CELL COUNT(AUTO) 3.73 MIL/uL (4.20-5.40); RED CELL DISTRIBUTION WIDTH 21.4 % (11.6-13.7); WHITE BLOOD COUNT (AUTO) 7.6 K/uL (4.8-10.8)
[2021-06-26 07:51] LABS: ALBUMIN 3.2 g/dL (3.4-5.0); ANION GAP 13.9 (8-16); CARBON DIOXIDE 22.1 mmol/L (21-32); CREATININE 0.9 mg/dL (0.6-1.3); TOTAL BILIRUBIN 0.4 mg/dL (0.0-1.0)
[2021-06-26] MEDS ORDERED: diphenhydrAMINE 50 MG/ML VIAL IM ONE (08:00)
[2021-06-26 08:15] LABS: HEMOGLOBIN 6.3 g/dL (12.0-16.0)
[2021-06-26] MEDS ORDERED: HYDROcodone/APAP 10/325 MG 1 TAB TAB PO ONE (09:15)
[2021-06-26] MEDS ORDERED: ACETAMINOPHEN 325 MG TAB PO PRN (10:15)
[2021-06-26] MEDS ORDERED: guaiFENesin DM 200/20 MG-10 ML 10 ML UDC PO PRN (10:15)
[2021-06-26] MEDS ORDERED: DOCUSATE SODIUM 100 MG GELCAP PO PRN (10:15)
[2021-06-26] MEDS ORDERED: POTASSIUM CHLORIDE 10 MEQ TABER PO PRN (10:15)
[2021-06-26 11:07] LABS: CHOL/HDL RATIO 3.3 (1-4.5); FREE T4 (FREE THYROXINE) 0.7 ng/dL (0.76-1.46); MAGNESIUM 1.8 mg/dL (1.8-2.4); PHOSPHORUS 3.4 mg/dL (2.5-4.9); THYROID STIMULATING HORMONE 2.05 uIU/mL (0.34-3.74)
[2021-06-26 11:10] LABS: PROTHROMBIN TIME 10.4 secs (10.8-13.4)
--- NOTE | 2021-06-26 12:42 | NUR ---
RONALDO AND MRSA SWAB COLLECTED AND HANDED TO PLUMBER'S ASSISTANT.
--- NOTE | 2021-06-26 12:46 | NUR ---
Pt moved to bed 09.
--- NOTE | 2021-06-26 12:46 | NUR ---
UA SENT TO LAB, PT ATE 100% LUNCH
[2021-06-26] MEDS: HYDROcodone/APAP 7.5/325 MG 1 TAB PO PRN ×3 (13:14→23:50)
--- NOTE | 2021-06-26 13:15 | NUR ---
PATIENT C/O 02/06 PAIN, MEDICATED WITH PRN NORCO ORDERED.
[2021-06-26 13:20] LABS: APPEARANCE,URINE CLEAR (CLEAR); BILIRUBIN,URINE NEGATIVE (NEGATIVE); BLOOD, URINE NEGATIVE (NEGATIVE); COLOR,URINE YELLOW (YELLOW); LEUKOCYTE ESTERASE ,URINE NEGATIVE (NEGATIVE); NITRITE, URINE NEGATIVE (NEGATIVE); UGLUCOSE NEGATIVE (NEGATIVE)
[2021-06-26 13:25] LABS: BARBITURATE, URINE NEGATIVE ng/ml (NEG <=200); BENZODIAZEPINE, URINE POSITIVE ng/mL (NEG <=200); CANNABINOID, URINE NEGATIVE ng/mL (NEG <=50); COCAINE, URINE NEGATIVE ng/mL (NEG <=300); OPIATE, URINE POSITIVE ng/mL (NEG <=2000); PHENCYCLIDINE SCREEN,URINE NEGATIVE ng/mL (NEG <=25)
[2021-06-26] MEDS: DEXT 5% /NACL 0.9% 1,000 ML IV SCH (13:35)
--- NOTE | 2021-06-26 13:51 | NUR ---
66/F PRESENTS TO ED WITH C/O N/V/D X3 DAYS. PATIENT STATES SHE HAS BEEN HAVING THESE FEELINGS CHRONICALLY X1 YEAR S/P A BOWEL RESECTION. PATIENT STATES SYMPTOMS HAVE BEEN WORSENING THE LAST 3 DAYS AND SHE HAS BEEN UNABLE TO FIND RELIEF. PATIENT REPORTS TAKING ZOFRAN AND PROMETHAZINE WITH NO RELIEF. PATIENT ALSO C/O INTERMITTENT THROBBING 7/10 HEADACHE. DENIES CP, SOB, FEVERS OR URINARY SYMPTOMS.
--- NOTE | 2021-06-26 15:30 | NUR ---
PATIENT AMBULATED TO RESTROOM WITH STEADY GAIT
--- NOTE | 2021-06-26 16:52 | NUR ---
PER CLS, THEY WERE UNAWARE OF PATIENT HAVING POSITIVE ANTIBODIES IN BLOOD, UNITS NEEDED TO BE REORDERED THROUGH [facility], STATE THEY ARE UNSURE WHAT TIME BLOOD WILL ARRIVE.
--- NOTE | 2021-06-26 18:35 | NUR ---
PATIENT C/O 02/06 PAIN, MEDICATED WITH PRN NORCO ORDERED.
--- NOTE | 2021-06-26 18:49 | NUR ---
PATIENT PROVIDED WITH DINNER TRAY, PATIENT SITTING UP IN BED EATING. ALL NEEDS MET AT THIS TIME.
[2021-06-26] MEDS: ONDANSETRON 4 MG/2 ML VIAL IM/IVP PRN (19:07)
--- NOTE | 2021-06-26 19:07 | NUR ---
PATIENT C/O NAUSEA, MEDICATED WITH ZOFRAN PRN ORDERED.
[2021-06-26] MEDS ORDERED: FURO-572 PO (19:12)
[2021-06-26] MEDS ORDERED: POTA8TAB19 PO (19:12)
--- NOTE | 2021-06-26 19:21 | NUR ---
Pt report given to ENRIQUE URENA. Transfer of care at this time.
--- NOTE | 2021-06-26 19:21 | NUR ---
Received report from Charlene NUNEZ for continuity of care.
--- NOTE | 2021-06-26 19:22 | NUR ---
Patient appears to be resting comfortably in bed-- semi fowlers, awake, reading a book. Vital Signs within normal limits. No signs of distress noted but patient did c/o pain and nausea patient had received zofran and norco less than 30 minutes ago. patient fluids running through IV. Safety measures are in place, attached to the monitor, and will continue to monitor patient.
--- NOTE | 2021-06-26 19:59 | NUR ---
called lab about updates on progress of the new blood still awaiting for blood to be received.
--- NOTE | 2021-06-26 20:15 | NUR ---
called for report-- no answer at this time.
[2021-06-26] MEDS: METOPROLOL 50 MG TAB PO SCH (22:05)
[2021-06-26] MEDS: GABAPENTIN 100 MG CAP PO SCH (22:05)
--- NOTE | 2021-06-26 22:08 | NUR ---
YOUNG DONNELLY CALLED REQUESTING UPDATE [phone]
--- NOTE | 2021-06-26 22:26 | NUR ---
Patient will be admitted to care of Magali BROWER. Admited to Med/Surg. Will go to room 120a. Belongings list completed. Report to Dany NUNEZ.
--- NOTE | 2021-06-26 22:47 | NUR ---
patient tx to the floor via w/c
[2021-06-26 22:50] VITALS: BP 129/70
--- NOTE | 2021-06-26 22:50 | NUR ---
RECEIVED PT FROM ER NURSE VIA FOR CONTINUITY OF CARE. PT A&O X4 . ON ROOM AIR. SKIN WARM,DRY AND INTACT. PT AMBULATORY WITH IV ON HER RIGHT AC. PT ORIENTED TO ROOM AND CALL LIGHT. ALL PRECAUTIONS IN PLACE. WILL CONTINUE TO MONITOR.
[2021-06-26] MEDS ORDERED: SUPREP BOWEL PREP KIT 354 ML SOLN.RECON PO SCH (23:25)
[2021-06-26] MEDS ORDERED: bisacodyL 5 MG TABEC PO SCH (23:25)
--- NOTE | 2021-06-26 23:30 | NUR ---
BOWEL PREP STARTED. PT TOLERATING WELL. NO ACUTE DRUG REACTION NOTED. WILL CONTINUE TO MONITOR
--- NOTE | 2021-06-26 23:35 | NUR ---
CALLED BLOOD BANK IF THE BLOOD FOR PT IS READY. THEY SAID THEY ARE STILL WAITING FOR THE CORRECT BLOOD TYPE AND ANTIBODY TO BE DELIVERED TO THEM.WILL FOLLOW UP AGAIN LATER.
--- NOTE | 2021-06-27 02:15 | NUR ---
WENT TO LAB TO CHECK IF BLOOD IS READY. THEY SAID NOT YET AND WILL CALL ONCE IT IS READY. CHECKED PT CHART IF THERE IS A CONSENT FOR BT. I DID NOT SEE ANY CONSENT SIGNED. CHARGE NURSE INFORMED AND CALLED ER.
[2021-06-27] MEDS: DEXT 5% /NACL 0.9% 1,000 ML IV SCH ×2 (02:55→19:35)
[2021-06-27] MEDS ORDERED: bisacodyL 5 MG TABEC PO SCH (03:00)
--- NOTE | 2021-06-27 03:00 | NUR ---
GIVEN SCHEDULED MEDICATIONS. PT REFUSING TO DRINK 2ND BOTTLE OF SUPREP. ENCOURAGED PT AND EDUCATED. PT VERBALIZED UNDERSTANDING.
--- NOTE | 2021-06-27 03:05 | NUR ---
COMPLAINED OF BACK PAIN. PRN PAIN MEDICATION GIVEN. NO DISTRESS NOTED.WILL CONTINUE TO MONITOR.
[2021-06-27 04:00] VITALS: BP 126/67
[2021-06-27] MEDS: HYDROcodone/APAP 7.5/325 MG 1 TAB PO PRN ×4 (04:05→22:10)
--- NOTE | 2021-06-27 04:45 | NUR ---
WENT TO LAB AGAIN TO CHECK FOR AVAILABILITY OF BLOOD. I WAS TOLD IT STILL IN THE PROCESS. WILL ENDORSE TO AM SHIFT NURSE
[2021-06-27] MEDS: ONDANSETRON 4 MG/2 ML VIAL IM/IVP PRN ×2 (06:35→10:32)
[2021-06-27 06:40] LABS: ANION GAP 17.2 (8-16); CARBON DIOXIDE 21.7 mmol/L (21-32); CREATININE 0.8 mg/dL (0.6-1.3); POTASSIUM 3.9 mmol/L (3.5-5.1)
[2021-06-27 06:46] LABS: BASOPHILS # (AUTO) 0.1 K/uL (0.00-0.22); BASOPHILS % (AUTO) 1.1 % (0.0-2.0); EOSINOPHILS # (AUTO) 0.2 K/uL (0-0.4); EOSINOPHILS % (AUTO) 2.7 % (0.0-4.0); LYMPHOCYTES # (AUTO) 2.1 K/uL (2.5-16.5); LYMPHOCYTES % (AUTO) 24.7 % (20.5-51.1); MEAN CORPUSCULAR HEMOGLOBIN 17 pg (27-31); MEAN CORPUSCULAR HGB CONC 28 g/dL (33-37); MEAN CORPUSCULAR VOLUME 59.8 fL (80-94); MONOCYTES # (AUTO) 0.7 K/uL (0.8-1.0); NEUTROPHILS # (AUTO) 5.4 K/uL (1.8-7.7); NEUTROPHILS % (AUTO) 63.5 % (42.2-75.2); PLATELET COUNT (AUTO) 435 K/uL (140-450); RED BLOOD CELL COUNT(AUTO) 3.51 MIL/uL (4.20-5.40); WHITE BLOOD COUNT (AUTO) 8.5 K/uL (4.8-10.8)
[2021-06-27 07:07] LABS: T4 (THYROXINE) 4.7 ug/dL (4.5-12.0)
--- NOTE | 2021-06-27 07:25 | NUR ---
ENDORSED TO AM SHIFT NURSE FOR CONTINUITY OF CARE. PT IS STABLE
[2021-06-27 07:47] LABS: HEMOGLOBIN 5.9 g/dL (12.0-16.0)
[2021-06-27 08:00] VITALS: BP 129/67
[2021-06-27] MEDS ORDERED: SODIUM PHOSPHATE 118 ML ENEM RC SCH (08:00)
[2021-06-27] MEDS: METOPROLOL 50 MG TAB PO SCH ×2 (09:00→21:12)
--- NOTE | 2021-06-27 09:01 | NUR ---
PATIENT HAS BEEN SCREENED AND CATEGORIZED HIGH NUTRITION RISK. PATIENT WILL BE SEEN WITHIN 1-2 DAYS OF ADMISSION. 06/27/21-06/28/21 REVIEWED BY JOSEPH NEGRETE RD
[2021-06-27] MEDS: GABAPENTIN 100 MG CAP PO SCH ×2 (09:45→21:13)
[2021-06-27] MEDS: PANTOPRAZOLE 40 MG TABEC PO SCH (09:45)
--- NOTE | 2021-06-27 09:49 | NUR ---
SCHEDULED MEDS GIVEN ORDERED. WILL CONTINUE TO MONITOR
--- NOTE | 2021-06-27 10:33 | NUR ---
PATIENT COMPLAINS OF NAUSEA, ZOFRAN GIVEN AT THIS TIME. WILL CONTINUE TO MONITOR.
--- NOTE | 2021-06-27 11:10 | NUR ---
BLOOD TRANFUSION INITIATED PER MD ORDER. VITAL SIGNS STABLE AT THIS TIME, WILL CONTINUE TO MONITOR
--- NOTE | 2021-06-27 12:27 | NUR ---
06/27/21 RD INITIAL ASSESSMENT COMPLETED PLEASE REFER TO NUTRITION ASSESSMENT UNDER CARE ACTIVITY FOR ESTIMATED NUTRITIONAL NEEDS. 1. CONTINUE NPO MEDICALLY APPROPRIATE 2. WHEN MEDICALLY APPROPRIATE, CONSIDER ADVANCING TO REGULAR DIET 3.RD TO FOLLOW-UP 2-3 DAYS, HIGH RISK REVIEWED BY JOSEPH NEGRETE RD
[2021-06-27] MEDS ORDERED: fentaNYL citrate 0.05 MG/ML VIAL ONE (14:06)
[2021-06-27] MEDS ORDERED: MIDAZOLAM 5 MG/5 ML VIAL ONE (14:07)
[2021-06-27] MEDS ORDERED: diphenhydrAMINE 50 MG/ML VIAL ONE (14:28)
[2021-06-27] MEDS ORDERED: MEPERIDINE 50 MG/ML SYR ONE (14:28)
--- NOTE | 2021-06-27 14:30 | NUR ---
OR NURSES AT BEDSIDE TO TAKE PATIENT.
[2021-06-27] MEDS ORDERED: MIDAZOLAM 2 MG/2 ML VIAL IVP ONE (16:50)
[2021-06-27] MEDS ORDERED: MEPERIDINE 50 MG/ML SYR IVP PRN (16:50)
[2021-06-27] MEDS ORDERED: diphenhydrAMINE 50 MG/ML VIAL IVP ONE (16:50)
--- NOTE | 2021-06-27 17:53 | NUR ---
PT RESTING IN BED, ALERT AND AWAKE. RESPIRATIONS EVEN AND UNLABORED. CALL LIGHT PLACED WITHIN EASY REACH. WILL CONTINUE TO MONITOR.
[2021-06-27] MEDS ORDERED: diphenhydrAMINE 50 MG/ML VIAL IVP SCH (18:00)
[2021-06-27] MEDS ORDERED: MIDAZOLAM 2 MG/2 ML VIAL IVP SCH (18:00)
--- NOTE | 2021-06-27 19:01 | NUR ---
PT IN BED, A/OX4. RESPIRATION EVEN AND UNLABORED. DENIES PAIN AT THIS TIME. CALL LIGHT WITHIN REACH. ALL SAFETY MEASURES IN PLACE
--- NOTE | 2021-06-27 19:38 | NUR ---
GAVE REPORT TO PULVERIZER OPERATOR NURSE FOR CONTINUITY OF CARE. PATIENT IN STABLE CONDITION.
--- NOTE | 2021-06-27 19:40 | NUR ---
RECEIVED PT FROM AM SHIFT NURSE FOR CONTINUITY OF CARE. PT AWAKE, ALERT AND ORIENTED. PT ON ROOM AIR. WITH IV ON RIGHT FA, INFUSING WELL. SKIN WARM, DRY AND INTACT.ALL PRECAUTIONS IN PLACE. WILL CONTINUE TO MONITOR.
[2021-06-27 20:00] VITALS: BP 122/65
--- NOTE | 2021-06-27 21:00 | NUR ---
SCHEDULED MEDS GIVEN ORDERED. NO DISTRESS NOTED.WILL CONTINUE TO MONITOR
--- NOTE | 2021-06-27 22:15 | NUR ---
PT COMPLAINED OF PAIN ON BACK. PRN PAIN MEDICATION GIVEN. WILL CONTINUE TO MONITOR.
--- NOTE | 2021-06-28 01:15 | NUR ---
PT COMPLAINED THAT SHE CAN'T SLEEP AND REQUESTED FOR SLEEP MEDICATION.PRN AMBIEN GIVEN. PT TOLERATED WELL.WILL CONTINUE TO MONITOR.
[2021-06-28] MEDS: ZOLPIDEM 5 MG TAB PO PRN (01:34)
--- NOTE | 2021-06-28 03:15 | NUR ---
PT ASLEEP.BREATHING EQUAL AND UNLABORED. CALL LIGHT WITHIN REACH. WILL CONTINUE TO MONITOR.
[2021-06-28 04:00] VITALS: BP 115/72
--- NOTE | 2021-06-28 06:26 | NUR ---
PT IS STABLE. NO ACUTE EVENTS THROUGHOUT THE NIGHT.NO S/SX OF DISTRESS. NO OTHER COMPLAINS AT THIS TIME.ALL NEEDS MET.ALL PRECAUTIONS IN PLACE.WILL ENDORSE TO AM SHIFT NURSE.
[2021-06-28 07:22] LABS: BASOPHILS # (AUTO) 0.1 K/uL (0.00-0.22); BASOPHILS % (AUTO) 1.4 % (0.0-2.0); EOSINOPHILS # (AUTO) 0.2 K/uL (0-0.4); EOSINOPHILS % (AUTO) 2.5 % (0.0-4.0); HEMATOCRIT 22.7 % (36-48); LYMPHOCYTES # (AUTO) 1.7 K/uL (2.5-16.5); MEAN CORPUSCULAR HEMOGLOBIN 19 pg (27-31); MEAN CORPUSCULAR HGB CONC 30 g/dL (33-37); MEAN CORPUSCULAR VOLUME 63.7 fL (80-94); MONOCYTES # (AUTO) 0.5 K/uL (0.8-1.0); MONOCYTES % (AUTO) 8.3 % (1.7-9.3); NEUTROPHILS % (AUTO) 61.8 % (42.2-75.2); PLATELET COUNT (AUTO) 381 K/uL (140-450); RED BLOOD CELL COUNT(AUTO) 3.56 MIL/uL (4.20-5.40); RED CELL DISTRIBUTION WIDTH 25.7 % (11.6-13.7); WHITE BLOOD COUNT (AUTO) 6.5 K/uL (4.8-10.8)
--- NOTE | 2021-06-28 07:23 | NUR ---
RECEIVED REPORT FROM ELECTRIC POWERLINE EXAMINER NURSE FOR CONTINUITY OF CARE. BREATHING SYMMETRICAL. NO S/S OF DISTRESS. CALL LIGHT IN REACH. ALL SAFETY MEASURES IN PLACE
[2021-06-28 07:27] LABS: ANION GAP 13.2 (8-16); CARBON DIOXIDE 23.3 mmol/L (21-32); CREATININE 0.8 mg/dL (0.6-1.3); POTASSIUM 3.5 mmol/L (3.5-5.1)
[2021-06-28 07:33] LABS: HEMOGLOBIN 6.7 g/dL (12.0-16.0)
[2021-06-28] MEDS: PANTOPRAZOLE 40 MG TABEC PO SCH (08:48)
[2021-06-28] MEDS: GABAPENTIN 100 MG CAP PO SCH ×2 (08:48→21:48)
[2021-06-28] MEDS: HYDROcodone/APAP 7.5/325 MG 1 TAB PO PRN ×3 (08:50→18:03)
[2021-06-28] MEDS: METOPROLOL 50 MG TAB PO SCH ×2 (08:50→21:00)
--- NOTE | 2021-06-28 10:00 | NUR ---
SCHEDULED MEDICATIONS GIVEN PER MD ORDER. NEW ORDER FOR 1U PRBC FOR HGB 6.7, PT MADE AWARE. NO DISTRESS NOTED AT THIS TIME. RESPIRATION EVEN AND UNLABORED. CALL LIGHT WITHIN REACH. ALL SAFETY MEASURES IN PLACE
--- NOTE | 2021-06-28 10:21 | NUR ---
DC PLANNING: PATIENT PRESENTED WITH GI BLEED, GI ORDERED FOR POSSIBLE SCOPE. PATIENT LIVES IN A FIRST FLOOR APARTMENT WITH HER SON, INDEPENDENT IN ALL ACTIVITIES, NO PRIOR HOME HEALTH OR DME. SEEN BY PLara., CLEARED WITHOUT DC NEEDS IDENTIFIED. DCP IS TO RETURN HOME WHEN STABLE, CM WILL FOLLOW FOR NEEDS.
[2021-06-28 12:00] VITALS: BP 112/70
[2021-06-28] MEDS: LORazepam 1 MG TAB PO PRN ×2 (12:00→18:03)
--- NOTE | 2021-06-28 12:00 | NUR ---
PT STATED FEELINGS OF ANXIETY. PT MEDICATED PER MD ORDER. PT VERBALIZED UNDERSTANDING OF EDUCATION. NO S/S OF DISTRESS. CALL LIGHT IN REACH. ALL SAFETY MEASURES IN PLACE
[2021-06-28] MEDS: DEXT 5% /NACL 0.9% 1,000 ML IV SCH (12:38)
--- NOTE | 2021-06-28 13:20 | NUR ---
PT PBRC READY. IV LEAKING, NEW IV TO BE INSERTED AND BLOOD STARTED. PT STABLE. NO S/S OF DISTRESS. CALL LIGHT IN REACH. ALL SAFETY MEASURES IN PLACE.
--- NOTE | 2021-06-28 14:39 | NUR ---
BLOOD ADMINISTRATION BEGAN AT 1425. NO S/S OF DISTRESS. BREATHING SYMMETRICAL. CALL LIGHT IN REACH. NURSE AT BEDSIDE.
--- NOTE | 2021-06-28 17:30 | NUR ---
BLOOD ADMINISTRATION ENDED. PT STABLE. NO S/S OF DISTRESS. CALL LIGHT IN REACH. ALL SAFETY MEASURES IN PLACE
--- NOTE | 2021-06-28 18:03 | NUR ---
PT STATED FEELINGS OF ANXIETY. PT MEDICATED PER MD ORDER. PT VERBALIZED UNDERSTANDING OF EDUCATION. NO S/S OF DISTRESS. CALL LIGHT IN REACH. ALL SAFETY MEASURES IN PLACE Addendum: 06/28/21 at 1909 by Timmy Raines RN RN PT REPORTED PAIN 12/07. MEDICATED FOR PAIN
--- NOTE | 2021-06-28 19:35 | NUR ---
RECEIVED REPORT AT BEDSIDE FOR CONTINUITY OF CARE, PT IN STABLE CONDITION. ALL UNIVERSAL FALLS PRECAUTIONS IN PLACE.
--- NOTE | 2021-06-28 19:48 | NUR ---
ENDORSED PT TO CORONARY CLINICAL SPECIALIST NURSE
[2021-06-28 20:00] VITALS: BP 107/70
--- NOTE | 2021-06-28 20:35 | NUR ---
PT IN BED AOX4 AND ON ROOM AIR. SHE HAS A 22 GUAGE ON THE RIGHT WRIST RUNNING D5N/S AT 60MLS/HR. SHE DENIES ANY PAIN OR DISCOMFORT V/S FOLLOWS: T 98.3 P 79 R 18 B/P 107/70 02 97% ON ROOM AIR. ALL UNIVERSAL FALLS PRECAUTIONS IN PLACE.
--- NOTE | 2021-06-28 21:40 | NUR ---
PT LOPRESSOR HELD DUE TO LOW B/P PT VERBALIZED UNDERSTANDING. PT ALSO GIVEN NEURONTIN FOR CHRONIC BACK PAIN, PT VERBALIZED UNDERSTANDING. PLAN OF CARE REVIEWED WITH PT, SHE VERBALIZED UNDERSTANDING.
--- NOTE | 2021-06-28 23:30 | NUR ---
ROUNDS DONE, PT IN BED ASLEEP, NO S/S OF PAIN OR DISTRESS NOTED. IV FLUIDS CONTINUE AT D5 N/S AT 60MLS/HR. ALL UNIVERSAL FALLS PRECAUTIONS IN PLACE.
[2021-06-29] MEDS: ZOLPIDEM 5 MG TAB PO PRN (02:26)
--- NOTE | 2021-06-29 02:30 | NUR ---
PT AWOKE AND WENT TO THE TOILET, SHE WAS GIVEN AMBIEN TO HELP HER GO BACK TO SLEEP PER REQUEST. FLUIDS CONTINUE ORDERED AND ALL UNIVERSAL FALLS PRECAUTIONS IN PLACE.
[2021-06-29 04:00] VITALS: BP 110/70
--- NOTE | 2021-06-29 04:30 | NUR ---
PT IN BED NO C/O VOICED V/S FOLLOWS: T 98.1 P 80 R 18 B/P 110/70 02 98% ON ROOM AIR. D5 NS RUNNING AT 60MLS/ ORDERED. ALL ORDERED PRECAUTIONS IN PLACE.
[2021-06-29] MEDS: DEXT 5% /NACL 0.9% 1,000 ML IV SCH (04:55)
[2021-06-29 07:26] LABS: BASOPHILS # (AUTO) 0.1 K/uL (0.00-0.22); BASOPHILS % (AUTO) 1.1 % (0.0-2.0); EOSINOPHILS # (AUTO) 0.2 K/uL (0-0.4); EOSINOPHILS % (AUTO) 3.6 % (0.0-4.0); HEMATOCRIT 24.8 % (36-48); HEMOGLOBIN 7.7 g/dL (12.0-16.0); LYMPHOCYTES # (AUTO) 1.2 K/uL (2.5-16.5); LYMPHOCYTES % (AUTO) 27.2 % (20.5-51.1); MEAN CORPUSCULAR HEMOGLOBIN 21 pg (27-31); MEAN CORPUSCULAR HGB CONC 31 g/dL (33-37); MEAN CORPUSCULAR VOLUME 66.4 fL (80-94); MONOCYTES # (AUTO) 0.4 K/uL (0.8-1.0); MONOCYTES % (AUTO) 8.9 % (1.7-9.3); NEUTROPHILS # (AUTO) 2.7 K/uL (1.8-7.7); NEUTROPHILS % (AUTO) 59.2 % (42.2-75.2); PLATELET COUNT (AUTO) 363 K/uL (140-450); RED BLOOD CELL COUNT(AUTO) 3.74 MIL/uL (4.20-5.40); RED CELL DISTRIBUTION WIDTH 30.7 % (11.6-13.7); WHITE BLOOD COUNT (AUTO) 4.5 K/uL (4.8-10.8)
--- NOTE | 2021-06-29 07:28 | NUR ---
RECEIVED REPORT FROM BULK INTAKE WORKER NURSE FOR CONTINUITY OF CARE. PT IS IN BED AT THIS TIME READING A BOOK. RESPIRATIONS ARE EVEN AND UNLABORED. NO SIGNS OF DISTRESS NOTED. PT IS COMPLAINING OF PAIN, RATING 6/10. WILL MEDICATE. CALL LIGHT WITHIN REACH. ALL SAFETY MEASURES IN PLACE. WILL CONTINUE TO MONITOR.
[2021-06-29 07:31] LABS: ANION GAP 12.3 (8-16); CARBON DIOXIDE 23.2 mmol/L (21-32); CREATININE 0.7 mg/dL (0.6-1.3); POTASSIUM 3.5 mmol/L (3.5-5.1)
[2021-06-29 08:00] VITALS: BP 133/86
[2021-06-29] MEDS: PANTOPRAZOLE 40 MG TABEC PO SCH (08:12)
[2021-06-29] MEDS: METOPROLOL 50 MG TAB PO SCH (08:13)
[2021-06-29] MEDS: GABAPENTIN 100 MG CAP PO SCH (08:13)
[2021-06-29] MEDS: HYDROcodone/APAP 7.5/325 MG 1 TAB PO PRN ×2 (08:14→12:45)
--- NOTE | 2021-06-29 08:14 | NUR ---
ADMINISTERED ALL SCHEDULED MEDICATIONS. EDUCATED PT ON MEDS ADMINISTERED. PT VERBALIZED UNDERSTANDING. PT TOLERATED WELL. WILL CONTINUE TO MONITOR.
--- NOTE | 2021-06-29 08:15 | NUR ---
PT COMPLAIN OF PAIN. STATED PAIN WAS 6/10. MEDICATED PT AND WILL RE EVALUATE PAIN. WILL CONTINUE TO MONITOR.
--- NOTE | 2021-06-29 09:15 | NUR ---
PT IN BED SLEEPING AT THIS TIME. RESPIRATIONS ARE EVEN AND UNLABORED. NO SIGNS OF DISTRESS NOTED. WILL CONTINUE TO MONITOR.
[2021-06-29] MEDS: LORazepam 1 MG TAB PO PRN (09:43)
[2021-06-29] MEDS ORDERED: ASCO500C20 PO (10:23)
[2021-06-29] MEDS ORDERED: FERR-212 PO (10:23)
--- NOTE | 2021-06-29 12:45 | NUR ---
PT AWAKE, AND COMPLAINING OF PAIN TO HER BACK. PT RATES PAIN 6/10. PT STATES SHE ATTEMPTED TO REPOSITION HOWEVER IT DID NOT HELP AT ALL. PT MEDIATED. WILL RE EVALUATE PAIN IN 1 HOUR. WILL CONTINUE TO MONITOR.
--- NOTE | 2021-06-29 12:55 | NUR ---
06/29/21 RD F/U COMPLETED PLEASE REFER TO NUTRITION ASSESSMENT UNDER CARE ACTIVITY FOR ESTIMATED NUTRITIONAL NEEDS. 1.CONTINUE REGULAR DIET TOLERATED 2.PROVIDE NUTRITION ED FOR DIARRHEA 3.RD TO FOLLOW-UP 3-5 DAYS, MODERATE RISK REVIEWED BY RUY GUNDERSON RD
--- NOTE | 2021-06-29 12:55 | NUR ---
DISCHARGE ORDER IN PLACE. INFORMED PT OF DISCHARGE. PT STATED SHE IS HAPPY TO BE GOING HOME, AND THAT HER SON WILL BE PICKING HER UP. WILL BEGIN DISCHARGE PAPERWORK.
[2021-06-29 13:53] VITALS: BP 133/86
--- NOTE | 2021-06-29 14:18 | NUR ---
WENT OVER DISCHARGE PAPERWORK WITH PT. ANSWERED ALL QUESTIONS. PT SIGNED ALL PAPERWORK. IV REMOVED, IV CATHETER REMOVED. WRIST BAND REMOVED. ALL BELONGINGS TAKEN UPON DISCHARGE. PT LEFT UNIT VIA WHEELCHAIR.
[2021-06-29] MEDS ORDERED: DOCU-299 PO (15:02)
[2021-07-02 09:06] LABS: IMMUNOGLOBULIN A 146 mg/dL (87-352); IMMUNOGLOBULIN G 638 mg/dL (586-1602); IMMUNOGLOBULIN M 65 mg/dL (26-217)
[2021-07-02 09:29] LABS: FERRITIN 8 ng/mL (15 - 150)
[2021-07-02 15:06] LABS: LACTATE DEHYDROGENASE 148 IU/L (119-226)
[2021-07-06 06:08] LABS: LD1 FRACTION 21 % (17-32); LD3 FRACTION 21 % (17-27); LD4 FRACTION 8 % (5-13); LD5 FRACTION 8 % (4-20)
== END 2021-06-29 14:17 | disposition home or self-care (01) | DRG 368 ==
LOC: MED 05:18 → MTU 12:15
PROVIDERS: ADMIT Family Medicine; ATTEND Family Medicine
PROC: 0DB98ZX Excision of Duodenum, Via Natural or Artificial Opening Endoscopic, Diagnostic (ICD-10-PCS; principal; 2021-06-26)
PROC: 0DB78ZX Excision of Stomach, Pylorus, Via Natural or Artificial Opening Endoscopic, Diagnostic (ICD-10-PCS; 2021-06-26)
PROC: 0DJD8ZZ Inspection of Lower Intestinal Tract, Via Natural or Artificial Opening Endoscopic (ICD-10-PCS; 2021-06-26)
PROC: 30233N1 Transfusion of Nonautologous Red Blood Cells into Peripheral Vein, Percutaneous Approach (ICD-10-PCS; 2021-06-28)
DX: K20.91 Esophagitis, unspecified with bleeding (principal); K29.71 Gastritis, unspecified, with bleeding; K57.31 Diverticulosis of large intestine without perforation or abscess with bleeding; G93.41 Metabolic encephalopathy; E44.1 Mild protein-calorie malnutrition; K56.609 Unspecified intestinal obstruction, unspecified as to partial versus complete obstruction; E78.2 Mixed hyperlipidemia; I10 Essential (primary) hypertension; Z20.822 Contact with and (suspected) exposure to COVID-19; J44.9 Chronic obstructive pulmonary disease, unspecified; K66.0 Peritoneal adhesions (postprocedural) (postinfection); F41.9 Anxiety disorder, unspecified; D50.9 Iron deficiency anemia, unspecified; I25.10 Atherosclerotic heart disease of native coronary artery without angina pectoris; E86.0 Dehydration; K22.70 Barrett's esophagus without dysplasia; Z88.8 Allergy status to other drugs, medicaments and biological substances; Z79.899 Other long term (current) drug therapy; Z86.711 Personal history of pulmonary embolism; Z95.5 Presence of coronary angioplasty implant and graft
CPT/HCPCS: 36415; 36430; 71045; 80048; 80053; 80305; 81003; 82150; 82607; 82728; 82746; 83010; 83021; 83036; 83540; 83625; 83690; 83735; 83880; 84100; 84165; 84436; 84439; 84443; 84479; 84484; 85025; 85045; 85610; 85730; 86334; 86886; 86900; 86901; 86920; 87081; 88305; 88312; 88313; 88342; 96361; 96374; 99285; J1200; J2175; J2250; J2405; J2765; J3010; J7030; P9016

== ENCOUNTER 2021-10-08 22:48 | Observation (INO) | payer OTHER ==
[~2021-10-08] VITALS: Ht 157.5 cm; Wt 64.9 kg
[~2021-10-08 22:48] MED LIST changes: -APIX5TAB PO; +ASCO500C20 PO; +DOCU-299 PO; +FERR-212 PO; -GABA100C PO; +POTA8TAB19 PO; -[UNRECOGNIZED DRUG - CODE] PO
[2021-10-08 22:49] VITALS: BP 103/54
--- NOTE | 2021-10-08 22:49 | NUR ---
BIBA TAKEN TO BED #6
--- NOTE | 2021-10-08 23:45 | NUR ---
66 Y/O F BIBA FOR POSSIBLE ATIVAN OVERDOSE. PT UANBLE TO CONFIRM IF SHE TOOK TO [facility] ATIVAN AND STATES SHE DOESNT REMEBER WHAT SHE TOOK AX0X3, [facility] 13, PT IS AMBULATORY BUT IS SLOW TO RISE AND REQUIRES SOME ASSISTANCE. PT ANDRZEJ VIDAL CALLED AND SAID THAT MOTHER WALKED OUT OF ROOM TOPLESS. SHE THEN BRANG A TRASHCAN TO HIM AND SAID "THEY ARE EVEN". SON STATED HIS MOTHER NEVER ACTS LIKE THIS AND ASKED HER HOW MANY ATIVANS SHE TOOK AND SHE SAID 3 IN ONE DOSE. DENIES N/V/D; SKIN IS PINK/WARM/DRY; LUNGS CLEAR BL; HR EVEN AND REGULAR; PT DENIES ANY FEVER, CP, SOB, OR COUGH AT THIS TIME; 0/10 PAIN VSS; PATIENT POSITIONED FOR COMFORT; HOB ELEVATED; BEDRAILS UP X2; BED DOWN. ER MADE AWARE OF PT STATUS. Addendum: 10/09/21 at 0302 by SUSHIL 66 Y/O F BIBA FOR POSSIBLE ATIVAN OVERDOSE. PT UANBLE TO CONFIRM IF SHE TOOK TO [facility] ATIVAN AND STATES SHE DOESNT REMEBER WHAT SHE TOOK AX0X3, GCS 13, PT IS AMBULATORY BUT IS SLOW TO RISE AND REQUIRES SOME ASSISTANCE. PT SON YOUNG CALLED AND SAID THAT MOTHER WALKED OUT OF ROOM TOPLESS. SHE THEN BRANG A TRASHCAN TO HIM AND SAID "THEY ARE EVEN". SON STATED HIS MOTHER NEVER ACTS LIKE THIS AND ASKED HER HOW MANY ATIVANS SHE TOOK AND SHE SAID 3 IN ONE DOSE. DENIES N/V/D; SKIN IS PINK/WARM/DRY; LUNGS CLEAR BL; HR EVEN AND REGULAR; PT DENIES ANY FEVER, CP, SOB, OR COUGH AT THIS TIME; 0/10 PAIN VSS; PATIENT POSITIONED FOR COMFORT; HOB ELEVATED; BEDRAILS UP X2; BED DOWN. ER MD MADE AWARE OF PT STATUS. PMH: ANXIETY. STROKE, COPD, ASTHMA, HEART ATTACK, BOWEL RESECTION MEDS: ATIVAN FOR ANXIETY, NORCO FOR PAIN ALLERGIES: SCALLOPS
[2021-10-09 00:07] LABS: ANION GAP 14.5 (8-16); CARBON DIOXIDE 21.5 mmol/L (21-32); CREATININE 1.5 mg/dL (0.6-1.3)
[2021-10-09 00:19] LABS: ALBUMIN 3.7 g/dL (3.4-5.0); BILIRUBIN,DIRECT 0.1 mg/dL (0.0-0.3); TOTAL BILIRUBIN 0.4 mg/dL (0.0-1.0)
--- NOTE | 2021-10-09 01:20 | NUR ---
Patient appears to be resting comfortably in bed. Vital Signs within normal limits. Respirations even and unlabored. SON CALLED FOR UPDATE.
--- NOTE | 2021-10-09 02:30 | NUR ---
PT AMBULATE TO BATHROOM. SLOW BUT STEADY AND EVEN GAIT
[2021-10-09 02:40] LABS: BASOPHILS % (AUTO) 0.4 % (0.0-2.0); EOSINOPHILS # (AUTO) 0.3 K/uL (0-0.4); EOSINOPHILS % (AUTO) 2.9 % (0.0-4.0); HEMATOCRIT 42.6 % (36-48); HEMOGLOBIN 13.6 g/dL (12.0-16.0); LYMPHOCYTES # (AUTO) 1.8 K/uL (2.5-16.5); LYMPHOCYTES % (AUTO) 16.5 % (20.5-51.1); MEAN CORPUSCULAR HEMOGLOBIN 26 pg (27-31); MEAN CORPUSCULAR HGB CONC 32 g/dL (33-37); MEAN CORPUSCULAR VOLUME 81.3 fL (80-94); MONOCYTES # (AUTO) 0.8 K/uL (0.8-1.0); MONOCYTES % (AUTO) 7.9 % (1.7-9.3); NEUTROPHILS # (AUTO) 7.8 K/uL (1.8-7.7); NEUTROPHILS % (AUTO) 72.3 % (42.2-75.2); PLATELET COUNT (AUTO) 193 K/uL (140-450); RED BLOOD CELL COUNT(AUTO) 5.24 MIL/uL (4.20-5.40); RED CELL DISTRIBUTION WIDTH 18.4 % (11.6-13.7); WHITE BLOOD COUNT (AUTO) 10.8 K/uL (4.8-10.8)
--- NOTE | 2021-10-09 03:15 | NUR ---
Walked oscar to lab. handed to karma
--- NOTE | 2021-10-09 03:35 | NUR ---
PROVIDED PT PREMA AND CANDE
[2021-10-09] MEDS ORDERED: MAGNESIUM OXIDE 400 MG TAB PO PRN (04:40)
[2021-10-09] MEDS ORDERED: ACETAMINOPHEN 325 MG TAB PO PRN (04:40)
[2021-10-09] MEDS ORDERED: KCL 20 MEQ/WATER INJ PREMIX 200 ML IV PRN (04:40)
[2021-10-09] MEDS ORDERED: NACL 0.9% 1,000 ML IV SCH (04:40)
[2021-10-09] MEDS ORDERED: POTASSIUM CHLORIDE 10 MEQ TABER PO PRN (04:40)
[2021-10-09] MEDS ORDERED: MAG SULF 2000 MG/WATER PREMIX 50 ML IV PRN (04:40)
[2021-10-09] MEDS ORDERED: ONDANSETRON 4 MG/2 ML VIAL IVP PRN (04:40)
--- NOTE | 2021-10-09 05:50 | NUR ---
RECEIVED PATIENT FROM ER NURSE, AOX3,AMBULATORY, RIGHT ARM IV 22 G WITH NS RUNNING AT 80CC/HR,SKIN INTACT, NO DISTRESS NOTED
--- NOTE | 2021-10-09 06:00 | NUR ---
Patient will be admitted to care of DR. LOU. Admited to TELE . Will go to ro[facility] 107 B. Belongings list completed. Report to DAVID.
[2021-10-09] MEDS ORDERED: GABA100C PO (06:04)
--- NOTE | 2021-10-09 06:08 | NUR ---
The patient's care was reviewed and supervised by Angela Dumas RN.
[2021-10-09 07:00] VITALS: BP 93/60
--- NOTE | 2021-10-09 07:05 | NUR ---
RECEIVED PT FROM NIGHT RN, PT IS ASLEEP BUT AROUSABLE WHEN CALLED BY NAME, LYING ON THE BED WITH SIDE RAILS UP AND CALL LIGHT WITHIN REACH, IV LINE NOTED ON THE RIGHT FOREARM G. 22 WITH NS INFUSING AT 80ML/HR, PT IS ON ROOM AIR, NO SIGN OF DISTRESS NOTED AND WILL MONITOR PT.
[2021-10-09 07:16] LABS: ANION GAP 15.2 (8-16); CARBON DIOXIDE 20.6 mmol/L (21-32); CREATININE 1.3 mg/dL (0.6-1.3); POTASSIUM 3.8 mmol/L (3.5-5.1)
[2021-10-09 07:54] LABS: APPEARANCE,URINE HAZY (CLEAR); BILIRUBIN,URINE NEGATIVE (NEGATIVE); BLOOD, URINE 2+ (NEGATIVE); COLOR,URINE YELLOW (YELLOW); LEUKOCYTE ESTERASE ,URINE 1+ (NEGATIVE); NITRITE, URINE NEGATIVE (NEGATIVE); UGLUCOSE NEGATIVE (NEGATIVE)
--- NOTE | 2021-10-09 11:29 | NUR ---
DC PLANNIN YRS OLD FEMALE PATIENT WAS ADMITTED FROM HOME WITH A DX OF ZARA. PATIENT HAS A HX OF RECENTLY DIAGNOSED WITH ANXIETY AND STARTED ON ATIVAN 3 DAYS AGO TAKING 3 TIMES A DAY. ON ARRIVAL BUN/CREAT 25/1.5 ADMINISTERED IVF B/C /.3. DC PLAN TO GO HOME WHEN STABLE. CM TO FOLLOW
[2021-10-09 12:00] VITALS: BP 94/54
--- NOTE | 2021-10-09 15:16 | NUR ---
CALL THE PT'S SON NOW AND INFORMED THAT PT IS BEING DISCHARGE BY THE DOCTOR AND IS STABLE TO GO HOME.
[2021-10-09 16:00] VITALS: BP 98/65
--- NOTE | 2021-10-09 16:55 | NUR ---
DISCHARGED PT TO HOME ACCOMPANIED BY SON, IV LINE AND ARM BAND REMOVED, DISCHARGE INSTRUCTIONS GIVEN TO PT AND VERBALIZED UNDERSTANDING, PT IS ALERT AND ORIENTED AND IS STABLE FOR DISCHARGE.
== END 2021-10-09 17:00 | disposition home or self-care (01) ==
LOC: MED 22:48 → MTU 10-09 05:00
PROVIDERS: ADMIT Internal Medicine; ATTEND Internal Medicine
DX: T42.4X1A Poisoning by benzodiazepines, accidental (unintentional), initial encounter (principal); Z20.822 Contact with and (suspected) exposure to COVID-19; N17.9 Acute kidney failure, unspecified; R41.82 Altered mental status, unspecified; J44.9 Chronic obstructive pulmonary disease, unspecified; I25.10 Atherosclerotic heart disease of native coronary artery without angina pectoris; I25.2 Old myocardial infarction; I10 Essential (primary) hypertension; G93.40 Encephalopathy, unspecified; F41.9 Anxiety disorder, unspecified; Z79.899 Other long term (current) drug therapy
CPT/HCPCS: 36415; 80048; 80076; 81001; 85025; 87081; 87086; 87426; 96360; 96361; 96372; 99285; G0378; G0482; J1644

== ENCOUNTER 2021-10-18 09:15 | Emergency (ER) | payer OTHER ==
[~2021-10-18] VITALS: Ht 157.5 cm; Wt 65.8 kg
[~2021-10-18 09:15] MED LIST changes: -ATRMDI INH; -CEPH250C16 PO; -DOCU-299 PO; -FURO-570 PO; +GABA100C PO; -LID5T TP; -LOPE-289 PO; -LOVA20TA8 PO; -POTA8TAB19 PO
--- NOTE | 2021-10-18 09:25 | NUR ---
PT AMBULATED TO ER BED 9 WITH A STEADY GAIT FOR BEDSIDE TRIAGE.
[2021-10-18 09:28] VITALS: BP 179/87
--- NOTE | 2021-10-18 09:32 | NUR ---
66 Y/O FEMALE C/O HEADACHE 01/06 DESCRIBES THROBBING WITH ELEVAED BP [id number]. PT STATES BP 175/103 AT HOME. PT STATES SHE HAD AN APPT WITH PCP AMD RECENTLY HAD MEDICATION CHANGED. DENIES N/V. DENIES FEVER/CHILLS. PMH: 1 STENT, HTN, HLD, ANXIETY, MIGRAINES, ANEMIA, 2 GI BLEEDS, HERNIA SX: BOWEL RESECTION X1YR NKA
--- NOTE | 2021-10-18 09:40 | NUR ---
PT AMBULATED TO ER BED 9 WITH A STEADY GAIT.
--- NOTE | 2021-10-18 09:57 | NUR ---
PT TAKEN TO CT VIA RYUMIKO.
--- NOTE | 2021-10-18 10:03 | NUR ---
BLOOD SENT TO LAB
--- NOTE | 2021-10-18 10:06 | NUR ---
PT TAKEN TO ER BED 9 VIA JOSELORYUMIKO.
[2021-10-18 10:12] LABS: BASOPHILS # (AUTO) 0.1 K/uL (0.00-0.22); BASOPHILS % (AUTO) 0.8 % (0.0-2.0); EOSINOPHILS # (AUTO) 0.1 K/uL (0-0.4); EOSINOPHILS % (AUTO) 1.2 % (0.0-4.0); HEMATOCRIT 41.2 % (36-48); LYMPHOCYTES # (AUTO) 3.2 K/uL (2.5-16.5); LYMPHOCYTES % (AUTO) 28.5 % (20.5-51.1); MEAN CORPUSCULAR HEMOGLOBIN 26 pg (27-31); MEAN CORPUSCULAR HGB CONC 32 g/dL (33-37); MEAN CORPUSCULAR VOLUME 81.5 fL (80-94); MONOCYTES # (AUTO) 0.5 K/uL (0.8-1.0); MONOCYTES % (AUTO) 4.6 % (1.7-9.3); NEUTROPHILS # (AUTO) 7.3 K/uL (1.8-7.7); NEUTROPHILS % (AUTO) 64.9 % (42.2-75.2); PLATELET COUNT (AUTO) 299 K/uL (140-450); RED BLOOD CELL COUNT(AUTO) 5.05 MIL/uL (4.20-5.40); RED CELL DISTRIBUTION WIDTH 18.6 % (11.6-13.7); WHITE BLOOD COUNT (AUTO) 11.2 K/uL (4.8-10.8)
[2021-10-18 10:49] LABS: APPEARANCE,URINE CLEAR (CLEAR); BILIRUBIN,URINE NEGATIVE (NEGATIVE); BLOOD, URINE 3+ (NEGATIVE); COLOR,URINE YELLOW (YELLOW); LEUKOCYTE ESTERASE ,URINE TRACE (NEGATIVE); NITRITE, URINE NEGATIVE (NEGATIVE); PH,URINE 6.5 (5.0-9.0); UGLUCOSE NEGATIVE (NEGATIVE)
--- NOTE | 2021-10-18 10:49 | NUR ---
PT AMBULATED TO RESTROOM WITH A STEADY GAIT.
--- NOTE | 2021-10-18 10:54 | NUR ---
PT AMBULATED TO ER BED 9 WITH A STEADY GAIT.
--- NOTE | 2021-10-18 10:54 | NUR ---
PT STATES HEADACHE 8/10 THROBBING NON-RADIATING. ERMD TO BE MADE AWARE.
[2021-10-18 11:10] LABS: RBC,URINE 20-50 /HPF (0-5)
[2021-10-18 11:13] LABS: ANION GAP 12.2 (8-16); CARBON DIOXIDE 23.5 mmol/L (21-32); CREATININE 0.9 mg/dL (0.6-1.3); POTASSIUM 3.7 mmol/L (3.5-5.1)
[2021-10-18 11:14] LABS: CALCIUM OXALATE CRYSTALS,UR 0-10 /HPF (None Seen); WBC,URINE 0-5 /HPF (0-5)
[2021-10-18] MEDS ORDERED: MORPHINE SULFATE 4 MG/ML SYR IVP ONE (11:15)
[2021-10-18] MEDS ORDERED: ACET-8386 PO (11:31)
[2021-10-18 12:12] VITALS: BP 160/93
== END 2021-10-18 12:12 | disposition home or self-care (01) ==
LOC: MED 09:15
DX: I10 Essential (primary) hypertension (principal); R51.9 Headache, unspecified; F17.200 Nicotine dependence, unspecified, uncomplicated; I11.0 Hypertensive heart disease with heart failure; I50.9 Heart failure, unspecified; J44.9 Chronic obstructive pulmonary disease, unspecified; Z98.890 Other specified postprocedural states; Z79.899 Other long term (current) drug therapy
CPT/HCPCS: 36415; 70450; 80048; 81001; 85025; 96374; 99284; J2270

== ENCOUNTER 2021-11-19 15:27 | Inpatient (IN) | payer OTHER ==
[~2021-11-19] VITALS: Ht 157.5 cm; Wt 68.5 kg
[~2021-11-19 15:27] MED LIST changes: +ACET-8386 PO
[2021-11-19 15:30] VITALS: BP 196/114
--- NOTE | 2021-11-19 15:40 | NUR ---
66 Y/O FEMALE C/O HIGH BLOOD PRESSURE READINGS ALONG WITH HEADACHE 02/06. IN TRIAGE BP 196/114. +CHILLS. PT DENIES CHEST PAIN, SOB. PT DENIES FEVER OR CHILLS. PMH: COPD, STENT, HTN, HLD NKA
[2021-11-19 15:58] LABS: BASOPHILS % (AUTO) 0.2 % (0.0-2.0); EOSINOPHILS % (AUTO) 0.1 % (0.0-4.0); HEMATOCRIT 45.1 % (36-48); HEMOGLOBIN 14.5 g/dL (12.0-16.0); LYMPHOCYTES # (AUTO) 1.7 K/uL (2.5-16.5); LYMPHOCYTES % (AUTO) 9.2 % (20.5-51.1); MEAN CORPUSCULAR HEMOGLOBIN 27 pg (27-31); MEAN CORPUSCULAR HGB CONC 32 g/dL (33-37); MEAN CORPUSCULAR VOLUME 83.6 fL (80-94); MONOCYTES # (AUTO) 0.6 K/uL (0.8-1.0); MONOCYTES % (AUTO) 3.4 % (1.7-9.3); NEUTROPHILS # (AUTO) 15.9 K/uL (1.8-7.7); NEUTROPHILS % (AUTO) 87.1 % (42.2-75.2); PLATELET COUNT (AUTO) 334 K/uL (140-450); RED CELL DISTRIBUTION WIDTH 20.3 % (11.6-13.7); WHITE BLOOD COUNT (AUTO) 18.2 K/uL (4.8-10.8)
[2021-11-19 16:15] LABS: ALBUMIN 3.9 g/dL (3.4-5.0); ANION GAP 15.1 (8-16); CARBON DIOXIDE 23.3 mmol/L (21-32); CREATININE 1.1 mg/dL (0.6-1.3); POTASSIUM 4.4 mmol/L (3.5-5.1); TOTAL BILIRUBIN 0.3 mg/dL (0.0-1.0)
[2021-11-19] MEDS ORDERED: MORPHINE SULFATE 4 MG/ML SYR IVP ONE ×2 (16:35→18:05)
[2021-11-19] MEDS ORDERED: ONDANSETRON 4 MG/2 ML VIAL IVP ONE (16:35)
--- NOTE | 2021-11-19 19:32 | NUR ---
Pt report given to ENRIQUE DOMÍNGUEZ. Transfer of care at this time.
--- NOTE | 2021-11-19 19:52 | NUR ---
ARAM/RONALDO COLLECTED AND WALKED TO LAB
[2021-11-19] MEDS ORDERED: hydrALAZINE 20 MG/ML VIAL IVP ONE (20:00)
[2021-11-19] MEDS ORDERED: ONDANSETRON 4 MG/2 ML VIAL IVP PRN (21:30)
[2021-11-19] MEDS ORDERED: ACETAMINOPHEN 325 MG TAB PO PRN (21:30)
[2021-11-19 21:43] LABS: APPEARANCE,URINE CLEAR (CLEAR); BILIRUBIN,URINE NEGATIVE (NEGATIVE); BLOOD, URINE 3+ (NEGATIVE); COLOR,URINE YELLOW (YELLOW); LEUKOCYTE ESTERASE ,URINE NEGATIVE (NEGATIVE); NITRITE, URINE NEGATIVE (NEGATIVE); UGLUCOSE NEGATIVE (NEGATIVE)
[2021-11-19 21:55] LABS: CALCIUM OXALATE CRYSTALS,UR 0-10 /HPF (None Seen); RBC,URINE TOO NUMEROUS TO COUN /HPF (0-5); WBC,URINE 0-5 /HPF (0-5)
[2021-11-19 22:22] VITALS: BP 176/87
--- NOTE | 2021-11-19 22:22 | NUR ---
PT WAS TRANSPORTED VIA GURNEY. PT CAME IN FOR HIGH BLOOD PRESSURE AND DAI PAIN. PT IS AAOX4 ON RA. PT IS ABLE TO AMBULATE. GAIT STEADY. PT HAS RIGHT FOREARM 20 GAUGE SALINE LOCK. CLEAR LUNG SOUNDS. NO HEART MURMUR. ABD SOFT AND NON-TENDER. PT IS ASKING FOR PAIN MEDICATION AND SOMETHING FOR SLEEP. PT BP IS 176/87. WILL GIVE PRN APRESOLINE, NORCO, AND AMBIEN. PT WAS EDUCATED TECHNICAL SERVICE REPRESENTATIVE LIGHT SYSTEM. ALL SAFETY MEASURES TAKEN. WILL CONTINUE TO MONITOR THE PT.
--- NOTE | 2021-11-19 22:33 | NUR ---
Patient will be admitted to care of DR CURTIS. Admited to TELEMETRY. Will go to room 111B. Belongings list completed. Report to ENRIQUE JIMENEZ.
[2021-11-19] MEDS: hydrALAZINE 25 MG TAB PO PRN (23:20)
[2021-11-19] MEDS: ZOLPIDEM 5 MG TAB PO PRN (23:21)
[2021-11-19] MEDS: HYDROcodone/APAP 5/325 MG 1 TAB TAB PO PRN (23:21)
[2021-11-20] VITALS (7 sets, daily range): BP systolic 124–161; BP diastolic 82–98
[2021-11-20] MEDS: LORazepam 1 MG TAB PO PRN ×3 (00:14→16:47)
--- NOTE | 2021-11-20 00:17 | NUR ---
PT FELT ANXIOUS AND REQUESTED ATIVAN. MEDICATION WAS GIVEN FOR ANXIETY. NO OTHER COMPLAINS FROM THE PT. WILL CONTINUE TO MONITOR THE PT.
--- NOTE | 2021-11-20 02:19 | NUR ---
PT IS SLEEPING IN BED COMFORTABLY. PT IS NOT IN ANY ACUTE DISTRESS. BREATHING EVEN AND UNLABORED. CALL LIGHT WITHIN REACH. ALL SAFETY MEASURES TAKEN. WILL CONTINUE TO MONITOR THE PT.
[2021-11-20] MEDS: HYDROcodone/APAP 5/325 MG 1 TAB TAB PO PRN ×3 (04:14→14:05)
--- NOTE | 2021-11-20 04:17 | NUR ---
PT WAS COMPLAINING OF DAI 12/07. PT REFUSE TO TAKE TYLENOL. SHE WANTS NORCO. NORCO WAS GIVEN INSTEAD. NO OTHER COMPLAINS. WILL CONTINUE TO MONITOR THE PT.
[2021-11-20 06:51] LABS: BASOPHILS % (AUTO) 0.1 % (0.0-2.0); EOSINOPHILS # (AUTO) 0.1 K/uL (0-0.4); EOSINOPHILS % (AUTO) 0.4 % (0.0-4.0); HEMATOCRIT 44.6 % (36-48); HEMOGLOBIN 14.4 g/dL (12.0-16.0); LYMPHOCYTES # (AUTO) 4.6 K/uL (2.5-16.5); LYMPHOCYTES % (AUTO) 29.1 % (20.5-51.1); MEAN CORPUSCULAR HEMOGLOBIN 27 pg (27-31); MEAN CORPUSCULAR HGB CONC 32 g/dL (33-37); MEAN CORPUSCULAR VOLUME 83.5 fL (80-94); MONOCYTES # (AUTO) 0.8 K/uL (0.8-1.0); MONOCYTES % (AUTO) 5.3 % (1.7-9.3); NEUTROPHILS # (AUTO) 10.2 K/uL (1.8-7.7); NEUTROPHILS % (AUTO) 65.1 % (42.2-75.2); PLATELET COUNT (AUTO) 313 K/uL (140-450); RED BLOOD CELL COUNT(AUTO) 5.34 MIL/uL (4.20-5.40); RED CELL DISTRIBUTION WIDTH 20.7 % (11.6-13.7); WHITE BLOOD COUNT (AUTO) 15.7 K/uL (4.8-10.8)
[2021-11-20 07:04] LABS: ALBUMIN 3.6 g/dL (3.4-5.0); ANION GAP 11.1 (8-16); CARBON DIOXIDE 28.3 mmol/L (21-32); MAGNESIUM 2.6 mg/dL (1.8-2.4); POTASSIUM 4.4 mmol/L (3.5-5.1); TOTAL BILIRUBIN 0.5 mg/dL (0.0-1.0)
--- NOTE | 2021-11-20 07:22 | NUR ---
ENDORSED PT TO DAY SHIFT RN FOR CONTINUITY OF CARE. PT IS STABLE.
--- NOTE | 2021-11-20 07:35 | NUR ---
RECEIVED PT FROM NIGHT NIGHT RN, PT IS AWAKE, ALERT AND ORIENTED, ON ROOM AIR, IV LINE NOTED ON THE RT FOREARM G. 20 ON SALINE LOCK, SAFETY PRECAUTION ENFORCED,PT C/O PAIN AT A RATE OF 4/10, WILL MEDICATE AND MONITOR PT.
--- NOTE | 2021-11-20 08:06 | NUR ---
PATIENT HAS BEEN SCREENED AND CATEGORIZED LOW NUTRITION RISK. PATIENT WILL BE SEEN WITHIN 7 DAYS OF ADMISSION. 11/26/[address]
[2021-11-20] MEDS: METOPROLOL 25 MG TAB PO SCH ×2 (08:18→22:11)
[2021-11-20] MEDS: GABAPENTIN 100 MG CAP PO SCH (08:19)
[2021-11-20] MEDS: hydrALAZINE 25 MG TAB PO PRN (08:19)
[2021-11-20] MEDS: DOCUSATE SODIUM 100 MG GELCAP PO SCH (08:20)
[2021-11-20] MEDS: ENOXAPARIN 40 MG/0.4 ML SYR SUBQ SCH (08:32)
--- NOTE | 2021-11-20 11:01 | NUR ---
DC PLANNIN YRS OLD FEMALE PATIENT WAS ADMITTED FROM HOME WITH A DX OF HTN URGENCY WITH HEADACHE. PATIENT HAS A HX OF CHF,COPD AND HTN. BP ON ADMISSION 196/[address] HEAD NEGATIVE CXR SHOWED CARDIOMEGALY LEFT SIDED PLEURAL THICKENING. RAPID COVID TEST NEGATIVE. ADMINISTERED BP MEDS. AWAITING FOR THE ATTENDING TO SEE PATIENT. DC PLAN TO GO HOME WHEN STABLE. CM TO FOLLOW Addendum: 11/21/21 at 1138 by Tierra Grossman RN DC PLANNING: BLOOD PRESSURE CONTROLLED 124/75 CONTINUED TAKING BP MEDS. POSSIBLE DC TODAY STABLE CONDITION. CM TO FOLLOW.
--- NOTE | 2021-11-20 15:05 | NUR ---
DC PLANNING PATIENT IS A 66 YR OLD FEMALE WHO PRESENTED TO [facility] ON 11/19 ADMITTED FROM HOME W/ DX OF HTN URGENCY WITH HEADACHE . PATIENT HAS A HX OF CHF, COPD HTN. BRIAN MET WITH PATIENT AND SON YOUNG PUGA (SON) AT BEDSIDE TO GATHER COLLATERAL INFORMATION. PATIENT CONFIRMED LIVING AT THE ADDRESS ON FILE WITH HER SON. PATIENT REPORTS YOUNG PUGA (SON) [phone] EMERGENCY CONTACT AND M.D.M. PATIENT DENIES CURRENTLY HAVING A.D IN PLACE AND ACCEPTED AD PROVIDED BY BRIAN. PATIENT REPORTS MEETING WITH HER PCP NEEDED DR IS AT DIFFERENT FACILITIES. LAST VISIT WAS REPORTED TO BE 6 WEEKS PRIOR VIA TELEPHONE. SW ENCOURAGED PATIENT TO CONTACT INSURANCE PROVIDER TO IDENTIFY AN ALTERNATIVE PCP IF PATIENT CONTINUES TO HAVE DIFFICULTY. PATIENT IS REPORTED TO BE AMBULATORY AND DENIES USE OF DME EQUIPMENT. PATIENT REPORTS BEING MEDICATION COMPLIANT AND DENIES BARRIERS IN ACCESSING MEDICATIONS. PATIENT REPORTS ACQUIRING MEDICATION FROM [facility], WHEN NEEDED. PATIENT REPORTS THAT DC PLAN IS TO RETURN HOME WITH SON PROVIDING TRANSPORTATION AND AIDING IN HER CARE, IF NEEDED.
[2021-11-20] MEDS ORDERED: KETOROLAC 30 MG/ML VIAL IVP SCH (16:30)
[2021-11-20] MEDS: amLODIPine 5 MG TAB PO SCH (16:46)
--- NOTE | 2021-11-20 19:15 | NUR ---
ENDORSED PT TO NIGHT RN FOR CONTINUITY OF CARE, PT IS STABLE AT THIS TIME.
[2021-11-20] MEDS ORDERED: diphenhydrAMINE 50 MG/ML VIAL IVP SCH (19:30)
[2021-11-20] MEDS ORDERED: PROMETHAZINE 25 MG/ML VIAL IVP SCH (19:30)
--- NOTE | 2021-11-20 19:30 | NUR ---
RECEIVED REPORT FROM ANAM NUNEZ DAYSHIFT NURSE AT BEDSIDE FOR CONTINUITY OF CARE. PT LYING IN BED HOB UP 35%. SHE IS ON ROOM AIR WITH A RIGHT F/A 20 GUAGE INTACT AND ASYMPTOMATIC. PT HAS C/O OF PERSISTENT MIGRAINE HEADACHE. SHE IS LYING IN BED WITH EYES CLOSED LISTENING TO MUSIC. SHE ATE MOST OF HER DINNER AND ALL UNIVERSAL FALLS PRECAUTIONS IN PLACE.
--- NOTE | 2021-11-20 20:00 | NUR ---
PT SITTING UP IN BED V/S FOLLOWS: T 97.7 P 64 R 20 B/P 131/84 02 93% ON ROOM AIR. ALL UNIVERSAL FALLS PRECAUTIONS IN PLACE.
--- NOTE | 2021-11-20 22:00 | NUR ---
CALLED PIERCING MACHINE OPERATOR MD VALENTINE REGARDING PT ORDERED LOPRESSOR. PT B/P WAS 131/84. SPOKE WITH MD VALENTINE, PT TAKES LOPRESSOR 100MG PART OF HER HOME MEDICATION SO IT WAS CONTINUED. PER MD WEBER TO GIVE, WILL CONTINUE TO MONITOR PT B/P. PT ALSO GIVEN ORDERED BENADRYL AND PHENERGAN IVP A MIGRAINE COCKTAIL TO HELP RELIEVE HER MIGRAINE. PT EDUCATED REGARDING ORDERED MEDICATIONS AND THIER PURPOSE AND SHE VERBALIZED UNDERSTANDING. ALL ORDERED PRECAUTIONS IN PLACE.
--- NOTE | 2021-11-20 23:30 | NUR ---
ROUNDS DONE, PT HAD GOTTEN UP TO USE BATHROOM INDEPENDENTLY. SHE SAID THAT HER HEADACHE WAS RELIEVED WITH THE ORDERED MEDICATION. PT REQUESTED AND WAS GIVEN PO/PRN ATIVAN FOR INSOMNIA. WILL CONTINUE TO MONITOR FOR RELIEF WELL BLOOD PRESSURE ALL UNIVERSAL FALLS PRECAUTIONS IN PLACE.
[2021-11-20] MEDS: ZOLPIDEM 5 MG TAB PO PRN (23:33)
[2021-11-21] VITALS: BP 118/61
--- NOTE | 2021-11-21 00:30 | NUR ---
PT IN BED SHE WAS ASLEEP, BUT AWAKE BECAUSE OF FOR HER NEED TO USE THE TOILET. V/S FOLLOWS: T 97.7 P 64 R 20 B/P 131/87 02 93% ON ROOM AIR. ALL ORDERED PRECAUTIONS IN PLACE.
[2021-11-21 04:00] VITALS: BP 124/75
--- NOTE | 2021-11-21 06:30 | NUR ---
PT WAS CLEANED UP IN BED WITH [facility] BATHS. ALL ORDERED PRECAUTIONS IN PLACE.
[2021-11-21 07:11] LABS: BASOPHILS % (AUTO) 0.3 % (0.0-2.0); EOSINOPHILS # (AUTO) 0.2 K/uL (0-0.4); EOSINOPHILS % (AUTO) 1.8 % (0.0-4.0); HEMATOCRIT 48.8 % (36-48); HEMOGLOBIN 15.8 g/dL (12.0-16.0); LYMPHOCYTES # (AUTO) 3.7 K/uL (2.5-16.5); LYMPHOCYTES % (AUTO) 32.8 % (20.5-51.1); MEAN CORPUSCULAR HEMOGLOBIN 27 pg (27-31); MEAN CORPUSCULAR HGB CONC 32 g/dL (33-37); MONOCYTES # (AUTO) 0.8 K/uL (0.8-1.0); MONOCYTES % (AUTO) 7.5 % (1.7-9.3); NEUTROPHILS # (AUTO) 6.4 K/uL (1.8-7.7); NEUTROPHILS % (AUTO) 57.6 % (42.2-75.2); PLATELET COUNT (AUTO) 312 K/uL (140-450); RED BLOOD CELL COUNT(AUTO) 5.87 MIL/uL (4.20-5.40); RED CELL DISTRIBUTION WIDTH 20.3 % (11.6-13.7); WHITE BLOOD COUNT (AUTO) 11.1 K/uL (4.8-10.8)
[2021-11-21 07:14] LABS: ALBUMIN 3.4 g/dL (3.4-5.0); ANION GAP 11.8 (8-16); CARBON DIOXIDE 28.6 mmol/L (21-32); CREATININE 1.1 mg/dL (0.6-1.3); MAGNESIUM 2.5 mg/dL (1.8-2.4); POTASSIUM 4.4 mmol/L (3.5-5.1); TOTAL BILIRUBIN 0.7 mg/dL (0.0-1.0)
--- NOTE | 2021-11-21 07:30 | NUR ---
RECEIVED REPORT FROM MICROBIOLOGY PROFESSOR NURSE. PATIENT SITTING DOWN IN BED. NO DISTRESS NOTED. ON ROOM AIR. IV SITE INTACT, PATENT, AND ON SALINE LOCK. SKIN INTACT, AAOX4, SKIN COLOR APPROPRIATE TO ETHNICITY. REVIEWED PLAN OF CARE WITH PATIENT. VERBALIZED UNDERSTANDING. WILL CONTINUE TO MONITOR.
[2021-11-21 08:00] VITALS: BP 135/91
[2021-11-21] MEDS: DOCUSATE SODIUM 100 MG GELCAP PO SCH (08:22)
[2021-11-21] MEDS: amLODIPine 5 MG TAB PO SCH (08:22)
[2021-11-21] MEDS: GABAPENTIN 100 MG CAP PO SCH (08:22)
[2021-11-21] MEDS: HYDROcodone/APAP 5/325 MG 1 TAB TAB PO PRN ×2 (08:22→13:46)
[2021-11-21] MEDS: ENOXAPARIN 40 MG/0.4 ML SYR SUBQ SCH (08:23)
[2021-11-21] MEDS: METOPROLOL 25 MG TAB PO SCH (08:23)
--- NOTE | 2021-11-21 08:23 | NUR ---
COMPLAINS OF PAIN, NORCO PRN GIVEN AT THIS TIME. OTHER SCHEDULED MEDICATIONS DUE GIVEN. LOPRESSOR HELD DUE TO DECREASED PULSE. WILL CONTINUE TO MONITOR.
[2021-11-21] MEDS: LORazepam 1 MG TAB PO PRN (09:32)
--- NOTE | 2021-11-21 09:33 | NUR ---
COMPLAINS OF ANXIETY. ATIVAN 1 MG PO GIVEN AT THIS TIME WILL CONTINUE TO MONITOR.
[2021-11-21 12:00] VITALS: BP 128/89
--- NOTE | 2021-11-21 13:46 | NUR ---
COMPLAINS OF PAIN. NORCO GIVEN AT THIS TIME. WILL CONTINUE TO MONITOR.
[2021-11-21] MEDS ORDERED: HYDR-1098 PO (14:46)
[2021-11-21] MEDS ORDERED: AMLO5TAB PO (14:46)
--- NOTE | 2021-11-21 15:30 | NUR ---
DISCHARGE INSTRUCTIONS PROVIDED TO PATIENT IN PREFERRED LANGUAGE OF BANGLADESHI. INSTRUCTIONS ON NEW/CHANGED MEDICATION REGIMEN, SIDE EFFECTS, AND MANAGEMENT OF HYPERTENSION. ANSWERED ALL OF PATIENT'S QUESTIONS REGARDING DISCHARGE. IV SITE REMOVED WITH MINIMAL BLOOD AND LUMEN COMPLETELY INTACT. ESCORTED PATIENT DOWN TO LOBBY VIA AMBULATION. PATIENT DISCHARGED TO HOME AT THIS TIME IN STABLE CONDITION VIA PRIVATE VEHICLE WITH SON.
== END 2021-11-21 15:30 | disposition home or self-care (01) | DRG 305 ==
LOC: MED 15:27 → MTU 21:30
PROVIDERS: ADMIT Hospitalist; ATTEND Hospitalist
DX: I16.0 Hypertensive urgency (principal); G43.909 Migraine, unspecified, not intractable, without status migrainosus; Z20.822 Contact with and (suspected) exposure to COVID-19; I11.0 Hypertensive heart disease with heart failure; I50.9 Heart failure, unspecified; Z82.3 Family history of stroke
CPT/HCPCS: 36415; 70450; 71045; 80053; 81001; 83735; 83880; 84484; 85025; 87081; 93005; 96374; 96375; 96376; 99285; J0360; J1200; J1650; J1885; J2270; J2405; J2550

== ENCOUNTER 2021-11-24 09:06 | Emergency (ER) | payer OTHER ==
[~2021-11-24] VITALS: Ht 157.5 cm; Wt 66.3 kg
[~2021-11-24 09:06] MED LIST changes: +AMLO5TAB PO; +HYDR-1098 PO
[2021-11-24 09:07] VITALS: BP 149/98
--- NOTE | 2021-11-24 09:27 | NUR ---
BIB SELF C/O 02/06 HEADACHE, HIGH BP X 6 WEEKS. BP 149/98 AT THIS TIME. DISCHARGE FROM [facility] 2 DAYS AGO FOR HTN.PMH: HTN, COPD, SMALL BOWEL RESECTION, STENT,CHF MED: HYDRALAZINE, AMLODIPINE BESYLATE. DENIES N/V/D; SKIN IS PINK/WARM/DRY; AAOX4 WITH EVEN AND STEADY GAIT; LUNGS CLEAR BL; HR EVEN AND REGULAR; PT DENIES ANY FEVER, CP, SOB, OR COUGH AT THIS TIME.
--- NOTE | 2021-11-24 09:44 | NUR ---
PT AMBULATED TO BED 6
--- NOTE | 2021-11-24 10:25 | NUR ---
Dr. Casper at bedside evaluating patient.
[2021-11-24] MEDS ORDERED: LORazepam 1 MG TAB PO ONE (10:30)
[2021-11-24] MEDS ORDERED: KETOROLAC 60 MG/2 ML VIAL IM ONE (10:30)
[2021-11-24] MEDS ORDERED: ACET-8386 PO (11:02)
[2021-11-24] MEDS ORDERED: ATA25 PO (11:02)
--- NOTE | 2021-11-24 11:07 | NUR ---
Patient discharged with v/s stable. Written and verbal after care instructions given and explained. Patient alert, oriented and verbalized understanding of instructions. Ambulatory with steady gait. All questions addressed prior to discharge. ID band removed. Patient advised to follow up with PMD. Rx of HYDROCONDE/ACETAMINIOPHEN AND ATARAX given. Patient educated on indication of medication including possible reaction and side effects. Opportunity to ask questions provided and answered.
[2021-11-24 11:08] VITALS: BP 149/98
== END 2021-11-24 11:07 | disposition home or self-care (01) ==
LOC: MED 09:06
DX: I11.0 Hypertensive heart disease with heart failure (principal); R51.9 Headache, unspecified; J44.9 Chronic obstructive pulmonary disease, unspecified; I50.9 Heart failure, unspecified; F17.200 Nicotine dependence, unspecified, uncomplicated; Z98.890 Other specified postprocedural states; Z79.899 Other long term (current) drug therapy; Z79.891 Long term (current) use of opiate analgesic; Z91.048 Other nonmedicinal substance allergy status
CPT/HCPCS: 81002; 96372; 99283; J1885

== ENCOUNTER 2021-12-09 12:33 | Emergency (ER) | payer OTHER ==
[~2021-12-09] VITALS: Ht 162.6 cm; Wt 69.9 kg
[~2021-12-09 12:33] MED LIST changes: +ATA25 PO
[2021-12-09 12:42] VITALS: BP 104/83
--- NOTE | 2021-12-09 12:46 | NUR ---
PT AMBULATED TO ER BED 9 WITH A STEADY GAIT.
--- NOTE | 2021-12-09 12:48 | NUR ---
66 Y/O FEMALE C/O BODY SHAKING X4HRS. PT STATES BP 187/105 AT HOME. IN TRIAGE 104/83PT PT STATES SHE HAD HERNIA SX AND STARTED TO TAKE PREDNISONE PRESCRIBED AND HAVING "THE SHAKES". DENIES N/V. DENIES FEVER/CHILLS. PMH: 1 STENT, HTN, HLD, ANXIETY, MIGRAINES, ANEMIA, 2 GI BLEEDS, HERNIA SX: BOWEL RESECTION X1YR, HERNIA SX X3DAYS NKA
--- NOTE | 2021-12-09 12:53 | NUR ---
PT AMB TO BRP W/O ASST
[2021-12-09] MEDS ORDERED: LORazepam 0.5 MG TAB PO ONE (13:30)
[2021-12-09] MEDS ORDERED: IPRATROPIUM 0.02% 0.5 MG/2.5 ML NEBU INH ONE (13:30)
[2021-12-09] MEDS ORDERED: ALBUTEROL 0.083% 2.5 MG/3 ML NEBU INH ONE (13:30)
--- NOTE | 2021-12-09 13:37 | NUR ---
MARBLE CEILING INSTALLER AND RT AT PT BEDSIDE.
--- NOTE | 2021-12-09 13:40 | NUR ---
HH[facility] THERAPY AND RESPIRATORY DRUGS GIVEN ORDERED
--- NOTE | 2021-12-09 13:40 | NUR ---
COLLECTED ARAM ADDISON AND INFL A&B GAVE TO AUXILIARY OPERATOR.
[2021-12-09 14:05] LABS: HEMATOCRIT 43.6 % (36-48); HEMOGLOBIN 14.5 g/dL (12.0-16.0); MEAN CORPUSCULAR HEMOGLOBIN 28 pg (27-31); MEAN CORPUSCULAR HGB CONC 33 g/dL (33-37); MEAN CORPUSCULAR VOLUME 85.5 fL (80-94); PLATELET COUNT (AUTO) 338 K/uL (140-450); RED BLOOD CELL COUNT(AUTO) 5.11 MIL/uL (4.20-5.40); RED CELL DISTRIBUTION WIDTH 20.4 % (11.6-13.7); WHITE BLOOD COUNT (AUTO) 9.2 K/uL (4.8-10.8)
--- NOTE | 2021-12-09 14:06 | NUR ---
PT TAKEN TO XR VIA W/C.
--- NOTE | 2021-12-09 14:21 | NUR ---
PT TAKEN TO ER BED VIA W/C FROM XR.
[2021-12-09 14:22] LABS: LYMPHOCYTES % (MANUAL) 9 % (20-46); MONOCYTES % (MANUAL) 5 % (5-12)
[2021-12-09 14:33] LABS: ALBUMIN 3.7 g/dL (3.4-5.0); ANION GAP 11.5 (8-16); ASPARTATE AMINOTRANSFERASE 13 U/L (15-37); CARBON DIOXIDE 26.2 mmol/L (21-32); CHLORIDE 105 mmol/L (98-107); GFR ARICAN-AMERICAN 72 mL/min (>90); GLUCOSE 291 mg/dL (74-106); MAGNESIUM 2.4 mg/dL (1.8-2.4); PHOSPHORUS 3.1 mg/dL (2.5-4.9); POTASSIUM 3.7 mmol/L (3.5-5.1); SODIUM SERUM 139 mmol/L (136-145); TOTAL BILIRUBIN 0.3 mg/dL (0.0-1.0); UREA NITROGEN, BLOOD 16 mg/dL (7-18)
--- NOTE | 2021-12-09 14:57 | NUR ---
DR. HELLER AT PT BEDSIDE FOR REEVALUATION.
[2021-12-09] MEDS ORDERED: ATI.5 PO (15:01)
[2021-12-09 15:14] VITALS: BP 134/76
--- NOTE | 2021-12-09 15:14 | NUR ---
Patient discharged with v/s stable. Written and verbal after care instructions given FOR COPD AND TREMORS and explained. Patient alert, oriented and verbalized understanding of instructions. Ambulatory with steady gait. All questions addressed prior to discharge. ID band removed. Patient advised to follow up with PMD. Rx of ATIVAN given. Patient educated on indication of medication including possible reaction and side effects. Opportunity to ask questions provided and answered.
== END 2021-12-09 15:14 | disposition home or self-care (01) ==
LOC: MED 12:33
DX: J44.1 Chronic obstructive pulmonary disease with (acute) exacerbation (principal); Z20.822 Contact with and (suspected) exposure to COVID-19; F41.9 Anxiety disorder, unspecified; J45.909 Unspecified asthma, uncomplicated; I50.9 Heart failure, unspecified; G43.909 Migraine, unspecified, not intractable, without status migrainosus; F17.210 Nicotine dependence, cigarettes, uncomplicated; I11.0 Hypertensive heart disease with heart failure; E78.2 Mixed hyperlipidemia
CPT/HCPCS: 36415; 71045; 74018; 80053; 83735; 84100; 84484; 85025; 87426; 87804; 93005; 94640; 99284; J7613; J7644

== ENCOUNTER 2022-01-20 17:19 | Emergency (ER) | payer OTHER ==
[~2022-01-20] VITALS: Ht 157.5 cm; Wt 70.0 kg
[~2022-01-20 17:19] MED LIST changes: +ATI.5 PO
[2022-01-20 17:36] VITALS: BP 135/84
--- NOTE | 2022-01-20 18:08 | NUR ---
AMBULATED TO ER BED 6
--- NOTE | 2022-01-20 19:00 | NUR ---
66YO FEMALE PT C/O ABDOMINAL DISTENTION X5 DAYS. PT STATES HAVING HERNIA SURGERY ON FRIDAY AND HAVING INCREASED DISTENTION SINCE , ALONG WITH SHARP 8/10 MID BACK PAIN. PT ABDOMEN PRESENTS WITH VERTICAL SCAR AND DISTENTION IN UPPER ABDOMEN . TENDER, ACTIVE X4. PT STATES N/V/D X1 AND DECREASE IN APPETITE XTODAY. PT STATES TAKING ADVIL WITH NO RELIEF. PT ALSO C/O BURNING DYSURIA AND POLYURIA . DENIES BLOOD OR ODOR .DENIES CHEST PAIN OR SOB. PT AAOX4, RESPIRATIONS EVEN AND UNLABORED NKA HX: HERNIA, HTN, KIDNET STONES
[2022-01-20] MEDS ORDERED: MORPHINE SULFATE 4 MG/ML SYR IVP ONE ×2 (19:05→22:25)
[2022-01-20] MEDS ORDERED: ONDANSETRON 4 MG/2 ML VIAL IVP ONE (19:05)
[2022-01-20] MEDS ORDERED: NACL 0.9% 1,000 ML IV SCH (19:05)
--- NOTE | 2022-01-20 19:10 | NUR ---
LAB AT BEDSIDE
[2022-01-20 19:19] LABS: BASOPHILS # (AUTO) 0.1 K/uL (0.00-0.22); BASOPHILS % (AUTO) 1.1 % (0.0-2.0); EOSINOPHILS # (AUTO) 0.3 K/uL (0-0.4); EOSINOPHILS % (AUTO) 3.4 % (0.0-4.0); HEMATOCRIT 41.7 % (36-48); HEMOGLOBIN 13.7 g/dL (12.0-16.0); LYMPHOCYTES # (AUTO) 2.9 K/uL (2.5-16.5); LYMPHOCYTES % (AUTO) 29.1 % (20.5-51.1); MEAN CORPUSCULAR HEMOGLOBIN 29 pg (27-31); MEAN CORPUSCULAR HGB CONC 33 g/dL (33-37); MEAN CORPUSCULAR VOLUME 87.5 fL (80-94); MONOCYTES # (AUTO) 0.5 K/uL (0.8-1.0); MONOCYTES % (AUTO) 5.1 % (1.7-9.3); NEUTROPHILS # (AUTO) 6.1 K/uL (1.8-7.7); NEUTROPHILS % (AUTO) 61.3 % (42.2-75.2); PLATELET COUNT (AUTO) 348 K/uL (140-450); RED BLOOD CELL COUNT(AUTO) 4.77 MIL/uL (4.20-5.40); RED CELL DISTRIBUTION WIDTH 16.6 % (11.6-13.7)
--- NOTE | 2022-01-20 19:30 | NUR ---
REPORT GIVEN TO RADHA HICKEY. TRANSFER OF CARE AT THIS TIME
[2022-01-20 19:36] LABS: ALBUMIN 3.7 g/dL (3.4-5.0); ANION GAP 13.8 (8-16); CARBON DIOXIDE 23.2 mmol/L (21-32); CREATININE 0.9 mg/dL (0.6-1.3); TOTAL BILIRUBIN 0.3 mg/dL (0.0-1.0)
--- NOTE | 2022-01-20 23:00 | NUR ---
PATIENT STATED THAT PAIN WAS 8/10 RAD TO BACK. MADE AWARE
[2022-01-21] MEDS ORDERED: MORPHINE SULFATE 4 MG/ML SYR IVP ONE (01:00)
[2022-01-21] MEDS ORDERED: ONDANSETRON 4 MG/2 ML VIAL IVP ONE (01:00)
[2022-01-21] MEDS ORDERED: ACET-5629 PO (01:08)
[2022-01-21] MEDS ORDERED: ACET-2619 PO (01:08)
[2022-01-21 01:53] VITALS: BP 128/79
--- NOTE | 2022-01-21 01:53 | NUR ---
Patient discharged with v/s stable. Written and verbal after care instructions given HERNIA and explained. Patient alert, oriented and verbalized understanding of instructions. Ambulatory with steady gait. All questions addressed prior to discharge. ID band removed. Patient advised to follow up with PMD. Rx of ACETAMINOPHEN, OXYCODONE HCL/ACETAMINOPHEN given.
--- NOTE | 2022-01-21 01:53 | NUR ---
Chart checked and completed.
== END 2022-01-21 01:53 | disposition home or self-care (01) ==
LOC: MED 17:19
DX: R14.0 Abdominal distension (gaseous) (principal); R19.7 Diarrhea, unspecified; M54.9 Dorsalgia, unspecified; J44.9 Chronic obstructive pulmonary disease, unspecified; I11.0 Hypertensive heart disease with heart failure; I50.9 Heart failure, unspecified; Z79.899 Other long term (current) drug therapy; Z98.890 Other specified postprocedural states
CPT/HCPCS: 36415; 74177; 80053; 83690; 85025; 96361; 96374; 96375; 96376; 99285; J2270; J2405; J7030; Q9967

== ENCOUNTER 2022-01-22 17:51 | Observation (INO) | payer OTHER ==
[~2022-01-22] VITALS: Ht 157.5 cm; Wt 71.3 kg
[~2022-01-22 17:51] MED LIST changes: +ACET-2619 PO; +ACET-5629 PO
[2022-01-22 17:56] VITALS: BP 151/85
[2022-01-22 18:57] LABS: BASOPHILS # (AUTO) 0.1 K/uL (0.00-0.22); BASOPHILS % (AUTO) 0.9 % (0.0-2.0); EOSINOPHILS # (AUTO) 0.3 K/uL (0-0.4); EOSINOPHILS % (AUTO) 4.5 % (0.0-4.0); HEMATOCRIT 42.2 % (36-48); HEMOGLOBIN 13.6 g/dL (12.0-16.0); LYMPHOCYTES # (AUTO) 2.5 K/uL (2.5-16.5); LYMPHOCYTES % (AUTO) 33.9 % (20.5-51.1); MEAN CORPUSCULAR HEMOGLOBIN 29 pg (27-31); MEAN CORPUSCULAR HGB CONC 32 g/dL (33-37); MEAN CORPUSCULAR VOLUME 88.7 fL (80-94); MONOCYTES # (AUTO) 0.4 K/uL (0.8-1.0); NEUTROPHILS % (AUTO) 54.7 % (42.2-75.2); PLATELET COUNT (AUTO) 316 K/uL (140-450); RED BLOOD CELL COUNT(AUTO) 4.75 MIL/uL (4.20-5.40); RED CELL DISTRIBUTION WIDTH 16.6 % (11.6-13.7); WHITE BLOOD COUNT (AUTO) 7.4 K/uL (4.8-10.8)
[2022-01-22 19:08] LABS: APPEARANCE,URINE CLEAR (CLEAR); BILIRUBIN,URINE NEGATIVE (NEGATIVE); BLOOD, URINE TRACE-I (NEGATIVE); COLOR,URINE YELLOW (YELLOW); LEUKOCYTE ESTERASE ,URINE NEGATIVE (NEGATIVE); NITRITE, URINE NEGATIVE (NEGATIVE); PH,URINE 6.5 (5.0-9.0); UGLUCOSE NEGATIVE (NEGATIVE)
[2022-01-22 19:23] LABS: ALBUMIN 3.8 g/dL (3.4-5.0); ANION GAP 12.5 (8-16); CARBON DIOXIDE 26.6 mmol/L (21-32); CREATININE 0.9 mg/dL (0.6-1.3); POTASSIUM 4.1 mmol/L (3.5-5.1); TOTAL BILIRUBIN 0.2 mg/dL (0.0-1.0)
[2022-01-22 19:29] LABS: OTHER CASTS, URINE None Seen /LPF (None Seen); RBC,URINE 0-5 /HPF (0-5); WBC,URINE 0-5 /HPF (0-5)
[2022-01-22] MEDS ORDERED: ONDANSETRON 4 MG ODT PO ONE (19:50)
[2022-01-22] MEDS ORDERED: KETOROLAC 30 MG/ML VIAL IM ONE (19:50)
--- NOTE | 2022-01-22 19:54 | NUR ---
PATIENT AMBULATED TO THE RR
--- NOTE | 2022-01-22 20:15 | NUR ---
PT STATES, "I'M PASSING A KIDNEY STONE. TORADOL DOESN'T WORK." PT REFUSES PREMAAN
[2022-01-22] MEDS ORDERED: HYDROmorphone PFS 2 MG/ML SYR IM ONE (20:40)
--- NOTE | 2022-01-22 21:06 | NUR ---
WARM BLANKETS GIVEN. PT STATES PAIN IS BEGINNING TO EASE FROM 9/10 TO 7/10
--- NOTE | 2022-01-23 00:05 | NUR ---
RONALDO SWAB OBTAINED AND SENT TO LAB
[2022-01-23] MEDS ORDERED: ALPR0.252 PO (00:11)
[2022-01-23] MEDS ORDERED: AMLO2.5T PO (00:11)
--- NOTE | 2022-01-23 00:30 | NUR ---
ambulated to br with steady gait
[2022-01-23] MEDS ORDERED: KCL 20 MEQ/WATER INJ PREMIX 200 ML IV PRN (00:45)
[2022-01-23] MEDS ORDERED: HYDROcodone/APAP 5/325 MG 1 TAB TAB PO PRN (00:45)
[2022-01-23] MEDS ORDERED: ONDANSETRON 4 MG/2 ML VIAL IVP PRN (00:45)
[2022-01-23] MEDS ORDERED: MAG SULF 2000 MG/WATER PREMIX 50 ML IV PRN (00:45)
[2022-01-23] MEDS ORDERED: ACETAMINOPHEN 325 MG TAB PO PRN (00:45)
[2022-01-23] MEDS ORDERED: MAGNESIUM OXIDE 400 MG TAB PO PRN (00:45)
[2022-01-23] MEDS ORDERED: NACL 0.9% 1,000 ML IV SCH ×2 (00:45→08:25)
[2022-01-23] MEDS ORDERED: POTASSIUM CHLORIDE 10 MEQ TABER PO PRN (00:45)
--- NOTE | 2022-01-23 03:20 | NUR ---
C/O PAIN, MEDICATED ORDERED
[2022-01-23] MEDS: MORPHINE SULFATE 4 MG/ML SYR IVP PRN ×2 (03:21→07:34)
--- NOTE | 2022-01-23 03:45 | NUR ---
AMBULATED TO BR.
--- NOTE | 2022-01-23 06:30 | NUR ---
AMBULATED TO BR WITH STEADY GAIT
--- NOTE | 2022-01-23 07:14 | NUR ---
PT MOVED TO ER BED 2
--- NOTE | 2022-01-23 08:00 | NUR ---
66YR FEMALE C/O BACK PAIN. PT IS ADMITTED TO [facility] FOR NEPHROLITHIASIS. HX OF KIDNEY STONES IN PAST. PT IS A&OX4 GAIT STEADY. 20G R AC. PT ON BEDSIDE MONITOR. SHELLFISH STENT 2YRS AGO HERNIA REPAIR SM BOWEL REPAIR HTN COPD ASTHMA
--- NOTE | 2022-01-23 08:01 | NUR ---
CALLED LUAN ON TELE , WILL CALL BACK WHEN READY FOR PATIENT . PT ON BEDSIDE MONITOR
--- NOTE | 2022-01-23 08:12 | NUR ---
Patient will be admitted to care of DR STILES. Admited to MED SURG. Will go to [id number]. Belongings list completed. Report to LUAN NUNEZ.
--- NOTE | 2022-01-23 08:20 | NUR ---
RECEIVED PT FROM ER NURSE HAYLEY. PT CAME TO THE FLOOR VIA WHEEL CHAIR. PT ABLE TO AMBULATE FROM THE WHEEL CHAIR TO BED. A&O4, ABLE TO COMMUNICATE NEEDS. RESPIRATIONS EVEN AND UNLABORED ON RA. NO DISTRESS NOTED. SKIN IS INTACT, WARM AND DRY TO TOUCH. IV SITE AT RFA 20G, SL. PT ORIENTED TO ROOM, UNIT AND ROUTINE. MRSA SWAB TAKEN AND SENT TO LAB. V/S TAKEN, STABLE. CALL LIGHT WITHIN REACH. SAFETY PRECAUTIONS IN PLACE. WILL CONTINUE TO MONITOR.
[2022-01-23] MEDS ORDERED: DOCUSATE SODIUM 100 MG GELCAP PO SCH (09:00)
--- NOTE | 2022-01-23 09:11 | NUR ---
PATIENT HAS BEEN SCREENED AND CATEGORIZED MODERATE NUTRITION RISK. PATIENT WILL BE SEEN WITHIN 3-5 DAYS OF ADMISSION. / JOSEPH [address]
--- NOTE | 2022-01-23 09:20 | NUR ---
DR STILES AT BEDSIDE.
[2022-01-23] MEDS ORDERED: TRAM50TA1 PO (09:32)
[2022-01-23] MEDS ORDERED: HYDR-5080 PO (09:37)
[2022-01-23] MEDS ORDERED: NAPR-54 PO (09:38)
--- NOTE | 2022-01-23 09:41 | NUR ---
PT REFUSED HAVING IV FLUIDS AND TAKING COLACE. PT STATED SHE DOESN'T NEED THEM BECAUSE ANYWAY SHE IS ALREADY GOING HOME.
--- NOTE | 2022-01-23 10:13 | NUR ---
INFORMED PT ABOUT THE DC ORDER. PT STATED UNDERSTANDING. PT STATED, SHE WILL BE PICKED UP BY HER SON.
[2022-01-23 10:24] VITALS: BP 134/82
--- NOTE | 2022-01-23 11:05 | NUR ---
DC PT HOME. DISCHARGE PAPERS DISCUSSED WITH THE PT. PT VERBALIZED UNDERSTANDING. REMOVED IV CATHETER INTACT. REMOVED ID WRIST BAND. ALL BELONGINGS TAKEN UPON DC. PT WALKED OUT TO FRONT LOBBY BY NURSE. PT IS STABLE.
[2022-01-23] MEDS ORDERED: KETOROLAC 15 MG/ML VIAL IVP SCH (12:00)
--- NOTE | 2022-01-25 12:12 | NUR ---
LATE ENTRY- IV NORMAL SALINE DISCONTINUED AT 0812.
[2022-02-01] MEDS ORDERED: ATRMDI INH (06:16)
[2022-02-01] MEDS ORDERED: ERGO-30 PO (06:16)
[2022-02-01] MEDS ORDERED: BPM/118S31 PO (06:16)
[2022-02-01] MEDS ORDERED: FURO-572 PO (06:16)
[2022-02-01] MEDS ORDERED: SULF-954 PO (06:16)
[2022-02-01] MEDS ORDERED: ASCO500T95 PO (06:16)
[2022-02-01] MEDS ORDERED: POTA10TA70 PO (06:16)
[2022-02-01] MEDS ORDERED: LOVA40TA4 PO (06:16)
[2022-02-01] MEDS ORDERED: FLUT1BLS9 IH (06:16)
[2022-02-01] MEDS ORDERED: CLON0.1T15 PO (06:16)
[2022-02-04] MEDS ORDERED: PRED20TA5 PO (19:16)
== END 2022-01-23 11:05 | disposition home or self-care (01) ==
LOC: MED 17:51 → MMU 01-23 00:43
PROVIDERS: ADMIT Student in an Organized Health Care Education/Training Program; ATTEND Student in an Organized Health Care Education/Training Program
DX: N13.2 Hydronephrosis with renal and ureteral calculous obstruction (principal); Z20.822 Contact with and (suspected) exposure to COVID-19; I10 Essential (primary) hypertension; K56.609 Unspecified intestinal obstruction, unspecified as to partial versus complete obstruction; K46.9 Unspecified abdominal hernia without obstruction or gangrene; F41.9 Anxiety disorder, unspecified; G89.29 Other chronic pain; K43.9 Ventral hernia without obstruction or gangrene; Z79.899 Other long term (current) drug therapy
CPT/HCPCS: 36415; 76770; 80053; 81001; 83605; 83690; 85025; 87081; 87426; 96361; 96372; 96374; 96375; 96376; 99285; G0378; J1170; J1885; J2270; Q0092; Q0162

== ENCOUNTER 2022-01-25 08:18 | Emergency (ER) | payer OTHER ==
[~2022-01-25] VITALS: Ht 152.4 cm; Wt 69.6 kg
[~2022-01-25 08:18] MED LIST changes: -ACET-5629 PO; -ACET-8386 PO; +ALPR0.252 PO; -ATI.5 PO; +HYDR-5080 PO; +NAPR-54 PO
[2022-01-25 08:24] VITALS: BP 104/68
--- NOTE | 2022-01-25 08:33 | NUR ---
Patient ambulated with steady gait to bed 6
--- NOTE | 2022-01-25 08:35 | NUR ---
66 y/o female w c/o constant throbbing pain to bilateral sides caused by kidney stones. Was seen at [facility] over the weekend for similar pain. Has surgery scheduled next Friday. Reports taking Bactrim Ds for urinary infection and is on 4th day of therapy. Is able to urinate, denies dysuria, although reports output is less than intake. Taking Advil with no relief and Xanax for sleep. Denies fever, chills, nvd, sob, or cp.
--- NOTE | 2022-01-25 08:59 | NUR ---
Dr. Lezama evaluating patient at bedside.
[2022-01-25] MEDS ORDERED: MORPHINE SULFATE 4 MG/ML SYR IM ONE (09:15)
[2022-01-25 09:51] LABS: BASOPHILS % (AUTO) 0.6 % (0.0-2.0); EOSINOPHILS # (AUTO) 0.3 K/uL (0-0.4); EOSINOPHILS % (AUTO) 5.2 % (0.0-4.0); HEMATOCRIT 41.1 % (36-48); HEMOGLOBIN 13.6 g/dL (12.0-16.0); LYMPHOCYTES # (AUTO) 2.1 K/uL (2.5-16.5); MEAN CORPUSCULAR HEMOGLOBIN 29 pg (27-31); MEAN CORPUSCULAR HGB CONC 33 g/dL (33-37); MEAN CORPUSCULAR VOLUME 88.3 fL (80-94); MONOCYTES # (AUTO) 0.5 K/uL (0.8-1.0); MONOCYTES % (AUTO) 7.9 % (1.7-9.3); NEUTROPHILS # (AUTO) 3.5 K/uL (1.8-7.7); NEUTROPHILS % (AUTO) 54.3 % (42.2-75.2); PLATELET COUNT (AUTO) 323 K/uL (140-450); RED BLOOD CELL COUNT(AUTO) 4.65 MIL/uL (4.20-5.40); RED CELL DISTRIBUTION WIDTH 16.7 % (11.6-13.7); WHITE BLOOD COUNT (AUTO) 6.5 K/uL (4.8-10.8)
[2022-01-25 10:30] LABS: ALBUMIN 3.4 g/dL (3.4-5.0); ANION GAP 13.4 (8-16); CARBON DIOXIDE 24.4 mmol/L (21-32); POTASSIUM 4.8 mmol/L (3.5-5.1); TOTAL BILIRUBIN 0.4 mg/dL (0.0-1.0)
--- NOTE | 2022-01-25 10:59 | NUR ---
Bill minor in ED - 01/25/22 at 1131 by NADIA Strep specimens obtained, handed to ASHOK Barney at bedside.
[2022-01-25 11:27] LABS: APPEARANCE,URINE CLEAR (CLEAR); COLOR,URINE YELLOW (YELLOW); PH,URINE 6.5 (5.0-9.0)
[2022-01-25 11:28] LABS: BILIRUBIN,URINE NEGATIVE (NEGATIVE); BLOOD, URINE 2+ (NEGATIVE); LEUKOCYTE ESTERASE ,URINE 1+ (NEGATIVE); NITRITE, URINE NEGATIVE (NEGATIVE); UGLUCOSE NEGATIVE (NEGATIVE)
[2022-01-25 11:31] LABS: RBC,URINE 20-50 /HPF (0-5)
[2022-01-25] MEDS ORDERED: MORPHINE SULFATE 2 MG/ML SYR IM STA (11:36)
[2022-01-25] MEDS ORDERED: LEVO750T51 PO (11:51)
--- NOTE | 2022-01-25 12:08 | NUR ---
pt ambulated to restroom with steady gait.
[2022-01-25 12:12] VITALS: BP 103/68
--- NOTE | 2022-01-25 12:12 | NUR ---
Patient discharged with v/s stable. Written and verbal after care instructions given and explained. Patient alert, oriented and verbalized understanding of instructions. Ambulatory with steady gait. All questions addressed prior to discharge. ID band removed. Patient advised to follow up with PMD. Rx of Levaquin given. Patient educated on indication of medication including possible reaction and side effects. Opportunity to ask questions provided and answered.
== END 2022-01-25 12:12 | disposition home or self-care (01) ==
LOC: MED 08:18
DX: N20.9 Urinary calculus, unspecified (principal); N39.0 Urinary tract infection, site not specified; J45.909 Unspecified asthma, uncomplicated; J44.9 Chronic obstructive pulmonary disease, unspecified; I50.9 Heart failure, unspecified; I10 Essential (primary) hypertension
CPT/HCPCS: 36415; 80053; 81001; 85025; 87086; 96372; 99283; J2270

== ENCOUNTER 2022-01-31 15:22 | Emergency (ER) | payer OTHER ==
[~2022-01-31] VITALS: Ht 152.4 cm; Wt 69.9 kg
[~2022-01-31 15:22] MED LIST changes: +LEVO750T51 PO
[2022-01-31 15:29] VITALS: BP 95/54
--- NOTE | 2022-01-31 15:40 | NUR ---
PT AMB TO BED 1.
--- NOTE | 2022-01-31 16:10 | NUR ---
66 Y.O. F C/O SOB , COUGH, SORE THROAT, HEMATURIA X TODAY. PT HAD LITHOTRIPSY AT [facility] 3 DAYS AGO. PT COMPLAINS OF THROAT BEING SCRATHY AND HER MOUTH BEING DRY. LUNG HAS WHEEZING ON EXPIRATORY. PT PLACED ON 2L NC FOR COMFORT. DENIES CHETS PAIN, NAUSEA AND VOMITING. PT TOOK A BREATHING TREATMENT AT HOME A FEW HOURS AGO BUT DID NOT KNOW THE EXACT TIME. A&OX4, SKININTACT STEADY GAIT AND VITALS STABLE AT THIS TIME. NKA PMH: HERNIA REPAIR LAST MONTH, KIDNEY STONES, AOTIC ANURYSM, HTN, ASTHMA, COPD MED: ALBUTEROL
[2022-01-31] MEDS ORDERED: ALBUTEROL SULFATE/IPRATROPIU 3 ML SOL IH ONE (16:45)
--- NOTE | 2022-01-31 17:00 | NUR ---
[facility] DRUG GIVEN ORDERED ENCOURAGED PATIENT FOR INTERMITTENT DEEP BREATHING AND COUGH
--- NOTE | 2022-01-31 17:01 | NUR ---
RT AT BEDSIDE FOR BREATHING TX
[2022-01-31] MEDS ORDERED: DEXAMETHASONE 10 MG/ML VIAL IM ONE (18:50)
[2022-01-31 19:22] LABS: BASOPHILS # (AUTO) 0.1 K/uL (0.00-0.22); BASOPHILS % (AUTO) 0.5 % (0.0-2.0); EOSINOPHILS # (AUTO) 0.5 K/uL (0-0.4); EOSINOPHILS % (AUTO) 3.3 % (0.0-4.0); HEMATOCRIT 38.8 % (36-48); HEMOGLOBIN 12.9 g/dL (12.0-16.0); LYMPHOCYTES # (AUTO) 2.2 K/uL (2.5-16.5); LYMPHOCYTES % (AUTO) 14.3 % (20.5-51.1); MEAN CORPUSCULAR HEMOGLOBIN 29 pg (27-31); MEAN CORPUSCULAR HGB CONC 33 g/dL (33-37); MEAN CORPUSCULAR VOLUME 87.4 fL (80-94); MONOCYTES # (AUTO) 0.9 K/uL (0.8-1.0); MONOCYTES % (AUTO) 5.5 % (1.7-9.3); NEUTROPHILS % (AUTO) 76.4 % (42.2-75.2); PLATELET COUNT (AUTO) 231 K/uL (140-450); RED BLOOD CELL COUNT(AUTO) 4.44 MIL/uL (4.20-5.40); WHITE BLOOD COUNT (AUTO) 15.7 K/uL (4.8-10.8)
--- NOTE | 2022-01-31 19:27 | NUR ---
Pt report given to ENRIQUE CONWAY. Transfer of care at this time.
[2022-01-31 19:36] LABS: ALBUMIN 3.6 g/dL (3.4-5.0); ANION GAP 14.1 (8-16); ASPARTATE AMINOTRANSFERASE 27 U/L (15-37); CARBON DIOXIDE 26.6 mmol/L (21-32); CHLORIDE 99 mmol/L (98-107); CREATININE 1.7 mg/dL (0.6-1.3); GFR ARICAN-AMERICAN 39 mL/min (>90); GLUCOSE 135 mg/dL (74-106); SODIUM SERUM 137 mmol/L (136-145); TOTAL BILIRUBIN 0.3 mg/dL (0.0-1.0); UREA NITROGEN, BLOOD 19 mg/dL (7-18)
[2022-01-31 19:38] LABS: POTASSIUM 2.7 mmol/L (3.5-5.1)
--- NOTE | 2022-01-31 19:50 | NUR ---
COVID/RONALDO SWAB COLLECTED AND WALKED TO LAB
[2022-01-31 20:41] LABS: APPEARANCE,URINE CLEAR (CLEAR); BILIRUBIN,URINE NEGATIVE (NEGATIVE); BLOOD, URINE 3+ (NEGATIVE); COLOR,URINE DARK YELLOW (YELLOW); LEUKOCYTE ESTERASE ,URINE 2+ (NEGATIVE); NITRITE, URINE POSITIVE (NEGATIVE); UGLUCOSE NEGATIVE (NEGATIVE)
[2022-01-31 20:54] LABS: RBC,URINE 11-20 (MOD) /HPF (0-5)
[2022-01-31 20:55] LABS: OTHER CASTS, URINE None Seen /LPF (None Seen)
[2022-01-31] MEDS ORDERED: POTASSIUM CHLORIDE 10 MEQ TABER PO ONE ×2 (20:55)
[2022-01-31] MEDS ORDERED: CEPH-588 PO (21:18)
[2022-01-31] MEDS ORDERED: cefTRIAXone 1,000 MG in LIDOCAINE MPF 1% 2.1 ML IM ONE (21:20)
[2022-01-31] MEDS ORDERED: LIDOCAINE MPF 1% 5 ML ONE (21:39)
[2022-01-31] MEDS ORDERED: cefTRIAXone 1,000 MG VIAL ONE (21:39)
[2022-01-31 22:13] VITALS: BP 136/78
--- NOTE | 2022-01-31 22:14 | NUR ---
Patient discharged with v/s stable. Written and verbal after care instructions given and explained. Patient alert, oriented and verbalized understanding of instructions. Ambulatory with steady gait. All questions addressed prior to discharge. ID band removed. Patient advised to follow up with PMD. Rx of KEFLEX given. Patient educated on indication of medication including possible reaction and side effects. Opportunity to ask questions provided and answered. VSS, A/OX4, UNLABORED BREATHING, AMBULATORY, AND CALM DEMEANOR.
[2022-02-01] MEDS ORDERED: POTA10TA70 PO (06:16)
[2022-02-01] MEDS ORDERED: ERGO-30 PO (06:16)
[2022-02-01] MEDS ORDERED: SULF-954 PO (06:16)
[2022-02-01] MEDS ORDERED: FURO-572 PO (06:16)
[2022-02-01] MEDS ORDERED: LOVA40TA4 PO (06:16)
[2022-02-01] MEDS ORDERED: BPM/118S31 PO (06:16)
[2022-02-01] MEDS ORDERED: FLUT1BLS9 IH (06:16)
[2022-02-01] MEDS ORDERED: CLON0.1T15 PO (06:16)
[2022-02-01] MEDS ORDERED: ASCO500T95 PO (06:16)
[2022-02-01] MEDS ORDERED: ATRMDI INH (06:16)
[2022-02-01] MEDS ORDERED: CRUSHER, PILL MC ONE (14:02)
[2022-02-04] MEDS ORDERED: PRED20TA5 PO (19:16)
== END 2022-01-31 22:14 | disposition home or self-care (01) ==
LOC: MED 15:22
DX: J44.1 Chronic obstructive pulmonary disease with (acute) exacerbation (principal); Z20.822 Contact with and (suspected) exposure to COVID-19; E87.6 Hypokalemia; N39.0 Urinary tract infection, site not specified; N17.9 Acute kidney failure, unspecified; Z98.890 Other specified postprocedural states
CPT/HCPCS: 36415; 71045; 80053; 81001; 84484; 85025; 87086; 87426; 93005; 94640; 96372; 99284; J0696; J1100; J2001; 99285

== ENCOUNTER 2022-02-10 06:05 | Emergency (ER) | payer OTHER ==
[~2022-02-10] VITALS: Ht 152.4 cm; Wt 68.0 kg
[~2022-02-10 06:05] MED LIST changes: -ACET-2619 PO; +ASCO500T95 PO; +ATRMDI INH; +BPM/118S31 PO; +CLON0.1T15 PO; +ERGO-30 PO; +FLUT1BLS9 IH; +FURO-572 PO; -HYDR-5080 PO; -LEVO750T51 PO; +LEVO750T75 PO; +LOVA40TA4 PO; -NAPR-54 PO; +POTA10TA70 PO; +PRED20TA5 PO; -TEMA15CA24 PO
[2022-02-10 06:10] VITALS: BP 107/79
--- NOTE | 2022-02-10 06:24 | NUR ---
TO BR FOR UA THEN TO BED 9 FOLLOWING TRIAGE
--- NOTE | 2022-02-10 06:30 | NUR ---
POST OP LYTHOTRIPSY 02/08/22, NOW C/O POST PROCEDURE PAIN. "I HAD KIDNEY STONES ON BOTH SIDES, AND THERE ARE SEVERAL MORE" PROCEDURE WAS DONE AT [facility]
[2022-02-10] MEDS ORDERED: MORPHINE SULFATE 4 MG/ML SYR IM ONE (06:35)
--- NOTE | 2022-02-10 06:43 | NUR ---
US AT BEDSIDE
[2022-02-10 07:39] LABS: HEMATOCRIT 41.5 % (36-48); HEMOGLOBIN 13.7 g/dL (12.0-16.0); MEAN CORPUSCULAR HEMOGLOBIN 29 pg (27-31); MEAN CORPUSCULAR HGB CONC 33 g/dL (33-37); MEAN CORPUSCULAR VOLUME 88.8 fL (80-94); PLATELET COUNT (AUTO) 181 K/uL (140-450); RED BLOOD CELL COUNT(AUTO) 4.67 MIL/uL (4.20-5.40); RED CELL DISTRIBUTION WIDTH 16.2 % (11.6-13.7); WHITE BLOOD COUNT (AUTO) 16.8 K/uL (4.8-10.8)
[2022-02-10 07:44] LABS: APPEARANCE,URINE CLOUDY (CLEAR); BILIRUBIN,URINE 1+ (NEGATIVE); BLOOD, URINE 3+ (NEGATIVE); COLOR,URINE BROWN (YELLOW); LEUKOCYTE ESTERASE ,URINE 2+ (NEGATIVE); NITRITE, URINE NEGATIVE (NEGATIVE); PH,URINE 6.5 (5.0-9.0); UGLUCOSE NEGATIVE (NEGATIVE)
--- NOTE | 2022-02-10 07:54 | NUR ---
RECEIVED REPORT FROM ENRIQUE KESSLER, ASSUMED CARE AT THIS TIME.
[2022-02-10 08:09] LABS: BASOPHILS % (MANUAL) 0 % (0-2); EOSINOPHILS % (MANUAL) 1 % (0-4); LYMPHOCYTES % (MANUAL) 22 % (20-46); MONOCYTES % (MANUAL) 3 % (5-12)
[2022-02-10 08:23] LABS: ALBUMIN 2.7 g/dL (3.4-5.0); ANION GAP 14.8 (8-16); ASPARTATE AMINOTRANSFERASE 17 U/L (15-37); CARBON DIOXIDE 20.6 mmol/L (21-32); CHLORIDE 107 mmol/L (98-107); CREATININE 1.1 mg/dL (0.6-1.3); GFR ARICAN-AMERICAN 64 mL/min (>90); GLUCOSE 113 mg/dL (74-106); POTASSIUM 3.4 mmol/L (3.5-5.1); SODIUM SERUM 139 mmol/L (136-145); TOTAL BILIRUBIN 0.4 mg/dL (0.0-1.0); UREA NITROGEN, BLOOD 20 mg/dL (7-18)
[2022-02-10 08:24] LABS: RBC,URINE >20 (MANY) /HPF (0-5)
[2022-02-10 08:25] LABS: URINE AMORPHOUS URATE 1+ /HPF (None Seen)
--- NOTE | 2022-02-10 08:30 | NUR ---
PATIENT LYING IN BED WITH EYES OPEN, REPORTS RELIEF OF PAIN AT THIS TIME. ALL NEEDS MET AT THIS TIME.
[2022-02-10] MEDS ORDERED: TRAM50TA3 PO (09:02)
[2022-02-10] MEDS ORDERED: PYR100 PO (09:02)
[2022-02-10] MEDS ORDERED: CEPH-588 PO (09:02)
[2022-02-10] MEDS ORDERED: cefTRIAXone 1,000 MG in LIDOCAINE MPF 1% 2.1 ML IM ONE (09:05)
[2022-02-10] MEDS ORDERED: cefTRIAXone 1,000 MG VIAL ONE (09:30)
[2022-02-10] MEDS ORDERED: LIDOCAINE MPF 1% 5 ML ONE (09:31)
[2022-02-10 09:48] VITALS: BP 99/61
--- NOTE | 2022-02-10 09:48 | NUR ---
Patient discharged with v/s stable. Written and verbal after care instructions ABOUT URINARY TRACT INFECTION given and explained. Patient alert, oriented and verbalized understanding of instructions. Ambulatory with steady gait TO LOBBY AWAITING RIDE FROM SON. All questions addressed prior to discharge. ID band removed. Patient advised to follow up with PMD. Rx of TRAMADOL, KEFLEX AND PYRIDIUM given. Patient educated on indication of medication including possible reaction and side effects. Opportunity to ask questions provided and answered.
[2022-02-11] MEDS ORDERED: METR-520 PO (14:11)
[2022-02-11] MEDS ORDERED: CIPR500T4 PO (14:24)
[2022-02-11] MEDS ORDERED: PRED20TA5 PO (14:29)
[2022-02-20] MEDS ORDERED: CEPH-588 PO (19:19)
== END 2022-02-10 09:48 | disposition home or self-care (01) ==
LOC: MED 06:05
DX: N39.0 Urinary tract infection, site not specified (principal); J44.9 Chronic obstructive pulmonary disease, unspecified; I11.0 Hypertensive heart disease with heart failure; I50.9 Heart failure, unspecified; Z79.899 Other long term (current) drug therapy
CPT/HCPCS: 36415; 76770; 80053; 81001; 85025; 87086; 96372; 99284; J0696; J2001; J2270; Q0092; 81002

== ENCOUNTER 2022-02-11 09:16 | Emergency (ER) | payer OTHER ==
[~2022-02-11] VITALS: Ht 152.4 cm; Wt 66.2 kg
[~2022-02-11 09:16] MED LIST changes: +CEPH-588 PO; +PYR100 PO; +TRAM50TA3 PO
[2022-02-11 09:22] VITALS: BP 113/78
--- NOTE | 2022-02-11 09:38 | NUR ---
PT AMBULATED WITH ASSISTANCE TO ER BED 7
--- NOTE | 2022-02-11 10:05 | NUR ---
66/F PRESENTS TO ED WITH C/O PELVIC PAIN X6 DAYS. PATIENT WAS SEEN HERE YESTERDAY FOR SAME COMPLAINT AND WAS GIVEN RX OF TRAMADOL. PATIENT STATES PAIN IS 10/10 THAT WORSENS WITH URINATION, DENIES FEVERS, CHILLS, COUGH. STATING "I'M IN A LOT OF PAIN, I NEED MORPHINE." DR. BEAN AWARE OF PATIENT.
[2022-02-11] MEDS ORDERED: KETOROLAC 30 MG/ML VIAL IM ONE ×2 (12:10→12:25)
--- NOTE | 2022-02-11 12:42 | NUR ---
PT TAKEN TO CT VIA W/C
[2022-02-11 13:15] LABS: BASOPHILS # (AUTO) 0.1 K/uL (0.00-0.22); BASOPHILS % (AUTO) 0.7 % (0.0-2.0); EOSINOPHILS # (AUTO) 0.2 K/uL (0-0.4); EOSINOPHILS % (AUTO) 1.3 % (0.0-4.0); HEMATOCRIT 42.2 % (36-48); HEMOGLOBIN 13.8 g/dL (12.0-16.0); LYMPHOCYTES # (AUTO) 2.5 K/uL (2.5-16.5); LYMPHOCYTES % (AUTO) 18.1 % (20.5-51.1); MEAN CORPUSCULAR HEMOGLOBIN 29 pg (27-31); MEAN CORPUSCULAR HGB CONC 33 g/dL (33-37); MEAN CORPUSCULAR VOLUME 89.6 fL (80-94); MONOCYTES # (AUTO) 0.8 K/uL (0.8-1.0); MONOCYTES % (AUTO) 5.5 % (1.7-9.3); NEUTROPHILS # (AUTO) 10.2 K/uL (1.8-7.7); NEUTROPHILS % (AUTO) 74.4 % (42.2-75.2); PLATELET COUNT (AUTO) 187 K/uL (140-450); RED BLOOD CELL COUNT(AUTO) 4.71 MIL/uL (4.20-5.40); RED CELL DISTRIBUTION WIDTH 16.2 % (11.6-13.7); WHITE BLOOD COUNT (AUTO) 13.7 K/uL (4.8-10.8)
--- NOTE | 2022-02-11 13:30 | NUR ---
PATIENT LAYING BED WITH EYES CLOSED, ALL NEEDS MET AT THIS TIME.
[2022-02-11 13:35] LABS: ALBUMIN 2.9 g/dL (3.4-5.0); ANION GAP 14.8 (8-16); CARBON DIOXIDE 23.9 mmol/L (21-32); POTASSIUM 3.7 mmol/L (3.5-5.1); TOTAL BILIRUBIN 0.7 mg/dL (0.0-1.0)
[2022-02-11] MEDS ORDERED: METR-520 PO (14:11)
[2022-02-11] MEDS ORDERED: CIPR500T4 PO (14:24)
[2022-02-11] MEDS ORDERED: PRED20TA5 PO (14:29)
[2022-02-11 14:46] VITALS: BP 134/90
--- NOTE | 2022-02-11 14:46 | NUR ---
Patient discharged with v/s stable. Written and verbal after care instructions ABOUT PELVIC PAIN, URINARY TRACT INFECTION AND BACTERIAL VAGINOSIS given and explained. Patient alert, oriented and verbalized understanding of instructions. Ambulatory with steady gait. All questions addressed prior to discharge. ID band removed. Patient advised to follow up with PMD. Rx of CIPRO, FLAGYL AND PREDNISONE given. Patient educated on indication of medication including possible reaction and side effects. Opportunity to ask questions provided and answered.
[2022-02-20] MEDS ORDERED: CEPH-588 PO (19:19)
== END 2022-02-11 14:46 | disposition home or self-care (01) ==
LOC: MED 09:16
DX: N76.0 Acute vaginitis (principal); B96.89 Other specified bacterial agents as the cause of diseases classified elsewhere; J44.9 Chronic obstructive pulmonary disease, unspecified; I11.0 Hypertensive heart disease with heart failure; Z79.899 Other long term (current) drug therapy
CPT/HCPCS: 36415; 74176; 80053; 81002; 85025; 87210; 96372; 99284; J1885

== ENCOUNTER 2022-02-13 12:27 | Emergency (ER) | payer OTHER ==
[~2022-02-13] VITALS: Ht 152.4 cm; Wt 65.3 kg
[~2022-02-13 12:27] MED LIST changes: +CIPR500T4 PO; +METR-520 PO
--- NOTE | 2022-02-13 12:29 | NUR ---
PT CUBA [place]ATON, VIA GURNEY TO BED 09.
[2022-02-13 12:30] VITALS: BP 155/107
--- NOTE | 2022-02-13 12:45 | NUR ---
66 Y/O FEMALE BIBA FROM HOME C/O PELVIC PAIN X 2 DAYS. WAS SEEN IN ER ON FRIDAY AND FRIDAY FOR SIMILAR SYMPTOMS. STATES 10/ CONSTANT SHARP PAIN TO PELVIC REGION + DYSURIA. DENIES TAKING MEDICATION AT HOME FOR PAIN. WAS SEEN AT [facility] X 2 WEEKS AGO FOR LITHOTRIPSY AND STENTS PLACED IN URETERS, HAS SCHEDULED APPT TOMORROW FOR REPEAT PROCEDURE. PT IN GOWN, BED IN LOW AND CALL LIGHT IN REACH. PMH: ASTHMA, COPD, HTN ALL: SCALLOPS
--- NOTE | 2022-02-13 12:51 | NUR ---
PT AMBULATED TO RESTROOM WITH STEADY GAIT
[2022-02-13] MEDS ORDERED: MORPHINE SULFATE 4 MG/ML SYR IVP ONE ×2 (13:10→14:40)
[2022-02-13] MEDS ORDERED: NACL 0.9% 1,000 ML IV ONE (13:10)
[2022-02-13] MEDS ORDERED: ONDANSETRON 4 MG/2 ML VIAL IVP ONE (13:10)
--- NOTE | 2022-02-13 13:21 | NUR ---
LAB AT BEDSIDE
[2022-02-13 14:12] LABS: BASOPHILS % (AUTO) 0.1 % (0.0-2.0); HEMATOCRIT 38.6 % (36-48); HEMOGLOBIN 12.5 g/dL (12.0-16.0); LYMPHOCYTES # (AUTO) 0.7 K/uL (2.5-16.5); LYMPHOCYTES % (AUTO) 5.1 % (20.5-51.1); MEAN CORPUSCULAR HEMOGLOBIN 29 pg (27-31); MEAN CORPUSCULAR HGB CONC 32 g/dL (33-37); MEAN CORPUSCULAR VOLUME 90.6 fL (80-94); MONOCYTES # (AUTO) 0.4 K/uL (0.8-1.0); MONOCYTES % (AUTO) 2.9 % (1.7-9.3); NEUTROPHILS # (AUTO) 12.6 K/uL (1.8-7.7); NEUTROPHILS % (AUTO) 91.9 % (42.2-75.2); PLATELET COUNT (AUTO) 252 K/uL (140-450); RED BLOOD CELL COUNT(AUTO) 4.26 MIL/uL (4.20-5.40); RED CELL DISTRIBUTION WIDTH 16.6 % (11.6-13.7); WHITE BLOOD COUNT (AUTO) 13.7 K/uL (4.8-10.8)
[2022-02-13 14:18] LABS: ALBUMIN 2.8 g/dL (3.4-5.0); ANION GAP 14.1 (8-16); CARBON DIOXIDE 23.1 mmol/L (21-32); CREATININE 1.1 mg/dL (0.6-1.3); POTASSIUM 4.2 mmol/L (3.5-5.1); TOTAL BILIRUBIN 0.3 mg/dL (0.0-1.0)
[2022-02-13 14:25] LABS: APPEARANCE,URINE SL CLOUDY (CLEAR); BILIRUBIN,URINE NEGATIVE (NEGATIVE); BLOOD, URINE 3+ (NEGATIVE); COLOR,URINE BROWN (YELLOW); LEUKOCYTE ESTERASE ,URINE 1+ (NEGATIVE); NITRITE, URINE NEGATIVE (NEGATIVE); UGLUCOSE NEGATIVE (NEGATIVE)
[2022-02-13 14:50] VITALS: BP 140/87
[2022-02-13 14:52] LABS: RBC,URINE 11-20 (MOD) /HPF (0-5)
[2022-02-13 14:53] LABS: OTHER CASTS, URINE None Seen /LPF (None Seen)
--- NOTE | 2022-02-13 15:45 | NUR ---
Patient does not wish to proceed with medical care recommended by Dr Smith. Patient given information related to possible complications, up to and including , which could occur as a result of leaving hospital at this time. Patient verbalizes understanding of risks involved leaving against medical advice. Patient has signed AMA form.
[2022-02-20] MEDS ORDERED: CEPH-588 PO (19:19)
== END 2022-02-13 15:45 | disposition home or self-care (01) ==
LOC: MED 12:27
DX: N39.0 Urinary tract infection, site not specified (principal)
CPT/HCPCS: 36415; 80053; 81001; 85025; 87086; 96361; 96374; 96375; 96376; 99283; J2270; J2405; J7030

== ENCOUNTER 2022-02-18 06:14 | Emergency (ER) | payer OTHER ==
[~2022-02-18] VITALS: Ht 152.4 cm; Wt 68.0 kg
[2022-02-18 06:18] VITALS: BP 140/97
--- NOTE | 2022-02-18 06:18 | NUR ---
PT SUDARSHAN BLS. TAKEN TO BED 5
--- NOTE | 2022-02-18 06:21 | NUR ---
Patient BIB ALS from home. C/O abdominal pain x 4 days. Patient reported, had surgery of Lithotripsy on 02/14/[address] [facility]. PMHx: HTN, UTI, bilateral kidney stone
[2022-02-18] MEDS ORDERED: MORPHINE SULFATE 4 MG/ML SYR IVP ONE ×2 (06:45→10:15)
[2022-02-18] MEDS ORDERED: NACL 0.9% 1,000 ML IV SCH (06:45)
[2022-02-18] MEDS ORDERED: ONDANSETRON 4 MG/2 ML VIAL IVP ONE (06:45)
--- NOTE | 2022-02-18 06:47 | NUR ---
Dr. Barraza examining patient.
[2022-02-18] MEDS ORDERED: PHENAZOPYRIDINE 100 MG TAB PO ONE (06:55)
--- NOTE | 2022-02-18 07:06 | NUR ---
Ultrasound at bedside.
--- NOTE | 2022-02-18 07:15 | NUR ---
REPORT RECIEVED FROM OCTOBER RN
--- NOTE | 2022-02-18 07:20 | NUR ---
Report given to RUPERTO Cunningham and endorse care of patient.
[2022-02-18 07:36] LABS: APPEARANCE,URINE CLOUDY (CLEAR); BILIRUBIN,URINE NEGATIVE (NEGATIVE); BLOOD, URINE 3+ (NEGATIVE); COLOR,URINE RED (YELLOW); LEUKOCYTE ESTERASE ,URINE 2+ (NEGATIVE); NITRITE, URINE NEGATIVE (NEGATIVE); PH,URINE 6.5 (5.0-9.0); UGLUCOSE NEGATIVE (NEGATIVE)
[2022-02-18 07:38] LABS: HEMATOCRIT 43.6 % (36-48); HEMOGLOBIN 14.2 g/dL (12.0-16.0); MEAN CORPUSCULAR HEMOGLOBIN 29 pg (27-31); MEAN CORPUSCULAR HGB CONC 33 g/dL (33-37); MEAN CORPUSCULAR VOLUME 89.6 fL (80-94); PLATELET COUNT (AUTO) 244 K/uL (140-450); RED BLOOD CELL COUNT(AUTO) 4.86 MIL/uL (4.20-5.40); RED CELL DISTRIBUTION WIDTH 16.6 % (11.6-13.7); WHITE BLOOD COUNT (AUTO) 9.9 K/uL (4.8-10.8)
[2022-02-18 07:44] LABS: ANION GAP 9.8 (8-16); CARBON DIOXIDE 22.1 mmol/L (21-32); POTASSIUM 3.9 mmol/L (3.5-5.1); TOTAL BILIRUBIN 0.6 mg/dL (0.0-1.0)
[2022-02-18 07:51] LABS: CALCIUM OXALATE CRYSTALS,UR None Seen /HPF (None Seen); COARSE GRANULAR CASTS,URINE None Seen /LPF (None Seen); FINE GRANULAR CASTS,URINE None Seen /LPF (None Seen); HYALINE CASTS, URINE None Seen /LPF (None Seen); OTHER CASTS, URINE None Seen /LPF (None Seen); OTHER CRYSTALS,URINE None Seen /HPF (None Seen); RBC,URINE 11-20 (MOD) /HPF (0-5); RED BLOOD CELL CASTS,URINE None Seen /LPF (None Seen); TRICHOMONAS,URINE None Seen /HPF (None Seen); TRIPLE PHOSPHATE CRYSTAL,UR None Seen /HPF (None Seen); URIC ACID CRYSTALS,URINE None Seen /HPF (None Seen); URINE AMORPHOUS URATE None Seen /HPF (None Seen); WAXY CASTS,URINE None Seen /LPF (None Seen); YEAST,URINE None Seen /HPF (None Seen)
--- NOTE | 2022-02-18 07:53 | NUR ---
PT WALKED TO BATHROOM. GAIT STEADY
--- NOTE | 2022-02-18 08:11 | NUR ---
66YR OLD FEMALE C/O ABD PAIN AND BURNING WITH URINATION X4AYS . PT HAD A LITHOTRIPSY AT [facility] 02/14. FREQ/URGENCY WITH URINAION. BURNING PAIN 03/09. PT IS A&OX4 AND AMBULATORY. SKIN WARM AND DRY AND INTACT. DENIES CP OR SOB . DIARRHEA X4DAYS DENIES N/V. HOB IS ELEVATED SIDE RAILS UP X1 BED AT LOWEST POSITION. NKDA COPD] HTN ASTHMA UTI KIDNEY STONES
[2022-02-18 08:12] LABS: EOSINOPHILS % (MANUAL) 4 % (0-4); LYMPHOCYTES % (MANUAL) 32 % (20-46); MONOCYTES % (MANUAL) 5 % (5-12)
--- NOTE | 2022-02-18 09:20 | NUR ---
PT IS TEARFUL . 10/10 PAIN . ASKING FOR MORE PAIN MEDS.
[2022-02-18] MEDS ORDERED: ACET-5629 PO (10:23)
[2022-02-18] MEDS ORDERED: IBUP-2213 PO (10:23)
[2022-02-18 10:54] VITALS: BP 130/85
--- NOTE | 2022-02-18 10:54 | NUR ---
Patient discharged with v/s stable. Written and verbal after care instructions given and explained. Patient alert, oriented and verbalized understanding of instructions. Ambulatory with steady gait. All questions addressed prior to discharge. ID band removed. Patient advised to follow up with PMD. Rx of OXYCODONE IBUPROFEN given.
[2022-02-20] MEDS ORDERED: CEPH-588 PO (19:19)
== END 2022-02-18 10:54 | disposition home or self-care (01) ==
LOC: MED 06:14
DX: G89.18 Other acute postprocedural pain (principal); N39.0 Urinary tract infection, site not specified; J44.9 Chronic obstructive pulmonary disease, unspecified; I11.0 Hypertensive heart disease with heart failure; I50.9 Heart failure, unspecified; Z87.442 Personal history of urinary calculi; Z98.890 Other specified postprocedural states
CPT/HCPCS: 36415; 76770; 80053; 81001; 83690; 85025; 87086; 96361; 96374; 96375; 99284; J2270; J2405; J7030; Q0092

== ENCOUNTER 2022-03-14 15:08 | Emergency (ER) | payer OTHER ==
[~2022-03-14] VITALS: Ht 157.5 cm; Wt 67.6 kg
[~2022-03-14 15:08] MED LIST changes: +ACET-5629 PO; +IBUP-2213 PO
[2022-03-14 15:32] VITALS: BP 163/104
--- NOTE | 2022-03-14 15:42 | NUR ---
PT AMB TO BED 8.
--- NOTE | 2022-03-14 15:53 | NUR ---
66 Y/O F BIB SELF C/O LEFT SHOULDER PAIN 8/10 X 10 DAYS, DIARRHEA X 2 DAYS, COUGH X 3 DAYS. NKDA ALLERGIES/FOOD: SCALLOP PMH: CHF, COPD, HTN, CATARACT SURGERY, HERNIA REPAIR
--- NOTE | 2022-03-14 15:53 | NUR ---
DR SANABRIA AT BEDSIDE.
--- NOTE | 2022-03-14 15:54 | NUR ---
66 y/o female bib self, pt presents to ed with c/o left shoulder pain for 10 days. pt is also c/o diarrhea and cough for 3 days. skin is pink/warm/dry. a&o x4 with even and steady gait. lungs clear bl, heart rate even and regular. pt denies dysuria, hematuria, urinary frequency or retention, or anyone sick in the household with the same symptoms. patient positioned for comfort. hob elevated. bed down. ermd made aware of pt. pmh: chf, copd, htn, cataract sx, hernia repair allergy: scallop
[2022-03-14] MEDS ORDERED: MORPHINE SULFATE 4 MG/ML SYR IM ONE (16:00)
[2022-03-14] MEDS ORDERED: ACET-8386 PO (16:50)
[2022-03-14 17:02] VITALS: BP 163/104
--- NOTE | 2022-03-14 17:02 | NUR ---
Patient discharged with v/s stable. Written and verbal after care instructions given and explained. Patient alert, oriented and verbalized understanding of instructions. Ambulatory with steady gait. All questions addressed prior to discharge. ID band removed. Patient advised to follow up with PMD. Rx of hydrocodone (sent) given. Patient educated on indication of medication including possible reaction and side effects. Opportunity to ask questions provided and answered.
--- NOTE | 2022-03-14 17:03 | NUR ---
The patient's care was reviewed and supervised by Krista Marshall, RN, RN.
== END 2022-03-14 17:02 | disposition home or self-care (01) ==
LOC: MED 15:08
DX: M79.622 Pain in left upper arm (principal); I11.0 Hypertensive heart disease with heart failure; I50.9 Heart failure, unspecified; J44.9 Chronic obstructive pulmonary disease, unspecified; F17.210 Nicotine dependence, cigarettes, uncomplicated; Z98.890 Other specified postprocedural states; Z87.448 Personal history of other diseases of urinary system; Z79.899 Other long term (current) drug therapy; Z79.1 Long term (current) use of non-steroidal anti-inflammatories (NSAID); Z79.2 Long term (current) use of antibiotics; Z79.891 Long term (current) use of opiate analgesic; Z91.018 Allergy to other foods
CPT/HCPCS: 96372; 99283; J2270

== ENCOUNTER 2022-04-07 12:21 | Emergency (ER) | payer OTHER ==
[~2022-04-07] VITALS: Ht 152.4 cm; Wt 65.8 kg
[~2022-04-07 12:21] MED LIST changes: +ACET-8386 PO
[2022-04-07 12:41] VITALS: BP 120/85
[2022-04-07 14:17] LABS: BASOPHILS # (AUTO) 0.3 K/uL (0.00-0.22); BASOPHILS % (AUTO) 2.5 % (0.0-2.0); EOSINOPHILS # (AUTO) 0.4 K/uL (0-0.4); EOSINOPHILS % (AUTO) 3.8 % (0.0-4.0); HEMATOCRIT 41.9 % (36-48); LYMPHOCYTES # (AUTO) 3.3 K/uL (2.5-16.5); LYMPHOCYTES % (AUTO) 31.4 % (20.5-51.1); MEAN CORPUSCULAR HEMOGLOBIN 29 pg (27-31); MEAN CORPUSCULAR HGB CONC 33 g/dL (33-37); MEAN CORPUSCULAR VOLUME 85.5 fL (80-94); MONOCYTES # (AUTO) 0.5 K/uL (0.8-1.0); MONOCYTES % (AUTO) 4.5 % (1.7-9.3); NEUTROPHILS # (AUTO) 6.1 K/uL (1.8-7.7); NEUTROPHILS % (AUTO) 57.8 % (42.2-75.2); PLATELET COUNT (AUTO) 524 K/uL (140-450); RED CELL DISTRIBUTION WIDTH 16.2 % (11.6-13.7); WHITE BLOOD COUNT (AUTO) 10.6 K/uL (4.8-10.8)
--- NOTE | 2022-04-07 14:31 | NUR ---
67/F WALKED IN C/O FEELING "SLOW" AND BODY ACHE ONSET 3 WKS. DENIES FALL OR INJURY. AFEBRILE AT BEDSIDE. ALLERGY: SCALLOPS PMH: COPD, ASTHMA, HTN, HDL
[2022-04-07 14:50] LABS: ALBUMIN 3.5 g/dL (3.4-5.0); CARBON DIOXIDE 23.2 mmol/L (21-32); CREATININE 0.8 mg/dL (0.6-1.3); POTASSIUM 4.2 mmol/L (3.5-5.1); TOTAL BILIRUBIN 0.2 mg/dL (0.0-1.0)
[2022-04-07] MEDS ORDERED: HYDROcodone/APAP 10/325 MG 1 TAB TAB PO ONE (15:05)
[2022-04-07] MEDS ORDERED: CEPH-588 PO (16:21)
[2022-04-07 16:22] VITALS: BP 121/68
== END 2022-04-07 16:25 | disposition home or self-care (01) ==
LOC: MED 12:21
DX: N30.00 Acute cystitis without hematuria (principal); R53.1 Weakness; M25.512 Pain in left shoulder; I13.10 Hypertensive heart and chronic kidney disease without heart failure, with stage 1 through stage 4 chronic kidney disease, or unspecified chronic kidney disease; N18.9 Chronic kidney disease, unspecified; J44.9 Chronic obstructive pulmonary disease, unspecified; Z87.442 Personal history of urinary calculi; Z98.890 Other specified postprocedural states; Z79.899 Other long term (current) drug therapy
CPT/HCPCS: 36415; 71045; 80053; 81002; 85025; 99283; Q0092

== ENCOUNTER 2022-05-08 14:53 | Emergency (ER) | payer OTHER ==
[~2022-05-08] VITALS: Ht 157.5 cm; Wt 65.8 kg
[2022-05-08 15:14] VITALS: BP 159/95
--- NOTE | 2022-05-08 15:17 | NUR ---
67/F WALKED IN C/O LEFT ARM PAIN ONSET 1 WK. DENIES FALL OR INJURY. PT STATES FHAVING MD APPOINTMENT THIS WEEK BUT PAIN IS GETTING WORSE. AAO4, AMBULATORY, NO DEFORMITY OR BRUISING NOTED TO THE AFFECTED ARM. VITALS STABLE. PMH: HTN
--- NOTE | 2022-05-08 15:34 | NUR ---
Patient being evaluated by DR BARRIOS at bedside.
[2022-05-08] MEDS ORDERED: LIDOCAINE 5% 1 EA PATCH TP STA (15:37)
--- NOTE | 2022-05-08 15:44 | NUR ---
XR AT BEDSIDE
[2022-05-08] MEDS: KETOROLAC 30 MG/ML VIAL IM ONE ×2 (15:46→15:49)
--- NOTE | 2022-05-08 15:49 | NUR ---
PT REFUSED TORADOL IM INJ STATING TORADOL DOES NOT WORK FOR HER. PT IS REQUESTING MORPHINE. ERMD NOTIFIED OF PATIENT'S REQUEST AND REFUSAL
[2022-05-08] MEDS ORDERED: traMADol 50 MG TAB PO ONE (15:50)
[2022-05-08] MEDS ORDERED: TRAM-748 PO (16:34)
--- NOTE | 2022-05-08 16:37 | NUR ---
sling applied to L arm. + cms
== END 2022-05-08 16:40 | disposition home or self-care (01) ==
LOC: MED 14:53
DX: I10 Essential (primary) hypertension (principal); J44.9 Chronic obstructive pulmonary disease, unspecified; I25.10 Atherosclerotic heart disease of native coronary artery without angina pectoris; N20.0 Calculus of kidney; S46.912A Strain of unspecified muscle, fascia and tendon at shoulder and upper arm level, left arm, initial encounter; X58.XXXA Exposure to other specified factors, initial encounter; Y93.89 Activity, other specified; Y92.89 Other specified places as the place of occurrence of the external cause; Y99.8 Other external cause status
CPT/HCPCS: 73030; 81002; 99283; Q0092; J1885

== ENCOUNTER 2022-05-16 14:27 | Emergency (ER) | payer OTHER ==
[~2022-05-16] VITALS: Ht 157.5 cm; Wt 67.6 kg
[~2022-05-16 14:27] MED LIST changes: +TRAM-748 PO
[2022-05-16 14:41] VITALS: BP 111/67
[2022-05-16 15:26] LABS: APPEARANCE,URINE CLEAR (CLEAR); BILIRUBIN,URINE NEGATIVE (NEGATIVE); BLOOD, URINE 1+ (NEGATIVE); COLOR,URINE YELLOW (YELLOW); LEUKOCYTE ESTERASE ,URINE 3+ (NEGATIVE); NITRITE, URINE NEGATIVE (NEGATIVE); UGLUCOSE NEGATIVE (NEGATIVE)
[2022-05-16 15:38] LABS: OTHER CASTS, URINE None Seen /LPF (None Seen)
--- NOTE | 2022-05-16 16:46 | NUR ---
C/O URINARY BURNING, LOW BACK PAIN X1 MONTH, PER PT POST BILATERAL LITHOTRIPSY NKA PMH: HTN
[2022-05-16] MEDS ORDERED: CIPR500T4 PO (17:36)
[2022-05-16] MEDS ORDERED: METR-435 PO (17:36)
--- NOTE | 2022-05-16 17:52 | NUR ---
Patient discharged with v/s stable. Written and verbal after care instructions ABOUT COLITIS AND PYELONEPHRITIS given and explained. Patient alert, oriented and verbalized understanding of instructions. Ambulatory with steady gait. All questions addressed prior to discharge. ID band removed. Patient advised to follow up with PMD. Rx of CIPRO, METRONIDAZOLE given. Patient educated on indication of medication including possible reaction and side effects. Opportunity to ask questions provided and answered.
== END 2022-05-16 17:51 | disposition home or self-care (01) ==
LOC: MED 14:27
DX: K52.9 Noninfective gastroenteritis and colitis, unspecified (principal); N30.00 Acute cystitis without hematuria; I11.0 Hypertensive heart disease with heart failure; I50.9 Heart failure, unspecified; J44.9 Chronic obstructive pulmonary disease, unspecified; F17.210 Nicotine dependence, cigarettes, uncomplicated; Z87.442 Personal history of urinary calculi; Z98.890 Other specified postprocedural states; Z79.899 Other long term (current) drug therapy
CPT/HCPCS: 81001; 87086; 99284

== ENCOUNTER 2022-05-24 08:20 | Emergency (ER) | payer OTHER ==
[~2022-05-24] VITALS: Ht 157.5 cm; Wt 66.7 kg
[~2022-05-24 08:20] MED LIST changes: -ACET-5629 PO; -ACET-8386 PO; -ASCO500C20 PO; -ATA25 PO; -CEPH-588 PO; -CETI10SG1 PO; -CIPR500T4 PO; -CLON0.1T15 PO; -HYDR-1098 PO; -METR-520 PO; -TRAM50TA3 PO
[2022-05-24 08:35] VITALS: BP 186/99
--- NOTE | 2022-05-24 08:40 | NUR ---
Patient ambulated to bed 2.
--- NOTE | 2022-05-24 09:10 | NUR ---
67F presents to ED with c/o of SOB x1 week, and left shoulder pain [id number]. Pt reports being admitted here on 05/20/22 and D/C 05/22/22. Pt reports using a breathing tx at home with mild relief, denies using breathing tx today. Pt reports a constant, aching like, 8/10 pain to left shoulder that worsens with movement. Pt states she takes Hunker for pain and has run out, has returned for pain management. Upon assessment, O2 sat 99% on RA.
[2022-05-24] MEDS ORDERED: predniSONE 20 MG TAB PO ONE (09:20)
[2022-05-24] MEDS ORDERED: ALBUTEROL SULFATE/IPRATROPIU 3 ML SOL IH ONE ×2 (09:20)
[2022-05-24] MEDS ORDERED: HYDROcodone/APAP 5/325 MG 1 TAB TAB PO ONE (09:20)
--- NOTE | 2022-05-24 09:37 | NUR ---
pt COMPLAINED OF LEFT CHEST TIGHTNESS. TX GIVEN ORDERED. PT TOLERATED WELL AND SHOWED IMPOROVEMENT
[2022-05-24] MEDS ORDERED: AZIT250T4 PO (09:57)
[2022-05-24] MEDS ORDERED: ALBU0.0912 IH (09:57)
--- NOTE | 2022-05-24 10:09 | NUR ---
Pt refused sling, states she has one at home that she can use. Dr. Post made aware.
--- NOTE | 2022-05-24 10:10 | NUR ---
Patient discharged with v/s stable. Written and verbal after care instructions ABOUT SHOULDER PAIN, COPD given and explained. Patient alert, oriented and verbalized understanding of instructions. Ambulatory with steady gait. All questions addressed prior to discharge. ID band removed. Patient advised to follow up with PMD. Rx of ALBUTEROL, NORCO, AZITHROMYCIN given. Patient educated on indication of medication including possible reaction and side effects. Opportunity to ask questions provided and answered.
== END 2022-05-24 10:10 | disposition home or self-care (01) ==
LOC: MED 08:20
DX: J44.1 Chronic obstructive pulmonary disease with (acute) exacerbation (principal); M25.512 Pain in left shoulder; I11.0 Hypertensive heart disease with heart failure; I50.9 Heart failure, unspecified; F17.210 Nicotine dependence, cigarettes, uncomplicated; Z87.442 Personal history of urinary calculi; Z71.6 Tobacco abuse counseling; Z79.899 Other long term (current) drug therapy; Z79.2 Long term (current) use of antibiotics; Z79.1 Long term (current) use of non-steroidal anti-inflammatories (NSAID); Z79.891 Long term (current) use of opiate analgesic; Z91.013 Allergy to seafood
CPT/HCPCS: 94640; 99283; J7512

== ENCOUNTER 2022-05-28 13:38 | Emergency (ER) | payer OTHER ==
[~2022-05-28 13:38] MED LIST changes: +ALBU0.0912 IH; +AZIT250T4 PO
--- NOTE | 2022-05-28 14:50 | NUR ---
CALLEDX1. NO SHOW. Addendum: 05/28/22 at 1617 by [email or web address] PATIENT LEFT WITHOUT BEING SEEN BY DR. CH. NO FURTHER CARE PROVIDED FOR PATIENT.
--- NOTE | 2022-05-28 15:17 | NUR ---
CALLEDX2. NO SHOW
== END 2022-05-28 15:17 | disposition left against medical advice (07) ==
LOC: MED 13:38
DX: R52 Pain, unspecified (principal); Z53.21 Procedure and treatment not carried out due to patient leaving prior to being seen by health care provider

== ENCOUNTER 2022-06-05 08:56 | Emergency (ER) | payer OTHER ==
[~2022-06-05] VITALS: Ht 154.9 cm; Wt 65.3 kg
[2022-06-05 09:44] VITALS: BP 110/86
[2022-06-05] MEDS ORDERED: traMADol 50 MG TAB PO ONE (10:15)
[2022-06-05] MEDS ORDERED: HYDROcodone/APAP 5/325 MG 1 TAB TAB PO ONE (10:45)
--- NOTE | 2022-06-05 11:08 | NUR ---
PT REFUSED ULTRAM , REFUSED DR VERN DURAN
--- NOTE | 2022-06-05 11:16 | NUR ---
BIB SELF C/O URINARY BURNING X 10 DAYS, L SHOULDER PAIN X 2 WEEKS. PT WANTS NARCOTIC PAIN MED INJECTION.
[2022-06-05 12:08] LABS: BILIRUBIN,URINE NEGATIVE (NEGATIVE); BLOOD, URINE TRACE-I (NEGATIVE); COLOR,URINE YELLOW (YELLOW); LEUKOCYTE ESTERASE ,URINE 2+ (NEGATIVE); NITRITE, URINE NEGATIVE (NEGATIVE); UGLUCOSE NEGATIVE (NEGATIVE)
[2022-06-05 12:21] LABS: APPEARANCE,URINE SLIGHTLY HAZY (CLEAR)
[2022-06-05 12:22] LABS: RBC,URINE 0-5 /HPF (0-5); WBC,URINE 16-25 (MOD) /HPF (0-5)
[2022-06-05] MEDS ORDERED: CYCL-711 PO (12:35)
[2022-06-05] MEDS ORDERED: CEPH-588 PO (12:35)
[2022-06-05 12:46] VITALS: BP 100/75
--- NOTE | 2022-06-05 12:47 | NUR ---
Patient discharged with v/s stable. Written and verbal after care instructions given and explained. Patient alert, oriented and verbalized understanding of instructions. Ambulatory with steady gait. All questions addressed prior to discharge. ID band removed. Patient advised to follow up with PMD. Rx of FLEXERIL,KEFLEX given. Patient educated on indication of medication including possible reaction and side effects. Opportunity to ask questions provided and answered.
== END 2022-06-05 12:47 | disposition home or self-care (01) ==
LOC: MED 08:56
DX: N30.00 Acute cystitis without hematuria (principal); M25.512 Pain in left shoulder; I10 Essential (primary) hypertension; I25.10 Atherosclerotic heart disease of native coronary artery without angina pectoris; J45.909 Unspecified asthma, uncomplicated; J44.9 Chronic obstructive pulmonary disease, unspecified; N20.0 Calculus of kidney; Z79.899 Other long term (current) drug therapy
CPT/HCPCS: 81001; 87086; 99282; 99283

== ENCOUNTER 2022-07-03 10:32 | Emergency (ER) | payer OTHER ==
[~2022-07-03] VITALS: Ht 157.5 cm; Wt 61.2 kg
[~2022-07-03 10:32] MED LIST changes: +CEPH-588 PO; +CYCL-711 PO
--- NOTE | 2022-07-03 10:36 | NUR ---
Bill minor in [facility] - 07/03/22 at 1036 by [id number] PT AMBULATED TO BED 2
[2022-07-03 10:39] VITALS: BP 124/86
--- NOTE | 2022-07-03 10:42 | NUR ---
PT AMBULATED TO LOBBY
--- NOTE | 2022-07-03 11:30 | NUR ---
67/F WALKED IN C/O CONSTIPATION ONSET 7DAYS. PT REPORTS NO BOWEL MOVEMENTS FOR 7DAYS. AAO4, AMBULATORY, VITALS STABLE. PMH: SMALL BOWEL RESECTION, HTN.
[2022-07-03] MEDS ORDERED: NACL 0.9% 500 ML IV ONE (12:40)
--- NOTE | 2022-07-03 13:13 | NUR ---
BLOOD DRAWN, URINE COLLECTED
[2022-07-03 13:45] LABS: BASOPHILS # (AUTO) 0.1 K/uL (0.00-0.22); BASOPHILS % (AUTO) 1.2 % (0.0-2.0); EOSINOPHILS # (AUTO) 0.3 K/uL (0-0.4); EOSINOPHILS % (AUTO) 3.1 % (0.0-4.0); HEMATOCRIT 36.1 % (36-48); HEMOGLOBIN 11.6 g/dL (12.0-16.0); LYMPHOCYTES # (AUTO) 2.3 K/uL (2.5-16.5); MEAN CORPUSCULAR HEMOGLOBIN 26 pg (27-31); MEAN CORPUSCULAR HGB CONC 32 g/dL (33-37); MEAN CORPUSCULAR VOLUME 81.7 fL (80-94); MONOCYTES # (AUTO) 0.7 K/uL (0.8-1.0); MONOCYTES % (AUTO) 7.2 % (1.7-9.3); NEUTROPHILS % (AUTO) 64.5 % (42.2-75.2); PLATELET COUNT (AUTO) 457 K/uL (140-450); RED BLOOD CELL COUNT(AUTO) 4.43 MIL/uL (4.20-5.40); RED CELL DISTRIBUTION WIDTH 18.5 % (11.6-13.7); WHITE BLOOD COUNT (AUTO) 9.4 K/uL (4.8-10.8)
[2022-07-03] MEDS ORDERED: KETOROLAC 30 MG/ML VIAL IVP ONE (13:55)
[2022-07-03] MEDS ORDERED: MORPHINE SULFATE 4 MG/ML SYR IVP SCH (14:13)
[2022-07-03 14:45] VITALS: BP 135/86
--- NOTE | 2022-07-03 15:55 | NUR ---
PT REQUESTING TO LEAVE. MASON ORTEGA MADE AWARE
[2022-07-03] MEDS ORDERED: AMOX1TAB8 PO (15:59)
[2022-07-03] MEDS ORDERED: DOCU-299 PO (15:59)
--- NOTE | 2022-07-03 16:00 | NUR ---
Patient does not wish to proceed with medical care recommended by MASON ORTEGA. Patient given information related to possible complications, up to and including , which could occur as a result of leaving hospital at this time. Patient verbalizes understanding of risks involved leaving against medical advice. Patient has signed AMA form. Addendum: 07/03/22 at 1617 by [email or web address] RX OF AMOX-CLAV 875-125MG AND COLACE SENT TO [facility]. INFORMATION REGARDING DIVERITICULITIS, CONSTIPATION, AND COMMUNITY ACQUIRED PNA GIVEN.
[2022-07-03 18:10] LABS: ALBUMIN 2.5 g/dL (3.4-5.0); ANION GAP 11.8 (8-16); CARBON DIOXIDE 25.3 mmol/L (21-32); CREATININE 0.7 mg/dL (0.6-1.3); POTASSIUM 4.1 mmol/L (3.5-5.1); TOTAL BILIRUBIN 0.2 mg/dL (0.0-1.0)
[2022-07-03 19:26] LABS: APPEARANCE,URINE CLEAR (CLEAR); BILIRUBIN,URINE NEGATIVE (NEGATIVE); BLOOD, URINE TRACE-I (NEGATIVE); COLOR,URINE YELLOW (YELLOW); LEUKOCYTE ESTERASE ,URINE 3+ (NEGATIVE); NITRITE, URINE NEGATIVE (NEGATIVE); PH,URINE 6.5 (5.0-9.0); UGLUCOSE NEGATIVE (NEGATIVE)
== END 2022-07-03 16:00 | disposition left against medical advice (07) ==
LOC: MED 10:32
DX: K57.92 Diverticulitis of intestine, part unspecified, without perforation or abscess without bleeding (principal); K59.00 Constipation, unspecified; J44.9 Chronic obstructive pulmonary disease, unspecified; I11.0 Hypertensive heart disease with heart failure; I50.9 Heart failure, unspecified; Z79.899 Other long term (current) drug therapy; Z87.442 Personal history of urinary calculi
CPT/HCPCS: 36415; 74176; 80053; 81001; 83690; 85025; 87086; 96361; 96374; 99284; J2270; J1885; J7030